=== PATIENT | male | born 1935 | race Caucasian/White ===

== ENCOUNTER 2019-11-11 14:47 | Outpatient (CLI) | payer MEDICARE, OTHER, SELFPAY ==
--- NOTE | 2019-11-11 | US_ITS ---
WS: [id number] ULTRASOUND RENAL TECHNIQUE: Ultrasound examination of both kidneys. CLINICAL INFORMATION: HEMATURIA COMPARISON: FINDINGS: RIGHT: Right nephrectomy LEFT: Several renal cysts the largest measuring 6.0 x 5.0 x 5.5 cm Left kidney is normal in size and appearance. Echogenicity: Normal. Hydronephrosis: None. Perinephric fluid: None. Left kidney measures: 12.5 cm x 6.1 cm x 6.4 cm. Normal visualized aorta. Bladder not well distended. Nodular enlarged prostate. Recommend correlation PSA. US/US renal BI* [id number] IMPRESSION: 1. Prior right nephrectomy. 2. Several simple left renal cysts largest measuring 6.0 x5.0 x 5.5 cm lower p ole left kidney. This appears enlarged compared to 2016. 3. Prostate enlargement. Recommend correlation PSA.
== END 2019-11-11 14:48 | disposition home or self-care (01) ==
LOC: RADOUTREAD 11-12 11:45
PROVIDERS: Family Provider Family Medicine; PCP Family Medicine; Visit Provider Nurse Practitioner Family
DX: Z76.89 Persons encountering health services in other specified circumstances (principal)

== ENCOUNTER → 2019-11-22 09:53 | Outpatient (BNVA) | payer MEDICARE, OTHER, SELFPAY | PROVIDERS: Family Provider Family Medicine; PCP Family Medicine; Visit Provider Urology | DX: R33.8 Other retention of urine (principal); N39.9 Disorder of urinary system, unspecified; N42.1 Congestion and hemorrhage of prostate | CPT/HCPCS: 81001 ==

== ENCOUNTER → 2020-02-25 13:27 | Outpatient (BNVA) | payer MEDICARE, OTHER, SELFPAY | PROVIDERS: Family Provider Family Medicine; PCP Family Medicine; Visit Provider Urology | DX: N40.1 Benign prostatic hyperplasia with lower urinary tract symptoms (principal); N39.9 Disorder of urinary system, unspecified | CPT/HCPCS: 81001 ==

== ENCOUNTER 2020-07-20 13:29 | Outpatient (CLI) | payer MEDICARE, OTHER, SELFPAY ==
--- NOTE | 2020-07-20 13:35 | CT_ITS ---
WS: [id number] CT CHEST TECHNIQUE: Noncontrast CT of the chest with coronal and sagittal reformatted images. CLINICAL INFORMATION: LUNG NODULE COMPARISON: CT chest August 05, 2013 and PET/CT August 14, 2013 DLP: 903.[address] scans at [facility] use at least one of these dose optimization techniques: automat ed exposure control; mA and/or kV adjustment per patient size (includes targeted exams where dose is matched to clinical indication); or iterative reconstruction. FINDINGS: Interval increase in size of the left lung apex mass today measuring 4.1 x 3.6 x 3.8 cm compatible wi th neoplasm. Surrounding spiculation. Small amount of surrounding infiltrate. Additional satellite no dule left upper lobe measuring 5 mm. Left upper lobe mass appears to connect to the left hilum with l eft hilar lymphadenopathy. Left hilar lymphadenopathy measures 2.3 CM. Right lung is well aerated. Ch ronic emphysematous changes. Slight atelectasis in the lung bases. Aortic calcification. Coronary bharat cification. No axillary lymphadenopathy. Cholelithiasis. Normal GE junction. Partially visualized left renal cyst. Moderate thoracic kyphosis. Ankylosis thoracic spine. CT/CT chest wo con [id number] IMPRESSION: 1. Interval increase of the left upper lobe mass today measuring 4.1 x 3.6 x 3 .8 cm most compatible with neoplasm. This can be further evaluated PET/CT. 2. Left upper lobe mass appears to extend to the left hilum with left hilar ly mphadenopathy measuring 2.3 cm. 3. Left upper lobe satellite nodule measuring 4.6 mm. 4. Cholelithiasis. 5. Partially visualized left renal cysts.
== END 2020-07-20 13:30 | disposition home or self-care (01) ==
LOC: RADWPI 13:34
PROVIDERS: Family Provider Family Medicine; PCP Family Medicine; Visit Provider Family Medicine
DX: R91.1 Solitary pulmonary nodule (principal); Q61.02 Congenital multiple renal cysts; K80.20 Calculus of gallbladder without cholecystitis without obstruction; R91.8 Other nonspecific abnormal finding of lung field
CPT/HCPCS: 71250

== ENCOUNTER 2020-07-31 09:23 | Outpatient (CLI) | payer MEDICARE, OTHER, SELFPAY ==
--- NOTE | 2020-07-31 14:24 | ONC CON_ITS ---
Dr. Giordano New Patient Note Patient: Diego Garzon Unit #: [id number]: [id number] Dicatated By: Josh Giordano M.D.Date of Visit: Jul 31, 2020 Onc MED New Patient/Consult Referring Physician: Dr. Toni Strauss M.D. Dr. Marco Antonio Cantrell M.D. Chief Complaint: Lung cancer. History of Present Illness: This is an 85-year-old man with CT evidence of a left upper lobe lung mass, presumed malignant. 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 By the current TNM criteria, his disease was Stage IA3 (T1c, N0, M0). He received no further treatment. At that time, his PET/CT had also shown an FDG avid right renal mass, for which he underwent right nephrectomy in October 2012. It apparently was a renal cell carcinoma, though that pathology is not available to me at this time. On 07/10/2020 he was seen by Dr. Strauss with new onset of hemoptysis. His chest CT on 07/20/2020 showed a left upper lobe mass measuring 4.1 x 3.6 x 3.8 cm. An additional satellite nodule in the left upper lobe measured 5 mm. The mass appeared to connect to the left hilum with left hilar adenopathy measuring 2.3 cm. There was no evidence of other metastatic disease. He is seen now for further management. In talking with the patient and his daughter, it does appear that he has had gradual decline in his activity tolerance/performance status since at least February. He says he is not able to do much because he cannot get air. His ECOG score is 2. He still has good appetite, and his weight is stable. He does not have fever or night sweats. He complains that he is freezing all the time. He is short of breath with any activity. He continues to have cough, but his hemoptysis has resolved. He has been having some pain in the right chest. Recently has been having some loose stools. He has no other GI complaints. He had seen Dr. Cantrell in October because of hematuria, but that resolved. Bladder function is otherwise been okay. He complains of having pain all over. The worst is in his back and legs. He describes having burning and tingling in his legs and feet. Past Medical History: His medical history includes a history of lung cancer and renal cell cancer, benign prostatic hypertrophy, degenerative arthritis, hyperlipidemia, hypertension, and type II diabetes. Past Surgical History: His surgical/procedural history includes right nephrectomy in 2012, right upper lobectomy with mediastinal lymphadenectomy in 2011, and TURP in 1992. Medications: Finasteride 1 (5 mg) Tablet Oral at bedtime, Furosemide 1 (40 mg) Tablet Oral b.i.d., Metoprolol Tartrate 1 (100 mg) Tablet Oral b.i.d., Potassium Chloride 1 (10 meq) Capsule, controlled release Oral daily, Simvastatin 1 (40 mg) Tablet Oral at bedtime, Zolpidem Tartrate 1 (10 mg) Tablet Oral at bedtime Allergies: No Known Allergies. Social History: Mr. Garzon is . He has a history of smoking 2 packs of cigarettes daily for about 45 years. He quit smoking in 2000. He does not drink alcohol. He had some alcohol use in the past, but never heavy. Family History: Father of stomach cancer at age 56. Mother of stroke at age 86. He had a total of 7 siblings, all of whom are . One sister and one brother of lung cancer and another sister of liver cancer. Another brother had heart disease. Review Of Symptoms: Constitutional - He has very limited activity. Appetite is good and weight is stable. No fever or night sweats. He does complain that he feels cold all the time. ECOG score is 0, Eyes - No change in vision, ENMT - He has sinus congestion/drainage. No mouth sores. No sore throat or difficulty swallowing, Hematologic/Lymphatic - He has easy bruising, Respiratory - He has shortness of breath, which is severe enough to limit his activity. He still has cough, but not as much. He has had no further hemoptysis. He does have some pain in the right side of the chest, Cardiovascular - No angina pain. No palpitations, Gastrointestinal - No nausea or vomiting. No heartburn or acid reflux. Recently has been having some loose stools. No blood in the stool or black stools, Genitourinary (M) - He had seen Dr. Óscar truong in October for blood in the urine. He has had no problems since then, Musculoskeletal - He has generalized pain, but the worst is in the back and legs, Integumentary - No skin rash, Neurologic - He has had some headaches. He also complains of having lightheadedness. He has burning and tingling in his legs and feet, Psychiatric - He has had some depression since his in March. He sleeps okay with his medication. Vital Signs: Performed on Jul 31, 2020 10:14: 7, 30.10 (HIGH), 2.13 sq.m, 70.00 in, 98 %, 100 /min, 24 /min, 139/59 mm(hg), 98.3 F (LOW), 209.8 lbs (LOW), and Performed on Jul 13, 2012 10:57: 0. Physical Examination: Constitutional - He appears elderly and somewhat weak generally, Eyes - Sclerae nonicteric. Conjunctivae clear, ENMT - No lesions noted in the oral cavity, Neck - No mass or thyromegaly, Hematologic/Lymphatic - No cervical, clavicular, or axillary adenopathy, Respiratory - Lungs are clear with diminished air movement bilaterally, Cardiovascular - Heart rhythm is regular. There is a II/ systolic murmur. There is no gallop or rub noted, Abdomen - Soft. Liver and spleen are not enlarged. There is no abdominal mass or ascites noted and there is no inguinal adenopathy, Back/Spine - There is no bony tenderness in the spine. He does have limited mobility, particularly at the neck, Extremities - There are venous stasis changes in both legs and there is mild lower extremity edema. I am not able to palpate pedal pulses, but both feet are warm to touch. He has some chronic purpura on the arms, Integumentary - No rashes. No suspicious skin lesions noted, Neurologic - No focal neurologic deficits noted. Impression: 1. Patient with CT evidence of malignant appearing mass in the upper lobe of the left lung. There is associated left hilar adenopathy. He has been having hemoptysis, but that currently has resolved. He also has been showing decline in performance status. 2. In July 2012 he underwent right upper lobectomy/mediastinal lymphadenectomy for a T1c, N0 non-small cell carcinoma. He received no further treatment. 3. In October 2012 he underwent right nephrectomy for renal cell cancer. I do not have the pathology available. His other medical illnesses include: 4. Hypertension. 5. Hyperlipidemia. 6. Type 2 diabetes. 7. Degenerative arthritis. 8. Benign prostatic hypertrophy. 9. He has chronic venous stasis in the lower extremities. 10. He also appears to be having neuropathy pain in the lower extremities. Plan: The CT findings were reviewed with the patient and his daughter, we also reviewed the CT images. He has an obvious malignancy in the left upper lobe with associated left hilar node involvement. As his visit with Dr. Strauss, he was extremely reluctant to have any treatment. My main concern with that is the fact that he had presented with hemoptysis, and that is likely to be an ongoing problem if left untreated. As such, I did recommend seeing Dr. Travis for bronchoscopy and also having a staging PET/CT, as he potentially may benefit with palliative radiation. At this point he is agreeable, and I will get that scheduled. As he has been having significant issues associated with his lower extremity pain, he also will be given a prescription for gabapentin 300 mg 3 times daily. Signed By: Josh Giordano M.D. <<Signature on File>>
== END 2020-07-31 09:24 | disposition home or self-care (01) ==
LOC: ONCMED 09:26
PROVIDERS: PCP Family Medicine; Referring Provider Family Medicine; Visit Provider Internal Medicine Medical Oncology
DX: C34.12 Malignant neoplasm of upper lobe, left bronchus or lung (principal); C77.1 Secondary and unspecified malignant neoplasm of intrathoracic lymph nodes; R04.2 Hemoptysis; M79.605 Pain in left leg; M79.604 Pain in right leg; R20.2 Paresthesia of skin; I10 Essential (primary) hypertension; E78.5 Hyperlipidemia, unspecified; E11.9 Type 2 diabetes mellitus without complications; M19.90 Unspecified osteoarthritis, unspecified site; N40.0 Benign prostatic hyperplasia without lower urinary tract symptoms; I87.8 Other specified disorders of veins
CPT/HCPCS: 99205

== ENCOUNTER → 2020-08-04 14:46 | Outpatient (BNVA) | payer MEDICARE, OTHER, SELFPAY | PROVIDERS: PCP Family Medicine; Visit Provider Internal Medicine Critical Care Medicine | DX: Z11.59 Encounter for screening for other viral diseases (principal); N42.1 Congestion and hemorrhage of prostate | CPT/HCPCS: 87635 ==

== ENCOUNTER 2020-08-07 05:46 | Day surgery (SDC) | payer MEDICARE, OTHER, SELFPAY ==
[2020-08-06 17:11] VITALS: BMI 30.7
[2020-08-07] VITALS (7 sets, daily range): BP systolic 125–139; BP diastolic 64–85; PULSE 88–105; RESP 16–22; TEMP 36.5–36.7; O2SAT 93–100
--- NOTE | 2020-08-07 | CT_ITS ---
Guided Bronchoscopy Planning CT images; total exam DLP: 796.34 mGy-cm MTDD
[2020-08-07] MEDS: sodium chloride 0.9% 1,000 ML 30 ML IV (06:35)
--- NOTE | 2020-08-07 06:41 | ECG_ITS ---
[facility] Test Date: 2020-08-07 Pat Name: Diego Garzon Department: Room: Gender: Male Online Journalist: : 1935 Requested By: Ghazal Aquino Order Number: [id number] Shannan MD: Brent Polanco M.D. Measurements Intervals [place] Rate: 74 P: OR: -1 QRS: -1 QRSD: 85 T: 30 QT: 402 QTc: 447 Interpretive Statements ATRIAL FIBRILLATION ABNORMAL RHYTHM ECG No previous ECG available for comparison Electronically Signed On 08-07-2020 19:58:50 TROMPER by Brent Polanco M.D. [id number]
--- NOTE | 2020-08-07 06:46 | W.PM.OPSUD ---
Surgery/Procedure H&P Update DATE OF PROCEDURE: August 07, 2020 DATE H&P PERFORMED: 08/04/20 H&P UPDATE INFORMATION: I have reviewed H&P completed within last 30 days, I have examined patient prior to procedure and No changes to prior documentation PREOP DIAGNOSIS: Lung cancer PLANNED PROCEDURE: Bronchoscopy with inspection of the airway, possible endobronchial biopsy, bronchoalveolar lavage, navigational bronchoscopy guided transbronchial needle biopsy of the left upper lobe lung mass, fine-needle aspiration and Cytobrush, endobronchial sound guided transbronchial needle aspiration of lymph nodes. Operation Date: 08/07/20 07:00 Proposed Procedures p Bronchoscopy R91.1 72987(Not Applicable) - Hayden Travis MD s Ebus R91.1 27222(Not Applicable) - Hayden Travis MD
--- NOTE | 2020-08-07 07:01 | P.ANESASSM_ITS ---
Pre-Anesthetic Assessment Pre-Anesthetic Assessment: Height/Weight: Height 1.78 m Weight 97.069 kg Temp Pulse Resp BP Pulse Ox 97.7 F 89 18 127/66 94 08/07/20 06:04 08/07/20 06:04 08/07/20 06:04 08/07/20 06:04 08/07/20 06:04 Preop Diagnosis: Lung cancer Proposed Procedure: Operation Date: 08/07/20 07:00 Proposed Procedures p Bronchoscopy R91.1 27492(Not Applicable) - Hayden Travis MD s Ebus R91.1 06346(Not Applicable) - Hayden Travis MD s Veran(Not Applicable) - Hayden Travis MD Last intake: Intake Last Liquid Date 08/06/20 Last Liquid Time 21:00 Last Solid Date 08/06/20 Last Solid Time 18:00 Social: Social History: No alcohol and No tobacco Packs per day: Previous smoker; quit 2001 Exam: Pre-Anes Outpt Exam: alert and oriented x 3 Additional Exam Findings (including area of procedure): Markedly diminished BS bilaterally Irregularly irregular S1, S2; no murmurs, gallops or rubs Airway: Submandibular: WNL Cervical ROM: WNL MP: 2 Dentition: False Pulmonary: Pulmonary: COPD, Cough, CHANG, PND and SOB CV/HEM: CV/HEM: CAD, CHF, HTN and PVD : : Chronic renal Insufficiency Hepatic: Hepatic: None reported GI: GI: None reported Metabolic: Metabolic: Hyperlipidemia Musc/skel: Musc/skel: Weakness Neuropsych: Neuropsych: None reported Anesthetic Plan: ASA status: 4 Anesthesia: General Meds/Allergies Current Medications: Current Medications Generic Name Dose Route Start Last Admin Trade Name Freq PRN Reason Stop Dose Admin Sodium Chloride 1,000 mls @ 30 ml s/hr 08/07/20 06:00 08/07/20 06:35 Sodium Chloride 0.9% IV 08/08/20 05:59 30 mls/hr .Q24H RICKY Administration PFSH Anesthesia PFSH: Medical History (Updated 08/04/20 @ 15:07 by Hayden Travis MD) Arthritis Benign prostatic hyperplasia BPH loc w urin obs/LUTS Chronic venous stasis H/O cataract bilateral cataract surgery Hilar adenopathy HTN (hypertension) Hyperlipidemia Lung cancer Prostatic hemorrhage Renal cell cancer Surgical History (Updated 08/04/20 @ 15:01 by Hayden Travis MD) H/O right nephrectomy H/O transurethral resection of prostate History of lobectomy of lung History of nephrectomy, right S/P TURP Status post lung surgery Family History (Updated 08/04/20 @ 14:43 by Danyelle Pastrana LPN) Father , 58 Cancer Mother , 80 Stroke Diabetes Family/Other Cancer lung, liver Diabetes Hypertension Brother Cancer Lung CAD (coronary artery disease) Sister Cancer Liver Social History Smoking and tobacco status: former smoker Quit status (tobacco): has quit using tobacco Year quit tobacco: 2000-Hx of 2PP Dx 45 Years Alcohol intake: never Lives independently: Yes Household members: none Marital status: / Current occupational status: retired History of recent travel: No Current gender identity: Male Data Anesthesia Cardiac Studies: No Data to Display
[2020-08-07 07:25] LABS: Basophils # 0.1 10^3/uL (0.0-0.1); Basophils % 0.5 %; Eosinophils # 0.3 10^3/uL (0.0-0.8); Eosinophils % 3.3 %; Hematocrit 41.2 % (42.0-52.0); Hemoglobin 12.8 g/dL (11.7-16.6); Lymphocytes # 0.8 10^3/uL (0.8-4.8); Lymphocytes % 8.7 %; Mean Corpuscular HGB Conc 31.1 g/dL (30.0-36.0); Mean Corpuscular Hemoglobin 29.3 pg (28.0-34.0); Mean Corpuscular Volume 94.3 fL (80-94); Mean Platelet Volume 11.3 fL (7.4-10.4); Monocytes # 1.1 10^3/uL (0.2-0.9); Monocytes % 11.4 %; Neutrophils # 7.14 10^3/uL (1.8-7.7); Neutrophils % 74.2 %; Nucleated Red Blood Cells % 0 %; Platelet Count 125 10^3/cmm (130-400); Red Blood Count 4.37 10^6/uL (4.1-5.3); Red Cell Distribution Width 15.3 % (12.1-15.1); White Blood Count 9.6 10^3/uL (4.0-10.0)
[2020-08-07 07:40] LABS: Anion Gap 16.3 (5-19); Blood Urea Nitrogen 52 mg/dL (8-23); Calcium 9.1 mg/dL (8.5-10.5); Carbon Dioxide 27 mmol/L (22-29); Chloride 100 mmol/L (98-107); Glucose 116 mg/dL (65-115); Osmolality Calculated 301 mOsm/kg (285-295); Potassium 5.3 mmol/L (3.5-5.1); Sodium 138 mmol/L (136-145)
[2020-08-07] MEDS: lidocaine 1% INJ 20 mL XX (08:10)
[2020-08-07 08:48] LABS: Slide Review Slide Review Perform
--- NOTE | 2020-08-07 08:56 | PM.OP ---
Operative Report Date of procedure: August 07, 2020 Pre-op Diagnosis: Lung cancer Post-op diagnosis: same Brief History: This is an 85-year-old gentleman with previous history of right upper lobe lung cancer status post right upper lobectomy now coming in for bronchoscopic evaluation for left upper lobe lung mass. Procedure: Name of the procedure: Bronchoscopy with inspection of the airway, navigational bronchoscopy guided transbronchial biopsies of left upper lobe lung mass, fine-needle aspiration Indication: Suspected lung cancer Anesthesia: General anesthesia. Local anesthesia: The maya in the right and left mainstem bronchi were anesthetized with 1% lidocaine, 3 mL. Description of the procedure: The procedure was explained to the patient and the consent was obtained. The patient was brought to the OR. The patient underwent endotracheal intubation for general anesthesia. Following induction of general anesthesia, the bronchoscope was advanced through the ET tube. The lower trachea appeared to be mildly erythematous, no endotracheal lesion was seen. The maya was sharp. The maya, the right and left mainstem bronchi are anesthetized with 1% lidocaine. In a systematic manner bilateral bronchial tree was then examined. The bronchoscope was advanced into the left mainstem bronchus. There was mild erythema and mucus. The left upper lobe, lingula and left lower lobe bronchi were examined up to the third subsegmental level and no abnormalities were identified. There was no endobronchial lesion, active bleeding or mucous plug. The bronchoscope was then introduced into the right mainstem bronchus. The right upper lobe was absent from previous surgical intervention.the right middle lobe and right lower lobe bronchi were examined up to the third subsegmental level and no abnormalities were identified. There was airway erythema and mucus throughout the lung. Using navigational bronchoscopy transbronchial biopsies were obtained from the left upper lobe lung mass. Fine-needle aspirations were also performed. Samples: 1. Transbronchial biopsies are sent for histopathology. 2. The FNA were sent for cytology and histopathology. The EBUS was not performed as the patient would not be a surgical candidate and we predominately needed the diagnosis. Complications: There was no immediate complications.
--- NOTE | 2020-08-07 11:13 | PTH.EBUS ---
Endobronchial Ultrasound Specimen(s): Lung, left upper lobe, fine-needle aspiration biopsy. Gross: The specimen is received on a slide labeled with the patient's name and MRN number and consists of a 1 mm tissue for rapid onsite evaluation prepared with 2 Diff-Quik stained slides. Preliminary Impression: Lung, left upper lobe , fine-needle aspiration biopsy: ?Atypical clusters, Suspicious for malignancy. - Specimen Information Pathologist: Cam Mendoza Date: 08/07/20 Specimen reported at what time: 08:15 - Clinician Specimen collection time: 08:10 Clinician reported to: Hayden Travis
--- NOTE | 2020-08-07 14:35 | ANE.PACU2 ---
Inpatient post-anesthesia follow up: Airway intact: Yes Vital signs: Temperature 98.0 F Pulse Rate 93 Respiratory Rate 20 Blood Pressure 125/67 Pulse Oximetry 93 Oxygen Delivery Me thod Room Air Oxygen Flow Rate 6 Fraction of Inspir ed Oxygen Hydration adequate: Yes Nausea and vomiting: No Pain level: 2 Mental status: Baseline
== END 2020-08-07 09:50 | disposition home or self-care (01) ==
PROVIDERS: Anesthesiology; PCP Family Medicine; Visit Provider Internal Medicine Critical Care Medicine
PROC: 0BJ08ZZ Inspection of Tracheobronchial Tree, Via Natural or Artificial Opening Endoscopic (ICD-10-PCS; CPT 31622; principal; 2020-08-07 07:00)
PROC: 0BJ08ZZ Inspection of Tracheobronchial Tree, Via Natural or Artificial Opening Endoscopic (ICD-10-PCS; CPT 31622; 2020-08-07 07:00)
DX: R91.8 Other nonspecific abnormal finding of lung field (principal); Z87.891 Personal history of nicotine dependence; J44.9 Chronic obstructive pulmonary disease, unspecified; I25.10 Atherosclerotic heart disease of native coronary artery without angina pectoris; I13.0 Hypertensive heart and chronic kidney disease with heart failure and stage 1 through stage 4 chronic kidney disease, or unspecified chronic kidney disease; I50.9 Heart failure, unspecified; N18.9 Chronic kidney disease, unspecified; I73.9 Peripheral vascular disease, unspecified; E78.5 Hyperlipidemia, unspecified; Z85.118 Personal history of other malignant neoplasm of bronchus and lung; Z85.528 Personal history of other malignant neoplasm of kidney; Z90.5 Acquired absence of kidney; Z90.2 Acquired absence of lung [part of]
CPT/HCPCS: 12345; 31625; 31627; 77011; 80048; 80500; 85025; 88173; 88305; 93005; J2370; J2405; J2710; J3490; J7030

== ENCOUNTER 2020-08-09 17:27 | Emergency (ER) | payer MEDICARE, OTHER, SELFPAY ==
[2020-08-09 17:35] VITALS: BP 119/67; PULSE 114; RESP 24; TEMP 36.5; O2SAT 92; BMI 30.7
--- NOTE | 2020-08-09 17:41 | ECG_ITS ---
[facility] Test Date: 2020-08-09 Pat Name: Diego Garzon Department: Room: Gender: Male Shot Blaster: : 1935 Requested By: Aby Gaffney Order Number: [id number] Shannan MD: Bianca Liang M.D. Measurements Intervals [place] Rate: 109 P: [place]: -1 QRS: 3 QRSD: 92 T: 42 QT: 339 QTc: 457 Interpretive Statements ATRIAL FIBRILLATION WITH RAPID VENTRICULAR RESPONSE SEPTAL MYOCARDIAL INFARCTION [40+ ms Q WAVE IN V1/V2], OF INDETERMINATE AGE Compared to ECG 08/07/2020 06:46:48 Myocardial infarct finding now present Electronically Signed On 08-09-2020 21:15:35 CHILLER OPERATOR by Bianca Liang M.D. [id number]
--- NOTE | 2020-08-09 18:04 | XRR_ITS ---
PROCEDURE INFORMATION: Exam: XR Chest, 1 View Exam date and time: 08/09/2020 6:19 PM Age: 85 years old Clinical indication: Mass, lump, or swelling in the chest; Additional info: SOB TECHNIQUE: Imaging protocol: XR of the chest Views: 1 view. COMPARISON: CT chest wo con [id number] 07/20/2020 1:43 PM FINDINGS: Lungs: Again note of the left upper lobe lung carcinoma measuring approximately 51 mm in diameter. Pleural space: Unremarkable. No pleural effusion. No pneumothorax. Heart/Mediastinum: Left hilar fullness most likely hilar lymphadenopathy. Cardiomegaly with arteriosclerosis. Bones/joints: Unremarkable for age. Other findings: Heavy body habitus. XR/XR chest 1V portable [id number] IMPRESSION: 1. Again note of the left upper lobe lung carcinoma measuring approximately 51 mm in diameter. 2. Left hilar fullness most likely tumor lymphadenopathy. 3. Cardiomegaly with arteriosclerosis.
--- NOTE | 2020-08-09 18:30 | ED_ITS ---
HPI - Male Genitourinary General: Chief complaint: Urogenital-Male Stated complaint: difficulty w/ bm Time Seen by Provider: 08/09/20 17:49 History of Present Illness: HPI Narrative: This patient is an 85-year-old male who presents today with difficulty urinating. He has not been able to urinate well in several days. He has not been able to go normally in quite some time. He said Monday he had a bronchoscopy done and ever since then he has been having just dribbling urination. He is having pressure and pain across his lower abdomen. He denies dysuria. He has no blood in the urine. He has previously had problems with blood in the urine, prostate issues, renal issues. He follows up with Dr. Cantrell. He has had a nephrectomy due to renal cancer. He also has had surgery on his left lung for lung cancer. He has had another mass more recently discovered and had a biopsy during the bronchoscopy on Monday. He is only interested in palliative care of the lung cancer. Apparently he was also found to have A. fib at that time. He is not on any blood thinners. He also notes that he has been having trouble having a bowel movement since he started having the problems with his bladder. He has swelling in his legs which she said is chronic and unchanged. He is able to ambulate with assistance. He does have increased shortness of breath. MD Complaint: other (Unable to urinate) Onset (ago): day(s) (2) Duration: constant Location: abdomen Radiation: abdomen Severity: moderate Quality: sharp Relieving factors: none Exacerbating factors: palpation Associated symptoms: Reports urinary retention; Deny dysuria, fevers/chills, hematuria or nausea Review of Systems General: Reports: 10 or more systems reviewed and unremarkable except in HPI and below Const: Reports: fatigue; Denies: fever(s), chills or malaise Eyes: Denies: change in vision ENMT: Denies: odynophagia Card: Reports: irregular heart rhythm, swelling of feet/ankles and dyspnea on exertion; Denies: chest pain Resp: Reports: dyspnea and hemoptysis; Denies: productive cough or non-productive cough GI: Denies: nausea : Reports: difficulty urinating and urinary dribbling; Denies: dysuria or hematuria Musc: Denies: neck pain or back pain Skin/Breast: Denies: rash Neuro: Denies: headache(s), numbness in extremities or weakness in extremities Karlos/Lymph: Denies: easy bruising or easy bleeding PFSH ED PFSH: Medical History Arthritis Benign prostatic hyperplasia BPH loc w urin obs/LUTS Chronic venous stasis H/O cataract bilateral cataract surgery Hilar adenopathy HTN (hypertension) Hyperlipidemia Lung cancer Prostatic hemorrhage Renal cell cancer Surgical History H/O right nephrectomy H/O transurethral resection of prostate History of lobectomy of lung History of nephrectomy, right S/P TURP Status post lung surgery Family History Father , 58 Cancer Mother , 80 Stroke Diabetes Family/Other Cancer lung, liver Diabetes Hypertension Brother Cancer Lung CAD (coronary artery disease) Sister Cancer Liver Social History Smoking and tobacco status: former smoker Quit status (tobacco): has quit using tobacco Year quit tobacco: 2000-Hx of 2PPDx 45 Years Alcohol intake: never Lives independently: Yes Household members: none Marital status: / Current occupational status: retired History of recent travel: No Current gender identity: Male Physical Exam Const: COMMON NORMALS: no acute distress, patient oriented x3, no limitations and alert GENERAL APPEARANCE: cooperative HENMT: HEAD & SCALP: normal to inspection FACE & SINUS: normal facial exam Eye: GENERAL EYE: appearance normal, both eyes and all related structures Neck/C-Spine: COMMON NORMALS: supple, no meningeal signs and no JVD Chest: COMMONS NORMALS: normal inspection of the chest Resp: COMMON NORMALS: normal respiratory effort, No use of accessory muscles and clear to auscultation bilaterally AUSCULTATION: clear to auscultation bilaterally Cardio: COMMON NORMALS: no JVD, regular rate, regular rhythm and No murmurs present (Cardio) RATE: regular rate RHYTHM: regular rhythm GI: COMMON NORMALS: Normal to inspection, nondistended, normoactive bowel sounds present INSPECTION: Yes normal to inspection AUSCULTATION: Yes normoactive bowel sounds PALPATION: Yes Tenderness to palpation present (GI) (Suprapubic) Back/Pelvis: COMMON NORMALS: thoracic and lumbar spine normal to inspection Extremity: COMMON NORMALS: normal to inspection Neuro: COMMON NORMALS: patient oriented x3, moves all extremities, no focal motor deficits and no sensory deficits noted SENSORIUM/ORIENTATION: Yes alert MENINGEAL SIGNS: Yes no meningeal signs Psych: COMMON NORMALS: mental status grossly normal, cooperative and normal affect Skin: COMMON NORMALS: no rashes or lesions noted and turgor normal GENERAL SKIN EXAM: no rashes or lesions noted and turgor normal Course ED course: Patient refused labs. He said he is only here for urinary retention and just wants a Wang placed. He has had labs in preparation for his procedure on Monday and is under close monitoring by multiple physicians. He is already being worked up for the atrial fibrillation and the cancers. I am okay with him not getting a big work-up in the ED tonight. He put about 1200 cc of urine out in the catheter. Urine was not infected. He will follow-up with Dr. Cantrell and continue his work-up with his other physicians as well. Vital Signs: Vital signs: Vital Signs Temperature 97.7 F 08/09/20 17:35 Pulse Rate 79 08/09/20 20:20 Respiratory Rate 18 08/09/20 20:20 Blood Pressure 134/86 08/09/20 20:20 Pulse Oximetry 99 08/09/20 20:20 MDM - Male Lab Data: Labs: Lab Results 08/09/20 Range/Units 19:50 Urine Color Yellow (Yellow) Urine Appearance Clear (CLEAR) Urine pH 5 (5-7) Ur Specific Gravit y 1.010 (1.005-1.030) Urine Protein Neg (Negative) Urine Glucose (UA) Norm (Normal) Urine Ketones Negative (Negative) Urine Blood 2+ H (Negative) Urine Nitrate Negative (Negative) Urine Bilirubin Neg (Negative) Urine Urobilinogen Norm (Negative) mg/dL Ur Leukocyte Nataliya ase Negative (Negative) Urine RBC 0-4 H (0-2) /hpf Urine WBC 0-4 H (0-5) /hpf Ur Squamous Epith Cells 0-4 H (0-5) /hpf Amorphous Sediment Not Reportable Urine Bacteria Trace (NONE) /hpf Discharge Plan Discharge Patient Disposition: Home Clinical Impression: Acute retention of urine Condition: Stable Prescriptions: No Action zolpidem 10 mg tablet 10 mg PO .hs RF: 0 potassium chloride 10 mEq capsule, extended release 10 meq PO DAILY RF: 0 simvastatin 40 mg tablet 40 mg PO DAILY RF: 0 furosemide 40 mg tablet 40 mg PO DAILY RF: 0 metoprolol succinate 200 mg tablet extended release 24 hr 100 mg PO DAILY RF: 0 gabapentin 300 mg capsule 300 mg PO TID RF: 0 albuterol sulfate 90 mcg/actuation HFA aerosol inhaler 2 puff inhalation Q6H PRN (Reason: sob) RF: 0 finasteride 5 mg tablet 5 mg PO QDAY Qty: 90 RF: 3 spironolactone 25 mg tablet 25 mg PO DAILY RF: 0 Discharge Orders: Discharge Order (Routine); Ordered 08/09/20 Ordered By: Terra Andrews Referrals: Marco Antonio Cantrell MD [Physician] - Toni Strauss MD [Primary Care Provider] - Discharge Diet: Usual diet Discharge Activity: Resume usual activity Patient Instructions: Urinary Retention in Men (ED), Wang Catheter Placement and Care (ED) Activity Restrictions/Additional Instructions: Follow-up with Dr. Cantrell to have the catheter removed and further treatment for your urinary retention. Coding Level of Care Code ED Wire Stockkeeper for Morag Fwd Exam Comprehensive
[2020-08-09 20:01] LABS: Glucose Urine UA Norm (Normal); Ketones Urine Negative (Negative); Protein Urine Neg (Negative); Urine Appearance Clear (CLEAR); Urine Color Yellow (Yellow); pH Urine 5 (5-7)
[2020-08-09 20:02] LABS: Add Urine Microscopic? YES; Bilirubin Urine Neg (Negative); Blood Urine 2+ (Negative); Leukocyte Esterase Urine Negative (Negative); Nitrate Urine Negative (Negative); Urobilinogen Urine Norm (Negative)
[2020-08-09 20:20] VITALS: BP 134/86; PULSE 79; RESP 18; O2SAT 99
[2020-08-09 20:23] LABS: Add Urine Culture? No; Bacteria Urine TRACE /hpf; RBC Urine 0-4 /hpf (0-2); Squamous Epithelial Cell Urine 0-4 /hpf (0-5); WBC Urine 0-4 /hpf (0-5)
--- NOTE | 2020-08-13 14:30 | DCPLANNER ---
brokerage office manager had message to schedule a follow up appointment for patient with Dr. Lindo office. brokerage office manager spoke with Odalis, gave clinic patients information. brokerage office manager was told that patients information would be printed and reviewed. Clinic will call patient with appointment information.
--- NOTE | 2020-08-14 11:22 | DCPLANNER ---
Patient has a follow up appointment scheduled for Monday, August 24, 2020 at 2:[address] Cantrell. Clinic will call patient with appointment information.
--- NOTE | 2020-08-26 14:40 | DCPLANNER ---
Patient had an appointment scheduled for 08.24.[address] Cantrell, appointment was cancelled patient went to primary care physician.
== END 2020-08-09 20:21 | disposition home or self-care (01) ==
PROVIDERS: Emergency Provider Emergency Medicine; PCP Family Medicine
DX: R33.9 Retention of urine, unspecified (principal); I10 Essential (primary) hypertension; E78.5 Hyperlipidemia, unspecified; Z85.118 Personal history of other malignant neoplasm of bronchus and lung; Z85.528 Personal history of other malignant neoplasm of kidney; Z90.5 Acquired absence of kidney; Z90.2 Acquired absence of lung [part of]; Z90.79 Acquired absence of other genital organ(s); Z87.891 Personal history of nicotine dependence
CPT/HCPCS: 12345; 51702; 71045; 81001; 93005; 99281; 99283

== ENCOUNTER 2020-08-26 11:18 | Emergency (ER) | payer MEDICARE, OTHER, SELFPAY ==
[2020-08-26 11:42] VITALS: BP 119/65; PULSE 96; RESP 18; TEMP 36.7; O2SAT 95; BMI 30.1
--- NOTE | 2020-08-26 11:46 | CT_ITS ---
WS: [id number] CT CERVICAL SPINE HISTORY: fall TECHNIQUE: Contiguous 2.5 mm axial imaging performed through the entire cervical spine. Sagittal and coronal reformats also performed. All CT scans at [facility] use at least one of these do se optimization techniques: automated exposure control; mA and/or kV adjustment per patient size (inc ludes targeted exams where dose is matched to clinical indication); or iterative reconstruction. DLP: 995.44 mGy.cm COMPARISON: 07/08/2012. Quality of this examination is compromised by patient's marked curvature of the cervical spine and fl exion. Severe osteopenia. Seen best on the sagittal reformats and the coronal reformats is a nondisplaced acute-appearing fract ure extending through the LEFT C7 superior articular facet. The C7 vertebral body demonstrates anteri or wedging which is new since 2012 by approximately 50%. There is also a lucency through the RIGHT salomon perior C7 facet which is nondisplaced. There is a small amount of air within the osteophyte bridging between C3 and C4. At times these osteophytes can become fracture. I cannot identify an acute fractu re line at this time. Facet joints are narrowed throughout with partial fusion across the facet joints in the vertebral bod ies. There are large bridging osteophytes. Patient has a known neoplasm in the LEFT upper lobe. This is incompletely visualized on this examinat ion with a maximum diameter of 3.[address]/CT cervical spin wo con* [id number] IMPRESSION: 1. Seen best on the sagittal and coronal reformats is a nondisplaced fracture through the superior facets of C7 that was not present in 2012. There is an old remote anterior compression fracture of C7. 2. Study significantly limited due to the marked flexion which the neck is hel d. Notified Aby Gaffney MD at 08/26/2020 1:13 PM.
--- NOTE | 2020-08-26 11:47 | W.ED.FALL ---
HPI - Fall General: Chief Complaint: Fall Stated Complaint: fall Time Seen by Provider: 08/26/20 11:43 Source: patient Mode of arrival: ambulatory Limitations: no limitations History of Present Illness: HPI Narrative: 85-year-old male who fell 5 days ago at home. He states he fell and landed directly on his neck. He states he had neck pain since then has been holding his head forward since then as well. He rates his pain a 3 out of 10 and states he does not have much range of motion either. He denies any other injuries with this fall. Denies hitting his head. Denies any loss conscious. complaint: fall Onset (ago): day(s) Associated symptoms-after fall: Reports neck pain; Denies abdominal pain, chest pain or headache(s) Review of Systems Const: Denies: fever(s), chills, body aches or change in appetite Eyes: Denies: blurry vision or eye discomfort ENMT: Denies: throat pain or dental pain Card: Denies: chest pain Resp: Denies: dyspnea GI: Denies: abdominal pain, nausea, vomiting or diarrhea : Denies: dysuria Musc: Reports: neck pain Skin/Breast: Denies: rash Neuro: Denies: headache(s) Psych: Denies: depression Karlos/Lymph: Denies: easy bruising All/Imm: Denies: urticaria PFSH ED PFSH: Medical History Arthritis Benign prostatic hyperplasia BPH loc w urin obs/LUTS Chronic venous stasis H/O cataract bilateral cataract surgery Hilar adenopathy HTN (hypertension) Hyperlipidemia Lung cancer Prostatic hemorrhage Renal cell cancer Surgical History H/O right nephrectomy H/O transurethral resection of prostate History of lobectomy of lung History of nephrectomy, right S/P TURP Status post lung surgery Family History Father , 58 Cancer Mother , 80 Stroke Diabetes Family/Other Cancer lung, liver Diabetes Hypertension Brother Cancer Lung CAD (coronary artery disease) Sister Cancer Liver Social History Smoking and tobacco status: former smoker Quit status (tobacco): has quit using tobacco Year quit tobacco: 2000-Hx of 2PPDx 45 Years Alcohol intake: never Lives independently: Yes Household members: none Marital status: / Current occupational status: retired History of recent travel: No Current gender identity: Male Physical Exam Const: COMMON NORMALS: no acute distress, patient oriented x3 and healthy appearing HENMT: COMMON NORMALS: normocephalic and atraumatic HEAD & SCALP: normocephalic and atraumatic Eye: COMMON NORMALS: Equal, round and reactive pupils present and EOMs intact bilaterally PUPIL: Yes Equal, round and reactive pupils present Neck/C-Spine: OTHER: Tender along cervical spine. Chest: COMMONS NORMALS: normal inspection of the chest and normal palpation of entire chest wall Resp: COMMON NORMALS: normal respiratory effort, No retractions, No use of accessory muscles and clear to auscultation bilaterally AUSCULTATION: clear to auscultation bilaterally Cardio: COMMON NORMALS: regular rate, regular rhythm and No murmurs present (Cardio) RATE: regular rate RHYTHM: regular rhythm GI: COMMON NORMALS: Normal to inspection, nondistended, normoactive bowel sounds present, Soft to palpation, non-tender and no masses PALPATION: Yes Soft to palpation Extremity: COMMON NORMALS: normal to inspection and full ROM Neuro: COMMON NORMALS: patient oriented x3, moves all extremities and no focal motor deficits Psych: COMMON NORMALS: mental status grossly normal, Normal thought process present and cooperative THOUGHT PROCESS: Normal thought process present Skin: COMMON NORMALS: no rashes or lesions noted and no wounds GENERAL SKIN EXAM: no rashes or lesions noted Course Vital Signs: Vital signs: Vital Signs Temperature 98.1 F 08/26/20 11:42 Pulse Rate 96 08/26/20 11:42 Respiratory Rate 18 08/26/20 11:42 Blood Pressure 119/65 08/26/20 11:42 Pulse Oximetry 95 08/26/20 11:42 MDM - Fall MDM Narrative: Medical decision making narrative: .patient presents with a cervical spine fracture from a fall he was unable to tolerate the MRI due to his severe flexion. I recommended transfer to place with a flexible coil. He refused. I did speak to spine surgeon Dr. Sanchez and informed him he could follow-up with him. I strongly recommended him wearing a c-collar as he had been refusing in the ER. He did take at home with him and stated that he would try to wear it. I informed him that without being transferred or wearing the c-collar he could suffer a severe cord injury and become paralyzed. He understands this and states he does not want to go in another hospital and just wants to stay here in [place]. He will follow up this week. He is return if worsening or if he changes his mind. Imaging Data^: Other CT: Radiologist's impression: [facility] [address] [place] [address] CT Scan Report Signed Patient: Diego Garzon Unit #: [id number] : 1935 Age/Sex: 85 / M ADM Date: 08/26/20 Loc: ER Room/Bed: Attending Dr: Ordering Provider/Ordering MD: Aby Gaffney MD Date of Service: 08/26/20 Procedure(s): CT cervical spin wo con* [id number] Accession Number(s): [id number] Report Number: [id number] WS: [id number] CT CERVICAL SPINE HISTORY: fall TECHNIQUE: Contiguous 2.5 mm axial imaging performed through the entire cervical spine. Sagittal and coronal reformats also performed. All CT scans at [facility] use at least one of these dose optimization techniques: automated exposure control; mA and/or kV adjustment per patient size (includes targeted exams where dose is matched to clinical indication); or iterative reconstruction. DLP: 995.44 mGy.cm COMPARISON: 07/08/2012. Quality of this examination is compromised by patient's marked curvature of the cervical spine and flexion. Severe osteopenia. Seen best on the sagittal reformats and the coronal reformats is a nondisplaced acute-appearing fracture extending through the LEFT C7 superior articular facet. The C7 vertebral body demonstrates anterior wedging which is new since 2011 by approximately 50%. There is also a lucency through the RIGHT superior C7 facet which is nondisplaced. There is a small amount of air within the osteophyte bridging between C3 and C4. At times these osteophytes can become fracture. I cannot identify an acute fracture line at this time. Facet joints are narrowed throughout with partial fusion across the facet joints in the vertebral bodies. There are large bridging osteophytes. Patient has a known neoplasm in the LEFT upper lobe. This is incompletely visualized on this examination with a maximum diameter of 3.[address]/CT cervical spin wo con* [id number] IMPRESSION: 1. Seen best on the sagittal and coronal reformats is a nondisplaced fracture through the superior facets of C7 that was not present in 2012. There is an old remote anterior compression fracture of C7. 2. Study significantly limited due to the marked flexion which the neck is held. Notified Aby Gaffney MD at 08/26/2020 1:13 PM. Discharge Plan Discharge Patient Disposition: Home Clinical Impression: Cervical spine fracture Qualifiers: Encounter type: initial encounter Cervical vertebra fracture level: C7 Fracture type: closed Condition: Stable Prescriptions: New Robaxin-750 750 mg tablet 750 mg PO Q6H Qty: 30 RF: 0 Naprosyn 500 mg tablet 500 mg PO BID PRN (Reason: pain) Qty: 20 RF: 0 No Action tamsulosin 0.4 mg capsule 0.4 mg PO DAILY 30 Days Qty: 30 RF: 2 budesonide [Pulmicort] 0.25 mg/2 mL suspension for nebulization 0.25 mg inhalation BID 30 Days Qty: 120 RF: 3 Perforomist 20 mcg/2 mL solution for nebulization 2 ml inhalation BID 30 Days Qty: 120 RF: 3 revefenacin 175 mcg/3 mL solution for nebulization 175 mcg inhalation DAILY 30 Days Qty: 90 RF: 3 zolpidem 10 mg tablet 10 mg PO BEDTIME RF: 0 potassium chloride 10 mEq capsule, extended release 10 meq PO DAILY RF: 0 simvastatin 40 mg tablet 40 mg PO DAILY RF: 0 furosemide 40 mg tablet 40 mg PO BID RF: 0 metoprolol succinate 200 mg tablet extended release 24 hr 100 mg PO DAILY RF: 0 gabapentin 300 mg capsule 300 mg PO TID RF: 0 albuterol sulfate 90 mcg/actuation HFA aerosol inhaler 2 puff inhalation QID PRN (Reason: Shortness Of Breath) RF: 0 spironolactone 25 mg tablet 25 mg PO DAILY RF: 0 Tylenol Extra Strength 500 mg Tablet 1,000 mg PO PRN RF: 0 Anoro Ellipta 62.5-25 mcg/actuation blister with device 1 inh INHALATION DAILY RF: 0 finasteride 5 mg tablet 5 mg PO DAILY RF: 0 Discharge Orders: Discharge ED (Routine); Ordered 08/26/20 Ordered By: Aby Gaffney Referrals: Blas Sanchez DO [Physician] - 1-3 days Toni Strauss MD [Primary Care Provider] - Discharge Diet: Advance as tolerated Discharge Activity: Resume usual activity Patient Instructions: Cervical Fracture (ED) Coding Level of Care Code ED Chainstitch Pants Outseamer for Chg Fwd Exam Comprehensive
--- NOTE | 2020-08-26 13:23 | PC.NURSE ---
patient has refused multiple attempts to put on c-collar. Informed patient that his neck was fractured and he could cause further damage. Emd informed .
[2020-08-26] MEDS: LORazepam 2 mg/mL INJ 1 mL 0.5 MG IM (15:09)
[2020-08-26 15:48] VITALS: BP 112/71; PULSE 94; RESP 18; O2SAT 98
--- NOTE | 2020-08-27 08:52 | DCPLANNER ---
assistant restaurant general manager had message to schedule a follow up appointment for patient with Dr. Sanchez at the ortho clinic. assistant restaurant general manager called the ortho clinic, spoke with Peggy, gave clinic patients information. assistant restaurant general manager was told that patient a follow up appointment scheduled for August at 1:[address] Sanchez, patient is aware of appointment.
--- NOTE | 2020-09-04 15:15 | DCPLANNER ---
Patient had a follow up appointment scheduled for 08.27.20 with ortho - patient did attend appointment.
== END 2020-08-26 15:51 | disposition home or self-care (01) ==
PROVIDERS: Emergency Provider Emergency Medicine; PCP Family Medicine
DX: S12.600A Unspecified displaced fracture of seventh cervical vertebra, initial encounter for closed fracture (principal); W19.XXXA Unspecified fall, initial encounter; I10 Essential (primary) hypertension; E78.5 Hyperlipidemia, unspecified; Z85.118 Personal history of other malignant neoplasm of bronchus and lung; Z85.528 Personal history of other malignant neoplasm of kidney; Z90.5 Acquired absence of kidney; Z90.2 Acquired absence of lung [part of]; Z87.891 Personal history of nicotine dependence
CPT/HCPCS: 12345; 72125; 96372; 99281; 99283; J2060

== ENCOUNTER → 2020-08-27 14:00 | Outpatient (BNVA) | payer MEDICARE, OTHER, SELFPAY | PROVIDERS: PCP Family Medicine; Visit Provider Orthopaedic Surgery | DX: Z20.828 Contact with and (suspected) exposure to other viral communicable diseases (principal) | CPT/HCPCS: 87426 ==

== ENCOUNTER 2020-08-28 19:42 | Inpatient (IN) | payer MEDICARE, OTHER, SELFPAY ==
[2020-08-27 17:37] VITALS: BMI 29.8
[2020-08-28] VITALS (19 sets, daily range): BP systolic 118–135; BP diastolic 70–86; PULSE 84–105; RESP 16–36; TEMP 35.7–36.6; O2SAT 92–100
--- NOTE | 2020-08-28 | XR_ITS ---
WS: [id number] XR cervical spine 1V 81381 REASON FOR EXAM: C7 FX-FUSION FINDINGS: Single AP view of the cervicothoracic junction, intraprocedural. Multiple bilateral pedicle screws are seen above, at, and below the cervicothoracic junction. XR/XR cervical spine 1V 99147 IMPRESSION: Multiple pedicle screw placement as above.
--- NOTE | 2020-08-28 | SCC_ITS ---
Procedure Done: 1. C3-T2 PSF 27.6 seconds of fluoroscopic guidance, for a cumulative dose of 2.10 mGy, was provided to Dr. Sanchez by the radiology department. C-arm images of the cervical spine were saved for the patient's permanent record. [facility]
[2020-08-28] MEDS: sodium chloride 0.9% 1,000 ML 30 ML IV (11:30)
[2020-08-28] MEDS: gabapentin 300 mg Capsule PO ×2 (11:30→22:22)
--- NOTE | 2020-08-28 11:45 | ANES.PREANE2 ---
Pre-Anesthetic Assessment Pre-Anesthetic Assessment: Height/Weight: Height 1.78 m Weight 94.347 kg Temp Pulse Resp BP Pulse Ox 97.9 F 92 18 118/70 98 08/28/20 11:17 08/28/20 11:17 08/28/20 11:17 08/28/20 11:17 08/28/20 11:17 Preop Diagnosis: C7 fracture Proposed Procedure: Operation Date: 08/28/20 12:10 Proposed Procedures p Posterior cervical spine fusion [id number] 18015 S12.600a(Not Applicable) - Blas Sanchez, DO Was Beta Cecil taken within 24 hours: Yes Last intake: Intake Last Liquid Date 08/27/20 Last Liquid Time 22:00 Last Solid Date 08/27/20 Last Solid Time 18:00 Social: Social History: No alcohol and No tobacco Exam: Pre-Anes Outpt Exam: alert, oriented x 3 and regular rate & rhythm Additional Exam Findings (including area of procedure): Rhonchi Airway: Submandibular: WNL Cervical ROM: Other (Severe kyphosis) MP: 3 Dentition: False Pulmonary: Pulmonary: COPD CV/HEM: CV/HEM: HTN : : Chronic renal Insufficiency Comments: CRI Hepatic: Hepatic: None reported GI: GI: None reported Metabolic: Metabolic: None reported Musc/skel: Musc/skel: OA/DJD and Weakness Comments: BUE weak and numb Neuropsych: Neuropsych: None reported Anesthetic Plan: ASA status: 4 Anesthesia: General Risk of > 500 ml blood loss (7ml/kg in children): No Meds/Allergies Current Medications: Current Medications Generic Name Dose Route Start Last Admin Trade Name Freq PRN Reason Stop Dose Admin Sodium Chloride 1,000 mls @ 30 ml s/hr 08/28/20 10:30 08/28/20 11:30 Sodium Chloride 0.9% IV 08/29/20 10:29 30 mls/hr .Q24H RICKY Administration PFSH Anesthesia PFSH: Medical History Arthritis Benign prostatic hyperplasia BPH loc w urin obs/LUTS Chronic venous stasis H/O cataract bilateral cataract surgery Hilar adenopathy HTN (hypertension) Hyperlipidemia Lung cancer Prostatic hemorrhage Renal cell cancer Surgical History H/O right nephrectomy H/O transurethral resection of prostate History of lobectomy of lung History of nephrectomy, right S/P TURP Status post lung surgery Family History Father , 58 Cancer Mother , 80 Stroke Diabetes Family/Other Cancer lung, liver Diabetes Hypertension Brother Cancer Lung CAD (coronary artery disease) Sister Cancer Liver Social History Smoking and tobacco status: former smoker Quit status (tobacco): has quit using tobacco Year quit tobacco: 2000-Hx of 2PPDx 45 Years Alcohol intake: never Lives independently: Yes Household members: none Marital status: / Current occupational status: retired History of recent travel: No Current gender identity: Male Data Anesthesia Cardiac Studies: No Data to Display
--- NOTE | 2020-08-28 14:36 | W.PM.OPSUD ---
Surgery/Procedure H&P Update DATE OF PROCEDURE: August 28, 2020 DATE H&P PERFORMED: 08/28/20 H&P UPDATE INFORMATION: I have reviewed H&P completed within last 30 days, I have examined patient prior to procedure and No changes to prior documentation PREOP DIAGNOSIS: C7 fracture PLANNED PROCEDURE: Operation Date: 08/28/20 12:10 Proposed Procedures p Posterior cervical spine fusion [id number] 80219 S12.600a(Not Applicable) - Blas Sanchez DO
--- NOTE | 2020-08-28 17:16 | ANES.PROC ---
Anesthesia Procedures Procedure/Date: 08/28/20 Arterial Line: Time Out Performed: Yes Consent: from patient, risks and benefits reviewed and patient agrees to proceed Size (Gauge): 20 Technique Used: guide wire technique Post-Procedure: dry sterile dressing placed Patient Tolerated Procedure: other (GETA) Complications: none Site: right and radial
--- NOTE | 2020-08-28 19:33 | P.OP_ITS ---
Operative Report Date of procedure: August 28, 2020 Pre-op Diagnosis: C7 fracture Procedure Done: 1. C3-T2 PSF 2. C3-T2 instrumentation (7 Segments) 3. Fracture reduction C7 (kyphosis correction) 4. application and removal of Martini tongs Surgeon: Blas Sanchez Anesthesia: General Estimated blood loss (mL): 100 Condition: stable Disposition: ICU Procedure: 1. C3-T2 PSF 2. C3-T2 instrumentation (7 Segments) 3. Fracture reduction C7 (kyphosis correction) 4. application and removal of Martini tongs Patient was brought to the operative suite patient had preposition baselines had good baselines. Patient was then had application of the Martini tongs on his head. And then patient was flipped into the prone position on the table attached to the Martini attachment onto the bed patient was positioned and then reverse Trendelenburg was used to elevate the patient's head to get more para llel to floor patient's head was gently extended in order to help reduce the degree of kyphosis and this was monitored with neuro monitoring there were no changes every was locked down patient was prepped and draped normal sterile fashion skins was made subperiosteal dissection was made from C3-T2 once everything was exposed then screws were placed at C3 C5-C6 these were lateral mass screws placed by using a drill followed by another drill and then feeling with a ball probe and then placing 16mm screws this was done at C3 C5 and C6 bilaterally and then pedicle screws were placed at T1 and T2 this was done using drill followed by gearshift or these were done using patient anatomy there is poor visualization with C arm Bolf probe was used to feel ensure that the screws were in bone once these were all locked in position then rods were placed in the tulips of the screws and the nahed was under bent to order to facilitate bringing the patient had a more kyphosis and then the see 6 and T1 screws were compressed in order to facilitate reduction more of the fracture and then all the tubes were torqued down to the nahed wounds were irrigated and then from C3 down to T2 decortication was done with a drill and then ostium fibers were then packed into the lamina's in order to facilitate fusion in the future and then there is minimal drainage so we opted to not place any drains cervical fascia was closed with 0 Vicryl skin was closed with 2-0 Vicryl Monocryl suture and skin glue. Sterile dressings were applied and patient was flipped into the prone position Martini tongs were removed and collar was placed patient had significant reduction of his kyphotic deformity and transferred to the ICU in stable condition patient was extubated.
--- NOTE | 2020-08-28 19:38 | ANE.PACU2 ---
Inpatient post-anesthesia follow up: Airway intact: Yes Vital signs: Temperature 97.9 F Pulse Rate 92 Respiratory Rate 18 Blood Pressure 118/70 Pulse Oximetry 98 Oxygen Delivery Me thod Room Air Oxygen Flow Rate Fraction of Inspir ed Oxygen Hydration adequate: Yes Nausea and vomiting: No Pain level: 2 Additional Comments: Sedated, taken to ICU (extubated and SV) for closer observation of airway.
[2020-08-28] MEDS: ketorolac 30 mg/mL INJ 15 MG IVP (20:45)
--- NOTE | 2020-08-28 21:02 | PM.CONSULT ---
Providers/Reason For Consult Consulting Physican/Specialty*: Laura Odonnell Reason for Consult*: Patient is to be in hospital status post C3-T2 PSF. Attending Physician: Blas Sanchez DO Primary Care Provider: Toni Strauss MD History of Present Illness History of Present Illness Diego Garzon is a 85 year old male with past medical history of hypertension, COPD, left upper lobe lung mass, BPH, was admitted under orthopedic service for management of C7 fracture Patient fell approximately 2 weeks ago and has been having cervical neck pain ever since patient walks with a shuffling gait. s/p C3-T2 PSF s/p extubation post surgery.Medicine was consulted for co management of the patient. Currently patient is complaining of mild neck pain and says that he thought he is at home,though he is verbally redirectable.He wanted us to inform his family and wants to talk to his son and daughter in the morning.He wants to eat and prefers jelly. He deny any other symptoms. Post surgery vitals are stable and he is saturating well on room air. Am labs pending Review of Systems Const: Denies: fever(s), chills or body aches Card: Denies: swelling of feet/ankles Resp: Denies: dyspnea GI: Denies: abdominal pain, nausea or diarrhea : Denies: difficulty urinating Musc: Denies: extremity pain or extremity swelling Neuro: Denies: headache(s) Meds/Allergies Home Medications and Allergies Home Medications Medication Instructions Recorded Confirmed Last Taken Type potassium chloride 10 mEq 10 meq PO DAILY 11/22/19 08/28/20 08/28/20 History capsule,extended release simvastatin 40 mg tablet 40 mg PO DAILY 11/22/19 08/28/20 08/28/20 History zolpidem 10 mg tablet 10 mg PO BEDTIME tab 11/22/19 08/28/20 08/28/20 History albuterol sulfate 90 mcg/actuation 2 puff INHALATION QID PRN 08/04/20 08/27/20 08/08/20 History aerosol inhaler furosemide 40 mg tablet 40 mg PO BID tab 08/04/20 08/28/20 08/28/20 History gabapentin 300 mg capsule 300 mg PO TID 08/04/20 08/28/20 08/26/20 History metoprolol succinate 200 mg 100 mg PO DAILY tab 08/04/20 08/28/20 08/28/20 History tablet,extended release 24 hr spironolactone 25 mg PO DAILY 08/06/20 08/28/20 08/28/20 History acetaminophen [Tylenol Extra 1,000 mg PO PRN 08/26/20 08/27/20 Unknown History Strength] budesonide 0.25 mg/2 mL suspension 0.25 mg INHALATION BID 30 Days 08/26/20 08/27/20 Unknown Rx for nebulization #120 ml finasteride 5 mg PO DAILY 08/26/20 08/27/20 Unknown History formoterol fumarate 20 mcg/2 mL 2 ml INHALATION BID 30 Days #120 ml 08/26/20 08/27/20 Unknown Rx solution for nebulization methocarbamol [Robaxin-750] 750 mg PO Q6H #30 tab 08/26/20 08/28/20 08/28/20 Rx naproxen [Naprosyn] 500 mg PO BID PRN #20 tab 08/26/20 08/28/20 08/28/20 Rx revefenacin 175 mcg/3 mL solution 175 mcg INHALATION DAILY 30 Days 08/26/20 08/27/20 Unknown Rx for nebulization #90 ml tamsulosin 0.4 mg capsule 0.4 mg PO DAILY 30 Days #30 cap 08/26/20 08/28/20 Unknown Rx Custome Neck Brace #1 ea 08/27/20 08/27/20 Unknown Rx Custome Neck Brace #1 ea 08/27/20 08/27/20 Unknown Rx BONE GROWTH STIMULATOR [id number] #1 ea 08/28/20 Unknown Rx Allergies Allergy/AdvReac Type Severity Reaction Status Date / Time No Known Allergies Allergy Verified 08/27/20 13:01 Current Medications Current Medications Generic Name Dose Route Start Last Admin Trade Name Freq PRN Reason Stop Dose Admin Ketorolac Tromethamine 15 mg 08/28/20 19:51 08/28/20 20:45 Ketorolac 30 Mg/Ml Inj IVP 15 mg Q6H PRN Administration Pain - See dose instructions PFSH Acute PFSH: Medical History Arthritis Benign prostatic hyperplasia BPH loc w urin obs/LUTS Chronic venous stasis H/O cataract bilateral cataract surgery Hilar adenopathy HTN (hypertension) Hyperlipidemia Lung cancer Prostatic hemorrhage Renal cell cancer Surgical History H/O right nephrectomy H/O transurethral resection of prostate History of lobectomy of lung History of nephrectomy, right S/P TURP Status post lung surgery Family History Father , 58 Cancer Mother , 80 Stroke Diabetes Family/Other Cancer lung, liver Diabetes Hypertension Brother Cancer Lung CAD (coronary artery disease) Sister Cancer Liver Social History Smoking and tobacco status: former smoker Quit status (tobacco): has quit using tobacco Year quit tobacco: 2000-Hx of 2PPDx 45 Years Alcohol intake: never Lives independently: Yes Household members: none Marital status: / Current occupational status: retired History of recent travel: No Current gender identity: Male Vitals/I&O/Wt Last Vital Signs Temp 96.3 F L 08/28/20 19:51 Pulse 104 H 08/28/20 21:00 Resp 24 H 08/28/20 21:00 BP 125/78 08/28/20 21:00 Pulse Ox 95 08/28/20 21:00 08/28/20 08/28/20 08/28/20 06:59 14:59 22:59 Intake Total 60 / 60 2700 / 2760 Output Total 100 / 100 Balance 60 / 60 2600 / 2660 Weight last 48 hrs Weight 94.347 kg Physical Exam HENMT: COMMON NORMALS: normocephalic and atraumatic HEAD & SCALP: normocephalic and atraumatic Eye: GENERAL EYE: appearance normal, both eyes and all related structures Chest: COMMONS NORMALS: normal inspection of the chest and normal palpation of entire chest wall CHEST: Yes Symmetrical chest wall rise Resp: COMMON NORMALS: normal respiratory effort and clear to auscultation bilaterally EFFORT & INSPECTION: Yes symmetric chest movement AUSCULTATION: clear to auscultation bilaterally Cardio: COMMON NORMALS: regular rate, regular rhythm, S1 normal heart sound present, S2 normal heart sound present, No gallops present (Cardio), No murmurs present (Cardio), No rub (Cardio) and Peripheral pulses 2+ throughout RATE: regular rate RHYTHM: regular rhythm HEART SOUNDS: S1 normal heart sound present and S2 normal heart sound present PERIPHERAL PULSES: Peripheral pulses 2+ throughout GI: COMMON NORMALS: Normal to inspection, nondistended, normoactive bowel sounds present, Soft to palpation, non-tender, No hepatosplenomegaly present and no masses AUSCULTATION: Yes normoactive bowel sounds PALPATION: Yes Soft to palpation and Yes No hepatosplenomegaly present RECTAL EXAM: Yes deferred Extremity: COMMON NORMALS: no clubbing, cyanosis or edema and no pedal edema Urinary Catheter Management^: Wang: Cath Placed During This Visit: yes Reason for Continuing Indwelling Catheter: Perioperative Use in Selected Surgeries Urinary Catheter Date of Insertion: 08/28/20 Urinary Catheter Time of Insertion: 16:35 A&P Assessment and plan (1) COPD (chronic obstructive pulmonary disease): Currently saturating well on RA. Continue Budesonide 0.25 MG inhaler BID. Albuterol Sulfate 2.5 mg inhalation PRN Status: Acute (2) HTN (hypertension): Currently blood pressure is well controlled. Continue metoprolol succinate 100 mg p.o. daily. Continue spironolactone 25 mg p.o. daily Status: Inactive (3) Cervical spine fracture: s/p C3-T2 PSF. Pain management as per Ortho Status: Acute Qualifiers: Cervical vertebra fracture level: C7 Encounter type: initial encounter Fracture type: closed (4) Mass of upper lobe of left lung: Follows Dr. Travis as outpatient. Status: Acute (5) Benign prostatic hyperplasia: Continue Flomax 0.4 mg p.o. daily Status: Inactive Additional A&P Information DVT PPX: lOVENOX 40 MG SC DAILY Code Status : Full code Procedures Arterial Line Size (Gauge): 20 Coding Level of Care Code Acute Superior Court Judge for Chg Fwd Diagnoses COPD (chronic obstructive pulmonary disease) J44.9 HTN (hypertension) I10 Cervical spine fracture S12.9XXA Cervical vertebra fracture level: C7 Encounter type: initial encounter Fracture type: closed Mass of upper lobe of left lung R91.8 Benign prostatic hyperplasia N40.0
[2020-08-28] MEDS: methocarbamol 750 mg Tablet PO (22:21)
[2020-08-28] MEDS: HYDROcodone-acetaminophen 5-325 mg Tablet PO (22:22)
[2020-08-28] MEDS: morphine 4 mg/mL SDV 1 mL 2 MG IVP (23:46)
[2020-08-29] VITALS (55 sets, daily range): BP systolic 109–120; BP diastolic 56–67; PULSE 73–100; RESP 11–35; O2SAT 81–99
--- NOTE | 2020-08-29 00:19 | PC.NURSE ---
ASSUMING CARE Patient brought to ICU by OR staff. COMPOSITION MOLDER reported 8 mg decadron, 3 grams ancef, 330 mg ketamine, 250 mg of fentanyl, and 4 mg of zofran given. Patient had oral airway and simple mask at 10 L. Right arterial line. Patient's phenylephrine discontinued by COMPOSITION MOLDER, reported that only IV anesthesia used, straight midline incision from C3-T2 closed with sutures, glue, 4x4, and tega derm. Patient lethargic and not awake yet.
--- NOTE | 2020-08-29 01:12 | PC.NURSE ---
OXYGEN Patient taken off simple mask at 10L and put on 6L NC with the oral airway to assess respiratory status. Patients oxygen decreased to 8 L with oxy mask. Once patient recovered from [id number], oral airway left in to ensure that patient was alert prior to removal. Oral airway removed at 2110 and patient put on 4 L NC. Patient currently on 3L NC with oxygen saturation of 100%. Patient's oxygen shut off to assess further.
--- NOTE | 2020-08-29 02:03 | PC.NURSE ---
OXYGEN OFF Patients oxygen turned off to assess needs. Patients oxygen decreased to 87%. Patients oxygen turned up to 2 L NC and is now at 99%.
[2020-08-29] MEDS: morphine 4 mg/mL SDV 1 mL 2 MG IVP (03:36)
[2020-08-29] MEDS: methocarbamol 750 mg Tablet PO ×4 (03:37→20:52)
--- NOTE | 2020-08-29 04:30 | PC.NURSE ---
DISORIENTATION Patient has woken up this shift stating that he had to take his pajamas off. Patient is in hospital gown. Patient also woke up and took cardiac exercise physiologist leads off and attempted to pull out left hand IV. Patient was redirected and stated that he woke up and thought he was at home. Patient then remembered he was at the hospital and educated on importance of cardiac monitoring and IV.
[2020-08-29 05:07] LABS: Basophils % 0.2 %; Eosinophils % 0.1 %; Hematocrit 36.8 % (42.0-52.0); Hemoglobin 11.5 g/dL (11.7-16.6); Lymphocytes # 0.4 10^3/uL (0.8-4.8); Lymphocytes % 2.2 %; Mean Corpuscular HGB Conc 31.3 g/dL (30.0-36.0); Mean Corpuscular Hemoglobin 29.3 pg (28.0-34.0); Mean Corpuscular Volume 93.9 fL (80-94); Mean Platelet Volume 10.8 fL (7.4-10.4); Monocytes # 0.5 10^3/uL (0.2-0.9); Monocytes % 3.2 %; Neutrophils # 15.42 10^3/uL (1.8-7.7); Nucleated Red Blood Cells % 0 %; Platelet Count 195 10^3/cmm (130-400); Red Blood Count 3.92 10^6/uL (4.1-5.3); Red Cell Distribution Width 15.7 % (12.1-15.1); White Blood Count 16.6 10^3/uL (4.0-10.0)
[2020-08-29 05:41] LABS: Alanine Aminotransferase 13 U/L (0-41); Albumin Level 3.1 g/dL (3.5-5.2); Alkaline Phosphatase 155 IU/L (40-130); Aspartate Amino Transferase 23 U/L (0-40); Blood Urea Nitrogen 49 mg/dL (8-23); Calcium 8.2 mg/dL (8.5-10.5); Carbon Dioxide 20 mmol/L (22-29); Chloride 108 mmol/L (98-107); Globulin 2.6 g/dL (1.3-4.6); Glucose 145 mg/dL (65-115); Magnesium 2.1 mg/dL (1.7-2.3); Osmolality Calculated 304 mOsm/kg (285-295); Sodium 139 mmol/L (136-145); Total Bilirubin 0.3 mg/dL (0.15-1.2); Total Protein 5.7 g/dL (6.6-8.7)
[2020-08-29 05:52] LABS: NT Pro B Type Natriuretic Pept 5805 pg/mL (0-450)
[2020-08-29 06:01] LABS: Anion Gap 16.9 (5-19); Potassium 5.9 mmol/L (3.5-5.1)
--- NOTE | 2020-08-29 06:02 | PC.NURSE ---
SHIFT SUMMARY Patient has rested well this shift. Patient currently on nasal cannula at 2 L. 650 mL of urine output this shift. Last BM on 08/27/2020. Patient has had minimal complaints of pain or discomfort, morphine given twice, toradol once, and norco once. Patient has been expressing excitement for breakfast. Patient exhibited gag reflex and started on ice chips last night and tolerated well. Advanced to water and pudding with no signs of aspiration. Patient is alert and oriented x4, right arterial line removed and patient states he is feeling good.
--- NOTE | 2020-08-29 06:55 | XRR_ITS ---
PROCEDURE INFORMATION: Exam: XR Chest, 1 View Exam date and time: 08/29/2020 8:48 AM Age: 85 years old Clinical indication: Shortness of breath; Additional info: SOB TECHNIQUE: Imaging protocol: XR of the chest Views: 1 view. COMPARISON: CR XR chest 1V portable [id number] 08/09/2020 6:16 PM FINDINGS: Lungs: Again noted is the left upper lobe lung mass extending up from the left pulmonary hilum. Allowing for differences in positioning this has not significantly changed since previous examination. No new pulmonary infiltrates are seen. Pleural space: Unremarkable. No pleural effusion. No pneumothorax. Heart/Mediastinum: The heart may be normal for the AP projection. Bones/joints: The patient has undergone cervicothoracic orthopedic fusion with rods and screws. XR/XR chest 1V portable [id number] IMPRESSION: 1. Since the previous chest radiograph the patient has undergone cervicothoracic fusion surgery. 2. Allowing for differences in positioning the left upper lobe lung mass has not significantly changed. 3. No new abnormalities have developed since previous radiograph.
--- NOTE | 2020-08-29 07:25 | ECG_ITS ---
[facility] Test Date: 2020-08-29 Pat Name: Diego Garzon Department: Room: ICU02 Gender: Male Knot Cutter: : 1935 Requested By: Kingsley Geiger Order Number: [id number] Reading MD: CHARISSE COX Measurements Intervals [place]in Rate: 98 P: NV: QRS: -5 QRSD: 94 T: 28 QT: 357 QTc: 456 Interpretive Statements ATRIAL FIBRILLATION ABNORMAL RHYTHM ECG WARNING: DATA QUALITY MAY AFFECT INTERPRETATION Compared to ECG 08/09/2020 17:46:00 Myocardial infarct finding no longer present Electronically Signed On 08-29-2020 17:28:02 AIRPORT REPRESENTATIVE by CHARISSE COX [id number]
[2020-08-29] MEDS: FUROsemide 40 mg Tablet PO (07:30)
[2020-08-29] MEDS: heparin 5,000 unit/mL INJ 1 mL 5000 UNIT IVP ×2 (07:31→18:00)
--- NOTE | 2020-08-29 08:02 | PM.PN ---
Subjective Subjective: Interval history: pain controlled sitting up in bed Vitals/I&O/Wt Last Vital Signs Temp 96.3 F L 08/28/20 19:51 Pulse 92 08/29/20 05:47 Resp 15 08/29/20 03:36 BP 125/78 08/28/20 21:00 Pulse Ox 99 08/29/20 03:36 08/28/20 08/29/20 08/29/20 22:59 06:59 14:59 Intake Total 2880 / 2940 60 / 3000 Output Total 100 / 100 650 / 750 Balance 2780 / 2840 -590 / 2250 Weight last 48 hrs Weight 208 lb Physical Exam Narrative: EXAM NARRATIVE: on room air O2 sat 91% cervical collar in place Urinary Catheter Management^: Wang: Cath Placed During This Visit: yes Reason for Continuing Indwelling Catheter: Perioperative Use in Selected Surgeries Urinary Catheter Date of Insertion: 08/28/20 Urinary Catheter Time of Insertion: 16:35 Data : 08/29/20 04:08 08/29/20 04:08 A&P Additional A&P Information POD#1 C3-T2 PSF Up with PT Up to chair leave collar in place OK to D/C from ICU when OK with ICU service Attestations Medical Necessity Statement*: ICU Procedures Arterial Line Size (Gauge): 20 Coding Level of Care Code Acute Cigarette And Filter Chief 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
[2020-08-29] MEDS: budesonide 0.5 mg/2 mL Neb 0.25 MG INHALATION ×2 (08:40→21:00)
[2020-08-29] MEDS: cefTRIAXone 1,000 MG in sodium chloride 0.9% (plus) 50 ML 100 MG IV (09:00)
[2020-08-29] MEDS: sodium polystyrene sulfonate 15 gm/60 mL Btl PO (09:01)
[2020-08-29] MEDS: finasteride 5 mg Tablet PO (09:02)
[2020-08-29] MEDS: tamsulosin 0.4 mg Capsule PO (09:02)
[2020-08-29] MEDS: gabapentin 300 mg Capsule PO ×3 (09:02→20:52)
[2020-08-29] MEDS: metoprolol succinate ER (24 HR) 100 mg Tablet PO (09:03)
[2020-08-29] MEDS: atorvastatin 40 mg Tablet 20 MG PO (09:03)
[2020-08-29 11:02] LABS: Add Urine Microscopic? YES; Bilirubin Urine Neg (Negative); Blood Urine 3+ (Negative); Glucose Urine UA Norm (Normal); Ketones Urine Negative (Negative); Leukocyte Esterase Urine Trace (Negative); Nitrate Urine Negative (Negative); Protein Urine Neg (Negative); Specific Gravity, Urine 1.015 (1.005-1.030); Urine Appearance Clear (CLEAR); Urine Color Yellow (Yellow); Urobilinogen Urine Norm (Negative); pH Urine 5 (5-7)
[2020-08-29 11:05] LABS: Bacteria Urine TRACE /hpf; RBC Urine 25-40 /hpf (0-2); Squamous Epithelial Cell Urine RARE /hpf (0-5); WBC Urine 0-4 /hpf (0-5)
--- NOTE | 2020-08-29 11:10 | P.PN_ITS ---
Subjective Subjective: Interval history: This is an 85-year-old male with history of hypertension, COPD, left upper lobe mass BPH was admitted under orthopedic service for management of a C7 fracture. That he suffered after a fall. Patient underwent C3-T2 PSF status post extubation post surgery. This morning patient was seen with bedside nurse. He is tolerating a diet. Patient was also noted to have slightly worsening creatinine as well as elevated potassium. Potassium was held. It is noted that he is also prescribed spironolactone and Lasix. Kayexalate ordered. NSAIDs were also discontinued. Vitals/I&O/Wt Last Vital Signs Temp 96.3 F L 08/28/20 19:51 Pulse 86 08/29/20 08:49 Resp 14 08/29/20 08:41 BP 125/78 08/28/20 21:00 Pulse Ox 99 08/29/20 08:41 08/28/20 08/29/20 08/29/20 22:59 06:59 14:59 Intake Total 2880 / 2940 60 / 3000 300 / 300 Output Total 100 / 100 650 / 750 Balance 2780 / 2840 -590 / 2250 300 / 300 Weight last 48 hrs Weight 208 lb Physical Exam Const: COMMON NORMALS: no acute distress and patient oriented x3 GENERAL APPEARANCE: cooperative and comfortable Neck/C-Spine: OTHER: Cervical collar in place Chest: COMMONS NORMALS: normal inspection of the chest Resp: COMMON NORMALS: normal respiratory effort and No retractions Cardio: COMMON NORMALS: regular rate and regular rhythm RATE: regular rate RHYTHM: regular rhythm GI: COMMON NORMALS: Soft to palpation INSPECTION: Yes normal to inspection PALPATION: Yes Soft to palpation and No Tenderness to palpation present (GI) Extremity: COMMON NORMALS: normal to inspection Neuro: COMMON NORMALS: patient oriented x3 and CN's II-XII intact bilaterally Psych: COMMON NORMALS: mental status grossly normal and Normal thought process present THOUGHT PROCESS: Normal thought process present Skin: COMMON NORMALS: no rashes or lesions noted GENERAL SKIN EXAM: no rashes or lesions noted Urinary Catheter Management^: Wang: Cath Placed During This Visit: yes Reason for Continuing Indwelling Catheter: Perioperative Use in Selected Surgeries Urinary Catheter Date of Insertion: 08/28/20 Urinary Catheter Time of Insertion: 16:35 Data : 08/30/20 04:03 08/30/20 04:03 A&P Assessment and plan (1) Cervical spine fracture: Status post fusion Continue postop care As needed analgesics Physical therapy Diet has been advanced Status: Acute Qualifiers: Cervical vertebra fracture level: C7 Encounter type: initial encounter Fracture type: closed (2) BPH loc w urin obs/LUTS: Currently has a Wang catheter in place on tamsulosin Status: Acute (3) COPD (chronic obstructive pulmonary disease): Currently on oxygen 2 L sats at 98% discussed with bedside nurse to taper oxygen can try 1 L as tolerated and can decrease keep sats greater than 90% Status: Acute (4) Leukocytosis: Chest x-ray ordered we will send for urinalysis Not on antibiotics Status: Acute (5) Hyperkalemia: Discontinue spironolactone potassium supplements Kayexalate given Status: Acute (6) Acute kidney injury: Discontinue NSAIDs Currently has a Wang catheter in place We will hold Lasix and restart to daily Status: Acute (7) HTN (hypertension): Stable -spironolactone on hold we will likely add as needed hydralazine if blood pressure elevates Status: Acute Attestations Medical Necessity Statement*: [facility]'s hospital stay will be more than 2 midnights for status post cervical fusion noted to have acute kidney injury and hyperkalemia Procedures Arterial Line Size (Gauge): 20 Coding Level of Care Code Acute Allergy Physician for Chg Fwd Exam Comprehensive Diagnoses Cervical spine fracture S12.9XXA Cervical vertebra fracture level: C7 Encounter type: initial encounter Fracture type: closed BPH loc w urin obs/LUTS N40.1 COPD (chronic obstructive pulmonary disease) J44.9 Leukocytosis D72.829 Hyperkalemia E87.5 Acute kidney injury N17.9 HTN (hypertension) I10
[2020-08-29] MEDS: HYDROcodone-acetaminophen 5-325 mg Tablet PO ×2 (11:43→18:00)
[2020-08-29 14:53] LABS: Alanine Aminotransferase 10 U/L (0-41); Albumin Level 3.4 g/dL (3.5-5.2); Alkaline Phosphatase 159 IU/L (40-130); Anion Gap 15.7 (5-19); Aspartate Amino Transferase 22 U/L (0-40); Blood Urea Nitrogen 50 mg/dL (8-23); Calcium 8.3 mg/dL (8.5-10.5); Carbon Dioxide 24 mmol/L (22-29); Chloride 105 mmol/L (98-107); Globulin 2.5 g/dL (1.3-4.6); Glucose 165 mg/dL (65-115); Osmolality Calculated 305 mOsm/kg (285-295); Potassium 5.7 mmol/L (3.5-5.1); Sodium 139 mmol/L (136-145); Total Bilirubin 0.2 mg/dL (0.15-1.2); Total Protein 5.9 g/dL (6.6-8.7)
--- NOTE | 2020-08-29 15:09 | PC.NURSE ---
shift summary patient has been able to ambulate to bedside chair with 1 assist. IS given to patient by RT and educated on how to use. patient has been using every hour. oxygen has been turned off. patient complaining of neck pain after sitting in chair. hydrocodone given for pain, see MAR. vital signs remain WNL.
[2020-08-29 15:15] LABS: Phosphorus 5.4 mg/dL (2.5-4.5)
[2020-08-29 15:40] LABS: Magnesium 2.1 mg/dL (1.7-2.3)
[2020-08-30] VITALS (57 sets, daily range): BP systolic 101–126; BP diastolic 50–71; PULSE 75–106; RESP 11–33; TEMP 36.3–36.8; O2SAT 79–97
[2020-08-30] MEDS: methocarbamol 750 mg Tablet PO ×4 (03:17→23:54)
--- NOTE | 2020-08-30 03:36 | PC.NURSE ---
ASSUMING CARE Patient resting in bed with eyes closed. Patient on room air. Upon assessment, patient states I'm at [facility] in the Intensive Care Unit and appears to be in very good spirits. Patient denies any pain or needs at this time.
--- NOTE | 2020-08-30 03:39 | PC.NURSE ---
OXYGEN Patient in deep sleep with shallow respirations and oxygen decreased to 85%. Patient repositioned and oxygen remained the same. Patient placed on 2 L nasal cannula while sleeping and is currently 99%.
[2020-08-30 04:46] LABS: Basophils % 0.3 %; Eosinophils % 0.1 %; Hematocrit 34.2 % (42.0-52.0); Hemoglobin 10.7 g/dL (11.7-16.6); Lymphocytes # 0.5 10^3/uL (0.8-4.8); Lymphocytes % 3.2 %; Mean Corpuscular HGB Conc 31.3 g/dL (30.0-36.0); Mean Corpuscular Hemoglobin 29.2 pg (28.0-34.0); Mean Corpuscular Volume 93.2 fL (80-94); Mean Platelet Volume 10.1 fL (7.4-10.4); Monocytes # 1.6 10^3/uL (0.2-0.9); Monocytes % 11.5 %; Neutrophils # 11.95 10^3/uL (1.8-7.7); Neutrophils % 84.1 %; Nucleated Red Blood Cells % 0 %; Platelet Count 203 10^3/cmm (130-400); Red Blood Count 3.67 10^6/uL (4.1-5.3); Red Cell Distribution Width 15.7 % (12.1-15.1); White Blood Count 14.2 10^3/uL (4.0-10.0)
[2020-08-30 05:19] LABS: Alanine Aminotransferase < 5 U/L (0-41); Albumin Level 3.3 g/dL (3.5-5.2); Alkaline Phosphatase 141 IU/L (40-130); Anion Gap 16.2 (5-19); Aspartate Amino Transferase 18 U/L (0-40); Blood Urea Nitrogen 51 mg/dL (8-23); Calcium 8.1 mg/dL (8.5-10.5); Carbon Dioxide 22 mmol/L (22-29); Chloride 106 mmol/L (98-107); Globulin 2.4 g/dL (1.3-4.6); Glucose 137 mg/dL (65-115); Magnesium 2.2 mg/dL (1.7-2.3); Osmolality Calculated 304 mOsm/kg (285-295); Potassium 5.2 mmol/L (3.5-5.1); Sodium 139 mmol/L (136-145); Total Bilirubin 0.2 mg/dL (0.15-1.2); Total Protein 5.7 g/dL (6.6-8.7)
[2020-08-30] MEDS: heparin 5,000 unit/mL INJ 1 mL 5000 UNIT IVP (06:57)
--- NOTE | 2020-08-30 06:59 | P.PN_ITS ---
Subjective Subjective: Interval history: patient resting comfortably Vitals/I&O/Wt Last Vital Signs Temp 96.3 F L 08/28/20 19:51 Pulse 84 08/29/20 22:10 Resp 14 08/29/20 22:10 BP 109/56 08/29/20 22:10 Pulse Ox 92 08/29/20 22:10 08/29/20 08/29/20 08/30/20 14:59 22:59 06:59 Intake Total 450 / 450 770 / 1220 Output Total 750 / 750 450 / 1200 Balance 450 / 450 20 / 470 -450 / 20 Physical Exam Narrative: EXAM NARRATIVE: resting comfortably in bed Urinary Catheter Management^: Wang: Cath Placed During This Visit: yes Reason for Continuing Indwelling Catheter: Acute Urinary Retention or Obstruction Urinary Catheter Date of Insertion: 08/28/20 Urinary Catheter Time of Insertion: 16:35 Data : 08/30/20 04:03 08/30/20 04:03 A&P Additional A&P Information POD #2 C3- T PSF OK to take collar off in bed continue current management Attestations Medical Necessity Statement*: Hospitalist is monitoring labs Procedures Arterial Line Size (Gauge): 20 Coding Level of Care Code Acute Project Director for [employer]
[2020-08-30] MEDS: budesonide 0.5 mg/2 mL Neb 0.25 MG INHALATION ×2 (08:53→20:15)
[2020-08-30] MEDS: HYDROcodone-acetaminophen 5-325 mg Tablet PO (08:55)
[2020-08-30] MEDS: gabapentin 300 mg Capsule PO ×3 (08:55→20:58)
[2020-08-30] MEDS: finasteride 5 mg Tablet PO (08:55)
[2020-08-30] MEDS: atorvastatin 40 mg Tablet 20 MG PO (08:56)
[2020-08-30] MEDS: cefTRIAXone 1,000 MG in sodium chloride 0.9% (plus) 50 ML 100 MG IV (08:57)
[2020-08-30] MEDS: FUROsemide 40 mg Tablet PO (08:57)
[2020-08-30] MEDS: metoprolol succinate ER (24 HR) 100 mg Tablet PO (08:57)
[2020-08-30] MEDS: albuterol 8 gm MDI 2 PUFF INHALATION (08:57)
[2020-08-30] MEDS: tamsulosin 0.4 mg Capsule PO (08:57)
--- NOTE | 2020-08-30 10:32 | PC.NURSE ---
call to greenhouse instructor Informed of need for PO# for correct neck brace from [employer]
--- NOTE | 2020-08-30 10:33 | PC.CHAP ---
Pastoral Care Encounter/Spiritual Assessment Type of Contact [] Declined health editor visit [] Patient/Family/Request visit [] Outpatient visit [] Follow-up visit [] Physician referral [] Code/Alert [X] Routine visit [] Staff referral [] Actively dying [X] Patient sleeping [] Family support [] [] Out of room [] Palliative care [] [] Receiving care in room [] Pre-surgical visit [] Trauma [] Long length of stay [X] ICU visit [] Other: Relational/Emotional Strength [] Patient feels connected with others/family/visitors/staff [] Distress [] Loneliness/isolation [] Abandonment Spirituality of Patient [] Person of [place] [] Attends Jainism of their [place] [] Believes in Prayer [] Reads Bible or Yazidism materials [] There are Spiritual issues to be addressed Weapons Specialist Interventions [] Prayer [] Active listening [] Non-anxious presence [] Spiritual/emotional support [] Crisis/trauma care [] Spiritual counseling [] Bereavement support [] Provided bereavement packet [] Provided Bible/devotional materials [] Provided toy/stuffed animal, coloring book to patient or family member [] Provided Communion [] Anointing/[place] [] Salvation [] Completed spiritual assessment [] Other: Impact on Illness or Injury [] Angry [] Fearful [] Anxious [] Often cries [] Exhaustion [] Unable to work [] Unable to attend taoist [] Unable to walk/stand [] Unable to read [] Unable to drive [] Unable to eat/drink [] Unable to sleep [] Unable to be with family [] Patient intubated [] Other: Summary Time spent with patient
--- NOTE | 2020-08-30 12:23 | P.PN_ITS ---
Subjective Subjective: Interval history: Pain under control Requesting to have collar taken off Tolerating diet Vitals/I&O/Wt Last Vital Signs Temp 96.3 F L 08/28/20 19:51 Pulse 90 08/30/20 09:01 Resp 16 08/30/20 08:55 BP 109/56 08/29/20 22:10 Pulse Ox 95 08/30/20 08:55 08/29/20 08/30/20 08/30/20 22:59 06:59 14:59 Intake Total 770 / 1220 450 / 450 Output Total 750 / 750 450 / 1200 Balance / 470 -450 / 20 450 / 450 Physical Exam Const: COMMON NORMALS: no acute distress and patient oriented x3 GENERAL APPEARANCE: cooperative and comfortable Neck/C-Spine: OTHER: Cervical collar in place Chest: COMMONS NORMALS: normal inspection of the chest Resp: COMMON NORMALS: normal respiratory effort and No retractions Cardio: COMMON NORMALS: regular rate and regular rhythm RATE: regular rate RHYTHM: regular rhythm GI: COMMON NORMALS: Soft to palpation INSPECTION: Yes normal to inspection PALPATION: Yes Soft to palpation and No Tenderness to palpation present (GI) Extremity: COMMON NORMALS: normal to inspection Neuro: COMMON NORMALS: patient oriented x3 and CN's II-XII intact bilaterally Psych: COMMON NORMALS: mental status grossly normal and Normal thought process present THOUGHT PROCESS: Normal thought process present Skin: COMMON NORMALS: no rashes or lesions noted GENERAL SKIN EXAM: no rashes or lesions noted Urinary Catheter Management^: Wang: Cath Placed During This Visit: yes Reason for Continuing Indwelling Catheter: Accurate Measurement of Urinary Output in Critically Ill Patients Urinary Catheter Date of Insertion: 08/28/20 Urinary Catheter Time of Insertion: 16:35 Data : 08/30/20 04:03 08/30/20 04:03 Micro: Microbiology 08/29/20 09:07 Urine Culture - Preliminary Urine,Voided A&P Assessment and plan (1) Cervical spine fracture: Status post fusion Continue postop care As needed analgesics Physical therapy Diet has been advanced Status: Acute Qualifiers: Cervical vertebra fracture level: C7 Encounter type: initial encounter Fracture type: closed (2) BPH loc w urin obs/LUTS: Currently has a Wang catheter in place on tamsulosin Status: Acute (3) COPD (chronic obstructive pulmonary disease): Currently on oxygen 2 L sats at 98% discussed with bedside nurse to taper oxygen can try 1 L as tolerated and can decrease keep sats greater than 90% Status: Acute (4) Leukocytosis: Monitor for fevers repeat labs Status: Acute (5) Hyperkalemia: Improved spironolactone potassium held Repeat labs in the morning Status: Acute (6) Acute kidney injury: Serum creatinine slightly better he does have chronic kidney disease Status: Acute (7) HTN (hypertension): Stable -spironolactone on hold we will likely add as needed hydralazine if blood pressure elevates Status: Acute Attestations Medical Necessity Statement*: [facility]'s hospital stay will require greater than 2 midnights for postop care Procedures Arterial Line Size (Gauge): 20 Coding Level of Care Code Acute Balance Wheel Screw Hole Tapper for g Fwd Diagnoses Cervical spine fracture S12.9XXA Cervical vertebra fracture level: C7 Encounter type: initial encounter Fracture type: closed BPH loc w urin obs/LUTS N40.1 COPD (chronic obstructive pulmonary disease) J44.9 Leukocytosis D72.829 Hyperkalemia E87.5 Acute kidney injury N17.9 HTN (hypertension) I10
--- NOTE | 2020-08-30 13:38 | PC.NURSE ---
call to Daughter Nurse informed Phyllis that patient was transferred to room 262. all questions answered.
--- NOTE | 2020-08-30 13:40 | PC.NURSE ---
Patient arrived from ICU transfer to MED/SURG, vitals stable as charted, SCD's and heart monitor in place, call light in reach, oriented to room and surroundings, verbalized understanding, awake alert and oriented X4, denies pain or needs at this time. C-collar in place.
[2020-08-30] MEDS: heparin 5,000 unit/mL INJ 1 mL 5000 UNIT SUBCUT (17:14)
[2020-08-30] MEDS: acetaminophen 325 mg Tablet 650 MG PO (21:48)
[2020-08-31] VITALS (12 sets, daily range): BP systolic 104–130; BP diastolic 62–74; PULSE 72–96; RESP 16–18; TEMP 36.6–36.9; O2SAT 92–96
[2020-08-31] MEDS: methocarbamol 750 mg Tablet PO ×4 (05:26→23:36)
[2020-08-31] MEDS: heparin 5,000 unit/mL INJ 1 mL 5000 UNIT SUBCUT ×2 (05:26→17:17)
[2020-08-31 05:59] LABS: Alanine Aminotransferase < 5 U/L (0-41); Albumin Level 2.9 g/dL (3.5-5.2); Alkaline Phosphatase 130 IU/L (40-130); Anion Gap 14.9 (5-19); Aspartate Amino Transferase 16 U/L (0-40); Blood Urea Nitrogen 43 mg/dL (8-23); Calcium 7.9 mg/dL (8.5-10.5); Carbon Dioxide 24 mmol/L (22-29); Chloride 108 mmol/L (98-107); Globulin 2.4 g/dL (1.3-4.6); Glucose 126 mg/dL (65-115); Osmolality Calculated 306 mOsm/kg (285-295); Potassium 4.9 mmol/L (3.5-5.1); Sodium 142 mmol/L (136-145); Total Bilirubin 0.2 mg/dL (0.15-1.2); Total Protein 5.3 g/dL (6.6-8.7)
[2020-08-31 07:25] LABS: Basophils % 0.3 %; Eosinophils # 0.1 10^3/uL (0.0-0.8); Hematocrit 32.1 % (42.0-52.0); Hemoglobin 9.9 g/dL (11.7-16.6); Lymphocytes # 0.5 10^3/uL (0.8-4.8); Lymphocytes % 5.1 %; Mean Corpuscular HGB Conc 30.8 g/dL (30.0-36.0); Mean Corpuscular Hemoglobin 28.9 pg (28.0-34.0); Mean Corpuscular Volume 93.6 fL (80-94); Mean Platelet Volume 11.4 fL (7.4-10.4); Monocytes # 1.1 10^3/uL (0.2-0.9); Monocytes % 12.7 %; Neutrophils # 7.06 10^3/uL (1.8-7.7); Neutrophils % 79.8 %; Nucleated Red Blood Cells % 0 %; Platelet Count 114 10^3/cmm (130-400); Red Blood Count 3.43 10^6/uL (4.1-5.3); Red Cell Distribution Width 15.7 % (12.1-15.1); White Blood Count 8.9 10^3/uL (4.0-10.0)
[2020-08-31] MEDS: finasteride 5 mg Tablet PO (07:54)
[2020-08-31] MEDS: gabapentin 300 mg Capsule PO ×3 (07:55→20:48)
[2020-08-31] MEDS: FUROsemide 40 mg Tablet PO (07:55)
[2020-08-31] MEDS: tamsulosin 0.4 mg Capsule PO (07:55)
[2020-08-31] MEDS: metoprolol succinate ER (24 HR) 100 mg Tablet PO (07:55)
[2020-08-31] MEDS: atorvastatin 40 mg Tablet 20 MG PO (07:55)
[2020-08-31] MEDS: albuterol 8 gm MDI 2 PUFF INHALATION (07:58)
[2020-08-31] MEDS: budesonide 0.5 mg/2 mL Neb 0.25 MG INHALATION ×2 (07:58→20:18)
[2020-08-31] MEDS: acetaminophen 325 mg Tablet 650 MG PO ×2 (08:42→17:17)
--- NOTE | 2020-08-31 11:21 | PC.RESP ---
Pulmonary Rehab information sent to patient.
--- NOTE | 2020-08-31 12:49 | PM.PN ---
Subjective Subjective: Interval history: Patient noted post op pain however stated this was well controlled. Noted difficultly swallowing which he attributed to cervical collar. No fever, chills, nausea or vomiting. Denied chest pain or dyspnea. Vitals/I&O/Wt Last Vital Signs Temp 98.4 F 08/31/20 11:27 Pulse 72 08/31/20 11:27 Resp 18 08/31/20 11:27 BP 115/71 08/31/20 11:27 Pulse Ox 94 08/31/20 11:27 08/30/20 08/31/20 08/31/20 22:59 06:59 14:59 Intake Total 360 / 1060 120 / 120 Output Total 675 / 1000 Balance 360 / 735 -675 / 60 120 / 120 Physical Exam Narrative: EXAM NARRATIVE: General: Alert awake oriented x 3 HEENT : Grossly unremarkable, cervical collar in place. CHEST : Non-Labored respiration CVS : NSR ABD: Soft NT, ND Ext : No edema, FROM x 4 Urinary Catheter Management^: Wang: Cath Placed During This Visit: yes Reason for Continuing Indwelling Catheter: Acute Urinary Retention or Obstruction Urinary Catheter Date of Insertion: 08/28/20 Urinary Catheter Time of Insertion: 16:35 Data : 08/31/20 05:11 08/31/20 05:11 Micro: Microbiology 08/29/20 09:07 Urine Culture - Final Urine,Voided A&P Assessment and plan (1) Cervical spine fracture: Post managemet per primary team Pain control PT/OT consult Status: Acute Qualifiers: Cervical vertebra fracture level: C7 Encounter type: initial encounter Fracture type: closed (2) BPH loc w urin obs/LUTS: Currently has a Wang catheter in place on tamsulosin Status: Acute (3) COPD (chronic obstructive pulmonary disease): Currently on oxygen 2 L sats at 98% discussed with bedside nurse to taper oxygen can try 1 L as tolerated and can decrease keep sats greater than 90% Status: Acute (4) Leukocytosis: Monitor for fevers repeat labs Status: Acute (5) Hyperkalemia: Improved spironolactone potassium held Repeat labs in the morning Status: Acute (6) Acute kidney injury: Appears to have chronic kidney disease stage 2 Creatinine likely at baseline Improved from admission Monitor urine output Renally dose medications Repeat BMP in am Status: Acute (7) HTN (hypertension): Stable PRN Hydralazine Will continue to hold aldactone Status: Acute (8) Dysphagia: Will consult Speech therapy Aspiration precautions Monitor for post op edema Status: Acute Additional A&P Information DVT PPX: lOVENOX 40 MG SC DAILY ( monitor for post op bleeding ) Code Status : Full code Attestations Medical Necessity Statement*: Will require further hospitalization for speech therapy eval and routine post op care. Dicharge planning per primary team Time Spent in Patient Care: Greater than 35 minutes Procedures Arterial Line Size (Gauge): 20 Coding Level of Care Code Acute Corporate Development Associate for Chg Fwd Diagnoses Cervical spine fracture S12.9XXA Cervical vertebra fracture level: C7 Encounter type: initial encounter Fracture type: closed BPH loc w urin obs/LUTS N40.1 COPD (chronic obstructive pulmonary disease) J44.9 Leukocytosis D72.829 Hyperkalemia E87.5 Acute kidney injury N17.9 HTN (hypertension) I10 Dysphagia R13.10
--- NOTE | 2020-08-31 12:54 | PC.SOCIAL ---
Pg 2 IMM Explained to pt, Pg 2 IMM. No questions voiced. Provided pt a copy. Signed, dated, & timed a copy & placed in chart.
--- NOTE | 2020-08-31 13:06 | P.PN_ITS ---
Subjective Subjective: Interval history: No complaints. Pain under adequate control. Vitals/I&O/Wt Last Vital Signs Temp 98.4 F 08/31/20 11:27 Pulse 92 08/31/20 13:04 Resp 18 08/31/20 11:27 BP 115/71 08/31/20 11:27 Pulse Ox 94 08/31/20 11:27 08/30/20 08/31/20 08/31/20 22:59 06:59 14:59 Intake Total 360 / 1060 360 / 360 Output Total 675 / 1000 Balance 360 / 735 -675 / 60 360 / 360 Physical Exam Narrative: EXAM NARRATIVE: Patient in soft collar. No upper or lower extremity neuro deficits noted Urinary Catheter Management^: Wang: Cath Placed During This Visit: yes Reason for Continuing Indwelling Catheter: Acute Urinary Retention or Obstruction Urinary Catheter Date of Insertion: 08/28/20 Urinary Catheter Time of Insertion: 16:35 Data : 08/31/20 05:11 08/31/20 05:11 Micro: Microbiology 08/29/20 09:07 Urine Culture - Final Urine,Voided A&P Assessment and plan (1) Postoperative state: Patient awaiting brace. Planned assisted discharge. Dr. Sanchez will be back tomorrow to see patient prior to discharge Status: Acute Attestations Medical Necessity Statement*: Awaiting assisted bed Procedures Arterial Line Size (Gauge): 20 Coding Level of Care Code Acute High School Social Science Teacher for Chg Fwd Diagnoses Postoperative state Z98.890
--- NOTE | 2020-08-31 17:50 | PC.NURSE ---
SHIFT SUMMARY PATIENT HAS DONE WELL TODAY. AMBULATED WELL DURING PHYSICAL THERAPY. PAIN WELL CONTROLLED. OVER 700ML OF URINE OUTPUT. SPEECH EVALUATION BEING COMPLETED AT THIS TIME. SURGICAL DRESSING C/D/I. PATIENT STILL IN SOFT COLLAR. PLAN IS TO DISCHARGE TO SNF.
[2020-09-01] VITALS (13 sets, daily range): BP systolic 101–113; BP diastolic 57–72; PULSE 77–97; RESP 16–18; TEMP 36.6–37.1; O2SAT 92–98
[2020-09-01] MEDS: methocarbamol 750 mg Tablet PO ×3 (05:00→17:17)
[2020-09-01] MEDS: heparin 5,000 unit/mL INJ 1 mL 5000 UNIT SUBCUT ×2 (05:00→17:17)
[2020-09-01] MEDS: acetaminophen 325 mg Tablet 650 MG PO ×3 (05:00→17:17)
[2020-09-01 07:30] LABS: Basophils # 0.1 10^3/uL (0.0-0.1); Basophils % 0.6 %; Eosinophils # 0.2 10^3/uL (0.0-0.8); Eosinophils % 2.4 %; Hematocrit 32.5 % (42.0-52.0); Lymphocytes # 0.5 10^3/uL (0.8-4.8); Lymphocytes % 5.5 %; Mean Corpuscular HGB Conc 30.8 g/dL (30.0-36.0); Mean Corpuscular Hemoglobin 28.7 pg (28.0-34.0); Mean Corpuscular Volume 93.1 fL (80-94); Mean Platelet Volume 10.3 fL (7.4-10.4); Monocytes # 0.9 10^3/uL (0.2-0.9); Monocytes % 9.4 %; Neutrophils # 7.25 10^3/uL (1.8-7.7); Neutrophils % 80.3 %; Nucleated Red Blood Cells % 0 %; Platelet Count 201 10^3/cmm (130-400); Red Blood Count 3.49 10^6/uL (4.1-5.3); Red Cell Distribution Width 15.7 % (12.1-15.1)
[2020-09-01 07:38] LABS: Alanine Aminotransferase < 5 U/L (0-41); Albumin Level 3.1 g/dL (3.5-5.2); Alkaline Phosphatase 133 IU/L (40-130); Anion Gap 13.4 (5-19); Aspartate Amino Transferase 13 U/L (0-40); Blood Urea Nitrogen 45 mg/dL (8-23); Calcium 8.1 mg/dL (8.5-10.5); Carbon Dioxide 25 mmol/L (22-29); Chloride 105 mmol/L (98-107); Globulin 2.4 g/dL (1.3-4.6); Glucose 182 mg/dL (65-115); Osmolality Calculated 304 mOsm/kg (285-295); Potassium 4.4 mmol/L (3.5-5.1); Sodium 139 mmol/L (136-145); Total Bilirubin 0.3 mg/dL (0.15-1.2); Total Protein 5.5 g/dL (6.6-8.7)
[2020-09-01] MEDS: finasteride 5 mg Tablet PO (07:58)
[2020-09-01] MEDS: metoprolol succinate ER (24 HR) 100 mg Tablet PO (07:59)
[2020-09-01] MEDS: tamsulosin 0.4 mg Capsule PO (07:59)
[2020-09-01] MEDS: atorvastatin 40 mg Tablet 20 MG PO (07:59)
[2020-09-01] MEDS: FUROsemide 40 mg Tablet PO (07:59)
[2020-09-01] MEDS: gabapentin 300 mg Capsule PO ×3 (07:59→20:32)
[2020-09-01] MEDS: budesonide 0.5 mg/2 mL Neb 0.25 MG INHALATION ×2 (08:33→19:55)
--- NOTE | 2020-09-01 10:10 | PC.OT ---
OT tx attempted. Pt lying in bed and declines to get up at this time. He states I was up for breakfast. I'm sleepy .Will attempt tx at later time if possible.
--- NOTE | 2020-09-01 12:29 | PM.PN ---
Subjective Subjective: Interval history: Patient was alert and oriented when I saw him today he was wearing the collar and sitting in bed. Vitals/I&O/Wt Last Vital Signs Temp 97.9 F 09/01/20 11:17 Pulse 82 09/01/20 11:17 Resp 18 09/01/20 11:17 BP 111/72 09/01/20 11:17 Pulse Ox 95 09/01/20 11:17 08/31/20 09/01/20 09/01/20 22:59 06:59 14:59 Intake Total 240 / 600 360 / 360 Output Total 750 / 750 450 / 1200 350 / 350 Balance -510 / -150 -450 / -600 Physical Exam Narrative: EXAM NARRATIVE: Patient has 5 5 strength resting comfortably Urinary Catheter Management^: Wang: Cath Placed During This Visit: yes Reason for Continuing Indwelling Catheter: Acute Urinary Retention or Obstruction Urinary Catheter Date of Insertion: 08/28/20 Urinary Catheter Time of Insertion: 16:35 Data : 09/01/20 07:08 09/01/20 07:08 Micro: Microbiology 08/29/20 09:07 Urine Culture - Final Urine,Voided A&P Additional A&P Information POD# 4 C3-T2 PSF D/C planning to SNF when available Attestations Medical Necessity Statement*: patient will be discharged today or tommorow pending placement Procedures Arterial Line Size (Gauge): 20 Coding Level of Care Code Acute Credit Collections Clerk for [employer]
--- NOTE | 2020-09-01 12:36 | PM.PN ---
Subjective Subjective: Interval history: Patient was doing well overnight. No fever, chills, nausea or vomiting. Noted pain undercontroll. Medications: Reviewed: Yes Vitals/I&O/Wt Last Vital Signs Temp 97.9 F 09/01/20 11:17 Pulse 82 09/01/20 11:17 Resp 18 09/01/20 11:17 BP 111/72 09/01/20 11:17 Pulse Ox 95 09/01/20 11:17 08/31/20 09/01/20 09/01/20 22:59 06:59 14:59 Intake Total 240 / 600 360 / 360 Output Total 750 / 750 450 / 1200 350 / 350 Balance -510 / -150 -450 / -600 Physical Exam Narrative: EXAM NARRATIVE: General: Alert awake oriented x 3 HEENT : Grossly unremarkable, soft cervical collar in place. CHEST : Non-Labored respiration CVS : NSR ABD: Soft NT, ND : Wang removed. Ext : No edema, FROM x 4 Urinary Catheter Management^: Wang: Cath Placed During This Visit: yes Reason for Continuing Indwelling Catheter: Acute Urinary Retention or Obstruction Urinary Catheter Date of Insertion: 08/28/20 Urinary Catheter Time of Insertion: 16:35 Data : 09/01/20 07:08 09/01/20 07:08 Micro: Microbiology 08/29/20 09:07 Urine Culture - Final Urine,Voided A&P Assessment and plan (1) Cervical spine fracture: Post managemet per primary team Pain control PT/OT consult Status: Acute Qualifiers: Cervical vertebra fracture level: C7 Encounter type: initial encounter Fracture type: closed (2) BPH loc w urin obs/LUTS: Wang catheter removal today Voiding trials Bladder scan q6hr Straight cath for > 250 UA today Follow up on culture results May consider urology consult if persistent Continue Flomax 0.4 mg PO daily Status: Acute (3) COPD (chronic obstructive pulmonary disease): Supplemental oxygen as needed Status: Acute (4) Leukocytosis: Stable Remain afebrile Status: Acute (5) Hyperkalemia: Improved spironolactone potassium held Repeat labs in the morning Status: Acute (6) Acute kidney injury: Appears to have chronic kidney disease stage 3 Creatinine likely at new baseline - Cr 2.6 today Improved from admission Monitor urine output Renally dose medications Repeat BMP in am Will need nephrology consult outpatient Obtain renal US Status: Acute (7) HTN (hypertension): Stable PRN Hydralazine Will continue to hold aldactone Status: Acute (8) Dysphagia: Resolved Aspiration precautions Upright 40 degree for meals Status: Acute Additional A&P Information DVT PPX: LOVENOX 40 MG SC DAILY ( monitor for post op bleeding ) Code Status : Full code Attestations Medical Necessity Statement*: Will continue to follow while admitted. Will require further hospitalization until discharge SNF placement arranged. Awaiting insurance facility authorization Time Spent in Patient Care: Greater than 35 minutes (>than 50% of time spent in counselling and/or direct pt care on unit). Procedures Arterial Line Size (Gauge): 20 Coding Level of Care Code Acute Steam And Power Supervisor for Chg Fwd Diagnoses Cervical spine fracture S12.9XXA Cervical vertebra fracture level: C7 Encounter type: initial encounter Fracture type: closed BPH loc w urin obs/LUTS N40.1 COPD (chronic obstructive pulmonary disease) J44.9 Leukocytosis D72.829 Hyperkalemia E87.5 Acute kidney injury N17.9 HTN (hypertension) I10 Dysphagia R13.10
[2020-09-01 14:04] LABS: Blood Urine 3+ (Negative); Glucose Urine UA Norm (Normal); Ketones Urine Negative (Negative); Protein Urine 2+ (Negative); Specific Gravity, Urine 1.015 (1.005-1.030); Urine Appearance Bloody (CLEAR); Urine Color Red (Yellow)
[2020-09-01 14:05] LABS: Add Urine Culture? Yes; Add Urine Microscopic? YES; Bacteria Urine 1+ /hpf; Bilirubin Urine Neg (Negative); Leukocyte Esterase Urine 2+ (Negative); Nitrate Urine Negative (Negative); RBC Urine >100 /hpf (0-2); Squamous Epithelial Cell Urine 0-4 /hpf (0-5); Urobilinogen Urine Norm (Negative); WBC Urine 25-40 /hpf (0-5)
[2020-09-01 14:18] LABS: SARS Covid-2 Antigen Negative (Negative)
--- NOTE | 2020-09-01 17:55 | PC.NURSE ---
SHIFT SUMMARY PATIENT HAS DONE WELL TODAY. WORKED WITH THERAPY THIS MORNING. PAIN WELL CONTROLLED WITH TYLENOL. THIS NURSE NOTICED PATIENT HAD SOME HEMATURIA IN HIS CABRAL CATHETER THIS MORNING. DR DAVIS NOTIFIED. ORDER WAS GIVEN TO DISCONTINUE CABRAL CATHETER AND TO SEND A URINALYSIS IF URINE CONTINUES TO BE BLOODY. PATIENT URINATED WITHOUT DIFFICULTY AFTER CABRAL CATHETER REMOVAL, BUT URINE WAS STILL RED AND DARK. URINE SENT TO LAB. SURGICAL INCISION C/D/I. NO COMPLAINTS AT THIS TIME.
[2020-09-02] VITALS (10 sets, daily range): BP systolic 96–137; BP diastolic 61–83; PULSE 79–91; RESP 16–17; TEMP 36.6–36.9; O2SAT 92–95
[2020-09-02] MEDS: methocarbamol 750 mg Tablet PO ×3 (00:28→11:14)
[2020-09-02] MEDS: heparin 5,000 unit/mL INJ 1 mL 5000 UNIT SUBCUT (06:01)
--- NOTE | 2020-09-02 07:12 | P.PN_ITS ---
Subjective Subjective: Interval history: pain controlled Vitals/I&O/Wt Last Vital Signs Temp 98.1 F 09/02/20 04:35 Pulse 89 09/02/20 06:00 Resp 17 09/02/20 04:35 BP 128/83 09/02/20 04:35 Pulse Ox 95 09/02/20 04:35 09/01/20 09/02/20 09/02/20 22:59 06:59 14:59 Output Total 200 / 550 Balance -200 / -190 Physical Exam Narrative: EXAM NARRATIVE: 5/5 strength thru out resting comfortably Urinary Catheter Management^: Wang: Cath Placed During This Visit: yes, but has since been removed by the nurse Reason for Continuing Indwelling Catheter: Required Immobilization for Trauma or Surgery or Anesthesia Urinary Catheter Date of Insertion: 08/28/20 Urinary Catheter Time of Insertion: 16:35 Date Urinary Catheter Removed: 09/01/20 Time Urinary Catheter Discontinued: 09:00 Data : 09/01/20 07:08 09/01/20 07:08 Attestations Medical Necessity Statement*: plan to discharge today to SNF Procedures Arterial Line Size (Gauge): 20 Coding Level of Care Code Acute Equipment Superintendent for [employer]
[2020-09-02] MEDS: budesonide 0.5 mg/2 mL Neb 0.25 MG INHALATION (07:45)
[2020-09-02] MEDS: albuterol 8 gm MDI 2 PUFF INHALATION (07:46)
[2020-09-02] MEDS: FUROsemide 40 mg Tablet PO (08:05)
[2020-09-02] MEDS: finasteride 5 mg Tablet PO (08:05)
[2020-09-02] MEDS: atorvastatin 40 mg Tablet 20 MG PO (08:05)
[2020-09-02] MEDS: tamsulosin 0.4 mg Capsule PO (08:05)
[2020-09-02] MEDS: gabapentin 300 mg Capsule PO ×2 (08:06→15:08)
[2020-09-02] MEDS: metoprolol succinate ER (24 HR) 100 mg Tablet PO (08:06)
[2020-09-02] MEDS: acetaminophen 325 mg Tablet 650 MG PO ×2 (09:00→15:07)
--- NOTE | 2020-09-02 13:31 | PC.SOCIAL ---
IMM Updated Page 2 of IMM updated and given to patient. Initialed, dated, and timed and placed back in chart.
--- NOTE | 2020-09-02 18:42 | PM.DCS ---
Discharge Providers Date of Admission: 08/28/20 19:42 Date of Discharge: September 02, 2020 Attending Provider at Admission: Blas Sanchez DO Attending Provider at Discharge: Faith Davis Primary Care Provider: Toni Strauss MD Diagnoses at Discharge Discharge Diagnosis (1) Cervical spine fracture: Status: Inactive Qualifiers: Cervical vertebra fracture level: C7 Encounter type: initial encounter Fracture type: closed (2) BPH loc w urin obs/LUTS: Status: Acute (3) COPD (chronic obstructive pulmonary disease): Status: Acute (4) Leukocytosis: Status: Resolved (5) Hyperkalemia: Status: Resolved (6) Acute kidney injury: Status: Resolved (7) HTN (hypertension): Status: Acute (8) Dysphagia: Status: Resolved Reason for Visit Reason for Visit: Posterior cervical spine fusion Hospital Course Hospital Course 85-year-old male with a past medical history significant for hypertension, COPD, left upper lobe lung mass and urinary retention due to BPH with presented to the hospital after he had fallen and sustained a C7 fracture. Patient apparently had of Wang catheter in place which she tripped over. Patient was taken to the OR on August 28, 2020. procedure performed included C3-T2 PSF, C3 -T2 instrumentation, fracture reduction C7, application and removal of Martini tongs. Laboratory workup on arrival had shown a WBC of 16.6, hemoglobin of 11.5, hematocrit 36.8 and a platelet count of 195. sodium 139, potassium 5.7, chloride 105, bicarb 24, BUN 50 and creatinine of 2.7. Most recent creatinine was on 08/07/2020 of 2.1. ProBNP was found to be 5805. urinalysis had shown 3+ blood, trace leukocyte esterase, 25 to 40 RBCs and 0 to 4 wbc's. Postop patient had noted some shortness of breath. A chest x-ray was performed on 09/08 which showed postoperative changes, unchanged left upper lobe lung mass. No acute cardiopulmonary abnormalities were seen. Patient was eventually weaned off oxygen. Was on room air satting 95%. Prior to discharge patient was noted to briefly have hematuria. this resolved. Wang catheter was removed. Patient tolerated voiding trials after Wang catheter removal. Urinalysis had showed possible infection. He was started on IV antibiotics. Did not have any fever episodes. Leukocytosis from initial WBC of 16.6 has resolved. Was empirically discharged on antibiotics as cultures had not resulted. Patient this pain was controlled. He was in a soft neck brace. Renal function was 2.6 on day of discharge. This was likely around patient's new baseline. He was transferred to intermediate facility. Patient was cleared for discharge from orthopedic surgery standpoint. Physical Exam Narrative: EXAM NARRATIVE: General: Alert awake oriented x 3 HEENT : Grossly unremarkable, soft cervical collar in place. CHEST : Non-Labored respiration CVS : NSR ABD: Soft NT, ND : Wang removed. Ext : No edema, FROM x 4 Urinary Catheter Management^: Wang: Cath Placed During This Visit: yes, but has since been removed by the nurse Reason for Continuing Indwelling Catheter: Required Immobilization for Trauma or Surgery or Anesthesia Urinary Catheter Date of Insertion: 08/28/20 Urinary Catheter Time of Insertion: 16:35 Date Urinary Catheter Removed: 09/01/20 Time Urinary Catheter Discontinued: 09:00 Discharge Data Data Completed and Pending: Completed Studies During Hospitalization Category Date Time Status XR cervical spine 1V 48466 Routine Exams 08/28/20 Completed XR chest 1V shanda ble [id number] Routine Exams 08/29/20 06:55 Completed Vitals: Last Vital Signs Temp 98 F 09/02/20 11:04 Pulse 91 09/02/20 15:46 Resp 16 09/02/20 15:46 BP 137/79 09/02/20 15:46 Pulse Ox 95 09/02/20 15:46 Discharge Plan Discharge Patient Disposition: Xfer [facility] Condition: Stable Prescriptions: New cefdinir 300 mg capsule 300 mg PO BID 7 Days Qty: 14 RF: 0 Continued tamsulosin 0.4 mg capsule 0.4 mg PO DAILY 30 Days Qty: 30 RF: 2 budesonide [Pulmicort] 0.25 mg/2 mL suspension for nebulization 0.25 mg inhalation BID 30 Days Qty: 120 RF: 3 Perforomist 20 mcg/2 mL solution for nebulization 2 ml inhalation BID 30 Days Qty: 120 RF: 3 revefenacin 175 mcg/3 mL solution for nebulization 175 mcg inhalation DAILY 30 Days Qty: 90 RF: 3 (DME) Custome Neck Brace See Rx Instructions .Route .MEDSUPPLY Qty: 1 RF: 0 (DME) Custome Neck Brace See Rx Instructions .Route .MEDSUPPLY Qty: 1 RF: 0 zolpidem 10 mg tablet 10 mg PO BEDTIME RF: 0 simvastatin 40 mg tablet 40 mg PO DAILY RF: 0 metoprolol succinate 200 mg tablet extended release 24 hr 100 mg PO DAILY RF: 0 gabapentin 300 mg capsule 300 mg PO TID RF: 0 albuterol sulfate 90 mcg/actuation HFA aerosol inhaler 2 puff inhalation QID PRN (Reason: Shortness Of Breath) RF: 0 (DME) BONE GROWTH STIMULATOR [id number] See Rx Instructions .Route .MEDSUPPLY Qty: 1 RF: 0 methocarbamol [Robaxin-750] 750 mg tablet 750 mg PO Q6H Qty: 30 RF: 0 naproxen [Naprosyn] 500 mg tablet 500 mg PO BID PRN (Reason: pain) Qty: 20 RF: 0 acetaminophen [Tylenol Extra Strength] 500 mg Tablet 1,000 mg PO PRN RF: 0 finasteride 5 mg tablet 5 mg PO DAILY RF: 0 Discontinued potassium chloride 10 mEq capsule, extended release 10 meq PO DAILY RF: 0 furosemide 40 mg tablet 40 mg PO BID RF: 0 spironolactone 25 mg tablet 25 mg PO DAILY RF: 0 Discharge Orders: Discharge Order (Routine); Ordered 09/01/20 Ordered By: Blas Sanchez Referrals: [facility] [Outside] - 1 week Blas Sanchez DO [Physician] - 09/11/20 10:45 am Toni Strauss MD [Primary Care Provider] - 09/09/20 2:45 pm Discharge Diet: Advance as tolerated and Usual diet Discharge Activity: Limit activity as instructed Activity Restrictions/Additional Instructions: 10 Lb weight restriction does not need to wear collar when eating otherwise wear collar time motion analyst keep dressing on f/u ortho clinic 2 weeks Discharge Attestations Time Spent in Discharge Care*: greater than 30 min Specific Discharge Activities: educating patient, discussing with case worker/social workers/dc planners, documenting/other paperwork and evaluating patient/reviewing data Status at Discharge: Cognitive status at discharge: cognitively intact, Behavioral status at discharge: cooperative, Functional status at discharge: independent ambulation Overall status at discharge: patient is progressing back to baseline Quality Metrics Clinical Quality Measures During this hospital stay, did patient experience: None Coding Level of Care Code Acute Paraprofessional Education Assistant for [facility] Lizeth Diagnoses Cervical spine fracture S12.9XXA Cervical vertebra fracture level: C7 Encounter type: initial encounter Fracture type: closed BPH loc w urin obs/LUTS N40.1 COPD (chronic obstructive pulmonary disease) J44.9 Leukocytosis D72.829 Hyperkalemia E87.5 Acute kidney injury N17.9 HTN (hypertension) I10 Dysphagia R13.10
== END 2020-09-02 15:47 | disposition skilled nursing facility (03) | DRG 454 ==
LOC: ICU 19:43 → MEDSURG 08-30 13:27
PROVIDERS: Internal Medicine; Admitting Provider Orthopaedic Surgery; PCP Family Medicine; Visit Provider Hospitalist
PROC: 0RG40AJ Fusion of Cervicothoracic Vertebral Joint with Interbody Fusion Device, Posterior Approach, Anterior Column, Open Approach (ICD-10-PCS; principal; 2020-08-28 11:40)
DX: S12.600A Unspecified displaced fracture of seventh cervical vertebra, initial encounter for closed fracture (principal); N13.8 Other obstructive and reflux uropathy; N17.9 Acute kidney failure, unspecified; N40.1 Benign prostatic hyperplasia with lower urinary tract symptoms; J44.9 Chronic obstructive pulmonary disease, unspecified; E87.5 Hyperkalemia; R13.10 Dysphagia, unspecified; W01.0XXA Fall on same level from slipping, tripping and stumbling without subsequent striking against object, initial encounter; Y93.89 Activity, other specified; Y92.009 Unspecified place in unspecified non-institutional (private) residence as the place of occurrence of the external cause; N18.2 Chronic kidney disease, stage 2 (mild); I12.9 Hypertensive chronic kidney disease with stage 1 through stage 4 chronic kidney disease, or unspecified chronic kidney disease
CPT/HCPCS: 12345; 36415; 51702; 71045; 72020; 72125; 76000; 80053; 81001; 83735; 83880; 84100; 85025; 87086; 87426; 92526; 92610; 93005; 94640; 96372; 96375; 97110; 97116; 97161; 97166; 97530; 97535; 99281; 99283; C1713; C9359; J0330; J0690; J0696; J1100; J1644; J1885; J2060; J2250; J2270; J2405; J2704; J3010; J3490; J3535; J7030; J7611; J7626

== ENCOUNTER 2020-09-12 08:58 | Inpatient (IN) | payer MEDICARE, OTHER, SELFPAY ==
[2020-09-12] VITALS (14 sets, daily range): BP systolic 104–131; BP diastolic 56–74; PULSE 63–91; RESP 15–24; TEMP 36.4–36.6; O2SAT 90–100
--- NOTE | 2020-09-12 09:49 | XRR_ITS ---
PROCEDURE INFORMATION: Exam: XR Chest, 1 View Exam date and time: 09/12/2020 10:27 AM Age: 85 years old Clinical indication: Shortness of breath; Additional info: Dyspena TECHNIQUE: Imaging protocol: XR of the chest Views: 1 view. COMPARISON: CR (CHEST, ) 08/29/2020 8:38 AM FINDINGS: Lungs: The left upper lobe pulmonary mass is unchanged. Mild atelectasis is present in right base. Pleural space: Unremarkable. No pleural effusion. No pneumothorax. Heart/Mediastinum: The heart is not significantly enlarged. Bones/joints: The patient has undergone extensive lower cervical upper thoracic surgical spine fusion with pedicle screws and rods. XR/XR chest 1V portable [id number] IMPRESSION: 1. No significant change in the left upper lobe lung mass. 2. Mild basilar atelectasis.
--- NOTE | 2020-09-12 09:49 | ECG_ITS ---
[facility] Test Date: 2020-09-12 Pat Name: Diego Garzon Department: Room: Gender: Male Shipmaster: : 1935 Requested By: John Laughlin Order Number: [id number] Shannan MD: Neeru French M.D. Measurements Intervals [place] Rate: 73 P: IA: QRS: 0 QRSD: 89 T: 32 QT: 417 QTc: 461 Interpretive Statements ATRIAL FIBRILLATION ABNORMAL RHYTHM ECG Compared to ECG 08/29/2020 07:50:18 No significant changes Electronically Signed On 09-12-2020 21:58:06 [employer] CONSULTANT by Neeru French M.D. [id number]
--- NOTE | 2020-09-12 10:37 | W.ED.SOB ---
HPI - SOB/Dyspnea General: Chief Complaint: Shortness of Breath/Dyspnea Stated Complaint: RESP DISTRESS Time Seen by Provider: 09/12/20 08:59 History of Present Illness: HPI Narrative: 85 yo male presents to the emergency room with confusion altered mental status recent neck surgery has been mildly hypoxic per reports at the [facility]. He is stable on arrival here he is alert and answers questions however none of the answers make any particular sense. He still is requiring 2 L by nasal cannula. He denies chest pain or shortness of breath but I am not entirely sure how accurate his reflection on history is. He is receiving gabap[facility] zolpidem at the [facility]. Associated symptoms: Deny abdominal pain, chest pain, fever(s), nausea or vomiting Review of Systems General: Reports: ROS unobtainable due to mental status (Unreliable due to altered mental status) Const: Denies: fever(s) or chills Card: Denies: chest pain Resp: Denies: dyspnea GI: Denies: abdominal pain, nausea or vomiting : Denies: dysuria Skin/Breast: Denies: rash or pruritus PFSH ED PFSH: Medical History Arthritis Benign prostatic hyperplasia BPH loc w urin obs/LUTS Chronic venous stasis H/O cataract bilateral cataract surgery Hilar adenopathy HTN (hypertension) Hyperlipidemia Lung cancer Prostatic hemorrhage Renal cell cancer Surgical History H/O right nephrectomy H/O transurethral resection of prostate History of lobectomy of lung History of nephrectomy, right S/P TURP Status post lung surgery Family History Father , 58 Cancer Mother , 80 Stroke Diabetes Family/Other Cancer lung, liver Diabetes Hypertension Brother Cancer Lung CAD (coronary artery disease) Sister Cancer Liver Social History Smoking and tobacco status: former smoker Quit status (tobacco): has quit using tobacco Year quit tobacco: 2000-Hx of 2PPDx 45 Years Alcohol intake: never Lives independently: Yes Household members: none Marital status: / Current occupational status: retired History of recent travel: No Current gender identity: Male Physical Exam Const: COMMON NORMALS: no acute distress GENERAL APPEARANCE: cooperative and comfortable ORIENTATION/CONSCIOUSNESS: Yes awake HENMT: COMMON NORMALS: normocephalic, atraumatic and hearing grossly normal bilaterally HEAD & SCALP: normocephalic and atraumatic Neck/C-Spine: COMMON NORMALS: no JVD Resp: COMMON NORMALS: normal respiratory effort, No retractions, No use of accessory muscles and clear to auscultation bilaterally AUSCULTATION: clear to auscultation bilaterally Cardio: COMMON NORMALS: no JVD, regular rate, regular rhythm and No murmurs present (Cardio) RATE: regular rate RHYTHM: regular rhythm GI: COMMON NORMALS: Soft to palpation and No hepatosplenomegaly present AUSCULTATION: Yes normoactive bowel sounds PALPATION: Yes Soft to palpation, No Tenderness to palpation present (GI), No Guarding due to palpation present (GI) and Yes No hepatosplenomegaly present Extremity: COMMON NORMALS: normal to inspection, capillary refill normal, no clubbing, cyanosis or edema, no calf tenderness and no pedal edema Skin: COMMON NORMALS: no rashes or lesions noted GENERAL SKIN EXAM: no rashes or lesions noted Course Vital Signs: Vital signs: Vital Signs Temperature 97.7 F 09/12/20 09:13 Pulse Rate 67 09/12/20 13:00 Respiratory Rate 20 H 09/12/20 13:00 Blood Pressure 113/72 09/12/20 13:00 Pulse Oximetry 96 09/12/20 13:00 MDM - SOB/Dyspnea MDM Narrative: Medical decision making narrative: Patient has a cystitis and additionally has acute on chronic kidney injury. Mildly hypokalemic will give IV fluids initially. Start on ceftriaxone. Orders are written. He does have a little bit of urinary retention but only 200 and the bladder after voiding with his history of prostate issues that may be the norm for him at this point we will hold off on putting a catheter in but did discuss with the hospitalist to something that may need to be monitored. Lab Data: Labs: Lab Results 09/12/20 09/12/20 09/12/20 Range/Units 10:10 10:10 10:10 WBC 12.6 H (4.0-10.0) 10^3/ uL RBC 3.35 L (4.1-5.3) 10^6/u L Hgb 9.6 L (11.7-16.6) g/dL Hct 32.6 L (42.0-52.0) % MCV 97.3 H (80-94) fL MCH 28.7 (28.0-34.0) pg MCHC 29.4 L (30.0-36.0) g/dL RDW 16.3 H (12.1-15.1) % Plt Count 263 (130-400) 10^3/c mm MPV 9.8 (7.4-10.4) fL Neut % (Auto) 81.3 % Lymph % (Auto) 4.3 % [place] % (Auto) 7.4 % Eos % (Auto) 4.9 % Baso % (Auto) 0.4 % Neut # (Auto) 10.21 H (1.8-7.7) 10^3/u L Lymph # (Auto) 0.5 L (0.8-4.8) 10^3/u L [place] # (Auto) 0.9 (0.2-0.9) 10^3/u L Eos # (Auto) 0.6 (0.0-0.8) 10^3/u L Baso # (Auto) 0.1 (0.0-0.1) 10^3/u L Nucleated RBC % (a uto) 0 % Nucleated RBCs # 0.0 /100WBC Sodium 139 (136-145) mmol/L Potassium 5.6 H (3.5-5.1) mmol/L Chloride 107 (98-107) mmol/L Carbon Dioxide 19 L (22-29) mmol/L Anion Gap 18.6 (5-19) BUN 65 H (8-23) mg/dL Creatinine 3.4 H (0.7-1.2) mg/dL GFR Calculation Not Reportable Glucose 105 (65-115) mg/dL Calculated Osmolal ity 307 H (285-295) mOsm/k g Calcium 8.6 (8.5-10.5) mg/dL Total Bilirubin 0.3 (0.15-1.2) mg/dL AST 14 (0-40) U/L ALT 17 (0-41) U/L Alkaline Phosphata se 237 H (40-130) IU/L Creatine Kinase 39 (39-308) U/L Troponin T Baselin e 61 H (0-15) ng/L Troponin T 120 Min [place] (0-15) ng/L Delta Troponin T (0-10) ABS# Total Protein 5.6 L (6.6-8.7) g/dL Albumin 3.5 (3.5-5.2) g/dL Globulin 2.1 (1.3-4.6) g/dL Lipase 20 (13-60) U/L Urine Color (Yellow) Urine Appearance (CLEAR) Urine pH (5-7) Ur Specific Gravit y (1.005-1.030) Urine Protein (Negative) Urine Glucose (UA) (Normal) Urine Ketones (Negative) Urine Blood (Negative) Urine Nitrate (Negative) Urine Bilirubin (Negative) Prot Sulfosalicyli c Acd (Negative) Urine Urobilinogen (Negative) mg/dL Ur Leukocyte Nataliya ase (Negative) Urine RBC (0-2) /hpf Urine WBC (0-5) /hpf Ur Squamous Epith Cells (0-5) /hpf Ur Transition Epit h Cell /hpf Amorphous Sediment Urine Bacteria (NONE) /hpf Hyaline Casts /lpf Urine Mucus /hpf 09/12/20 09/12/20 Range/Units 11:00 12:01 WBC (4.0-10.0) 10^3/ uL RBC (4.1-5.3) 10^6/u L Hgb (11.7-16.6) g/dL Hct (42.0-52.0) % MCV (80-94) fL MCH (28.0-34.0) pg MCHC (30.0-36.0) g/dL RDW (12.1-15.1) % Plt Count (130-400) 10^3/c mm MPV (7.4-10.4) fL Neut % (Auto) % Lymph % (Auto) % [place] % (Auto) % Eos % (Auto) % Baso % (Auto) % Neut # (Auto) (1.8-7.7) 10^3/u L Lymph # (Auto) (0.8-4.8) 10^3/u L [place] # (Auto) (0.2-0.9) 10^3/u L Eos # (Auto) (0.0-0.8) 10^3/u L Baso # (Auto) (0.0-0.1) 10^3/u L Nucleated RBC % (a uto) % Nucleated RBCs # /100WBC Sodium (136-145) mmol/L Potassium (3.5-5.1) mmol/L Chloride (98-107) mmol/L Carbon Dioxide (22-29) mmol/L Anion Gap (5-19) BUN (8-23) mg/dL Creatinine (0.7-1.2) mg/dL GFR Calculation Glucose (65-115) mg/dL Calculated Osmolal ity (285-295) mOsm/k g Calcium (8.5-10.5) mg/dL Total Bilirubin (0.15-1.2) mg/dL AST (0-40) U/L ALT (0-41) U/L Alkaline Phosphata se (40-130) IU/L Creatine Kinase (39-308) U/L Troponin T Baselin e (0-15) ng/L Troponin T 120 Min [place] 60.82 H (0-15) ng/L Delta Troponin T -0.18 L (0-10) ABS# Total Protein (6.6-8.7) g/dL Albumin (3.5-5.2) g/dL Globulin (1.3-4.6) g/dL Lipase (13-60) U/L Urine Color Yellow (Yellow) Urine Appearance Hazy A (CLEAR) Urine pH 5 (5-7) Ur Specific Gravit y 1.020 (1.005-1.030) Urine Protein 1+ H (Negative) Urine Glucose (UA) Norm (Normal) Urine Ketones Negative (Negative) Urine Blood Neg (Negative) Urine Nitrate Negative (Negative) Urine Bilirubin 1+ H (Negative) Prot Sulfosalicyli c Acd Negative (Negative) Urine Urobilinogen Norm (Negative) mg/dL Ur Leukocyte Nataliya ase Trace H (Negative) Urine RBC None (0-2) /hpf Urine WBC 80-100 H (0-5) /hpf Ur Squamous Epith Cells 5-10 H (0-5) /hpf Ur Transition Epit h Cell 0-4 /hpf Amorphous Sediment Not Reportable Urine Bacteria 2+ H (NONE) /hpf Hyaline Casts 0-4 H /lpf Urine Mucus 2+ /hpf Discharge Plan Discharge Patient Disposition: Admitted As Inpatient Clinical Impression: Cystitis, MARIE (acute kidney injury) Condition: Stable Coding Level of Care Code ED Trimming Machine Set Up Operator for Chg Fwd Exam Comprehensive
[2020-09-12 10:42] LABS: Basophils # 0.1 10^3/uL (0.0-0.1); Basophils % 0.4 %; Eosinophils # 0.6 10^3/uL (0.0-0.8); Eosinophils % 4.9 %; Hematocrit 32.6 % (42.0-52.0); Hemoglobin 9.6 g/dL (11.7-16.6); Lymphocytes # 0.5 10^3/uL (0.8-4.8); Lymphocytes % 4.3 %; Mean Corpuscular HGB Conc 29.4 g/dL (30.0-36.0); Mean Corpuscular Hemoglobin 28.7 pg (28.0-34.0); Mean Corpuscular Volume 97.3 fL (80-94); Mean Platelet Volume 9.8 fL (7.4-10.4); Monocytes # 0.9 10^3/uL (0.2-0.9); Monocytes % 7.4 %; Neutrophils # 10.21 10^3/uL (1.8-7.7); Neutrophils % 81.3 %; Nucleated Red Blood Cells % 0 %; Platelet Count 263 10^3/cmm (130-400); Red Blood Count 3.35 10^6/uL (4.1-5.3); Red Cell Distribution Width 16.3 % (12.1-15.1); White Blood Count 12.6 10^3/uL (4.0-10.0)
[2020-09-12 10:57] LABS: Troponin(5th) Baseline 61 ng/L (0-15)
[2020-09-12 11:03] LABS: Alanine Aminotransferase 17 U/L (0-41); Albumin Level 3.5 g/dL (3.5-5.2); Alkaline Phosphatase 237 IU/L (40-130); Anion Gap 18.6 (5-19); Aspartate Amino Transferase 14 U/L (0-40); Blood Urea Nitrogen 65 mg/dL (8-23); Calcium 8.6 mg/dL (8.5-10.5); Carbon Dioxide 19 mmol/L (22-29); Chloride 107 mmol/L (98-107); Creatine Phosphokinase 39 U/L (39-308); Globulin 2.1 g/dL (1.3-4.6); Glucose 105 mg/dL (65-115); Lipase 20 U/L (13-60); Osmolality Calculated 307 mOsm/kg (285-295); Potassium 5.6 mmol/L (3.5-5.1); Sodium 139 mmol/L (136-145); Total Bilirubin 0.3 mg/dL (0.15-1.2); Total Protein 5.6 g/dL (6.6-8.7)
--- NOTE | 2020-09-12 11:49 | ECG_ITS ---
[facility] Test Date: 2020-09-12 Pat Name: Diego Garzon Department: Room: Gender: Male Ap Processor: : 1935 Requested By: oJhn Laughlin Order Number: [id number] Shannan MD: Neeru French M.D. Measurements Intervals [place] Rate: 72 P: NC: QRS: 2 QRSD: 86 T: 29 QT: 417 QTc: 457 Interpretive Statements ATRIAL FIBRILLATION ABNORMAL RHYTHM ECG Compared to ECG 09/12/2020 09:29:26 No significant changes Electronically Signed On 09-12-2020 22:04:39 STRIPPER APPRENTICE by Neeru French M.D. [email or web address]/[id number]
--- NOTE | 2020-09-12 11:56 | CTR_ITS ---
PROCEDURE INFORMATION: Exam: CT Head Without Contrast Exam date and time: 09/12/2020 12:14 PM Age: 85 years old Clinical indication: Altered mental status/memory loss; Confusion or disorientation; Additional info: AMS TECHNIQUE: Imaging protocol: Computed tomography of the head without contrast. Radiation optimization: All CT scans at this facility use at least one of these dose optimization techniques: automated exposure control; mA and/or kV adjustment per patient size (includes targeted exams where dose is matched to clinical indication); or iterative reconstruction. COMPARISON: No relevant prior studies available. RADIATION DOSE METRICS: Total DLP (mGy-cm): 574.1 FINDINGS: Brain: There is mild patchy decreased white matter density consistent with chronic small vessel white matter ischemia. There is generalized chronic atrophy with prominence of the ventricles and sulci. No intracranial hemorrhage, edema or other acute abnormalities are seen in the brain. Cerebral ventricles: Ventricular prominence from chronic atrophy. Bones/joints: Unremarkable. No acute fracture. Paranasal sinuses: Visualized sinuses are unremarkable. No fluid levels. Mastoid air cells: Visualized mastoid air cells are well aerated. Soft tissues: Unremarkable. CT/CT head wo con* [id number] IMPRESSION: No acute intracranial abnormality. Radiation Dose CTDIVOL = (mGy): DLP = 574.1 (mGy-cm)
[2020-09-12 12:07] LABS: Add Urine Microscopic? YES; Bilirubin Urine 1+ (Negative); Blood Urine Neg (Negative); Glucose Urine UA Norm (Normal); Ketones Urine Negative (Negative); Leukocyte Esterase Urine Trace (Negative); Nitrate Urine Negative (Negative); Protein Urine 1+ (Negative); Sulfosalicylic Acid Urine Negative (Negative); Urine Appearance Hazy (CLEAR); Urine Color Yellow (Yellow); Urobilinogen Urine Norm (Negative); pH Urine 5 (5-7)
[2020-09-12 12:09] LABS: WBC Urine 80-100 /hpf (0-5)
[2020-09-12 12:10] LABS: Add Urine Culture? Yes; Bacteria Urine 2+ /hpf; Hyaline Casts Urine 0-4 /lpf; Mucus Urine 2+ /hpf; Transitional Epi Cells Urine 0-4 /hpf
[2020-09-12] MEDS: cefTRIAXone 1,000 MG in sodium chloride 0.9% (plus) 50 ML 100 MG IV (12:34)
[2020-09-12 12:35] LABS: Troponin 5 2HR 60.82 ng/L (0-15)
[2020-09-12 12:36] LABS: Troponin 5 2HR Delta -0.18 ABS# (0-10)
[2020-09-12] MEDS: sodium chloride 0.9% 500 ML 999 ML IV (13:06)
--- NOTE | 2020-09-12 15:32 | USR_ITS ---
PROCEDURE INFORMATION: Exam: US Duplex Lower Extremity Veins, Bilateral Exam date and time: 09/12/2020 5:01 PM Age: 85 years old Clinical indication: Swelling (edema) of limb; Lower extremity, bilateral; Additional info: Evaluate for dvt TECHNIQUE: Imaging protocol: Real-time duplex ultrasound of the extremities with 2-D de los santos scale, color Doppler flow and spectral waveform analysis with image documentation. Complete exam focused on the bilateral lower extremity veins. COMPARISON: No relevant prior studies available. FINDINGS: Right deep veins: Unremarkable. The common femoral, femoral, proximal profunda femoral and popliteal veins are patent without thrombus. Normal Doppler waveforms. Normal compressibility and/or augmentation response. Right superficial veins: Saphenofemoral junction is patent without thrombus. Left deep veins: Unremarkable. The common femoral, femoral, proximal profunda femoral and popliteal veins are patent without thrombus. Normal Doppler waveforms. Normal compressibility and/or augmentation response. Left superficial veins: Saphenofemoral junction is patent without thrombus. Soft tissues: Unremarkable. US/CV venous duplex [facility] [id number] IMPRESSION: No evidence of deep vein thrombosis.
--- NOTE | 2020-09-12 15:40 | PM.HP ---
Providers/Chief Complaint Admitting Physician: John Troncoso MD Primary Care Provider: Toni Strauss MD Chief Complaint: RESP DISTRESS History of Present Illness Diego Garzon is a 85 year old male with a past medical history of left upper lobe lung mass, status post bronchoscopy, highly suspicious for cancer, but biopsy lacking pathological diagnosis, pending CT-guided biopsy, COPD, history of acute on chronic urinary retention secondary to BPH, recent history of C7 fracture after a fall Status post C3-T2 PSF, C3 -T2 instrumentation, fracture reduction C7, application and removal of Martini tongs, currently he is a resident at [facility] detention, who presents [facility] due to confusion. Nursing staff at [facility] tell me that he is normally alert oriented x3, he is quite independent, he has not had any problems since his hospital discharge, however this morning patient was quite confused, was following commands, but seeing things on the wall, no slurring of her speech, no focal neurologic deficits, no facial droop, no seizure-like episodes. He was also complaining of shortness of breath, and his oxygen saturations were in the low 90s, and he looks short of breath. Currently patient is alert and oriented x3, his only complaints is shortness of breath, and some chest tightness, has some calf swelling, tells me that he does have a history of urinary tract infections, trouble emptying his bladder, denies any nausea, denies any vomiting, has a chronic cough, hemoptysis related to his left upper lobe lung mass, no recurrent falls, no fevers, chills, no known exposure to COVID-19 Work-up in the emergency room showed evidence of UTI dehydration, hospitalist team was called for admission Review of Systems Const: Denies: fever(s), chills, fatigue or malaise Eyes: Denies: change in vision or blurry vision ENMT: Denies: throat pain or nasal congestion Card: Reports: chest pain; Denies: palpitations Resp: Reports: dyspnea and hemoptysis; Denies: productive cough, non-productive cough or wheezing GI: Denies: abdominal pain, nausea, vomiting, hematemesis, diarrhea, constipation, hematochezia or melena : Denies: flank pain, difficulty urinating, dysuria or urinary frequency Musc: Denies: neck pain or back pain Skin/Breast: Denies: rash Neuro: Denies: headache(s), dizziness or vertigo Psych: Denies: anxiety or depression Endo: Denies: polyuria or polydipsia Medications/Allergies Home Medications Medication Instructions Recorded Confirmed Last Taken Type simvastatin 40 mg tablet 20 mg PO DAILY@0700 11/22/19 09/12/20 09/11/20 History zolpidem 10 mg tablet 10 mg PO BEDTIME@1900 tab 11/22/19 09/12/20 09/11/20 History albuterol sulfate 90 mcg/actuation 2 puff INHALATION QID PRN 08/04/20 09/12/20 08/08/20 History aerosol inhaler gabapentin 300 mg capsule 300 mg PO TID@,,08/04/20 09/12/20 09/12/20 History metoprolol succinate 200 mg 100 mg PO DAILY@0700 tab 08/04/20 09/12/20 09/11/20 History tablet,extended release 24 hr acetaminophen [Tylenol Extra 1,000 mg PO PRN PRN 08/26/20 09/12/20 09/11/20 History Strength] budesonide 0.25 mg/2 mL suspension 0.25 mg INHALATION BID 30 Days 08/26/20 09/12/20 09/12/20 Rx for nebulization #120 ml finasteride 5 mg PO DAILY@0700 08/26/20 09/12/20 09/11/20 History methocarbamol [Robaxin-750] 750 mg PO Q6H #30 tab 08/26/20 09/12/20 09/12/20 Rx Custome Neck Brace #1 ea 08/27/20 09/12/20 Unknown Rx Custome Neck Brace #1 ea 08/27/20 09/12/20 Unknown Rx BONE GROWTH STIMULATOR [id number] #1 ea 08/28/20 09/12/20 Unknown Rx Naprosyn 500 mg PO BID PRN 09/12/20 09/12/20 09/11/20 06:00 History bisacodyl [Dulcolax (bisacodyl)] 10 mg UT DAILY PRN 09/12/20 09/12/20 Unknown History cefdinir 300 mg PO BID@0630,1230 09/12/20 09/12/20 09/09/20 History diclofenac sodium [Voltaren] 2 g TOPICAL QID 09/12/20 09/12/20 09/11/20 History diltiazem HCl 120 mg PO DAILY@0700 09/12/20 09/12/20 09/11/20 History formoterol fumarate [Perforomist] 20 mcg INHALATION BID@0700,1900 09/12/20 09/12/20 09/12/20 History honey [MediHoney (honey)] 1 applic TOPICAL DAILY@0730 09/12/20 09/12/20 09/11/20 History revefenacin 175 mcg INHALATION DAILY@0700 09/12/20 09/12/20 09/12/20 History simvastatin 40 mg PO BEDTIME@1930 09/12/20 09/12/20 09/06/20 History tamsulosin 0.4 mg PO DAILY@0700 09/12/20 09/12/20 09/11/20 History Allergies Allergy/AdvReac Type Severity Reaction Status Date / Time No Known Allergies Allergy Verified 08/27/20 13:01 PFSH Acute PFSH: Medical History Arthritis Benign prostatic hyperplasia BPH loc w urin obs/LUTS Chronic venous stasis H/O cataract bilateral cataract surgery Hilar adenopathy HTN (hypertension) Hyperlipidemia Lung cancer Prostatic hemorrhage Renal cell cancer Surgical History H/O right nephrectomy H/O transurethral resection of prostate History of lobectomy of lung History of nephrectomy, right S/P TURP Status post lung surgery Family History Father , 58 Cancer Mother , 80 Stroke Diabetes Family/Other Cancer lung, liver Diabetes Hypertension Brother Cancer Lung CAD (coronary artery disease) Sister Cancer Liver Social History Smoking and tobacco status: former smoker Quit status (tobacco): has quit using tobacco Year quit tobacco: 2000-Hx of 2PPDx 45 Years Alcohol intake: never Lives independently: Yes Household members: none Marital status: / Current occupational status: retired History of recent travel: No Current gender identity: Male Vitals/I&O/Wt Last Vital Signs Temp 97.7 F 09/12/20 09:13 Pulse 72 09/12/20 14:46 Resp 21 H 09/12/20 14:46 BP 115/56 09/12/20 14:46 Pulse Ox 97 09/12/20 14:46 09/12/20 09/12/20 09/12/20 06:59 14:59 22:59 Intake Total 550 / 550 Balance 550 / 550 Weight last 48 hrs Weight 95.118 kg Physical Exam Const: COMMON NORMALS: no acute distress and patient oriented x3 GENERAL APPEARANCE: cooperative and comfortable HENMT: COMMON NORMALS: normocephalic HEAD & SCALP: normocephalic Eye: COMMON NORMALS: Equal, round and reactive pupils present GENERAL EYE: appearance normal, both eyes and all related structures PUPIL: Yes Equal, round and reactive pupils present Neck/C-Spine: COMMON NORMALS: full ROM, no lymphadenopathy, no JVD and Thyroid normal THYROID: Thyroid normal Lymph: LYMPHATIC: no lymphadenopathy noted Resp: COMMON NORMALS: normal respiratory effort, No retractions, No use of accessory muscles and clear to auscultation bilaterally AUSCULTATION: clear to auscultation bilaterally Cardio: COMMON NORMALS: no JVD, regular rate, regular rhythm, S1 normal heart sound present, S2 normal heart sound present, No gallops present (Cardio), No clicks present (Cardio) and No murmurs present (Cardio) RATE: regular rate RHYTHM: regular rhythm HEART SOUNDS: S1 normal heart sound present and S2 normal heart sound present GI: COMMON NORMALS: Normal to inspection, nondistended, normoactive bowel sounds present, Soft to palpation, non-tender and No hepatosplenomegaly present PALPATION: Yes Soft to palpation and Yes No hepatosplenomegaly present Extremity: COMMON NORMALS: normal to inspection, full ROM and no pedal edema Neuro: COMMON NORMALS: patient oriented x3, CN's II-XII intact bilaterally, moves all extremities and no focal motor deficits Psych: COMMON NORMALS: mental status grossly normal, Normal thought process present and cooperative THOUGHT PROCESS: Normal thought process present Data : 09/12/20 10:10 09/12/20 10:10 Micro: Microbiology 09/12/20 12:50 Blood Culture - Preliminary Blood SPECIMEN COLLECTED 09/12/20 12:40 Blood Culture - Preliminary Blood SPECIMEN COLLECTED A&P Assessment and plan (1) Altered mental status: -Currently alert oriented x3, answering most questions appropriately -No focal neurologic deficits -No paresthesias -Head CT shows: Brain: There is mild patchy decreased white matter density consistent with chronic small vessel white matter ischemia. There is generalized chronic atrophy with prominence of the ventricles and sulci. No intracranial hemorrhage, edema or other acute abnormalities are seen in the brain. Cerebral ventricles: Ventricular prominence from chronic atrophy. Bones/joints: Unremarkable. No acute fracture. Paranasal sinuses: Visualized sinuses are unremarkable. No fluid levels. Mastoid air cells: Visualized mastoid air cells are well aerated. Soft tissues: Unremarkable. -chest xray: Lungs: The left upper lobe pulmonary mass is unchanged. Mild atelectasis is present in right base. Pleural space: Unremarkable. No pleural effusion. No pneumothorax. Heart/Mediastinum: The heart is not significantly enlarged. Bones/joints: The patient has undergone extensive lower cervical upper thoracic surgical spine fusion with pedicle screws and rods. -UA has evidence of UTI, likely secondary to urinary retention Plan: -Admit to general medical floors -Gentle IV hydration -Place Wang catheter -Rocephin for UTI -Blood cultures, urine cultures -Neurochecks, aspiration precautions -Monitor clinical status Status: Acute (2) UTI (urinary tract infection): Status: Acute (3) Hypoxia: -Has a history of COPD -Not on oxygen, currently on 2 L -Does not seem like he is in acute exacerbation -Given history of left upper lung mass, recurrent hemoptysis, recent history of surgery, need to rule out pulmonary emboli -Cannot do CT angiogram given creatinine of 3.5 -We will do VQ scan -We will do bilateral lower extremity ultrasound Status: Acute (4) COPD (chronic obstructive pulmonary disease): Continue home inhalers, not in exacerbation, currently on 2 L Status: Acute (5) Mass of upper lobe of left lung: -Status post bronchoscopy -No pathologic evidence of malignancy, but highly concerning for malignancy -Is supposed to have a CT of the chest at some point -Sees Dr. Travis, Dr. Giordano Status: Acute (6) Fracture of C7 vertebra, closed: -Status post surgery by Dr. Sanchez -Surgical site looks clean and dry Status: Acute (7) HTN (hypertension): Status: Acute (8) Urinary retention: We will place Wang catheter Status: Acute (9) Acute kidney injury superimposed on CKD: Creatinine 3.5, start gentle IV hydration Status: Acute Attestations Medical Necessity Statement*: Patient requires hospitalization, outpatient with observation, for delirium altered mental status likely UTI, hypoxia Coding Level of Care Code Acute Valving Machine Operator for Chg Fwd Diagnoses Altered mental status R41.82 UTI (urinary tract infection) N39.0 Hypoxia R09.02 COPD (chronic obstructive pulmonary disease) J44.9 Mass of upper lobe of left lung R91.8 Fracture of C7 vertebra, closed S12.600A HTN (hypertension) I10 Urinary retention R33.9 Acute kidney injury superimposed on CKD N17.9; N18.9
--- NOTE | 2020-09-12 15:49 | ECG_ITS ---
[facility] Test Date: 2020-09-12 Pat Name: Diego Garzon Department: Room: 250 Gender: Male Scenario Writer: : 1935 Requested By: John Laughlin Order Number: [id number] Shannan MD: Neeru French M.D. Measurements Intervals [place] Rate: 71 P: UT: QRS: -3 QRSD: 90 T: 29 QT: 409 QTc: 445 Interpretive Statements ATRIAL FIBRILLATION LOW QRS VOLTAGE IN EXTREMITY LEADS [QRS DEFLECTION < 0.5 mV IN LIMB LEADS] MINIMAL ST DEPRESSION [0.025+ mV ST DEPRESSION] ABNORMAL RHYTHM ECG Compared to ECG 09/12/2020 11:42:28 Low QRS voltage now present ST (T wave) deviation now present Electronically Signed On 09-12-2020 22:01:49 MIDDLEWARE ADMINISTRATOR by Neeru French M.D. [id number]
[2020-09-12] MEDS: enoxaparin 30 mg/0.3 mL Syringe SUBCUT (16:15)
[2020-09-12] MEDS: sodium chloride 0.9% 1,000 ML 100 ML IV (16:15)
[2020-09-12 17:04] LABS: D Dimer 0.76 ug/mIFEU (0-0.59)
[2020-09-12 17:14] LABS: NT Pro B Type Natriuretic Pept 7289 pg/mL (0-450)
[2020-09-12 17:49] LABS: Procalcitonin 0.38 ng/mL (0-0.5); Thyroid Stimulating Hormone 6.16 uIU/mL (0.27-4.20)
[2020-09-12 18:00] LABS: C Reactive Protein 29.7 mg/L (0.0-4.9); Chol HDL Ratio 5.08 mg/dL (1.0-5.00); Cholesterol 132 mg/dL (0-200); HDL Cholesterol 26 mg/dL (60-100); LDL Cholesterol Calculated 80 mg/dL (50-129); LDL HDL Ratio 3.08 RATIO (0.00-3.22); Triglycerides 128 mg/dL (0-150)
[2020-09-12 18:21] LABS: Erythrocyte Sedimentation Rate 47 mm/hr (0-10)
[2020-09-12] MEDS: famotidine 20 mg Tablet PO (18:22)
[2020-09-12] MEDS: gabapentin 300 mg Capsule PO (18:22)
[2020-09-12] MEDS: ipratropium-albuterol 3 mL Neb INHALATION ×2 (18:28→23:33)
[2020-09-12] MEDS: budesonide 0.5 mg/2 mL Neb 0.25 MG INHALATION (18:28)
[2020-09-12 18:30] LABS: Estmated Average Glucose 108; Hemoglobin A1C 5.4 % (4.0-6.0)
--- NOTE | 2020-09-12 23:14 | PC.NURSE ---
O2 SAT O2 sat 87-90% on RA with 1999 VS check done this pm. Pt care nurse was notified. Pt is refusing to wear O2
[2020-09-12 23:34] LABS: Ammonia 59 umol/L (16-60); Troponin 5 6HR 60.46 ng/L (0-15)
[2020-09-13] VITALS (21 sets, daily range): BP systolic 113–131; BP diastolic 63–76; PULSE 67–101; RESP 18–24; TEMP 36.5–36.7; O2SAT 90–96
[2020-09-13] MEDS: ipratropium-albuterol 3 mL Neb INHALATION ×5 (03:21→23:50)
[2020-09-13 05:57] LABS: Basophils # 0.1 10^3/uL (0.0-0.1); Basophils % 0.5 %; Eosinophils # 0.6 10^3/uL (0.0-0.8); Eosinophils % 4.8 %; Hematocrit 30.7 % (42.0-52.0); Hemoglobin 9.3 g/dL (11.7-16.6); Lymphocytes # 0.4 10^3/uL (0.8-4.8); Lymphocytes % 3.7 %; Mean Corpuscular HGB Conc 30.3 g/dL (30.0-36.0); Mean Corpuscular Volume 95.6 fL (80-94); Monocytes % 8.5 %; Neutrophils # 9.25 10^3/uL (1.8-7.7); Neutrophils % 80.6 %; Nucleated Red Blood Cells % 0 %; Platelet Count 249 10^3/cmm (130-400); Red Blood Count 3.21 10^6/uL (4.1-5.3); Red Cell Distribution Width 16.1 % (12.1-15.1); White Blood Count 11.5 10^3/uL (4.0-10.0)
[2020-09-13] MEDS: atorvastatin 40 mg Tablet 20 MG PO (06:09)
[2020-09-13] MEDS: finasteride 5 mg Tablet PO (06:09)
[2020-09-13] MEDS: gabapentin 300 mg Capsule PO (06:09)
[2020-09-13] MEDS: dilTIAZem ER (24HR) 120 mg Capsule PO (06:09)
[2020-09-13] MEDS: metoprolol succinate ER (24 HR) 100 mg Tablet PO (06:09)
[2020-09-13] MEDS: tamsulosin 0.4 mg Capsule PO (06:09)
[2020-09-13 06:14] LABS: Alanine Aminotransferase 18 U/L (0-41); Albumin Level 3.2 g/dL (3.5-5.2); Alkaline Phosphatase 219 IU/L (40-130); Aspartate Amino Transferase 15 U/L (0-40); Blood Urea Nitrogen 69 mg/dL (8-23); Calcium 8.6 mg/dL (8.5-10.5); Carbon Dioxide 18 mmol/L (22-29); Chloride 108 mmol/L (98-107); Globulin 2.5 g/dL (1.3-4.6); Glucose 88 mg/dL (65-115); Magnesium 2.4 mg/dL (1.7-2.3); Osmolality Calculated 312 mOsm/kg (285-295); Phosphorus 5.7 mg/dL (2.5-4.5); Sodium 141 mmol/L (136-145); Total Bilirubin 0.3 mg/dL (0.15-1.2); Total Protein 5.7 g/dL (6.6-8.7)
[2020-09-13] MEDS: budesonide 0.5 mg/2 mL Neb 0.25 MG INHALATION ×2 (08:01→21:06)
[2020-09-13] MEDS: famotidine 20 mg Tablet PO ×2 (08:30→17:23)
[2020-09-13] MEDS: FUROsemide 10 mg/mL SDV 2mL 20 MG IVP (10:11)
--- NOTE | 2020-09-13 10:14 | PC.NURSE ---
Patient refusing to wear oxygen. Patient encouraged and educated on the importance at this time. Patient confused and requires reinforcement of education several times.
[2020-09-13] MEDS: cefTRIAXone 1,000 MG in sodium chloride 0.9% (plus) 50 ML 100 MG IV (12:02)
--- NOTE | 2020-09-13 12:16 | PM.PN ---
Subjective Subjective: Interval history: This morning patient had episodes of confusion, but was redirectable, he knows where he is, he knows his name, he does not know the time, complains of some shortness of breath, some swelling of his legs, but has no other complaints, no chest pain, no abdominal pain, no diarrhea, Vitals/I&O/Wt Last Vital Signs Temp 98.0 F 09/13/20 11:49 Pulse 84 09/13/20 11:49 Resp 22 H 09/13/20 11:49 BP 116/63 09/13/20 11:49 Pulse Ox 95 09/13/20 11:49 09/12/20 09/13/20 09/13/20 22:59 06:59 14:59 Intake Total 120 / 120 Output Total 200 / 200 250 / 450 100 / 100 Balance -200 / 350 -250 / 100 Weight last 48 hrs Weight 95.118 kg Physical Exam Const: COMMON NORMALS: no acute distress and patient oriented x3 GENERAL APPEARANCE: cooperative and comfortable HENMT: COMMON NORMALS: normocephalic HEAD & SCALP: normocephalic Eye: COMMON NORMALS: Equal, round and reactive pupils present GENERAL EYE: appearance normal, both eyes and all related structures PUPIL: Yes Equal, round and reactive pupils present Neck/C-Spine: COMMON NORMALS: no JVD and Thyroid normal THYROID: Thyroid normal Lymph: LYMPHATIC: no lymphadenopathy noted Resp: COMMON NORMALS: normal respiratory effort, No retractions and No use of accessory muscles AUSCULTATION: crackles Cardio: COMMON NORMALS: no JVD, regular rate, regular rhythm, S1 normal heart sound present and S2 normal heart sound present RATE: regular rate RHYTHM: regular rhythm HEART SOUNDS: S1 normal heart sound present and S2 normal heart sound present GI: COMMON NORMALS: Normal to inspection, nondistended, normoactive bowel sounds present, Soft to palpation, non-tender, No hepatosplenomegaly present, no masses and no bruits PALPATION: Yes Soft to palpation and Yes No hepatosplenomegaly present Extremity: COMMON NORMALS: capillary refill normal, no clubbing, cyanosis or edema, no calf tenderness and no pedal edema Neuro: COMMON NORMALS: patient oriented x3 Psych: COMMON NORMALS: mental status grossly normal and Normal thought process present THOUGHT PROCESS: Normal thought process present Skin: NARRATIVE SKIN EXAM: 1+ pitting edema Urinary Catheter Management^: Wang: Cath Placed During This Visit: yes Reason for Continuing Indwelling Catheter: Acute Urinary Retention or Obstruction Urinary Catheter Date of Insertion: 09/12/20 Urinary Catheter Time of Insertion: 15:30 Data : 09/13/20 05:44 09/13/20 05:44 Micro: Microbiology 09/12/20 11:00 Urine Culture - Preliminary Urine,Clean Catch 09/13/20 05:23 Blood Culture - Preliminary Blood SPECIMEN COLLECTED 09/12/20 12:50 Blood Culture - Preliminary Blood SPECIMEN COLLECTED 09/12/20 12:40 Blood Culture - Preliminary Blood SPECIMEN COLLECTED A&P Assessment and plan (1) Altered mental status: -Currently alert oriented x2, answering most questions appropriately, does have episodes of confusion -No focal neurologic deficits -No paresthesias -Head CT shows: Brain: There is mild patchy decreased white matter density consistent with chronic small vessel white matter ischemia. There is generalized chronic atrophy with prominence of the ventricles and sulci. No intracranial hemorrhage, edema or other acute abnormalities are seen in the brain. Cerebral ventricles: Ventricular prominence from chronic atrophy. Bones/joints: Unremarkable. No acute fracture. Paranasal sinuses: Visualized sinuses are unremarkable. No fluid levels. Mastoid air cells: Visualized mastoid air cells are well aerated. Soft tissues: Unremarkable. -chest xray: Lungs: The left upper lobe pulmonary mass is unchanged. Mild atelectasis is present in right base. Pleural space: Unremarkable. No pleural effusion. No pneumothorax. Heart/Mediastinum: The heart is not significantly enlarged. Bones/joints: The patient has undergone extensive lower cervical upper thoracic surgical spine fusion with pedicle screws and rods. -UA has evidence of UTI, likely secondary to urinary retention Plan: -Admit to general medical floors -IV hydration on hold -Place Wang catheter, creatinine has improved to 3.0, has had minimal urine output for the last 24 hours, will give a trial of Lasix -Rocephin for UTI -Blood cultures, urine cultures -Neurochecks, aspiration precautions -Monitor clinical status Status: Acute (2) UTI (urinary tract infection): Continue Rocephin for UTI Status: Acute (3) Hypoxia: -Has a history of COPD -Not on oxygen, currently on 2 L -Does not seem like he is in acute exacerbation -Given history of left upper lung mass, recurrent hemoptysis, recent history of surgery, need to rule out pulmonary emboli -Cannot do CT angiogram given creatinine of 3.0 -We will do VQ scan pending -Bilateral lower extremity ultrasound negative for DVT -Currently sounds fluid overloaded, will do a trial of Lasix Status: Acute (4) COPD (chronic obstructive pulmonary disease): Continue home inhalers, not in exacerbation, currently on 2 L Status: Acute (5) Mass of upper lobe of left lung: -Status post bronchoscopy -No pathologic evidence of malignancy, but highly concerning for malignancy -Is supposed to have a CT of the chest at some point -Sees Dr. Travis, Dr. Giordano Status: Acute (6) Fracture of C7 vertebra, closed: -Status post surgery by Dr. Sanchez -Surgical site looks clean and dry Status: Acute (7) HTN (hypertension): Status: Acute (8) Urinary retention: We will place Wang catheter Status: Acute (9) Acute kidney injury superimposed on CKD: Creatinine 3., Hold IV hydration Status: Acute (10) Acute on chronic anemia: Hemoglobin 9.3, continue to monitor Status: Acute (11) NSTEMI (non-ST elevated myocardial infarction): -6-hour troponin 60.46 -EKG shows minimal ST depressions in anterior leads -No complaints of chest pains -Continue aspirin 81 mg, statin 20 mg daily Status: Acute (12) Atrial fibrillation: -Has a history of atrial fibrillation -Is on metoprolol 100 mg daily -Patient refuses to take blood thinners, as one of his friends from blood thinners, does not want to take it -Advised of the risks and benefits of anticoagulation, voiced understanding, all questions answered, remains adamant that he does not want anticoagulation -Continue aspirin 81 mg Status: Acute Attestations Medical Necessity Statement*: Patient requires hospitalization for altered mental status, UTI, hypoxia Coding Level of Care Code Acute Director Supply Chain for [facility] Fwd Diagnoses Altered mental status R41.82 UTI (urinary tract infection) N39.0 Hypoxia R09.02 COPD (chronic obstructive pulmonary disease) J44.9 Mass of upper lobe of left lung R91.8 Fracture of C7 vertebra, closed S12.600A HTN (hypertension) I10 Urinary retention R33.9 Acute kidney injury superimposed on CKD N17.9; N18.9 Acute on chronic anemia D64.9 NSTEMI (non-ST elevated myocardial infarction) I21.4 Atrial fibrillation I48.91
[2020-09-13] MEDS: aspirin 81 mg EC Tablet PO (13:14)
--- NOTE | 2020-09-13 13:34 | USCV_ITS ---
Diego Garzon Age: 85 Gender: M : 1935 Exam Date: 09/13/2020 15:08 Ordering Phys: John Troncoso MD Technologist: Roxanne Pierce [place] [facility] [place]: nstemi BP: 132 / 96 HR: 75 Rhythm: Sinus Technical Quality: Technically difficult study MEASUREMENTS (Male / Female) Normal Values 2D ECHO LV Diastolic Diameter PLAX 4.3 cm 4.2 - 5.9 / 3.9 - 5.3 cm LV Systolic Diameter PLAX 3.2 cm IVS Diastolic Thickness 1.5 cm 0.6 - 1.0 / 0.6 - 0.9 cm IVS Systolic Thickness 1.8 cm LVPW Diastolic Thickness 1.1 cm 0.6 - 1.0 / 0.6 - 0.9 cm LVPW Systolic Thickness 1.6 cm LVOT Diameter 2.1 cm LV Ejection Fraction 2D Teich 48.9 % LV Ejection Fraction MOD 2C 51.6 % LV Ejection Fraction 2C AL 50.2 % LA Diameter 4.7 cm LA Width 4.9 cm LA Height 6.2 cm RA Width 4.2 cm RA Height 5.9 cm Aorta at Sinotubular Diameter 2.6 cm M-MODE LV Diastolic Diameter MM 4.7 cm 4.2 - 5.9 / 3.9 - 5.3 cm LV Systolic Diameter MM 2.5 cm LV Ejection Fraction MM Teich 77.9 % IVS Diastolic Thickness MM 1.1 cm 0.6 - 1.0 / 0.6 - 0.9 cm IVS Systolic Thickness MM 1.4 cm LVPW Diastolic Thickness MM 1.1 cm 0.6 - 1.0 / 0.6 - 0.9 cm LVPW Systolic Thickness MM 1.7 cm Aortic Annulus Diameter 2.8 cm LA Ao Ratio MM 1.7 MV E Point Septal Separation 0.5 cm DOPPLER AV Peak Velocity 176.8 cm/s LVOT Peak Velocity 117.0 cm/s AV Area Cont Eq vti 2.2 cm squared AV Area Cont Eq pk 2.3 cm squared MV Peak Velocity 182.0 cm/s MV Area PHT 5.5 cm squared Mitral E to A Ratio 10.9 MV E' Velocity 78.0 cm/s Mitral E to MV E' Ratio 11.6 Mitral E to LV E' Lateral Ratio 11.8 Mitral E to LV E' Septal Ratio 11.4 TR Peak Velocity 402.8 cm/s TR Peak Gradient 64.9 mmHg Right Atrial Pressure 3.0 mmHg Pulmonary Artery Systolic Pressu 67.9 mmHg PV Peak Velocity 84.0 cm/s RV Acceleration Time 0.1 s RV Ejection Time 0.3 s RV AcT/ET 0.2 FINDINGS Left Ventricle Normal left ventricular cavity size. Increased left ventricular wall thickness. Mild concentric left ventricular hypertrophy. Left ventricular ejection fraction is estimated at 55%. Although no diagnostic regional wall motion normality could be undefined, this possibility cannot be completely excluded based on the study. Flattened septum in diastole consistent with right ventricle volume overload. Rhythm precludes evaluation of diastolic function. Right Ventricle Mildly increased right ventricular size. Mildly decreased right ventricular systolic function. Right ventricular systolic pressure 64 mmHg (assuming right atrial pressure of 8 mmHg). Right Atrium Moderately increased right atrial size. Left Atrium Severely increased left atrial size. Mitral Valve Thickened mitral valve. Bowing of bilateral mitral valve leaflets without significant prolapse. No mitral valve stenosis. Moderate mitral valve regurgitation. Aortic Valve Thickened and calcified trileaflet aortic valve. Aortic valve sclerosis without significant stenosis. No significant aortic valve regurgitation. Tricuspid Valve Structurally normal tricuspid valve. No tricuspid valve stenosis. Moderate to severe tricuspid valve regurgitation. Pulmonic Valve Structurally normal pulmonic valve. No pulmonary valve stenosis. [id number] pulmonary valve regurgitation. Pericardium No pericardial effusion. Aorta Normal-sized aortic root and ascending aorta. Plaque noted in aortic root and ascending aorta. CONCLUSIONS 1. This is a technically difficult study. Poor apical and subcostal windows. 2. Normal left ventricular cavity size. Mild concentric left ventricular hypertrophy. Left ventricular ejection fraction is estimated at 55%. Although no diagnostic regional wall motion normality could be undefined, this possibility cannot be completely excluded based on the study. Flattened septum in diastole consistent with right ventricle volume overload. 3. Mildly increased right ventricular size. Mildly decreased right ventricular systolic function. 4. Severe pulmonary hypertension with pulmonary artery pressure of 64 mmHg. 5. Moderate mitral valve regurgitation. 6. Moderate to severe tricuspid valve regurgitation. 7. No prior similar studies to compare. Neeru French MD (Electronically Signed) Final Date: 14 September 2020 18:06 S
[2020-09-13] MEDS: enoxaparin 30 mg/0.3 mL Syringe SUBCUT (16:15)
[2020-09-14] VITALS (15 sets, daily range): BP systolic 106–119; BP diastolic 54–70; PULSE 69–90; RESP 18–20; TEMP 36.3–37; O2SAT 93–98
[2020-09-14 05:26] LABS: INR 1.16 (0.8-1.2)
[2020-09-14 05:29] LABS: Basophils # 0.1 10^3/uL (0.0-0.1); Basophils % 0.5 %; Eosinophils # 0.5 10^3/uL (0.0-0.8); Hematocrit 30.3 % (42.0-52.0); Hemoglobin 9.1 g/dL (11.7-16.6); Lymphocytes # 0.4 10^3/uL (0.8-4.8); Lymphocytes % 4.2 %; Mean Corpuscular Hemoglobin 29.1 pg (28.0-34.0); Mean Corpuscular Volume 96.8 fL (80-94); Mean Platelet Volume 10.1 fL (7.4-10.4); Monocytes % 9.9 %; Neutrophils # 7.75 10^3/uL (1.8-7.7); Neutrophils % 78.7 %; Nucleated Red Blood Cells % 0 %; Platelet Count 251 10^3/cmm (130-400); Red Blood Count 3.13 10^6/uL (4.1-5.3); Red Cell Distribution Width 16.2 % (12.1-15.1); White Blood Count 9.9 10^3/uL (4.0-10.0)
[2020-09-14 05:46] LABS: Alanine Aminotransferase 14 U/L (0-41); Albumin Level 3.2 g/dL (3.5-5.2); Alkaline Phosphatase 211 IU/L (40-130); Anion Gap 17.1 (5-19); Aspartate Amino Transferase 11 U/L (0-40); Blood Urea Nitrogen 65 mg/dL (8-23); Calcium 8.5 mg/dL (8.5-10.5); Carbon Dioxide 21 mmol/L (22-29); Chloride 113 mmol/L (98-107); Globulin 2.5 g/dL (1.3-4.6); Glucose 103 mg/dL (65-115); Magnesium 2.6 mg/dL (1.7-2.3); NT Pro B Type Natriuretic Pept 9570 pg/mL (0-450); Osmolality Calculated 321 mOsm/kg (285-295); Phosphorus 5.4 mg/dL (2.5-4.5); Potassium 5.1 mmol/L (3.5-5.1); Sodium 146 mmol/L (136-145); Total Bilirubin 0.3 mg/dL (0.15-1.2); Total Protein 5.7 g/dL (6.6-8.7)
[2020-09-14] MEDS: finasteride 5 mg Tablet PO (06:03)
[2020-09-14] MEDS: atorvastatin 40 mg Tablet 20 MG PO (06:03)
[2020-09-14] MEDS: tamsulosin 0.4 mg Capsule PO (06:03)
[2020-09-14] MEDS: metoprolol succinate ER (24 HR) 100 mg Tablet PO (06:03)
[2020-09-14] MEDS: dilTIAZem ER (24HR) 120 mg Capsule PO (06:03)
--- NOTE | 2020-09-14 07:00 | XR_ITS ---
WS: [id number] PORTABLE CHEST HISTORY: sob COMPARISON: 09/12/2020 Decreased lung volumes with slight elevation of the RIGHT hemidiaphragm. Tenting of the RIGHT diaphra gm suggesting an area of atelectasis or infiltrate. There is mild diffuse heterogeneity throughout ana lilia th lungs. Small LEFT pleural effusion is likely. Cardiac size: Mildly enlarged cardiac silhouette. Mediastinum/Aorta: Mild atherosclerosis aorta. There are several age indeterminate rib fractures in the lateral lower RIGHT thorax. XR/XR chest 1V portable [id number] IMPRESSION: 1. Increasing opacification at the RIGHT lung base may be an area of atelectas is or pneumonia. 2. Mild chronic interstitial lung disease. 3. Cardiomegaly.
[2020-09-14] MEDS: aspirin 81 mg EC Tablet PO (07:53)
[2020-09-14] MEDS: famotidine 20 mg Tablet PO (07:53)
[2020-09-14] MEDS: budesonide 0.5 mg/2 mL Neb 0.25 MG INHALATION (09:01)
[2020-09-14] MEDS: ipratropium-albuterol 3 mL Neb INHALATION ×3 (09:01→14:58)
--- NOTE | 2020-09-14 09:40 | PC.CHAP ---
Pastoral Care Encounter/Spiritual Assessment Type of Contact [] Declined round up ring hand visit [] Patient/Family/Request visit [] Outpatient visit [] Follow-up visit [] Physician referral [] Code/Alert [] Routine visit [] Staff referral [] Actively dying [] Patient sleeping [] Family support [] [] Out of room [] Palliative care [] [] Receiving care in room [] Pre-surgical visit [] Trauma [] Long length of stay [] ICU visit [] Other: Relational/Emotional Strength [x] Patient feels connected with others/family/visitors/staff [] Distress [] Loneliness/isolation [] Abandonment Spirituality of Patient [x] Person of [place] [x] Attends Latter-Day of their [place] [x] Believes in Prayer [] Reads Bible or Oriental Orthodox materials [] There are Spiritual 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 [x] Prayer [x] Active listening [] Non-anxious presence [] Spiritual/emotional support [] Crisis/trauma care [] Spiritual counseling [] Bereavement support [] Provided bereavement packet [] Provided Bible/devotional materials [] Provided toy/stuffed animal, coloring book to patient or family member [] Provided Communion [] Anointing/[place] [] Salvation [x] Completed spiritual assessment [] Other: Impact on Illness or Injury [] Angry [] Fearful [] Anxious [] Often cries [] Exhaustion [] Unable to work [] Unable to attend mormonism [] Unable to walk/stand [] Unable to read [] Unable to drive [] Unable to eat/drink [] Unable to sleep [] Unable to be with family [] Patient intubated [] Other: Summary not hungry Time spent with patient 15 min
[2020-09-14] MEDS: cefTRIAXone 1,000 MG in sodium chloride 0.9% (plus) 50 ML 100 MG IV (11:10)
--- NOTE | 2020-09-14 12:28 | P.DS_ITS ---
Discharge Providers Date of Admission: 09/13/20 14:58 Date of Discharge: September 14, 2020 Attending Provider at Admission: John Troncoso MD Attending Provider at Discharge: Delmy Cornejo MD Primary Care Provider: Toni Strauss MD Diagnoses at Discharge Discharge Diagnosis (1) Altered mental status: Status: Acute (2) UTI (urinary tract infection): Status: Acute (3) Hypoxia: Status: Acute (4) COPD (chronic obstructive pulmonary disease): Status: Acute (5) Mass of upper lobe of left lung: Status: Acute (6) Fracture of C7 vertebra, closed: Status: Acute (7) HTN (hypertension): Status: Acute (8) Urinary retention: Status: Acute (9) Acute kidney injury superimposed on CKD: Status: Acute (10) Acute on chronic anemia: Status: Acute (11) NSTEMI (non-ST elevated myocardial infarction): Status: Acute (12) Atrial fibrillation: Status: Acute (13) MARIE (acute kidney injury): Status: Acute Reason for Visit Reason for Visit: RESP DISTRESS Hospital Course Hospital Course Diego Garzon is a 85 year old male with a past medical history of left upper lobe lung mass, status post bronchoscopy, highly suspicious for cancer, but biopsy lacking pathological diagnosis, pending CT-guided biopsy, COPD, history of acute on chronic urinary retention secondary to BPH, recent history of C7 fracture after a fall Status post C3-T2 PSF, C3 -T2 instrumentation, fracture reduction C7, application and removal of Martini tongs, currently he is a resident at [facility] custodial, who presented [facility] on 09/12 due to confusion.He was also complaining of shortness of breath, and his oxygen saturations were in the low 90s, along with tachypnea and visible dyspnea. He had a new oxygen requirement of up to 6 L/min. Since arrival patient has noted to have episodic confusion, however overall has remained alert and oriented x3. He has not had any focal neurological deficits. CT of the head showed old small vessel white matter ischemia without any acute changes. Chest CT showed an unchanged upper lobe pulmonary mass with mild atelectasis of the lung base. No gross consolidation was noted. UA was noted to be 130, however urine culture has remained negative to date. He was also noted to have urinary retention for which a Wang catheter was placed. His complete creatinine upon arrival was at 3.4, now improved to 2.8. He received a challenge of Lasix yesterday after which he made about 500 cc of urine. Creatinine is reassuringly improving. His oxygen saturation is additionally improved. He is down from 6 L/min oxygen supplementation to 2 L/min at this time. For his COPD he was continued on his home inhalers. Encouraged outpatient follow-up with Dr. Travis and lung mass evaluation. Rapid Covid antigen was negative. CTA chest was unable to be performed due to his MARIE with creatinine 3.4. He was unable to tolerate a VQ scan as he could not lay still in the machine. Lower extremity duplex was negative, therefore lower suspicion for PE at this time. He received empiric antibiotic course for presumed UTI with Rocephin, transition to oral ciprofloxacin upon discharge. Mental status appears to be back to baseline at this present time. He is being discharged with a Wang catheter in place, recommended to follow-up with urology within the next 7 to 10 days. Patient also has a history of atrial fibrillation for which she has refused blood thinners in the past. He remained rate controlled during the course of admission. Physical Exam Narrative: EXAM NARRATIVE: GEN: Awake, alert and oriented, no acute distress HEENT nasal cannula in place. CVS: S1S2 N RS: CTA B/L Abd: Soft, nt/nd , bs+ DOPE MIXER: no focal neuro deficits Urinary Catheter Management^: Wang: Cath Placed During This Visit: yes Reason for Continuing Indwelling Catheter: Acute Urinary Retention or Obstruction Urinary Catheter Date of Insertion: 09/12/20 Urinary Catheter Time of Insertion: 15:30 Discharge Data Data Completed and Pending: Completed Studies During Hospitalization Category Date Time Status CT head wo con* 7 0450 Stat Cat Scan 09/12/20 11:56 Completed XR chest 1V shanda ble [id number] Routine Exams 09/14/20 07:00 Completed XR chest 1V shanda ble [id number] Stat Exams 09/12/20 09:49 [place] [id number] Routin e Ultrasound 09/12/20 15:32 Completed Pending at discharge Category Date Time Status Blood Culture Sta t Lab 09/12/20 12:50 Results Blood Culture Sta t Lab 09/12/20 15:32 Results Complete Blood Co unt w/Auto AM LABS Lab 09/15/20 04:00 Ordered Complete Blood Co unt w/Auto AM LABS Lab 09/16/20 04:00 Ordered Comprehensive Met abolic Panel AM LA BS Lab 09/15/20 04:00 Ordered Comprehensive Met abolic Panel AM LA BS Lab 09/16/20 04:00 Ordered Magnesium AM LABS Lab 09/15/20 04:00 Ordered NT Pro B Type Joy riuretic Pept QAM Lab 09/15/20 06:00 Ordered NT Pro B Type Joy riuretic Pept QAM Lab 09/16/20 06:00 Ordered Phosphorus AM LAB S Lab 09/15/20 04:00 Ordered Prothrombin Time INR AM LABS Lab 09/15/20 04:00 Ordered Prothrombin Time INR AM LABS Lab 09/16/20 04:00 Ordered CV echo complete* [id number] Routine Ultrasound 09/13/20 13:34 Taken Labs from last 24 hours 09/14/20 09/14/20 09/14/20 04:27 04:27 04:27 WBC 9.9 RBC 3.13 L Hgb 9.1 L Hct 30.3 L MCV 96.8 H MCH 29.1 MCHC 30.0 RDW 16.2 H Plt Count 251 MPV 10.1 Neut % (Auto) 78.7 Lymph % (Auto) 4.2 [place] % (Auto) 9.9 Eos % (Auto) 5.0 Baso % (Auto) 0.5 Neut # (Auto) 7.75 H Lymph # (Auto) 0.4 L [place] # (Auto) 1.0 H Eos # (Auto) 0.5 Baso # (Auto) 0.1 Nucleated RBC % (a uto) 0 Nucleated RBCs # 0.0 PT 15.20 H INR 1.16 Sodium 146 H Potassium 5.1 Chloride 113 H Carbon Dioxide 21 L Anion Gap 17.1 BUN 65 H Creatinine 2.8 H GFR Calculation Not Reportable Glucose 103 Calculated Osmolal ity 321 H Calcium 8.5 Phosphorus 5.4 H Magnesium 2.6 H Total Bilirubin 0.3 AST 11 ALT 14 Alkaline Phosphata se 211 H NT-Pro-B Natriuret Pep 9570 H Total Protein 5.7 L Albumin 3.2 L Globulin 2.5 Vitals: Last Vital Signs Temp 97.4 F L 09/14/20 11:38 Pulse 73 09/14/20 11:38 Resp 18 09/14/20 11:38 BP 106/54 09/14/20 11:38 Pulse Ox 98 09/14/20 11:38 Discharge Plan Discharge Patient Disposition: Xfer [facility] Condition: Stable Prescriptions: New aspirin 81 mg Tablet,Delayed Release (Dr/Ec) 81 mg PO DAILY 30 Days RF: 0 ciprofloxacin HCl [Cipro] 500 mg tablet 500 mg PO BID 3 Days Qty: 6 RF: 0 furosemide [Lasix] 40 mg tablet 40 mg PO QAM 14 Days Qty: 14 RF: 0 Continued budesonide [Pulmicort] 0.25 mg/2 mL suspension for nebulization 0.25 mg inhalation BID 30 Days Qty: 120 RF: 3 (DME) Custome Neck Brace See Rx Instructions .Route .MEDSUPPLY Qty: 1 RF: 0 (DME) Custome Neck Brace See Rx Instructions .Route .MEDSUPPLY Qty: 1 RF: 0 zolpidem 10 mg tablet 10 mg PO BEDTIME@1900 RF: 0 metoprolol succinate 200 mg tablet extended release 24 hr 100 mg PO DAILY@0700 RF: 0 albuterol sulfate 90 mcg/actuation HFA aerosol inhaler 2 puff inhalation QID PRN (Reason: Shortness Of Breath) RF: 0 (DME) BONE GROWTH STIMULATOR [id number] See Rx Instructions .Route .MEDSUPPLY Qty: 1 RF: 0 simvastatin 40 mg tablet 40 mg PO BEDTIME@1930 RF: 0 diltiazem HCl 120 mg Capsule,Extended Release 12 Hr 120 mg PO DAILY@0700 RF: 0 Dulcolax (bisacodyl) 10 mg Suppository 10 mg AK DAILY PRN (Reason: Constipation) RF: 0 Perforomist 20 mcg/2 mL Solution For Nebulization 20 mcg INHALATION BID@0700,1900 RF: 0 Voltaren 1 % Gel 2 g TOPICAL QID RF: 0 MediHoney (honey) 80 % Gel 1 applic TOPICAL DAILY@0730 RF: 0 tamsulosin 0.4 mg capsule 0.4 mg PO DAILY@0700 RF: 0 revefenacin 175 mcg/3 mL solution for nebulization 175 mcg inhalation DAILY@0700 RF: 0 acetaminophen [Tylenol Extra Strength] 500 mg Tablet 1,000 mg PO PRN PRN (Reason: PAIN/FEVER) RF: 0 finasteride 5 mg tablet 5 mg PO DAILY@0700 RF: 0 Discontinued simvastatin 40 mg tablet 20 mg PO DAILY@0700 RF: 0 gabapentin 300 mg capsule 300 mg PO TID@07,13,19 RF: 0 cefdinir 300 mg Capsule 300 mg PO BID@0630,1230 RF: 0 Naprosyn 500 mg tablet 500 mg PO BID PRN (Reason: pain) RF: 0 methocarbamol [Robaxin-750] 750 mg tablet 750 mg PO Q6H Qty: 30 RF: 0 Discharge Orders: Discharge Order (Routine); Ordered 09/14/20 Ordered By: Delmy Cornejo Other Ambulatory Orders: Comprehensive Metabolic Panel (Routine) Timeframe: 3 Days Facility: [facility] - Location: Lab - Main Lab Ordered By: Delmy Cornejo Referrals: Toni Strauss MD [Primary Care Provider] - Marco Antonio Cantrell MD [Physician] - 7-10 days Discharge Diet: Usual diet Discharge Activity: Increase activity as tolerated and As per PT/OT instructions Activity Restrictions/Additional Instructions: Patient is being discharged with a Wang catheter in place due to urinary retention and acute kidney injury. His renal function is starting to improve after placement. Recommended to keep the Wang in place until follow-up with Dr. Cantrell. His list of medications have been confirmed with his daughter. She states additionally that patient was on spironolactone, this has not been added to his list of medications given that patient currently has MARIE and hyperkalemia up to 5.6 upon admission. I have discontinued his naproxen because of MARIE. Also discontinued gabapentin as daughter reports adverse effects with gabapentin in the past which included hallucinations. Also discontinued muscle relaxants at this present time. 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
--- NOTE | 2020-09-14 12:50 | PC.NURSE ---
pts daughter Phyllis Wood called. she wishes for her dad to not receive any Haldol or Gabapentin while in our care because she feels it makes the confusion worse. she also would like for it to be passed to residential.
== END 2020-09-14 16:19 | disposition skilled nursing facility (03) | DRG 689 ==
LOC: ER 13:45 → MEDSURG 18:41
PROVIDERS: Admitting Provider Family Medicine; Emergency Provider Family Medicine; PCP Family Medicine; Visit Provider Student in an Organized Health Care Education/Training Program
DX: N39.0 Urinary tract infection, site not specified (principal); I21.4 Non-ST elevation (NSTEMI) myocardial infarction; N17.9 Acute kidney failure, unspecified; F05 Delirium due to known physiological condition; R91.8 Other nonspecific abnormal finding of lung field; J44.9 Chronic obstructive pulmonary disease, unspecified; N40.1 Benign prostatic hyperplasia with lower urinary tract symptoms; R33.8 Other retention of urine; E86.0 Dehydration; M19.90 Unspecified osteoarthritis, unspecified site; I87.8 Other specified disorders of veins; I11.0 Hypertensive heart disease with heart failure; N18.9 Chronic kidney disease, unspecified; E78.5 Hyperlipidemia, unspecified; Z85.528 Personal history of other malignant neoplasm of kidney; Z85.118 Personal history of other malignant neoplasm of bronchus and lung; Z90.2 Acquired absence of lung [part of]; Z90.5 Acquired absence of kidney; Z87.891 Personal history of nicotine dependence; S12.600D Unspecified displaced fracture of seventh cervical vertebra, subsequent encounter for fracture with routine healing; X58.XXXD Exposure to other specified factors, subsequent encounter; Z79.51 Long term (current) use of inhaled steroids; I48.91 Unspecified atrial fibrillation; D64.9 Anemia, unspecified; Z98.1 Arthrodesis status
CPT/HCPCS: 12345; 36415; 51702; 70450; 71045; 80053; 80061; 81001; 82140; 82550; 83036; 83690; 83735; 83880; 84100; 84145; 84443; 84484; 85025; 85378; 85610; 85651; 86140; 87040; 87086; 93005; 93306; 93970; 94640; 94664; 96372; 96375; 97161; 97166; 97530; 99283; G0378; J0696; J1650; J1940; J7030; J7040; J7626

== ENCOUNTER 2020-09-15 13:37 | Inpatient (IN) | payer MEDICARE, OTHER, SELFPAY ==
[2020-09-15] VITALS (16 sets, daily range): BP systolic 110–130; BP diastolic 46–68; PULSE 57–80; RESP 14–20; TEMP 36.6; O2SAT 94–100; BMI 31.5
--- NOTE | 2020-09-15 13:46 | XRR_ITS ---
PROCEDURE INFORMATION: Exam: XR Chest, 1 View Exam date and time: 09/15/2020 1:48 PM Age: 85 years old Clinical indication: Dyspnea TECHNIQUE: Imaging protocol: XR of the chest Views: 1 view. COMPARISON: CR XR chest 1V portable [id number] 09/14/2020 6:37 AM FINDINGS: Lungs: Low lung volumes are seen. No consolidation. Pleural space: Unremarkable. No pleural effusion. No pneumothorax. Heart/Mediastinum: Unremarkable. No cardiomegaly. Bones/joints: Metallic surgical hardware is present in the cervical spine. Other findings: This finding is stable since prior. XR/XR chest 1V portable [id number] IMPRESSION: 1. No acute findings. 2. Low lung volumes seen. 3. Stable metallic surgical hardware cervical spine
--- NOTE | 2020-09-15 13:47 | ECG_ITS ---
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 Measurements Intervals [place] Rate: 57 P: MN: QRS: 20 QRSD: 86 T: 60 QT: 480 QTc: 468 Interpretive Statements ATRIAL FIBRILLATION WITH SLOW VENTRICULAR RESPONSE SEPTAL MYOCARDIAL INFARCTION , PROBABLY OLD [40+ ms Q WAVE IN V1/V2] Compared to ECG 09/12/2020 17:06:02 Myocardial infarct finding now present ST (T wave) deviation no longer present Electronically Signed On 09-15-2020 18:29:29 UNDERGROUND REPAIRER by Brent Polanco M.D. [id number]
--- NOTE | 2020-09-15 13:49 | W.ED.GENADLT ---
HPI - General Adult General: Chief complaint: General Medical Stated complaint: DIFFICULTY BREATHING/ CONFUSION Time Seen by Provider: 09/15/20 13:39 Source: patient and EMS Mode of arrival: EMS Limitations: no limitations History of Present Illness: HPI narrative: Mr. Garzon is a nice 85-year-old male who [facility] with report of shortness of breath. There is concerned that he of aspirated. Patient was seen here Monday and since leaving he had increased leg swelling. Patient has been satting normally on his normal oxygen of 4 L. Patient denies headache, chest pain, belly pain, back pain or other complaint. He states he does feel somewhat short of breath but otherwise he denies any new complaints or concerns. Patient appears to know that he is in the hospital and is here because he is sick. He knows his name. He appears alert and oriented x3. Associated symptoms: Reports dyspnea; Deny chest pain, confusion, diaphoresis, headache(s), malaise, nausea, rash, palpitations, syncope or vomiting Review of Systems Const: Denies: fever(s), chills, body aches, fatigue, malaise or diaphoresis Eyes: Denies: change in vision, blurry vision, photophobia, eye discomfort, eye discharge, eye redness or yellow eyes ENMT: Denies: throat pain, odynophagia, hoarseness, swelling of lips/tongue, ear or mastoid pain, ear discharge, change in hearing or nasal discharge Card: Denies: chest pain, palpitations, irregular heart rhythm, edema, lightheadedness, syncope, pre-syncope, dyspnea on exertion or orthopnea Resp: Reports: dyspnea, non-productive cough, wheezing and chest congestion GI: Denies: abdominal pain, nausea, vomiting, hematemesis, coffee ground emesis, heartburn, diarrhea, constipation, GI cramping, hematochezia or melena : Denies: flank pain, dysuria, urinary frequency, urinary urgency or hematuria Musc: Denies: neck pain, back pain, extremity pain, extremity swelling, joint pain, joint swelling, joint redness, joint warmth or joint stiffness Skin/Breast: Denies: rash, pruritus, erythema, skin pain or skin tenderness Neuro: Denies: headache(s), numbness in extremities, weakness in extremities, sensory changes, lack of coordination, difficulty walking, dizziness, vertigo, confusion, Slurred speech present or seizure-like activity Karlos/Lymph: Denies: easy bruising, easy bleeding, petechiae, purpura or enlarged lymph nodes All/Imm: Denies: urticaria, throat swelling, tongue swelling, facial swelling or acute wheezing PFSH ED PFSH: Medical History Arthritis Benign prostatic hyperplasia BPH loc w urin obs/LUTS Chronic venous stasis H/O cataract bilateral cataract surgery Hilar adenopathy HTN (hypertension) Hyperlipidemia Lung cancer Prostatic hemorrhage Renal cell cancer Surgical History H/O right nephrectomy H/O transurethral resection of prostate History of lobectomy of lung History of nephrectomy, right S/P TURP Status post lung surgery Family History Father , 58 Cancer Mother , 80 Stroke Diabetes Family/Other Cancer lung, liver Diabetes Hypertension Brother Cancer Lung CAD (coronary artery disease) Sister Cancer Liver Social History Smoking and tobacco status: former smoker Quit status (tobacco): has quit using tobacco Year quit tobacco: 2000-Hx of 2PPDx 45 Years Alcohol intake: never Lives independently: Yes Household members: none Marital status: / Current occupational status: retired History of recent travel: No Current gender identity: Male Physical Exam Const: COMMON NORMALS: no acute distress, patient oriented x3, no limitations and alert GENERAL APPEARANCE: cooperative HENMT: COMMON NORMALS: normocephalic, atraumatic, external ears normal, EAC's normal and Normal external nose present HEAD & SCALP: normal to inspection, normocephalic and atraumatic FACE & SINUS: normal facial exam and face symmetric NOSE: Normal external nose present and Normal nares present EXTERNAL EAR: Yes external ears normal EXTERNAL AUDITORY CANAL: EAC's normal MOUTH: Normal oral and palatal mucosa present, lip normal and tongue normal Eye: COMMON NORMALS: Equal, round and reactive pupils present and conjunctivae normal GENERAL EYE: appearance normal, both eyes and all related structures ALIGNMENT: Yes alignment normal PERIORBITAL: periorbital findings normal EYELID: eyelids normal CONJUNCTIVA: Yes conjunctivae normal SCLERA: sclerae normal PUPIL: Yes Equal, round and reactive pupils present Neck/C-Spine: COMMON NORMALS: full ROM, no lymphadenopathy, supple, no meningeal signs and no JVD GENERAL: Yes normal visual inspection and Yes trachea midline Chest: COMMONS NORMALS: normal inspection of the chest and normal palpation of entire chest wall Resp: EFFORT & INSPECTION: Yes able to speak in complete sentences, Yes symmetric chest movement and Yes paradoxical thoraco-abdominal movements AUSCULTATION: no crackles, rales, rhonchi and wheezes Cardio: COMMON NORMALS: no JVD, regular rate, regular rhythm, S1 normal heart sound present and S2 normal heart sound present RATE: regular rate RHYTHM: regular rhythm HEART SOUNDS: S1 normal heart sound present, S2 normal heart sound present, no click, no gallops, no murmurs and no rubs GI: COMMON NORMALS: Soft to palpation and No hepatosplenomegaly present PALPATION: Yes Soft to palpation, No Tenderness to palpation present (GI), No Guarding due to palpation present (GI), No Rigid due to palpation, Yes No hepatosplenomegaly present, No Hernia present, No Palpable mass present and No Pulsatile mass present : COMMON NORMALS: Yes no CVA tenderness BLADDER/KIDNEY EXAM: Yes no CVA tenderness Back/Pelvis: COMMON NORMALS: no CVA tenderness, thoracic and lumbar spine normal to inspection, no thoracic nor lumbar tenderness and thoraco-lumbar ROM normal Extremity: COMMON NORMALS: normal to inspection, full ROM, capillary refill normal, no joint enlargement, no clubbing, cyanosis or edema and no calf tenderness Neuro: COMMON NORMALS: patient oriented x3, CN's II-XII intact bilaterally, moves all extremities, no focal motor deficits and no sensory deficits noted SENSORIUM/ORIENTATION: Yes alert MENINGEAL SIGNS: Yes no meningeal signs SPEECH: speech normal Psych: COMMON NORMALS: mental status grossly normal, Normal thought process present, cooperative, normal affect, speech normal and activity/motor behavior normal SPEECH: Yes normal speech THOUGHT PROCESS: Normal thought process present Skin: COMMON NORMALS: no rashes or lesions noted, turgor normal, no jaundice, no petechiae and no mottling GENERAL SKIN EXAM: no rashes or lesions noted and turgor normal Course Vital Signs: Vital signs: Vital Signs Temperature 97.9 F 12/22/20 13:39 Pulse Rate 67 09/15/20 18:30 Respiratory Rate 14 09/15/20 18:30 Blood Pressure 112/46 09/15/20 18:30 Pulse Oximetry 96 09/15/20 18:30 MDM - General Adult MDM Narrative: Medical decision making narrative: Case was endorsed to Dr. Geiger he agrees to admit the patient for evaluation and care. Lab Data: Attestation: I reviewed the patient's lab results. Labs: Lab Results 09/15/20 09/15/20 09/15/20 Range/Units 14:10 14:30 14:30 WBC (4.0-10.0) 10^3/ uL RBC (4.1-5.3) 10^6/u L Hgb (11.7-16.6) g/dL Hct (42.0-52.0) % MCV (80-94) fL MCH (28.0-34.0) pg MCHC (30.0-36.0) g/dL RDW (12.1-15.1) % Plt Count (130-400) 10^3/c mm MPV (7.4-10.4) fL Neut % (Auto) % Lymph % (Auto) % [place] % (Auto) % Eos % (Auto) % Baso % (Auto) % Neut # (Auto) (1.8-7.7) 10^3/u L Lymph # (Auto) (0.8-4.8) 10^3/u L [place] # (Auto) (0.2-0.9) 10^3/u L Eos # (Auto) (0.0-0.8) 10^3/u L Baso # (Auto) (0.0-0.1) 10^3/u L Nucleated RBC % (a uto) % Nucleated RBCs # /100WBC PT (12.1-14.9) SECO NDS INR (0.8-1.2) D-Dimer (0-0.59) ug/mIFE U Specimen Type Arterial Sample Site Radial, left ABG pH 7.26 L (7.35-7.45) ABG pCO2 42.7 (35-45) mmHg ABG pO2 123.0 H (80.0-100.0) mmH g ABG HCO3 19.0 L (22-26) mmol/L ABG Base Excess -7.7 L (-2.0-2.0) mmol/ L Robin Test Pos Hematocrit 30.0 L (42-52) % O2 Delivery Device Nc O2 Liters/Min 4.5 % FiO2 34.0 % Marketing Community Liaison ID Ed Sodium Potassium Chloride Carbon Dioxide Anion Gap BUN Creatinine GFR Calculation Glucose Calculated Osmolal ity Lactic Acid (0.5-2.2) mmol/L Calcium Magnesium (1.7-2.3) mg/dL Total Bilirubin AST ALT Alkaline Phosphata se Troponin T Baselin e (0-15) ng/L Troponin T 120 Min [place] (0-15) ng/L Delta Troponin T (0-10) ABS# NT-Pro-B Natriuret Pep (0-450) pg/mL Total Protein Albumin Globulin Urine Color (Yellow) Urine Appearance (CLEAR) Urine pH (5-7) Ur Specific Gravit y (1.005-1.030) Urine Protein (Negative) Urine Glucose (UA) (Normal) Urine Ketones (Negative) Urine Blood (Negative) Urine Nitrate (Negative) Urine Bilirubin (Negative) Urine Urobilinogen (Negative) mg/dL Ur Leukocyte Nataliya ase (Negative) Amorphous Sediment Influenza Type A A g Negative (Negative) Influenza Type B A g Negative (Negative) SARS-CoV-2 Ag (Rap id) Negative (Negative) 09/15/20 09/15/20 09/15/20 Range/Units 16:57 16:57 16:57 WBC 14.0 H (4.0-10.0) 10^3/ uL RBC 3.36 L (4.1-5.3) 10^6/u L Hgb 9.7 L (11.7-16.6) g/dL Hct 32.7 L (42.0-52.0) % MCV 97.3 H (80-94) fL MCH 28.9 (28.0-34.0) pg MCHC 29.7 L (30.0-36.0) g/dL RDW 16.2 H (12.1-15.1) % Plt Count 261 (130-400) 10^3/c mm MPV 10.4 (7.4-10.4) fL Neut % (Auto) 85.6 % Lymph % (Auto) 2.4 % [place] % (Auto) 9.0 % Eos % (Auto) 1.3 % Baso % (Auto) 0.4 % Neut # (Auto) 11.96 H (1.8-7.7) 10^3/u L Lymph # (Auto) 0.3 L (0.8-4.8) 10^3/u L [place] # (Auto) 1.3 H (0.2-0.9) 10^3/u L Eos # (Auto) 0.2 (0.0-0.8) 10^3/u L Baso # (Auto) 0.1 (0.0-0.1) 10^3/u L Nucleated RBC % (a uto) 0 % Nucleated RBCs # 0.0 /100WBC PT 15.40 H (12.1-14.9) SECO NDS INR 1.18 (0.8-1.2) D-Dimer 0.49 (0-0.59) ug/mIFE U Specimen Type Sample Site ABG pH (7.35-7.45) ABG pCO2 (35-45) mmHg ABG pO2 (80.0-100.0) mmH g ABG HCO3 (22-26) mmol/L ABG Base Excess (-2.0-2.0) mmol/ L Robin Test Hematocrit (42-52) % O2 Delivery Device O2 Liters/Min % FiO2 % Marketing Community Liaison ID Sodium Cancelled Potassium Cancelled Chloride Cancelled Carbon Dioxide Cancelled Anion Gap Cancelled BUN Cancelled Creatinine Cancelled GFR Calculation Cancelled Glucose Cancelled Calculated Osmolal ity Cancelled Lactic Acid (0.5-2.2) mmol/L Calcium Cancelled Magnesium 2.8 H (1.7-2.3) mg/dL Total Bilirubin Cancelled AST Cancelled ALT Cancelled Alkaline Phosphata se Cancelled Troponin T Baselin e (0-15) ng/L Troponin T 120 Min [place] (0-15) ng/L Delta Troponin T (0-10) ABS# NT-Pro-B Natriuret Pep 80244 H (0-450) pg/mL Total Protein Cancelled Albumin Cancelled Globulin Cancelled Urine Color (Yellow) Urine Appearance (CLEAR) Urine pH (5-7) Ur Specific Gravit y (1.005-1.030) Urine Protein (Negative) Urine Glucose (UA) (Normal) Urine Ketones (Negative) Urine Blood (Negative) Urine Nitrate (Negative) Urine Bilirubin (Negative) Urine Urobilinogen (Negative) mg/dL Ur Leukocyte Nataliya ase (Negative) Amorphous Sediment Influenza Type A A g (Negative) Influenza Type B A g (Negative) SARS-CoV-2 Ag (Rap id) (Negative) 09/15/20 09/15/20 09/15/20 Range/Units 16:57 16:57 18:25 WBC (4.0-10.0) 10^3/ uL RBC (4.1-5.3) 10^6/u L Hgb (11.7-16.6) g/dL Hct (42.0-52.0) % MCV (80-94) fL MCH (28.0-34.0) pg MCHC (30.0-36.0) g/dL RDW (12.1-15.1) % Plt Count (130-400) 10^3/c mm MPV (7.4-10.4) fL Neut % (Auto) % Lymph % (Auto) % [place] % (Auto) % Eos % (Auto) % Baso % (Auto) % Neut # (Auto) (1.8-7.7) 10^3/u L Lymph # (Auto) (0.8-4.8) 10^3/u L [place] # (Auto) (0.2-0.9) 10^3/u L Eos # (Auto) (0.0-0.8) 10^3/u L Baso # (Auto) (0.0-0.1) 10^3/u L Nucleated RBC % (a uto) % Nucleated RBCs # /100WBC PT (12.1-14.9) SECO NDS INR (0.8-1.2) D-Dimer (0-0.59) ug/mIFE U Specimen Type Sample Site ABG pH (7.35-7.45) ABG pCO2 (35-45) mmHg ABG pO2 (80.0-100.0) mmH g ABG HCO3 (22-26) mmol/L ABG Base Excess (-2.0-2.0) mmol/ L Robin Test Hematocrit (42-52) % O2 Delivery Device O2 Liters/Min % FiO2 % Marketing Community Liaison ID Sodium Potassium Chloride Carbon Dioxide Anion Gap BUN Creatinine GFR Calculation Glucose Calculated Osmolal ity Lactic Acid 1.2 (0.5-2.2) mmol/L Calcium Magnesium (1.7-2.3) mg/dL Total Bilirubin AST ALT Alkaline Phosphata se Troponin T Baselin e 53 H (0-15) ng/L Troponin T 120 Min [place] (0-15) ng/L Delta Troponin T (0-10) ABS# NT-Pro-B Natriuret Pep (0-450) pg/mL Total Protein Albumin Globulin Urine Color Brown (Yellow) Urine Appearance Cloudy (CLEAR) Urine pH 5 (5-7) Ur Specific Gravit y 1.025 (1.005-1.030) Urine Protein 3+ H (Negative) Urine Glucose (UA) Norm (Normal) Urine Ketones Negative (Negative) Urine Blood 3+ H (Negative) Urine Nitrate Negative (Negative) Urine Bilirubin 1+ H (Negative) Urine Urobilinogen Norm (Negative) mg/dL Ur Leukocyte Nataliya ase 1+ H (Negative) Amorphous Sediment Not Reportable Influenza Type A A g (Negative) Influenza Type B A g (Negative) SARS-CoV-2 Ag (Rap id) (Negative) 09/15/20 09/15/20 Range/Units 19:00 19:00 WBC (4.0-10.0) 10^3/ uL RBC (4.1-5.3) 10^6/u L Hgb (11.7-16.6) g/dL Hct (42.0-52.0) % MCV (80-94) fL MCH (28.0-34.0) pg MCHC (30.0-36.0) g/dL RDW (12.1-15.1) % Plt Count (130-400) 10^3/c mm MPV (7.4-10.4) fL Neut % (Auto) % Lymph % (Auto) % [place] % (Auto) % Eos % (Auto) % Baso % (Auto) % Neut # (Auto) (1.8-7.7) 10^3/u L Lymph # (Auto) (0.8-4.8) 10^3/u L [place] # (Auto) (0.2-0.9) 10^3/u L Eos # (Auto) (0.0-0.8) 10^3/u L Baso # (Auto) (0.0-0.1) 10^3/u L Nucleated RBC % (a uto) % Nucleated RBCs # /100WBC PT (12.1-14.9) SECO NDS INR (0.8-1.2) D-Dimer (0-0.59) ug/mIFE U Specimen Type Sample Site ABG pH (7.35-7.45) ABG pCO2 (35-45) mmHg ABG pO2 (80.0-100.0) mmH g ABG HCO3 (22-26) mmol/L ABG Base Excess (-2.0-2.0) mmol/ L Robin Test Hematocrit (42-52) % O2 Delivery Device O2 Liters/Min % FiO2 % Marketing Community Liaison ID Sodium 140 Potassium 5.6 H Chloride 108 H Carbon Dioxide 19 L Anion Gap 18.6 BUN 81 H Creatinine 3.3 H GFR Calculation Not Reportable Glucose 117 H Calculated Osmolal ity 315 H Lactic Acid (0.5-2.2) mmol/L Calcium 8.9 Magnesium (1.7-2.3) mg/dL Total Bilirubin 0.3 AST 10 ALT 12 Alkaline Phosphata se 191 H Troponin T Baselin e (0-15) ng/L Troponin T 120 Min [place] 51.12 H (0-15) ng/L Delta Troponin T -1.88 L (0-10) ABS# NT-Pro-B Natriuret Pep (0-450) pg/mL Total Protein 5.8 L Albumin 3.2 L Globulin 2.6 Urine Color (Yellow) Urine Appearance (CLEAR) Urine pH (5-7) Ur Specific Gravit y (1.005-1.030) Urine Protein (Negative) Urine Glucose (UA) (Normal) Urine Ketones (Negative) Urine Blood (Negative) Urine Nitrate (Negative) Urine Bilirubin (Negative) Urine Urobilinogen (Negative) mg/dL Ur Leukocyte Nataliya ase (Negative) Amorphous Sediment Influenza Type A A g (Negative) Influenza Type B A g (Negative) SARS-CoV-2 Ag (Rap id) (Negative) Imaging Data^: CXR: Attestation: I personally reviewed and interpreted this imaging study as follows: My impression: Left-sided pleural effusion. Mild pulmonary vascular congestion. EKG Data^: EKG 1: Attestation: I personally reviewed and interpreted this EKG as follows: EKG interpretation date: 09/15/20 EKG interpretation time: 14:14 Interpretation: Atrial fibrillation with ventricular rate of 57 beats a minute, slightly prolonged QTC. Nonspecific ST-T wave changes. Consistent with previous. Computer generated interpretation: Chest X-Ray 09/15/20 13:46 IMPRESSION: 1. No acute findings. 2. Low lung volumes seen. 3. Stable metallic surgical hardware cervical spine Head CT 09/15/20 14:01 IMPRESSION: 1. Very limited evaluation of the brain. Significant motion artifact. 2. No large hemorrhage or midline shift. EKG 2: Attestation: I personally reviewed and interpreted this EKG as follows: EKG interpretation date: 09/15/20 EKG interpretation time: 15:25 Interpretation: Atrial fibrillation with a ventricular response of 58 beats a minute, normal axis, nonspecific ST-T wave changes. Unchanged from previous. Computer generated interpretation: Chest X-Ray 09/15/20 13:46 IMPRESSION: 1. No acute findings. 2. Low lung volumes seen. 3. Stable metallic surgical hardware cervical spine Head CT 09/15/20 14:01 IMPRESSION: 1. Very limited evaluation of the brain. Significant motion artifact. 2. No large hemorrhage or midline shift. Discharge Plan Discharge Patient Disposition: Placed in Observation Clinical Impression: Acute exacerbation of CHF (congestive heart failure) Condition: Stable Prescriptions: No Action budesonide [Pulmicort] 0.25 mg/2 mL suspension for nebulization 0.25 mg inhalation BID 30 Days Qty: 120 RF: 3 (DME) Custome Neck Brace See Rx Instructions .Route .MEDSUPPLY Qty: 1 RF: 0 (DME) Custome Neck Brace See Rx Instructions .Route .MEDSUPPLY Qty: 1 RF: 0 zolpidem 10 mg tablet 10 mg PO DAILY@18 RF: 0 albuterol sulfate 90 mcg/actuation HFA aerosol inhaler 2 puff inhalation QID PRN (Reason: Shortness Of Breath) RF: 0 (DME) BONE GROWTH STIMULATOR [id number] See Rx Instructions .Route .MEDSUPPLY Qty: 1 RF: 0 diltiazem HCl 120 mg Capsule,Extended Release 12 Hr 120 mg PO DAILY@0700 RF: 0 bisacodyl [Dulcolax (bisacodyl)] 10 mg Suppository 10 mg MD DAILY PRN (Reason: Constipation) RF: 0 Perforomist 20 mcg/2 mL Solution For Nebulization 2 ml INHALATION BID@0700,1900 RF: 0 diclofenac sodium [Voltaren] 1 % Gel 2 g TOPICAL QID RF: 0 MediHoney (honey) 80 % Gel 1 applic TOPICAL DAILY@21 RF: 0 tamsulosin 0.4 mg capsule 0.4 mg PO DAILY@18 RF: 0 revefenacin 175 mcg/3 mL solution for nebulization 175 mcg inhalation DAILY@0700 RF: 0 ciprofloxacin HCl [Cipro] 500 mg tablet 500 mg PO BID 3 Days Qty: 6 RF: 0 acetaminophen [Tylenol Extra Strength] 500 mg Tablet 1,000 mg PO Q6H PRN (Reason: PAIN/FEVER) RF: 0 finasteride 5 mg tablet 5 mg PO DAILY@18 RF: 0 metoprolol succinate 100 mg Tablet Extended Release 24 Hr 100 mg PO DAILY@07 RF: 0 Lasix 40 mg tablet 40 mg PO DAILY@07 RF: 0 aspirin 81 mg tablet,delayed release (DR/EC) 81 mg PO DAILY@07 RF: 0 Referrals: Toni Strauss MD [Primary Care Provider] - Coding Level of Care Code ED Valve Machine Operator for Chg Fwd Exam Comprehensive
--- NOTE | 2020-09-15 14:01 | CT_ITS ---
WS: [id number] CT HEAD NONCONTRAST HISTORY: Altered mental status TECHNIQUE: Contiguous axial imaging performed through the brain in 2.5 mm imaging. Bone and soft tiss ue windows. Sagittal and coronal reformats reviewed. All CT scans at [facility] use at ast one of these dose optimization techniques: automated exposure control; mA and/or kV adjustment pe r patient size (includes targeted exams where dose is matched to clinical indication); or iterative r econstruction. DLP: 1443.96 mGy.cm COMPARISON: 09/12/2020. Quality of this examination is significantly limited by artifact. Motion artifact through the brain. No acute intracranial hemorrhage, midline shift or mass effect. Factor 3. No midline shift. Subtle areas of focal effacement would be obscured. Ventricles: Normal size with no hydrocephalus. Paranasal sinuses: As visualized are clear. Mastoid air cells: Well pneumatized. Calvarium and scalp: Skull is intact with no soft tissue edema or swelling. CT/CT head wo con* [id number] IMPRESSION: 1. Very limited evaluation of the brain. Significant motion artifact. 2. No large hemorrhage or midline shift.
[2020-09-15] MEDS: albuterol 8 gm MDI 6 PUFF INHALATION (14:12)
[2020-09-15 14:20] LABS: ABG PCO2 42.7 mmHg (35-45); ABG PH Result 7.26 (7.35-7.45); Base Excess ABG -7.7 mmol/L (-2.0-2.0); Blood Gas Allen Test Pos; Blood Gas Sample Type Arterial
[2020-09-15 14:22] LABS: Blood Gas LPM 4.5 %; Blood Gas Operator Identificat ED; Blood Gas Sample Site Radial, left; Oxygen Device NC
--- NOTE | 2020-09-15 15:47 | ECG_ITS ---
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 Measurements Intervals [place] Rate: 58 P: NC: QRS: 4 QRSD: 82 T: 42 QT: 463 QTc: 456 Interpretive Statements ATRIAL FIBRILLATION WITH SLOW VENTRICULAR RESPONSE LOW QRS VOLTAGE IN EXTREMITY LEADS [QRS DEFLECTION < 0.5 mV IN LIMB LEADS] ABNORMAL RHYTHM ECG Compared to ECG 09/15/2020 14:14:22 Low QRS voltage now present Myocardial infarct finding no longer present Electronically Signed On 09-15-2020 18:37:08 PLUG MACHINE OPERATOR by Brent Polanco M.D. [id number]
[2020-09-15 17:04] LABS: Influenza A by IFA Negative (Negative); Influenza B by IFA Negative (Negative); SARS Covid-2 Antigen Negative (Negative)
[2020-09-15 17:25] LABS: Basophils # 0.1 10^3/uL (0.0-0.1); Basophils % 0.4 %; Eosinophils # 0.2 10^3/uL (0.0-0.8); Eosinophils % 1.3 %; Hematocrit 32.7 % (42.0-52.0); Hemoglobin 9.7 g/dL (11.7-16.6); Lymphocytes # 0.3 10^3/uL (0.8-4.8); Lymphocytes % 2.4 %; Mean Corpuscular HGB Conc 29.7 g/dL (30.0-36.0); Mean Corpuscular Hemoglobin 28.9 pg (28.0-34.0); Mean Corpuscular Volume 97.3 fL (80-94); Mean Platelet Volume 10.4 fL (7.4-10.4); Monocytes # 1.3 10^3/uL (0.2-0.9); Neutrophils # 11.96 10^3/uL (1.8-7.7); Neutrophils % 85.6 %; Nucleated Red Blood Cells % 0 %; Platelet Count 261 10^3/cmm (130-400); Red Blood Count 3.36 10^6/uL (4.1-5.3); Red Cell Distribution Width 16.2 % (12.1-15.1)
[2020-09-15 17:37] LABS: INR 1.18 (0.8-1.2)
[2020-09-15 17:40] LABS: D Dimer 0.49 ug/mIFEU (0-0.59)
[2020-09-15 17:44] LABS: Lactic Sepsis W/Reflex 1.2 mmol/L (0.5-2.2)
[2020-09-15 17:46] LABS: Troponin(5th) Baseline 53 ng/L (0-15)
[2020-09-15 17:54] LABS: Magnesium 2.8 mg/dL (1.7-2.3); NT Pro B Type Natriuretic Pept 10096 pg/mL (0-450)
[2020-09-15 19:25] LABS: Alanine Aminotransferase 12 U/L (0-41); Albumin Level 3.2 g/dL (3.5-5.2); Alkaline Phosphatase 191 IU/L (40-130); Anion Gap 18.6 (5-19); Aspartate Amino Transferase 10 U/L (0-40); Calcium 8.9 mg/dL (8.5-10.5); Carbon Dioxide 19 mmol/L (22-29); Chloride 108 mmol/L (98-107); Globulin 2.6 g/dL (1.3-4.6); Glucose 117 mg/dL (65-115); Osmolality Calculated 315 mOsm/kg (285-295); Potassium 5.6 mmol/L (3.5-5.1); Sodium 140 mmol/L (136-145); Total Bilirubin 0.3 mg/dL (0.15-1.2); Total Protein 5.8 g/dL (6.6-8.7)
[2020-09-15 19:27] LABS: Troponin 5 2HR 51.12 ng/L (0-15)
[2020-09-15 19:30] LABS: Blood Urea Nitrogen 81 mg/dL (8-23); Troponin 5 2HR Delta -1.88 ABS# (0-10)
--- NOTE | 2020-09-15 19:59 | P.HP_ITS ---
Providers/Chief Complaint Primary Care Provider: Toni Strauss MD Chief Complaint: DIFFICULTY BREATHING/ CONFUSION History of Present Illness Diego Garzon is a 85 year old male with a history of severe pulmonary hypertension, solitary kidney status post right nephrectomy, left upper lobe lung mass, without any pathological malignant diagnosis as of pathological report 08/13, pending CT-guided biopsy, oxygen dependent COPD, history of acute on chronic urinary retention secondary to BPH, recent history of C7 fracture after a fall Status post C3-T2 PSF, C3 -T2 instrumentation, fracture reduction C7, application and removal of Martini tongs, currently he is a resident at [facility] correction who was recently discharged from the hospital after management of confusion secondary to UTI for which he was discharged on ciprofloxacin, his creatinine at the time of discharge was 2.8 which improved after placement of Wang catheter, he was discharged on 2 L nasal cannula oxygen supplementation, Covid antigen negative, could not lay still to get VQ scan, has history of atrial fibrillation, refused blood thinners in the past is rate stayed within acceptable limits on previous admission. Patient presented today with chief complaint of worsening of confusion. On previous visit echo revealed ejection fraction 55%, venous Doppler did not reveal any DVT. Patient is stating that at correction he never felt at ease his breathing was getting worse he feels extremely dehydrated he is feeling thirsty because he was not able to drink much fluid in last 48 hours and on top of that he is taking 6- 12 medications which is frustrating for him, he was discharged on 2 L nasal cannula and Wang catheter, he has been experiencing audible wheezing, his mentation is fluctuant, he gets frustrated because he thinks he is having a stroke, he is aware that his mentation is not at par which adds to his frustration. He has not noticed any weakness of her extremities, no one has noticed any facial droop slurred speech or any focal deficit. Patient is denying fever, chest pain, he is endorsing loose stools which he is attributing to his usual bowel movement pattern, he has not experienced any nausea or vomiting, one loose stool today. He has tried his best to keep his legs elevated and is endorsing that leg swelling is much better. Diagnostics in the ER revealed CHF exacerbation potassium 5.6, acute on chronic kidney disease creatinine 3.3, patient was given 60 mg IV Lasix albuterol 6 puffs for audible wheezing at the time my evaluation he was on 3 L nasal cannula saturating 100%, I decreased his oxygen flow to 2 L, requested another DuoNeb treatment for cardiac wheezing, his respiratory rate was in the 20s he was afebr ile heart rate in 60s on telemetry, he was awake alert oriented x3 GCS 15 Ncyyipti-du-rec at the bedside who is endorsing that he was perfectly fine 2 weeks ago as he was able to drive and carry out his activities without any dependency and family is frustrated because of myriad of problems which have occurred in the last few weeks, we had discussion in detail regarding current events, chronic conditions and possible differential diagnoses Review of Systems Const: Reports: body aches, fatigue and malaise Eyes: Denies: change in vision ENMT: Denies: throat pain Card: Reports: irregular heart rhythm, edema, swelling of feet/ankles, dyspnea on exertion and orthopnea Resp: Reports: dyspnea and non-productive cough GI: Reports: diarrhea; Denies: abdominal pain : Reports: hematuria; Denies: flank pain Musc: Reports: back pain; Denies: neck pain Skin/Breast: Reports: erythema, sores, new lesions, lesions and other (Multiple lacerations and petechial rashes all over his extremities extremel); Denies: skin tenderness Neuro: Reports: confusion and difficulty communicating thoughts; Denies: headache(s), Slurred speech present, seizure-like activity, involuntary movements or restless legs Psych: Denies: anxiety Endo: Denies: polyuria Karlos/Lymph: Reports: easy bruising, easy bleeding and petechiae All/Imm: Denies: urticaria Medications/Allergies Home Medications Medication Instructions Recorded Confirmed Last Taken Type zolpidem 10 mg tablet 10 mg PO DAILY@18 tab 11/22/19 09/15/20 09/14/20 18:00 History albuterol sulfate 90 mcg/actuation 2 puff INHALATION QID PRN 08/04/20 09/15/20 08/08/20 History aerosol inhaler acetaminophen [Tylenol Extra 1,000 mg PO Q6H PRN 08/26/20 09/15/20 09/11/20 History Strength] budesonide 0.25 mg/2 mL suspension 0.25 mg INHALATION BID 30 Days 08/26/20 09/15/20 09/15/20 08:13 Rx for nebulization #120 ml finasteride 5 mg PO DAILY@18 08/26/20 09/15/20 09/14/20 History Custome Neck Brace #1 ea 08/27/20 09/15/20 Unknown Rx Custome Neck Brace #1 ea 08/27/20 09/15/20 Unknown Rx BONE GROWTH STIMULATOR [id number] #1 ea 08/28/20 09/15/20 Unknown Rx MediHoney (honey) 1 applic TOPICAL DAILY@09/12/20 09/15/20 09/14/20 21:00 History Perforomist 2 ml INHALATION BID@0700,1900 09/12/20 09/15/20 09/15/20 07:00 Histo ry bisacodyl [Dulcolax (bisacodyl)] [address] DAILY PRN 09/12/20 09/15/20 Unknown History diclofenac sodium [Voltaren] 2 g TOPICAL QID 09/12/20 09/15/20 09/15/20 12:08 History diltiazem HCl 120 mg PO DAILY@0700 09/12/20 09/15/20 09/15/20 07:08 History revefenacin 175 mcg INHALATION DAILY@0700 09/12/20 09/15/20 09/15/20 History tamsulosin 0.4 mg PO DAILY@18 09/12/20 09/15/20 09/14/20 18:00 History ciprofloxacin HCl [Cipro] 500 mg PO BID 3 Days #6 tab 09/14/20 09/15/20 09/15/20 07:08 Rx aspirin 81 mg PO DAILY@09/15/20 09/15/20 09/15/20 07:08 History furosemide [Lasix] 40 mg PO DAILY@09/15/20 09/15/20 09/15/20 07:00 History metoprolol succinate 100 mg PO DAILY@09/15/20 09/15/20 09/15/20 07:00 History Allergies Allergy/AdvReac Type Severity Reaction Status Date / Time No Known Allergies Allergy Verified 09/15/20 16:42 PFSH Acute PFSH: Medical History Arthritis Benign prostatic hyperplasia BPH loc w urin obs/LUTS Chronic venous stasis H/O cataract bilateral cataract surgery Hilar adenopathy HTN (hypertension) Hyperlipidemia Lung cancer Prostatic hemorrhage Renal cell cancer Surgical History H/O right nephrectomy H/O transurethral resection of prostate History of lobectomy of lung History of nephrectomy, right S/P TURP Status post lung surgery Family History Father , 58 Cancer Mother , 80 Stroke Diabetes Family/Other Cancer lung, liver Diabetes Hypertension Brother Cancer Lung CAD (coronary artery disease) Sister Cancer Liver Social History Smoking and tobacco status: former smoker Quit status (tobacco): has quit using tobacco Year quit tobacco: 2000-Hx of 2PPDx 45 Years Alcohol intake: never Lives independently: Yes Household members: none Marital status: / Current occupational status: retired History of recent travel: No Current gender identity: Male Vitals/I&O/Wt Last Vital Signs Temp 97.9 F 09/15/20 13:39 Pulse 67 09/15/20 18:30 Resp 14 09/15/20 18:30 BP 112/46 09/15/20 18:30 Pulse Ox 96 09/15/20 18:30 Weight last 48 hrs Weight 99.79 kg Physical Exam Narrative: EXAM NARRATIVE: Frail elderly male currently saturating well on 2 L nasal cannula Respiratory rate in 20s Able to tell me above-mentioned HPI Mild signs of congestive heart failure Variable S1-S2 bilateral lower extremity edema 1+ Cardiac wheezing bilaterally, diffuse, expiratory wheezing noted, Abdomen soft nontender bowel sounds present, petechial rash around umbilical area Awake alert oriented x3 GCS 15 Mild cognitive impairment, short attention span Bilateral lower extremity edema, venous stasis dermatitis Multiple skin lacerations without active cellulitis has Medihoney paste around his laceration with sterile dressing Multiple petechiae and skin breakdown in all 4 extremities No active neck pain, headache or signs of meningitis No neurological deficit Blood-tinged urine in urine bag No signs of cellulitis Patient does get frustrated when he is not able to think about his recent events Data : 09/15/20 16:57 09/15/20 19:00 Micro: Microbiology 09/15/20 19:00 Blood Culture - Preliminary Blood SPECIMEN COLLECTED 09/15/20 16:57 Blood Culture - Preliminary Blood SPECIMEN COLLECTED A&P Assessment and plan (1) Acute exacerbation of CHF (congestive heart failure): Status: Acute Qualifiers: Heart failure type: unspecified Qualified Code(s): I50.9 - Heart failure, unspecified (2) Acute kidney injury superimposed on CKD: Status: Acute (3) Hypoxia: Status: Acute (4) Altered mental status: Status: Acute (5) COPD (chronic obstructive pulmonary disease): Status: Acute (6) Prostatic hemorrhage: Status: Acute (7) Hematuria: Status: Acute Additional A&P Information Acute CHF exacerbation with cardiac wheezing with underlying severe pulmonary hypertension Patient is currently requiring 2 L nasal cannula for oxygen supplementation above 95%, able to protect airways Clinical exam consistent with mild fluid overloaded signs Signs of right heart failure more prominent than left, however cardiac wheezing present Received 60 mg IV Lasix in the ER, urine bag contains blood-tinged urine Mild cognitive impairment This seems to be multifactorial Patient has metabolic acidosis due to uremia, but does not have typical uremic encephalopathic signs, he is awake alert oriented to time place and person with signs of mild cognitive impairment, attention span is short, However not able to do simple math question, able to tell me above-mentioned HPI No signs of stroke No signs of meningitis after recent hardware implantation, he has been afebrile no sepsis not complaining of active headache Heart rate in 60s irregular heart rhythm not on anticoagulation not a candidate for MRI because of hardware implantation, not a candidate of angiogram head and neck because of worsening creatinine Urinalysis consistent with hematuria, urinary pH is more towards ascitic side I do not suspect UTI or ciprofloxacin induced alkaline crystallization at this point, previous urine culture unremarkable Would be reluctant to start Decadron as there are no typical signs of cauda equina syndrome Acute on chronic hypoxic respiratory failure without COPD exacerbation Has extensive smoking history 90 pack year Hypoxia most likely cause is severe pulmonary hypertension causing VQ mismatch, x-ray no pleural effusion, without any vascular congestion, clinically he has mild signs of fluid overload with bilateral lower extremity edema, cardiac wheezing, I do believe his right-sided heart failure symptoms are greater than the left heart failure, Acute on chronic kidney disease Creatinine 2.8 yesterday today creatinine 3.3 Solitary kidney, will obtain CT abdomen to rule out hydronephrosis, Does not have typical signs of UTI urinalysis reviewed consistent with hematuria Would continue ceftriaxone for next 48 hours if he stays afebrile without typical signs of UTI would recommend discontinuing, previous urine culture unremarkable Patient is stating that he has not been able to drink a lot of fluid in the last 48 hours and on top of that he is taking Lasix and feels dehydrated At this point it is very hard to assess his volume status however correlation with urine output and creatinine will help in next 24 hours to direct our diuretic dose I would continue Bumex 1 mg which will be equivalent to Lasix 40 mg Obtaining fractional excretion of sodium would not be helpful because of diuretic use, will see if we could obtain fractional excretion of urea Left upper lobe mass: FNA, bronchoscopy pathological specimen did not reveal any malignancy, Dr. Travis recommended CT-guided biopsy, patient does experience on and off hemoptysis Persistent hematuria Status post TURP 2011, cystoscopy, pathology was benign, he experiences periodic prostatic bleeding and received antibiotics finasteride and tamsulosin for his prostatic symptoms and UTIs in the past Status post right nephrectomy 2012, recent cystoscopy October 2019 which revealed normal urethra, status post TURP moderate to severe growth/regrowth with friable tissue which appeared to be the source of hematuria Kindly touch base with Dr. Cantrell if he will need another cystoscopy Full code discussed with the patient Cardiac diet DVT prophylaxis SCDs I would avoid anticoagulant agents because of persistent hematuria and hemoptysis, has history of atrial fibrillation was deemed not a suitable candidate for anticoagulation because of same reason Attestations Medical Necessity Statement*: Anticipating stay in the hospital to be less than 48 hours currently need adjustment in his diuretic regimen for CHF exacerbation, will need urology consult for persistent hematuria, Time Spent in Patient Care: (>than 50% of time spent in counselling and/or direct pt care on unit) . 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
[2020-09-15 20:04] LABS: Urine Appearance Cloudy (CLEAR); Urine Color Brown (Yellow)
[2020-09-15 20:05] LABS: Bilirubin Urine 1+ (Negative); Blood Urine 3+ (Negative); Glucose Urine UA Norm (Normal); Ketones Urine Negative (Negative); Nitrate Urine Negative (Negative); Protein Urine 3+ (Negative); Specific Gravity, Urine 1.025 (1.005-1.030); pH Urine 5 (5-7)
[2020-09-15 20:06] LABS: Leukocyte Esterase Urine 1+ (Negative); Urobilinogen Urine Norm (Negative)
--- NOTE | 2020-09-15 20:09 | CTR_ITS ---
PROCEDURE INFORMATION: Exam: CT Abdomen And Pelvis Without Contrast Exam date and time: 09/15/2020 8:10 PM Age: 85 years old Clinical indication: Condition or disease; Kidney or ureter condition; Chronic kidney disease or failure; Prior surgery; Surgery type: Nephrectomy. Turp. Prostate. Lung. ; Patient HX: Elevated creatinine. History of ckd. Patient unable to hold breath or put arms above head. ; Additional info: Hydronephrosis TECHNIQUE: Imaging protocol: Computed tomography of the abdomen and pelvis without contrast. Sagittal and coronal reformatted images were created and reviewed. Radiation optimization: All CT scans at this facility use at least one of these dose optimization techniques: automated exposure control; mA and/or kV adjustment per patient size (includes targeted exams where dose is matched to clinical indication); or iterative reconstruction. COMPARISON: 1. US renal BI* [id number] 11/11/2019 2:47 PM 2. PT - PET Scan Full Body RAD 08/15/2020 11:22:32 AM RADIATION DOSE METRICS: Total DLP (mGy-cm): 1380.39 FINDINGS: Limitations: Evaluation of solid organs and vasculature is limited without intravenous contrast. Streak artifact from the patient's arms which can limit evaluation. Lungs: Calcified granulomas in the left lower lobe. Interval development of compressive atelectasis in both lower lobes, more extensive on the left. Underlying pneumonia is not ruled out. Pleural space: Interval development of right and moderate left pleural effusions. Heart: Mild enlargement of the heart. Calcification of the aortic valve. Liver: The liver is unremarkable. Gallbladder and bile ducts: Multiple stones in the gallbladder. Evaluation is limited due to streak artifact, however there is questionable mild thickening of the gallbladder wall with small amount of pericholecystic fluid. Recommend clinical correlation to rule out cholecystitis. Further evaluation may be obtained with ultrasound of the gallbladder if it will change clinical management. No biliary ductal dilatation. Pancreas: The pancreas is unremarkable. No pancreatic ductal dilatation. Spleen: Mild enlargement of the spleen measuring 15.1 cm in length (series 601, image 25). Adrenal glands: Stable indeterminate focus in the right adrenal gland. Hounsfield units show density greater than expected for an adenoma. This measures 2.0 x 1.9 cm (series 2, image 29). Stable low density nodule in the left adrenal gland, consistent with an adenoma. This measures 1.2 x 1.7 cm (series 2, image 27). Kidneys and ureters: Stable changes consistent with a prior right nephrectomy. Multiple simple cysts in the left kidney are stable. The largest measures 5.5 x 6.1 cm (series 2, image 54). Multiple indeterminate foci in the left kidney are stable. Hounsfield units show density greater than expected for simple fluid. The largest of these measures 3.1 x 2.6 cm (series 2, image 33). The left ureter is unremarkable. No hydroureteronephrosis. Stomach and bowel: Nonspecific air-fluid levels present in the small bowel and colon. No dilated bowel loops. No pneumatosis. No bowel wall thickening. Appendix: The appendix is visualized and is unremarkable. No evidence of appendicitis. Intraperitoneal space: Interval development of small volume ascites. No free intraperitoneal air. No loculated fluid collections to suggest an abscess. Vasculature: Mild atherosclerotic calcification in the coronary arteries. Moderate atherosclerotic changes in the visualized arteries. Lymph nodes: No lymphadenopathy. Urinary bladder: The bladder is incompletely filled, which can limit evaluation. No focal abnormality in the bladder however. Reproductive: The prostate gland is markedly enlarged. The balloon of the Wang catheter is dilated in the prostatic urethra (series 602, image 50). Bones/joints: Bones are diffusely osteopenic. Moderate degenerative changes at both the right and left hips. There is partial fusion of the right and left sacroiliac joints, consistent with a remote episode of seronegative sacroiliitis versus sequela of degenerative change. Multilevel degenerative changes of varying severity in the visualized spine. Soft tissues: Interval development of moderate body wall edema. Small, fat-containing umbilical hernia. No evidence for strangulation. CT/CT abdomen pelvis wo con [id number] IMPRESSION: 1. Cholelithiasis. Evaluation is limited due to streak artifact, however there is questionable mild thickening of the gallbladder wall with small amount of pericholecystic fluid. Recommend clinical correlation to rule out cholecystitis. Further evaluation may be obtained with ultrasound of the gallbladder if it will change clinical management. 2. The balloon of the Wang catheter is dilated in the prostatic urethra. Recommend repositioning the catheter. 3. No hydroureteronephrosis. 4. Interval development of right and moderate left pleural effusions. Interval development of compressive atelectasis in both lower lobes, more extensive on the left. Underlying pneumonia is not ruled out. Recommend clinical correlation. Recommend followup chest imaging in 4-6 weeks to insure resolution of these findings. 5. Stable indeterminate focus in the right adrenal gland. Recommend attention to this area on future imaging studies to rule out the possibility of a metastatic focus. 6. Stable left adrenal adenoma 7. Stable changes consistent with a prior right nephrectomy. 8. Multiple indeterminate hyperdense foci in the left kidney are stable. These may represent hemorrhagic/proteinaceous cysts. Continued radiographic follow-up is recommended however. 9. Interval development of small volume ascites and moderate body wall edema. 10. Incidental/nonacute findings are listed in the report. Radiation Dose CTDIVOL = (mGy): DLP = 1380.39 (mGy-cm)
[2020-09-15 20:20] LABS: Add Urine Culture? Yes; Bacteria Urine 1+ /hpf; RBC Urine >100 /hpf (0-2); Squamous Epithelial Cell Urine 0-4 /hpf (0-5); WBC Urine 15-25 /hpf (0-5)
[2020-09-15] MEDS: ipratropium-albuterol 3 mL Neb INHALATION (22:57)
[2020-09-15] MEDS: ondansetron 2 mg/ML SDV 2 mL 4 MG IVP (23:19)
[2020-09-15] MEDS: FUROsemide 10 mg/mL SDV 10mL 60 MG IVP (23:46)
--- NOTE | 2020-09-15 23:49 | PC.NURSE ---
deflated ballon on Wang, unclamped and flushed with 30cc sterlie water. Reposition tube. Immediate return of yellow/rob color urine. Pt tolerated..
[2020-09-16] VITALS (13 sets, daily range): BP systolic 101–133; BP diastolic 54–74; PULSE 60–93; RESP 16–20; TEMP 35.8–37.1; O2SAT 92–98
[2020-09-16] MEDS: cefTRIAXone 1,000 MG in sodium chloride 0.9% (plus) 50 ML 100 MG IV (01:46)
[2020-09-16] MEDS: sodium polystyrene sulfonate 15 gm/60 mL Btl PO (01:50)
[2020-09-16] MEDS: ipratropium-albuterol 3 mL Neb INHALATION ×3 (03:45→22:56)
[2020-09-16 08:29] LABS: Basophils % 0.3 %; Eosinophils # 0.2 10^3/uL (0.0-0.8); Eosinophils % 1.3 %; Hematocrit 32.3 % (42.0-52.0); Hemoglobin 9.4 g/dL (11.7-16.6); Lymphocytes # 0.4 10^3/uL (0.8-4.8); Lymphocytes % 2.9 %; Mean Corpuscular HGB Conc 29.1 g/dL (30.0-36.0); Mean Corpuscular Hemoglobin 28.4 pg (28.0-34.0); Mean Corpuscular Volume 97.6 fL (80-94); Mean Platelet Volume 9.9 fL (7.4-10.4); Monocytes # 1.3 10^3/uL (0.2-0.9); Monocytes % 10.2 %; Neutrophils # 10.22 10^3/uL (1.8-7.7); Neutrophils % 83.7 %; Nucleated Red Blood Cells % 0 %; Platelet Count 289 10^3/cmm (130-400); Red Blood Count 3.31 10^6/uL (4.1-5.3); Red Cell Distribution Width 16.4 % (12.1-15.1); White Blood Count 12.2 10^3/uL (4.0-10.0)
[2020-09-16] MEDS: aspirin 81 mg EC Tablet PO (08:45)
[2020-09-16] MEDS: metroNIDAZOLE 500 MG Tablet PO ×3 (08:45→22:20)
[2020-09-16] MEDS: bumetanide 1 mg Tablet PO (08:45)
[2020-09-16] MEDS: metoprolol succinate ER (24 HR) 100 mg Tablet 25 MG PO (08:46)
[2020-09-16 08:59] LABS: Anion Gap 17.6 (5-19); Blood Urea Nitrogen 79 mg/dL (8-23); Calcium 8.8 mg/dL (8.5-10.5); Carbon Dioxide 20 mmol/L (22-29); Chloride 109 mmol/L (98-107); Glucose 106 mg/dL (65-115); Osmolality Calculated 316 mOsm/kg (285-295); Potassium 5.6 mmol/L (3.5-5.1); Sodium 141 mmol/L (136-145)
--- NOTE | 2020-09-16 11:17 | P.PN_ITS ---
Subjective Subjective: Interval history: Overnight labs and H&P reviewed, no acute events. Patient states pain comfortable at this time. Sitting in a chair at the bedside. Medications: Reviewed: Yes Vitals/I&O/Wt Last Vital Signs Temp 96.7 F L 09/16/20 07:56 Pulse 93 09/16/20 08:36 Resp 18 09/16/20 08:36 BP 126/67 09/16/20 07:56 Pulse Ox 98 09/16/20 08:36 09/15/20 09/16/20 09/16/20 22:59 06:59 14:59 Intake Total 240 / 240 Output Total 200 / 200 120 / 120 Balance -200 / -200 120 / 120 Weight last 48 hrs Weight 99.79 kg Physical Exam Narrative: EXAM NARRATIVE: GEN: Awake, alert and oriented, no acute distress CVS: S1S2 N RS: CTA B/L Abd: Soft, nt/nd , bs+ [employer]: no focal neuro deficits Urinary Catheter Management^: Wang: Cath Placed During This Visit: yes Urinary Catheter Date of Insertion: 09/16/20 Urinary Catheter Time of Insertion: 00:59 Data : 09/16/20 08:00 09/16/20 08:00 Micro: Microbiology 09/15/20 19:00 Blood Culture - Preliminary Blood SPECIMEN COLLECTED 09/15/20 16:57 Blood Culture - Preliminary Blood SPECIMEN COLLECTED A&P Assessment and plan (1) Acute exacerbation of CHF (congestive heart failure): Status: Acute Qualifiers: Heart failure type: unspecified Qualified Code(s): I50.9 - Heart failure, unspecified (2) Acute kidney injury superimposed on CKD: Status: Acute (3) Hypoxia: Status: Acute (4) Altered mental status: Status: Acute (5) COPD (chronic obstructive pulmonary disease): Status: Acute (6) Prostatic hemorrhage: Status: Acute (7) Hematuria: Status: Acute Additional A&P Information Acute CHF exacerbation with cardiac wheezing with underlying severe pulmonary hypertension Patient is currently requiring 2 L nasal cannula for oxygen supplementation above 95%, able to protect airways Continue Bumex for diuresis. Mild cognitive impairment This seems to be multifactorial Patient has metabolic acidosis due to uremia, but does not have typical uremic encephalopathic signs, he is awake alert oriented to time place and person with signs of mild cognitive impairment, attention span is short, No signs of stroke No signs of meningitis Heart rate in 60s irregular heart rhythm not on anticoagulation per his preference, not a candidate for MRI because of hardware implantation, not a candidate of angiogram head and neck because of worsening creatinine Recently treated for a UTI, do not believe untreated infection contributing to current presentation. Acute on chronic hypoxic respiratory failure without COPD exacerbation Has extensive smoking history 90 pack year Hypoxia most likely cause is severe pulmonary hypertension causing VQ mismatch, x-ray no pleural effusion, without any vascular congestion, clinically he has mild signs of fluid overload with bilateral lower extremity edema, cardiac wheezing, I do believe his right-sided heart failure symptoms are greater than the left heart failure, was unable to get a CTA on the last admission due to rising creatinine. Lower extremity Doppler was negative. It did not tolerate V Q scan therefore the study was unable to be completed. Acute on chronic kidney disease Creatinine continues to worsen Solitary kidney, CT abdomen without signs of hydronephrosis. Note made of Wang catheter being in the prostatic urethra, Wang was repositioned yesterday. Does not have typical signs of UTI urinalysis reviewed consistent with hematuria Would continue ceftriaxone for next 48 hours if he stays afebrile without typical signs of UTI would recommend discontinuing, previous urine culture unremarkable Left upper lobe mass: FNA, bronchoscopy pathological specimen did not reveal any malignancy, Dr. Travis recommended CT-guided biopsy, patient does experience on and off hemoptysis Persistent hematuria Status post TURP 2011, cystoscopy, pathology was benign, he experiences periodic prostatic bleeding and received antibiotics finasteride and tamsulosin for his prostatic symptoms and UTIs in the past Status post right nephrectomy 2012, recent cystoscopy October 2019 which reveal ed normal urethra, status post TURP moderate to severe growth/regrowth with friable tissue which appeared to be the source of hematuria Urology consult if persisting hematuria. Full code Cardiac diet DVT prophylaxis SCDs Attestations Medical Necessity Statement*: Acute kidney injury with worsening creatinine, need for close monitoring of urine output with ongoing diuresis. 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
[2020-09-16] MEDS: tamsulosin 0.4 mg Capsule PO (17:44)
[2020-09-16] MEDS: finasteride 5 mg Tablet PO (17:44)
[2020-09-17] VITALS (12 sets, daily range): BP systolic 110–122; BP diastolic 64–70; PULSE 79–93; RESP 16–20; TEMP 36.3–37; O2SAT 94–99
[2020-09-17] MEDS: cefTRIAXone 1,000 MG in sodium chloride 0.9% (plus) 50 ML 100 MG IV (01:28)
[2020-09-17] MEDS: metoprolol succinate ER (24 HR) 100 mg Tablet 25 MG PO (06:24)
[2020-09-17] MEDS: aspirin 81 mg EC Tablet PO (06:24)
[2020-09-17] MEDS: ipratropium-albuterol 3 mL Neb INHALATION ×3 (08:01→20:26)
[2020-09-17] MEDS: metroNIDAZOLE 500 MG Tablet PO ×3 (09:18→21:29)
[2020-09-17] MEDS: bumetanide 1 mg Tablet PO (09:18)
[2020-09-17 10:14] LABS: Basophils % 0.4 %; Eosinophils # 0.2 10^3/uL (0.0-0.8); Eosinophils % 2.2 %; Hemoglobin 8.9 g/dL (11.7-16.6); Lymphocytes # 0.2 10^3/uL (0.8-4.8); Lymphocytes % 2.6 %; Mean Corpuscular HGB Conc 29.7 g/dL (30.0-36.0); Mean Corpuscular Hemoglobin 28.2 pg (28.0-34.0); Mean Corpuscular Volume 94.9 fL (80-94); Monocytes # 1.1 10^3/uL (0.2-0.9); Neutrophils % 81.4 %; Nucleated Red Blood Cells % 0 %; Platelet Count 244 10^3/cmm (130-400); Red Blood Count 3.16 10^6/uL (4.1-5.3); Red Cell Distribution Width 15.9 % (12.1-15.1); White Blood Count 9.2 10^3/uL (4.0-10.0)
[2020-09-17 10:45] LABS: Alanine Aminotransferase 17 U/L (0-41); Albumin Level 3.2 g/dL (3.5-5.2); Alkaline Phosphatase 189 IU/L (40-130); Anion Gap 17.9 (5-19); Aspartate Amino Transferase 16 U/L (0-40); Calcium 8.4 mg/dL (8.5-10.5); Carbon Dioxide 19 mmol/L (22-29); Chloride 105 mmol/L (98-107); Globulin 2.3 g/dL (1.3-4.6); Glucose 121 mg/dL (65-115); Magnesium 2.6 mg/dL (1.7-2.3); Osmolality Calculated 310 mOsm/kg (285-295); Potassium 4.9 mmol/L (3.5-5.1); Sodium 137 mmol/L (136-145); Total Bilirubin 0.3 mg/dL (0.15-1.2); Total Protein 5.5 g/dL (6.6-8.7)
[2020-09-17 10:48] LABS: Blood Urea Nitrogen 81 mg/dL (8-23)
[2020-09-17] MEDS: azithromycin 500 MG in sodium chloride 0.9% 250 ML 250 MG IV (13:58)
[2020-09-17 14:04] LABS: PSA Free 10.6 ng/mL; PSA Free Percentage NOT CALCULATED % (calc) (>25); PSA Total 40.8 ng/mL (< OR = 4.0)
--- NOTE | 2020-09-17 15:51 | PM.PN ---
Subjective Subjective: Interval history: This morning patient was examined -Currently he is on 2 L, denies any shortness of breath, denies any chest pain, is alert oriented x3, answers all questions appropriately, follows all commands -I advised patient that I am highly concerned of about his right upper lobe lung mass -I am highly concerned that this lung mass is bleeding, given his recurrent hemoptysis, Dr. Giordano has also been worried about this -But given his worsening shortness of breath, certainly heart failure could be a factor, but I am concerned for the possibility of pulmonary emboli, bilateral lower extremity ultrasounds negative for PEs, however patient refuses to have a ventilation/perfusion scan, he does not want to undergo further testing, cannot have a CT angiogram of his chest because of his creatinine. The benefit of performing a ventilation/perfusion scan would to diagnose him with a pulmonary emboli, undiagnosed pulmonary emboli have significant morbidity and mortality associated, advised the risks of not performing VQ scan, advised of risk of significant morbidity and mortality, voiced her setting, all questions answered, declined testing -Nonetheless given his right upper lobe lung mass, its risk of bleeding, placing patient on anticoagulation would carry fairly high risk, according to Dr. Giordano the bleeding risk would be far greater than the benefit, and patient has declined anticoagulation in the past, for his atrial fibrillation, currently declines any anticoagulation -Given his episodes of confusion, it is highly possible that patient could have intracranial metastasis, that can only be diagnosed on an MRI scan, patient refuses testing, advised of the risks, voiced understanding, all questions answered -Ultimately patient does not want to have treatment for his cancer, he does not want any further testing, he wants to be at home, he wants to remain comfortable -I spoke with Dr. Giordano, he tells me that this is a very reasonable option given his age, and extensive malignancy, hospice would be a reasonable option -I discussed with patient hospice option, he voiced her setting, all questions answered, advised the risk and benefits, agreed to proceed with hospice option Medications: Reviewed: Yes Vitals/I&O/Wt Last Vital Signs Temp 97.4 F L 09/17/20 12:00 Pulse 87 09/17/20 14:47 Resp 18 09/17/20 14:47 BP 116/66 09/17/20 12:00 Pulse Ox 94 09/17/20 14:47 09/17/20 09/17/20 09/17/20 06:59 14:59 22:59 Intake Total 360 / 360 Output Total 250 / 370 100 / 100 Balance -250 / 110 260 / 260 Physical Exam Const: COMMON NORMALS: no acute distress and patient oriented x3 HENMT: COMMON NORMALS: normocephalic HEAD & SCALP: normocephalic Neck/C-Spine: COMMON NORMALS: no JVD Resp: COMMON NORMALS: normal respiratory effort, No retractions, No use of accessory muscles and clear to auscultation bilaterally AUSCULTATION: clear to auscultation bilaterally Cardio: COMMON NORMALS: no JVD, regular rate, regular rhythm, S1 normal heart sound present and S2 normal heart sound present RATE: regular rate RHYTHM: regular rhythm HEART SOUNDS: S1 normal heart sound present and S2 normal heart sound present GI: COMMON NORMALS: Normal to inspection, nondistended, normoactive bowel sounds present, Soft to palpation, non-tender, No hepatosplenomegaly present, no masses and no bruits PALPATION: Yes Soft to palpation and Yes No hepatosplenomegaly present Extremity: COMMON NORMALS: capillary refill normal, no clubbing, cyanosis or edema, no calf tenderness and no pedal edema Neuro: COMMON NORMALS: patient oriented x3 Psych: COMMON NORMALS: mental status grossly normal Urinary Catheter Management^: Wang: Cath Placed During This Visit: yes Reason for Continuing Indwelling Catheter: Acute Urinary Retention or Obstruction Urinary Catheter Date of Insertion: 09/16/20 Urinary Catheter Time of Insertion: 00:59 Data : 09/17/20 10:07 09/17/20 10:07 Micro: Microbiology 09/15/20 18:25 Urine Culture - Preliminary Urine,Clean Catch Enterococcus species 09/15/20 19:00 Blood Culture - Preliminary Blood NEGATIVE TO DATE 09/15/20 16:57 Blood Culture - Preliminary Blood NEGATIVE TO DATE A&P Assessment and plan (1) Acute exacerbation of CHF (congestive heart failure): Status: Acute Qualifiers: Heart failure type: unspecified Qualified Code(s): I50.9 - Heart failure, unspecified (2) Acute kidney injury superimposed on CKD: Status: Acute (3) Hypoxia: Status: Acute (4) Altered mental status: Status: Acute (5) COPD (chronic obstructive pulmonary disease): Status: Acute (6) Prostatic hemorrhage: Status: Acute (7) Hematuria: Status: Acute Additional A&P Information Right upper lobe lung mass, likely lung cancer -Proceeding to home hospice Acute CHF exacerbation with cardiac wheezing with underlying severe pulmonary hypertension Patient is currently requiring 2 L nasal cannula for oxygen supplementation above 95%, able to protect airways Continue Bumex for diuresis. Concerns for pulmonary emboli, patient refused VQ scan Mild cognitive impairment This seems to be multifactorial Patient has metabolic acidosis due to uremia, but does not have typical uremic encephalopathic signs, he is awake alert oriented to time place and person with signs of mild cognitive impairment, attention span is short, No signs of stroke No signs of meningitis Heart rate in 60s irregular heart rhythm not on anticoagulation per his preference, can have an MRI, but patient refuses, not a candidate of angiogram head and neck because of worsening creatinine Recently treated for a UTI, do not believe untreated infection contributing to current presentation. Acute on chronic hypoxic respiratory failure without COPD exacerbation Has extensive smoking history 90 pack year Hypoxia most likely cause is severe pulmonary hypertension causing VQ mismatch, x-ray no pleural effusion, without any vascular congestion, clinically he has mild signs of fluid overload with bilateral lower extremity edema, cardiac wheezing, I do believe his right-sided heart failure symptoms are greater than the left heart failure, was unable to get a CTA on the last admission due to rising creatinine. Lower extremity Doppler was negative. It did not tolerate VQ scan therefore the study was unable to be completed. Patient refuses VQ scan, refuses anticoagulation Acute on chronic kidney disease Creatinine continues to worsen Solitary kidney, CT abdomen without signs of hydronephrosis. Note made of Wang catheter being in the prostatic urethra, Wang was repositioned yesterday. Does not have typical signs of UTI urinalysis reviewed consistent with hematuria Would continue ceftriaxone for next 48 hours if he stays afebrile without typical signs of UTI would recommend discontinuing, previous urine culture unremarkable Left upper lobe mass: Dr. Giordano feels that this is very likely lung cancer, patient understands that it is very likely lung cancer, does not want further biopsies or testing, he just wants to go home, be with family, wants to be comfortable, wants to go home on hospice FNA, bronchoscopy pathological specimen did not reveal any malignancy, Dr. Travis recommended CT-guided biopsy, patient does experience on and off hemoptysis Persistent hematuria Status post TURP 2011, cystoscopy, pathology was benign, he experiences periodic prostatic bleeding and received antibiotics finasteride and tamsulosin for his prostatic symptoms and UTIs in the past Status post right nephrectomy 2012, recent cystoscopy October 2019 which revealed normal urethra, status post TURP moderate to severe growth/regrowth with friable tissue which appeared to be the source of hematuria Urology consult if persisting hematuria. 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
[2020-09-17] MEDS: tamsulosin 0.4 mg Capsule PO (17:24)
[2020-09-17] MEDS: finasteride 5 mg Tablet PO (17:24)
[2020-09-18] VITALS (9 sets, daily range): BP systolic 114–131; BP diastolic 62–75; PULSE 70–100; RESP 16–22; TEMP 36.4–36.6; O2SAT 94–98
[2020-09-18] MEDS: cefTRIAXone 1,000 MG in sodium chloride 0.9% (plus) 50 ML 100 MG IV (01:41)
[2020-09-18] MEDS: metoprolol succinate ER (24 HR) 100 mg Tablet 25 MG PO (06:06)
[2020-09-18] MEDS: aspirin 81 mg EC Tablet PO (06:06)
[2020-09-18] MEDS: metroNIDAZOLE 500 MG Tablet PO ×3 (08:57→22:20)
[2020-09-18] MEDS: bumetanide 1 mg Tablet PO (08:57)
[2020-09-18] MEDS: azithromycin 500 MG in sodium chloride 0.9% 250 ML 250 MG IV (15:19)
--- NOTE | 2020-09-18 16:39 | PM.PN ---
Subjective Subjective: Interval history: Patient was examined this morning, he is doing fine, has no complaints, really wants to go home I had a family meeting, with patient's son, and [id number] at bedside, I discussed the entire case with them, my worries about his worsening lung cancer, worries about possible pulmonary emboli, worries about possible intracranial metastasis, deconditioning. Advised of the options, they want to proceed with hospice, advised risk benefits, voiced understanding, all questions answered, agreed to proceed Medications: Reviewed: Yes Vitals/I&O/Wt Last Vital Signs Temp 97.8 F 09/18/20 15:52 Pulse 98 09/18/20 15:52 Resp 18 09/18/20 15:52 BP 117/69 09/18/20 15:52 Pulse Ox 96 09/18/20 15:52 09/18/20 09/18/20 09/18/20 06:59 14:59 22:59 Intake Total 360 / 1210 Output Total 150 / 250 850 / 850 Balance 210 / 960 -850 / -850 Physical Exam Const: COMMON NORMALS: no acute distress and patient oriented x3 GENERAL APPEARANCE: ill appearing HENMT: COMMON NORMALS: normocephalic HEAD & SCALP: normocephalic Neck/C-Spine: COMMON NORMALS: no JVD Resp: COMMON NORMALS: normal respiratory effort, No retractions, No use of accessory muscles and clear to auscultation bilaterally AUSCULTATION: clear to auscultation bilaterally Cardio: COMMON NORMALS: no JVD, regular rate, regular rhythm, S1 normal heart sound present and S2 normal heart sound present RATE: regular rate RHYTHM: regular rhythm HEART SOUNDS: S1 normal heart sound present and S2 normal heart sound present GI: COMMON NORMALS: Normal to inspection, nondistended, normoactive bowel sounds present, Soft to palpation, non-tender, No hepatosplenomegaly present, no masses and no bruits PALPATION: Yes Soft to palpation and Yes No hepatosplenomegaly present Extremity: COMMON NORMALS: capillary refill normal, no clubbing, cyanosis or edema, no calf tenderness and no pedal edema Neuro: COMMON NORMALS: patient oriented x3 Psych: COMMON NORMALS: mental status grossly normal Urinary Catheter Management^: Wang: Cath Placed During This Visit: yes Reason for Continuing Indwelling Catheter: Acute Urinary Retention or Obstruction Urinary Catheter Date of Insertion: 09/16/20 Urinary Catheter Time of Insertion: 00:59 Data : 09/17/20 10:07 09/17/20 10:07 Micro: Microbiology 09/15/20 18:25 Urine Culture - Final Urine,Clean Catch A&P Assessment and plan (1) Acute exacerbation of CHF (congestive heart failure): Status: Acute Qualifiers: Heart failure type: unspecified Qualified Code(s): I50.9 - Heart failure, unspecified (2) Acute kidney injury superimposed on CKD: Status: Acute (3) Hypoxia: Status: Acute (4) Altered mental status: Status: Acute (5) COPD (chronic obstructive pulmonary disease): Status: Acute (6) Prostatic hemorrhage: Status: Acute (7) Hematuria: Status: Acute Additional A&P Information Right upper lobe lung mass, likely lung cancer -Proceeding to home hospice Acute CHF exacerbation with cardiac wheezing with underlying severe pulmonary hypertension Patient is currently requiring 2 L nasal cannula for oxygen supplementation above 95%, able to protect airways Continue Bumex for diuresis. Concerns for pulmonary emboli, patient refused VQ scan Mild cognitive impairment This seems to be multifactorial Patient has metabolic acidosis due to uremia, but does not have typical uremic encephalopathic signs, he is awake alert oriented to time place and person with signs of mild cognitive impairment, attention span is short, No signs of stroke No signs of meningitis Heart rate in 60s irregular heart rhythm not on anticoagulation per his preference, can have an MRI, but patient refuses, not a candidate of angiogram head and neck because of worsening creatinine Recently treated for a UTI, do not believe untreated infection contributing to current presentation. Acute on chronic hypoxic respiratory failure without COPD exacerbation Has extensive smoking history 90 pack year Hypoxia most likely cause is severe pulmonary hypertension causing VQ mismatch, x-ray no pleural effusion, without any vascular congestion, clinically he has mild signs of fluid overload with bilateral lower extremity edema, cardiac wheezing, I do believe his right-sided heart failure symptoms are greater than the left heart failure, was unable to get a CTA on the last admission due to rising creatinine. Lower extremity Doppler was negative. It did not tolerate VQ scan therefore the study was unable to be completed. Patient refuses VQ scan, refuses anticoagulation Acute on chronic kidney disease Creatinine continues to worsen Solitary kidney, CT abdomen without signs of hydronephrosis. Note made of Wang catheter being in the prostatic urethra, Wang was repositioned yesterday. Does not have typical signs of UTI urinalysis reviewed consistent with hematuria Would continue ceftriaxone for next 48 hours if he stays afebrile without typical signs of UTI would recommend discontinuing, previous urine culture unremarkable Left upper lobe mass: Dr. Giordano feels that this is very likely lung cancer, patient understands that it is very likely lung cancer, does not want further biopsies or testing, he just wants to go home, be with family, wants to be comfortable, wants to go home on hospice FNA, bronchoscopy pathological specimen did not reveal any malignancy, Dr. Travis recommended CT-guided biopsy, patient does experience on and off hemoptysis Persistent hematuria Status post TURP 2011, cystoscopy, pathology was benign, he experiences periodic prostatic bleeding and received antibiotics finasteride and tamsulosin for his prostatic symptoms and UTIs in the past Status post right nephrectomy 2012, recent cystoscopy October 2019 which revealed normal urethra, status post TURP moderate to severe growth/regrowth with friable tissue which appeared to be the source of hematuria Urology consult if persisting hematuria. 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
[2020-09-18] MEDS: finasteride 5 mg Tablet PO (18:06)
[2020-09-18] MEDS: tamsulosin 0.4 mg Capsule PO (18:06)
[2020-09-18] MEDS: ipratropium-albuterol 3 mL Neb INHALATION (22:17)
[2020-09-19] VITALS (7 sets, daily range): BP systolic 120–126; BP diastolic 60–75; PULSE 88–105; RESP 20–24; TEMP 36.4–36.7; O2SAT 95–98
[2020-09-19] MEDS: cefTRIAXone 1,000 MG in sodium chloride 0.9% (plus) 50 ML 100 MG IV (01:59)
[2020-09-19] MEDS: metoprolol succinate ER (24 HR) 100 mg Tablet 25 MG PO (06:11)
[2020-09-19] MEDS: aspirin 81 mg EC Tablet PO (06:11)
[2020-09-19] MEDS: metroNIDAZOLE 500 MG Tablet PO (08:27)
[2020-09-19] MEDS: ipratropium-albuterol 3 mL Neb INHALATION (09:12)
--- NOTE | 2020-09-19 12:56 | PM.DCS ---
Discharge Providers Date of Admission: 09/17/20 16:13 Date of Discharge: September 19, 2020 Attending Provider at Admission: Miguelito Shepherd MD Attending Provider at Discharge: John Troncoso MD Primary Care Provider: Toni Strauss MD Diagnoses at Discharge Discharge Diagnosis (1) Acute exacerbation of CHF (congestive heart failure): Status: Acute Qualifiers: Heart failure type: unspecified Qualified Code(s): I50.9 - Heart failure, unspecified (2) Acute kidney injury superimposed on CKD: Status: Acute (3) Hypoxia: Status: Acute (4) Altered mental status: Status: Acute (5) COPD (chronic obstructive pulmonary disease): Status: Acute (6) Prostatic hemorrhage: Status: Acute (7) Hematuria: Status: Acute Reason for Visit Reason for Visit: DIFFICULTY BREATHING/ CONFUSION Hospital Course Hospital Course Diego Garzon is a 85 year old male with a past medical history of left upper lobe lung mass, status post bronchoscopy, highly suspicious for cancer, but biopsy lacking pathological diagnosis, COPD, history of acute on chronic urinary retention secondary to BPH, recent history of C7 fracture after a fall Status post C3-T2 PSF, C3 -T2 instrumentation, fracture reduction C7, application and removal of Martini tongs, currently he is a resident at [facility], who presents [facility] due to confusion and shortness of breath Patient was recently admitted and discharged for [facility] for confusion shortness of breath secondary to UTI, and a slight CHF exacerbation. Review of patient's medical history and work-up shows that he has a known history of left upper lobe lung mass, had a bronchoscopy performed by Dr. 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 Giordano have had an extensive discussion, I have called Dr. Giordano and confirmed, that Diego does not want to undergo any further testing, has declined a CT guided biopsy of the chest, he has chronic hemoptysis, he does not want to have any aggressive interventions. In his own words, he is 85, his a year ago, he wants to go home and stay with family. Given this information, patient had worsening shortness of breath, thought to be multifactorial concerning for underlying CHF exacerbation, diuresed, improved to some degree. But developing worsening shortness of breath on diuretics, increased oxygen requirements up to 2 L, lungs with coarse rales and crackles, concerning for postobstructive pneumonia related to malignancy as above. He was placed on broad-spectrum antibiotics. In addition I was highly concerned and highly suspicious of the likelihood of pulmonary emboli, patient cannot have a CT angiogram given his chronic kidney disease, and patient repeatedly declined ventilation/perfusion scan. Patient told me that he is 85, he does not want to undergo any further testing, he knows that he has cancer, that is enough for him, he just wants to be at home. Advised the significant morbidity mortality associated with pulmonary emboli, voiced understanding, all questions answered, declines testing. I had a discussion with Dr. Giordano about anticoagulation, Dr. Giordano has been concerned given his recurrent hemoptysis about bleeding associated with the lung malignancy, he feels that the mass is bleeding, and placing him of anticoagulation would carry greater risks than benefits, Dr. Giordano advised against it. I discussed this with patient, his family was present, all questions answered, declined anticoagulation. This was also discussed with patient's son and [id number], and sister, and granddaughter in detail. The patient which understanding, all questions answered, agreed to no further testing and no anticoagulation. In addition to his recurrent confusion, thus unlikely to be a UTI as urine cultures and blood cultures have been unremarkable. I am highly suspicious of metastatic lesions to his brain, his CT scan does not show any gross lesions, patient declines MRI testing. Advised of the risks, voiced recently to all questions answered. Advised morbidity and mortality associated with intracranial metastasis, patient voiced understanding questions answered. Patient wishes to go home, declines further testing. This was discussed in detail with all parties including patient's family, the most recently, all questions answered, agreed to decline testing as patient does not want to have testing and cannot lie flat for testing. I discussed with patient, granddaughter, sister, [id number], patient's discharge options. They have chosen hospice, advised of the risks and benefits, voiced understanding all questions answered, agreed to proceed with home hospice. For his postobstructive pneumonia, I discharged him on 7 days of antibiotics. For CHF of discharge him on Lasix 40 mg daily He is receiving hospice care pack, oxygen therapy Wang catheter was kept in place for comfort. Physical Exam Const: COMMON NORMALS: no acute distress and patient oriented x3 HENMT: COMMON NORMALS: normocephalic HEAD & SCALP: normocephalic Neck/C-Spine: COMMON NORMALS: no JVD Resp: COMMON NORMALS: normal respiratory effort, No retractions and No use of accessory muscles AUSCULTATION: rales, rhonchi and wheezes Cardio: COMMON NORMALS: no JVD, regular rate, regular rhythm, S1 normal heart sound present and S2 normal heart sound present RATE: regular rate RHYTHM: regular rhythm HEART SOUNDS: S1 normal heart sound present and S2 normal heart sound present GI: COMMON NORMALS: Normal to inspection, nondistended, normoactive bowel sounds present, Soft to palpation, non-tender, No hepatosplenomegaly present, no masses and no bruits PALPATION: Yes Soft to palpation and Yes No hepatosplenomegaly present Extremity: COMMON NORMALS: capillary refill normal, no clubbing, cyanosis or edema, no calf tenderness and no pedal edema Neuro: COMMON NORMALS: patient oriented x3 Psych: COMMON NORMALS: mental status grossly normal Urinary Catheter Management^: Wang: Cath Placed During This Visit: yes Reason for Continuing Indwelling Catheter: Acute Urinary Retention or Obstruction Urinary Catheter Date of Insertion: 09/16/20 Urinary Catheter Time of Insertion: 00:59 Discharge Data Data Completed and Pending: Completed Studies During Hospitalization Category Date Time Status CT abdomen pelvis wo con 97855 Stat Cat Scan 09/15/20 20:[address] head wo con* 7 0450 Stat Cat Scan 09/15/20 14:01 Completed XR chest 1V shanda ble [id number] Stat Exams 09/15/20 13:46 Completed Pending at discharge Category Date Time Status Blood Culture Sta t Lab 09/15/20 19:00 Results Urinalysis AM LAB S Lab 09/16/20 03:43 Ordered Vitals: Last Vital Signs Temp 98.0 F 09/19/20 12:00 Pulse 94 09/19/20 12:00 Resp 20 H 09/19/20 12:00 BP 125/73 09/19/20 12:00 Pulse Ox 95 09/19/20 12:00 Discharge Plan Discharge Patient Disposition: Hospice - Home Condition: Stable Prescriptions: New levofloxacin 750 mg tablet 750 mg PO DAILY 7 Days Qty: 7 RF: 0 amoxicillin-pot clavulanate [Augmentin] 875-125 mg tablet 1 tab PO BID 14 Days Qty: 28 RF: 0 ipratropium-albuterol 0.5 mg-3 mg(2.5 mg base)/3 mL solution for nebulization 3 ml inhalation Q4H PRN (Reason: shortness of breath or wheezing) Qty: 180 RF: 0 Continued budesonide [Pulmicort] 0.25 mg/2 mL suspension for nebulization 0.25 mg inhalation BID 30 Days Qty: 120 RF: 3 (DME) Custome Neck Brace See Rx Instructions .Route .MEDSUPPLY Qty: 1 RF: 0 (DME) Custome Neck Brace See Rx Instructions .Route .MEDSUPPLY Qty: 1 RF: 0 zolpidem 10 mg tablet 10 mg PO DAILY@18 RF: 0 albuterol sulfate 90 mcg/actuation HFA aerosol inhaler 2 puff inhalation QID PRN (Reason: Shortness Of Breath) RF: 0 (DME) BONE GROWTH STIMULATOR E0748 See Rx Instructions .Route .MEDSUPPLY Qty: 1 RF: 0 diltiazem HCl 120 mg Capsule,Extended Release 12 Hr 120 mg PO DAILY@0700 RF: 0 bisacodyl [Dulcolax (bisacodyl)] 10 mg Suppository 10 mg GA DAILY PRN (Reason: Constipation) RF: 0 Perforomist 20 mcg/2 mL Solution For Nebulization 2 ml INHALATION BID@0700,1900 RF: 0 diclofenac sodium [Voltaren] 1 % Gel 2 g TOPICAL QID RF: 0 MediHoney (honey) 80 % Gel 1 applic TOPICAL DAILY@21 RF: 0 tamsulosin 0.4 mg capsule 0.4 mg PO DAILY@18 RF: 0 revefenacin 175 mcg/3 mL solution for nebulization 175 mcg inhalation DAILY@0700 RF: 0 acetaminophen [Tylenol Extra Strength] 500 mg Tablet 1,000 mg PO Q6H PRN (Reason: PAIN/FEVER) RF: 0 finasteride 5 mg tablet 5 mg PO DAILY@18 RF: 0 metoprolol succinate 100 mg Tablet Extended Release 24 Hr 100 mg PO DAILY@07 RF: 0 Lasix 40 mg tablet 40 mg PO DAILY@07 RF: 0 aspirin 81 mg tablet,delayed release (DR/EC) 81 mg PO DAILY@07 RF: 0 Discontinued ciprofloxacin HCl [Cipro] 500 mg tablet 500 mg PO BID 3 Days Qty: 6 RF: 0 Discharge Orders: Discharge Order (Routine); Ordered 09/19/20 Ordered By: John Troncoso Referrals: Toni Strauss MD [Primary Care Provider] - Discharge Diet: Regular and Cardiac Discharge Activity: Resume usual activity Discharge Attestations Time Spent in Discharge Care*: less than 30 min Status at Discharge: Cognitive status at discharge: cognitively intact, Behavioral status at discharge: cooperative, Quality Metrics Clinical Quality Measures During this hospital stay, did patient experience: None Coding Level of Care Code Acute Theater Teacher for g Fwd Diagnoses Acute exacerbation of CHF (congestive heart failure) I50.9 Heart failure type: unspecified Acute kidney injury superimposed on CKD N17.9; N18.9 Hypoxia R09.02 Altered mental status R41.82 COPD (chronic obstructive pulmonary disease) J44.9 Prostatic hemorrhage N42.1 Hematuria R31.9
--- NOTE | 2020-09-21 17:18 | PC.RESP ---
Pulmonary Rehab information sent to patient.
== END 2020-09-19 13:44 | disposition hospice, home (50) | DRG 682 ==
LOC: ER 20:16 → MEDSURG 09-16 00:09
PROVIDERS: Admitting Provider Internal Medicine; Emergency Provider Emergency Medicine; PCP Family Medicine; Visit Provider Family Medicine
DX: I12.9 Hypertensive chronic kidney disease with stage 1 through stage 4 chronic kidney disease, or unspecified chronic kidney disease (principal); J96.21 Acute and chronic respiratory failure with hypoxia; I26.99 Other pulmonary embolism without acute cor pulmonale; N17.9 Acute kidney failure, unspecified; R04.2 Hemoptysis; E87.2 Acidosis; N02.9 Recurrent and persistent hematuria with unspecified morphologic changes; R91.8 Other nonspecific abnormal finding of lung field; I13.0 Hypertensive heart and chronic kidney disease with heart failure and stage 1 through stage 4 chronic kidney disease, or unspecified chronic kidney disease; I50.9 Heart failure, unspecified; N18.9 Chronic kidney disease, unspecified; I48.91 Unspecified atrial fibrillation; I27.20 Pulmonary hypertension, unspecified; Z90.5 Acquired absence of kidney; Z99.81 Dependence on supplemental oxygen; J44.9 Chronic obstructive pulmonary disease, unspecified; N40.1 Benign prostatic hyperplasia with lower urinary tract symptoms; R33.8 Other retention of urine; Z87.440 Personal history of urinary (tract) infections; M19.90 Unspecified osteoarthritis, unspecified site; I87.8 Other specified disorders of veins; R59.0 Localized enlarged lymph nodes; Z85.528 Personal history of other malignant neoplasm of kidney; Z85.118 Personal history of other malignant neoplasm of bronchus and lung; Z87.891 Personal history of nicotine dependence; Z79.82 Long term (current) use of aspirin; Z79.51 Long term (current) use of inhaled steroids; Z66 Do not resuscitate; Z51.5 Encounter for palliative care; I50.810 Right heart failure, unspecified; G31.84 Mild cognitive impairment of uncertain or unknown etiology
CPT/HCPCS: 12345; 36415; 36600; 51702; 70450; 71045; 74176; 80048; 80053; 81001; 82803; 83605; 83735; 83880; 84154; 84484; 85025; 85378; 85610; 87040; 87086; 87426; 87804; 93005; 94640; 99283; G0378; J0456; J0696; J1940; J2405; J3535; J7050; J7608

== ENCOUNTER 2020-10-07 13:21 | Inpatient (IN) | payer MEDICARE, OTHER, SELFPAY ==
[2020-10-07] VITALS (13 sets, daily range): BP systolic 117–134; BP diastolic 55–73; PULSE 95–117; RESP 16–33; TEMP 36.7; O2SAT 94–100; BMI 30.1
--- NOTE | 2020-10-07 13:34 | ECG_ITS ---
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 Measurements Intervals [place] Rate: 98 P: CT: QRS: 10 QRSD: 88 T: 43 QT: 365 QTc: 468 Interpretive Statements ATRIAL FIBRILLATION MINIMAL ST DEPRESSION [0.025+ mV ST DEPRESSION] ABNORMAL RHYTHM ECG Compared to ECG 09/15/2020 15:25:33 ST (T wave) deviation now present Electronically Signed On 10-07-2020 19:17:20 RUBBER TESTER by Neeru French M.D. [id number]
--- NOTE | 2020-10-07 13:44 | XR_ITS ---
WS: [id number] Portable AP upright chest, 10/07/2020 Clinical Data: sob Comparison: Portable chest, 09/15/2020. Findings: There is a left upper lobe density measuring 5.7 cm which has been described as an apical m ass. Right lung is clear and the right diaphragm is elevated. The heart is slightly enlarged. No effu sions are seen. The pulmonary vascularity is not increased. No pneumothorax is present. The aortic ar ch shows calcification. The patient has had a posterior fusion of the lower cervical and upper thorac ic spine with multiple pedicle screws and connecting rods. XR/XR chest 1V portable [id number] Impression: 1. Left upper lobe mass which has been described on previous studies and probab ly represents cancer of the lung. 2. Cardiomegaly and elevation of the right diaphragm unchanged.
[2020-10-07 14:00] LABS: Add Urine Microscopic? YES; Bilirubin Urine Neg (Negative); Blood Urine 2+ (Negative); Glucose Urine UA Norm (Normal); Ketones Urine Negative (Negative); Leukocyte Esterase Urine Negative (Negative); Nitrate Urine Negative (Negative); Protein Urine Neg (Negative); Specific Gravity, Urine 1.015 (1.005-1.030); Urine Appearance Hazy (CLEAR); Urine Color Yellow (Yellow); Urobilinogen Urine Norm (Negative); pH Urine 5 (5-7)
--- NOTE | 2020-10-07 14:30 | USCV_ITS ---
Diego Garzon Age: 85 Gender: M : 1935 Exam Date: 10/07/2020 14:55 Ordering Phys: Yoana Perry MD [facility] Technologist: Breana Hager [place] [facility] [place] Indication: SWELLING HISTORY: Lower extremity edema. Lower extremity swelling. PROCEDURES: Venous duplex imaging was performed in bilateral lower extremities. The following venous structures were evaluated: common femoral vein, profunda vein, proximal portion of the greater saphenous vein, superficial femoral vein, and the popliteal vein. In addition, the posterior tibial and peroneal trunk were evaluated. FINDINGS: Normal 2-D Doppler and augmentation and compressibility throughout the lower extremity venous structures. Additional imaging through the proximal calf veins also reveals no thrombus. Limited evaluation of the greater saphenous vein is patent with no thrombus. CONCLUSIONS No evidence of right lower extremity DVT. No evidence of left lower extremity DVT. Yakov Taylor MD (Electronically Signed) Final Date: 08 October 2020 17:58 S
[2020-10-07 14:39] LABS: Add Urine Culture? No; Amorphous Sediment Urine 2+ /hpf; Bacteria Urine TRACE /hpf; Hyaline Casts Urine 0-4 /lpf; RBC Urine 0-4 /hpf (0-2); Squamous Epithelial Cell Urine 0-4 /hpf (0-5)
[2020-10-07 14:41] LABS: Basophils % 0.4 %; Eosinophils % 10.4 %; Hematocrit 30.9 % (42.0-52.0); Lymphocytes # 0.3 10^3/uL (0.8-4.8); Lymphocytes % 3.4 %; Mean Corpuscular HGB Conc 29.1 g/dL (30.0-36.0); Mean Corpuscular Hemoglobin 26.9 pg (28.0-34.0); Mean Corpuscular Volume 92.5 fL (80-94); Mean Platelet Volume 9.7 fL (7.4-10.4); Monocytes # 0.8 10^3/uL (0.2-0.9); Neutrophils # 7.31 10^3/uL (1.8-7.7); Neutrophils % 76.3 %; Nucleated Red Blood Cells % 0 %; Platelet Count 241 10^3/cmm (130-400); Red Blood Count 3.34 10^6/uL (4.1-5.3); Red Cell Distribution Width 15.4 % (12.1-15.1); White Blood Count 9.6 10^3/uL (4.0-10.0)
--- NOTE | 2020-10-07 15:09 | PC.PHAR ---
PTS FAMILY STATES THEY TOOK THE PT OFF HOSPICE TODAY-PTS FAMILY STATES THE PT USES ONE MEDICATION IN THE NEBULIZER-PRINTED OFF PICTURES OF NEB MEDS ENTERED FROM PREVIOUS ENTERED MED LIST TO SHOW THE FAMILY THE FAMILY STATES THE PT IS USING THE PULMICORT-THEY STATE THE PT HAS THE IPRATROPIUM/ALBUTEROL AND YUPELRI AND IS UNSURE IF THEY HAVE THE PERFOROMIST.MEDICATIONS ENTERED THE PTS FAMILY STATES THE PT IS TAKING
[2020-10-07 15:13] LABS: Troponin(5th) Baseline 65 ng/L (0-15)
[2020-10-07 15:21] LABS: Alanine Aminotransferase 8 U/L (0-41); Albumin Level 3.3 g/dL (3.5-5.2); Alkaline Phosphatase 250 IU/L (40-130); Anion Gap 16.3 (5-19); Aspartate Amino Transferase 9 U/L (0-40); Blood Urea Nitrogen 28 mg/dL (8-23); Calcium 8.1 mg/dL (8.5-10.5); Carbon Dioxide 25 mmol/L (22-29); Chloride 103 mmol/L (98-107); Globulin 2.7 g/dL (1.3-4.6); Glucose 154 mg/dL (65-115); NT Pro B Type Natriuretic Pept 10417 pg/mL (0-450); Osmolality Calculated 299 mOsm/kg (285-295); Potassium 4.3 mmol/L (3.5-5.1); Sodium 140 mmol/L (136-145); Total Bilirubin 0.3 mg/dL (0.15-1.2)
--- NOTE | 2020-10-07 15:34 | ECG_ITS ---
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 Measurements Intervals [place] Rate: 84 P: TN: QRS: 1 QRSD: 89 T: 29 QT: 373 QTc: 442 Interpretive Statements ATRIAL FIBRILLATION MINIMAL ST DEPRESSION [0.025+ mV ST DEPRESSION] ABNORMAL RHYTHM ECG Compared to ECG 10/07/2020 13:48:52 No significant changes Electronically Signed On 10-07-2020 19:20:42 FIRE SPRINKLER INSTALLER by Neeru French M.D. [id number]
[2020-10-07] MEDS: FUROsemide 10 mg/mL SDV 4mL 40 MG IVP (15:40)
[2020-10-07 17:40] LABS: Troponin 5 2HR 59.69 ng/L (0-15)
[2020-10-07 17:41] LABS: Troponin 5 2HR Delta -5.31 ABS# (0-10)
--- NOTE | 2020-10-07 18:11 | PM.HP ---
Providers/Chief Complaint Admitting Physician: Jana Oliva MD Primary Care Provider: Toni Strauss MD Chief Complaint: EDEMA LOWER LEGS History of Present Illness Diego Garzon is a 85 year old male with PMHx noted below, presents from home, accompanied by his [id number] for evaluation of gradually increasing lower extremity edema, weeping and open wounds on his bilateral legs, orthopnea and inability to ambulate due to heaviness in his legs. Patient was admitted at the hospital in August for similar symptoms and after some diuresis decided on discharge home with hospice. He reports that he was doing quite well at home, able to ambulate and so requested to be discharged from hospice services. Unfortunately over the past 2 weeks he has developed gradually increasing extremity edema and particularly over the past 2 days has had significant weeping from open areas on his legs. He is not oxygen dependent at baseline currently though upon discharge was requiring 2 L nasal cannula. He has had a intermittent cough with some yellow sputum production but denies fever/chills, abdominal pain, nausea/vomiting, changes in his urination or bowel habits. He is on diuresis with Lasix 40 mg twice daily. Last echo shows ejection fraction of 55% with some valvular abnormalities and severe pulmonary hypertension. [id number] states that patient has been sleeping in a recliner in an upright position for approximately 8 years but is short of breath with even minimal exertion. Work-up today indicates normal white count, hemoglobin of 9.0, normal electrolytes, BUN of 28, creatinine of 2.5, BNP greater than 10,000, baseline troponin of 65, D-dimer 0.90, chest x-ray with noted left upper lobe mass and cardiomegaly. He has received a 40 mg dose of Lasix and Wang catheter has been placed. He reports that if he can get rid of the swelling in his legs he would do much better, it is unclear how much he understands about his diagnosis and initial reasoning for hospice to begin with. He will require aggressive IV diuresis and treatment of bilateral lower extremity cellulitis hence need for admission. Review of Systems Const: Reports: fatigue; Denies: fever(s) or chills Eyes: Denies: change in vision ENMT: Reports: dry mouth Card: Reports: edema (weeping ), swelling of feet/ankles, dyspnea on exertion and orthopnea; Denies: chest pain or lightheadedness Resp: Reports: dyspnea and productive cough (intermittent, yellow sputum) GI: Denies: abdominal pain, nausea, vomiting, hematemesis, bloating or hematochezia : Denies: oliguria or hematuria Musc: Reports: back pain (chronic) and extremity pain (bilateral LEs) Skin/Breast: Reports: sores (open areas on bilateral legs) Neuro: Reports: weakness in extremities and difficulty walking; Denies: numbness in extremities Psych: Denies: anxiety Medications/Allergies Home Medications Medication Instructions Recorded Confirmed Last Taken Type zolpidem 10 mg tablet 10 mg PO DAILY@21 tab 11/22/19 10/07/20 10/06/20 History albuterol sulfate 90 mcg/actuation 2 puff INHALATION QID PRN 08/04/20 10/07/20 08/08/20 History aerosol inhaler budesonide 0.25 mg/2 mL suspension 0.25 mg INHALATION BID 30 Days 08/26/20 10/07/20 09/15/20 08:13 Rx for nebulization #120 ml Custome Neck Brace #1 ea 08/27/20 10/07/20 Unknown Rx Custome Neck Brace #1 ea 08/27/20 10/07/20 Unknown Rx BONE GROWTH STIMULATOR [id number] #1 ea 08/28/20 10/07/20 Unknown Rx Perforomist 2 ml INHALATION BID 09/12/20 10/07/20 09/15/20 07:00 History bisacodyl [Dulcolax (bisacodyl)] 10 mg WA DAILY PRN 09/12/20 10/07/20 Unknown History diclofenac sodium [Voltaren] 2 g TOPICAL QID 09/12/20 10/07/20 09/15/20 12:08 History revefenacin 175 mcg INHALATION DAILY 09/12/20 10/07/20 09/15/20 History tamsulosin 0.4 mg PO DAILY 09/12/20 10/07/20 09/14/20 18:00 History furosemide [Lasix] 40 mg PO BID 09/15/20 10/07/20 09/15/20 07:00 History metoprolol succinate 100 mg PO DAILY@07 09/15/20 10/07/20 10/07/20 History ipratropium-albuterol 3 ml INHALATION Q4H PRN #180 ml 09/19/20 10/07/20 Unknown Rx acetaminophen [Arthritis Pain 650 mg PO Q8H PRN 10/07/20 10/07/20 Unknown History Relief (acetam)] potassium chloride 10 meq PO DAILY@07 10/07/20 10/07/20 10/07/20 History simvastatin [Zocor] 40 mg PO DAILY 10/07/20 10/07/20 Unknown History spironolactone 25 mg PO DAILY 10/07/20 10/07/20 Unknown History Allergies Allergy/AdvReac Type Severity Reaction Status Date / Time No Known Allergies Allergy Verified 10/07/20 13:34 PFSH Acute PFSH: Medical History (Updated 10/07/20 @ 20:03 by Jana Oliva MD) Arthritis Benign prostatic hyperplasia BPH loc w urin obs/LUTS Chronic diastolic CHF (congestive heart failure) Chronic venous stasis H/O cataract bilateral cataract surgery Hilar adenopathy HTN (hypertension) Hyperlipidemia Lung cancer Prostatic hemorrhage Pulmonary HTN Renal cell cancer Surgical History H/O right nephrectomy H/O transurethral resection of prostate History of lobectomy of lung History of nephrectomy, right S/P TURP Status post lung surgery Family History Father , 58 Cancer Mother , 80 Stroke Diabetes Family/Other Cancer lung, liver Diabetes Hypertension Brother Cancer Lung CAD (coronary artery disease) Sister Cancer Liver Social History Smoking and tobacco status: former smoker Quit status (tobacco): has quit using tobacco Year quit tobacco: 2000-Hx of 2PPDx 45 Years Alcohol intake: never Lives independently: Yes Household members: none Marital status: / Current occupational status: retired History of recent travel: No Current gender identity: Male Vitals/I&O/Wt Last Vital Signs Temp 98.1 F 10/07/20 13:25 Pulse 95 10/07/20 16:00 Resp 18 10/07/20 16:00 BP 130/60 10/07/20 16:00 Pulse Ox 95 10/07/20 16:00 Weight last 48 hrs Weight 95.254 kg Physical Exam Const: COMMON NORMALS: no acute distress, patient oriented x3 and alert GENERAL APPEARANCE: cooperative, comfortable, frail appearing and Edematous ORIENTATION/CONSCIOUSNESS: Yes awake HENMT: COMMON NORMALS: normocephalic, atraumatic, hearing grossly normal bilaterally and moist oral mucous membranes HEAD & SCALP: normocephalic and atraumatic Eye: COMMON NORMALS: Equal, round and reactive pupils present, EOMs intact bilaterally and conjunctivae normal CONJUNCTIVA: Yes conjunctivae normal PUPIL: Yes Equal, round and reactive pupils present Neck/C-Spine: COMMON NORMALS: full ROM GENERAL: Yes normal visual inspection and Yes trachea midline Resp: COMMON NORMALS: normal respiratory effort, No retractions and No use of accessory muscles EFFORT & INSPECTION: Yes symmetric chest movement and No tachypneic AUSCULTATION: rales and diminished lung sounds OTHER: -on RA -conversational dyspnea Cardio: COMMON NORMALS: regular rate, regular rhythm, S1 normal heart sound present and S2 normal heart sound present RATE: regular rate RHYTHM: regular rhythm HEART SOUNDS: S1 normal heart sound present, S2 normal heart sound present and Murmur heart sound present OTHER: -unable to palpate peripheral pulses due to edema GI: COMMON NORMALS: Normal to inspection, nondistended, normoactive bowel sounds present, Soft to palpation and non-tender INSPECTION: Yes central obesity PALPATION: Yes Soft to palpation : BLADDER/KIDNEY EXAM: Yes catheter in place Catheter type (Male): urethral Extremity: NARRATIVE EXTREMITY EXAM: -3-4+ pitting edema of bilateral LEs from pedal to thigh level -open areas over bilateral legs with bullae forming and weeping edema -legs with erythema, warmth and some tenderness to palpation bilaterally Neuro: COMMON NORMALS: patient oriented x3, moves all extremities, no focal motor deficits and no sensory deficits noted SENSORIUM/ORIENTATION: Yes alert Psych: COMMON NORMALS: mental status grossly normal, Normal thought process present, cooperative, normal affect and speech normal SPEECH: Yes normal speech THOUGHT PROCESS: Normal thought process present Skin: COMMON NORMALS: no jaundice, no petechiae and no mottling NARRATIVE SKIN EXAM: -open weeping areas on bilateral legs consistent with cellulitic changes with some bullae Data : 10/07/20 14:25 10/07/20 14:25 A&P Assessment and plan (1) Acute exacerbation of CHF (congestive heart failure): -acutely decompensated diastolic CHF as evidenced by significant lower extremity edema, orthopnea, elevated BNP (>10,000) -Echo (08/2020): EF=55%, mild concentric LVH, moderate MR, mild-moderate WA, moderate-severe TR, severe pulmonary HTN -aggressive IV diuresis as much as renal function allows; use bumex for now -has Wang catheter in place, monitor Is & Os, daily weights -supplemental oxygen as needed, monitor respiratory status -telemetry monitoring -monitor vital signs Status: Acute Qualifiers: Heart failure type: diastolic Qualified Code(s): I50.33 - Acute on chronic diastolic (congestive) heart failure (2) Atrial fibrillation: -has known hx of atrial fibrillation -some tachycardia likely due to acute CHF exacerbation -telemetry monitoring -resume BB Status: Chronic Qualifiers: Atrial fibrillation type: unspecified Qualified Code(s): I48.91 - Unspecified atrial fibrillation (3) Acute kidney injury superimposed on CKD: -MARIE on CKD -baseline renal function 2.3-2.5; has been as high as 4 on prior discharge -closely monitor renal function and lytes with diuresis -renally dose meds, avoid nephrotoxins Status: Acute (4) Cellulitis: -clinical evidence of bilateral LE cellulitis -start on IV antibiotics given extent of edema and weeping -LE elevation if possible -venous duplex pending Status: Acute Qualifiers: Site of cellulitis: extremity Site of cellulitis of extremity: lower extremity Laterality: unspecified laterality Qualified Code(s): L03.119 - Cellulitis of unspecified part of limb Additional A&P Information -Chronic normocytic anemia; baseline Hg is 9-10; monitor H/H -Advanced age -mildly elevated D-dimer-0.90; cannot tolerate CTA and renal function does not allow for it currently -BPH -COPD, previously oxygen dependent (2 L NC), reports that he no longer requires it; monitor respiratory status closely -recent C7 fracture s/p fall with surgery -physical deconditioning; PT evaluation when able to participate -known DONNA bronchogenic carcinoma; s/p FNA with pathology suspicious for malignancy -s/p R upper lobectomy/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, NSCLC) -hx of renal cell cancer s/p R nephrectomy (10/2012) -cardiac diet as tolerated -GI ppx with PPI -DVT ppx with heparin -Dispo: home, recently discharged from hospice -Code status: FULL code, discussed with patient, [id number] at bedside -Admit to CSU Attestations Medical Necessity Statement*: Diego Membreno Ryann's hospital stay will require greater than 2 midnights for management of acute CHF exacerbation, needs aggressive IV diuresis, as well as treatment of bilateral LE cellulitis. Time Spent in Patient Care: Greater than 35 minutes (>than 50% of time spent in counselling and/or direct pt care on unit). 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
--- NOTE | 2020-10-07 18:14 | PC.NURSE ---
Emptied 500 mls of yellow urine. No acute distress. Daughter in law at bedside.
--- NOTE | 2020-10-07 18:17 | W.ED.EXTPRO ---
HPI - Extremity Problem General: Chief complaint: Extremity Problem,Nontraumatic Stated complaint: EDEMA LOWER LEGS Time Seen by Provider: 10/07/20 13:23 Source: patient, family ([id number]) and old records reviewed Mode of arrival: EMS Limitations: no limitations History of Present Illness: HPI Narrative: This pleasant 85-year-old gentleman is seen in the emergency department in the company of his [id number]. He was brought in by ambulance with complaints of bilateral leg swelling. They state that his leg has been gradually swelling but in the last 3 days the swelling became more more marked with associated skin changes. About 3 weeks ago the patient was admitted to this facility for congestive heart failure exacerbation and due to his clinical status at the time he was eventually discharged home on hospice. The patient and his mlhvbicm-gr-uvk however states that he has done so well since discharge start the patient has discharged himself off of hospice. He feels like he will be able to get back to his independent life once his legs improve. He has significant orthopnea and has to sleep in a reclined position MD Complaint: extremity pain and extremity swelling Onset (ago): day(s) (3) Pain Consistency: constant Location: lower extremity Associated symptoms: Deny fever(s) or rash Review of Systems General: Reports: 10 or more systems reviewed and unremarkable except in HPI and below Const: Denies: fever(s), chills or body aches Eyes: Denies: change in vision or blurry vision ENMT: Denies: throat pain, enlarged tonsils, odynophagia, hoarseness, mouth pain or swelling of lips/tongue Card: Reports: swelling of feet/ankles and orthopnea; Denies: palpitations, irregular heart rhythm or edema Resp: Reports: dyspnea; Denies: productive cough or non-productive cough GI: Denies: abdominal pain, nausea or vomiting : Denies: flank pain, dysuria, urinary frequency, urinary urgency or urinary hesitancy Musc: Denies: neck pain, back pain or extremity swelling Skin/Breast: Denies: rash, pruritus or erythema Neuro: Denies: headache(s), numbness in extremities or weakness in extremities Endo: Denies: polyuria, polydipsia or tired all the time [facility] PFSH: Medical History (Updated 10/07/20 @ 23:41 by Yoana Perry MD, [place] [facility] [place]) Arthritis Benign prostatic hyperplasia BPH loc w urin obs/LUTS Chronic diastolic CHF (congestive heart failure) Chronic venous stasis H/O cataract bilateral cataract surgery Hilar adenopathy HTN (hypertension) Hyperlipidemia Lung cancer Prostatic hemorrhage Pulmonary HTN Renal cell cancer Surgical History H/O right nephrectomy H/O transurethral resection of prostate History of lobectomy of lung History of nephrectomy, right S/P TURP Status post lung surgery Family History Father , 58 Cancer Mother , 80 Stroke Diabetes Family/Other Cancer lung, liver Diabetes Hypertension Brother Cancer Lung CAD (coronary artery disease) Sister Cancer Liver Social History Smoking and tobacco status: former smoker Quit status (tobacco): has quit using tobacco Year quit tobacco: 2000-Hx of 2PPDx 45 Years Alcohol intake: never Lives independently: Yes Household members: none Marital status: / Current occupational status: retired History of recent travel: No Current gender identity: Male Physical Exam Const: COMMON NORMALS: no acute distress, average body habitus, patient oriented x3, no limitations, healthy appearing, alert and well nourished HENMT: COMMON NORMALS: normocephalic, atraumatic and moist oral mucous membranes HEAD & SCALP: normocephalic and atraumatic Eye: COMMON NORMALS: Equal, round and reactive pupils present, EOMs intact bilaterally, conjunctivae normal and no scleral icterus CONJUNCTIVA: Yes conjunctivae normal PUPIL: Yes Equal, round and reactive pupils present Neck/C-Spine: COMMON NORMALS: no meningeal signs and no JVD Cardio: COMMON NORMALS: no JVD, regular rate, regular rhythm, S1 normal heart sound present, S2 normal heart sound present, No gallops present (Cardio), No clicks present (Cardio), No murmurs present (Cardio), No rub (Cardio) and Peripheral pulses 2+ throughout RATE: regular rate RHYTHM: regular rhythm HEART SOUNDS: S1 normal heart sound present and S2 normal heart sound present PERIPHERAL PULSES: Peripheral pulses 2+ throughout GI: COMMON NORMALS: Normal to inspection, nondistended, normoactive bowel sounds present, Soft to palpation, non-tender, No hepatosplenomegaly present, no masses and no bruits PALPATION: Yes Soft to palpation and Yes No hepatosplenomegaly present Extremity: COMMON NORMALS: normal to inspection, full ROM, capillary refill normal and no calf tenderness GENERAL: Yes edema (Greater than 4+ pitting pedal edema bilaterally) OTHER: There is skin breakdown in the distal part of both legs, with weeping of clear liquid from the skin of both lower extremities. Neuro: COMMON NORMALS: patient oriented x3 SENSORIUM/ORIENTATION: Yes alert MENINGEAL SIGNS: Yes no meningeal signs Skin: COMMON NORMALS: no rashes or lesions noted, no wounds, turgor normal, no jaundice, no petechiae and no mottling GENERAL SKIN EXAM: no rashes or lesions noted and turgor normal Course ED course: 85-year-old male who presents to the emergency department with bilateral leg swelling Consultations: Consultation #1: Discussed the patient with Dr. Haile vazquez, hospitalist. She kindly accepted the patient to her service. Vital Signs: Vital signs: Vital Signs Temperature 98.1 F 10/07/20 13:25 Pulse Rate 110 H 10/07/20 21:51 Respiratory Rate 17 10/07/20 21:51 Blood Pressure 131/59 10/07/20 19:38 Pulse Oximetry 94 10/07/20 21:51 MDM - Extremity (Nontraumatic) MDM Narrative: Medical decision making narrative: 85-year-old male who presents to the emergency department with concerns of bilateral leg swelling as well as leg pain and weakness. On evaluation, the patient is in CHF exacerbation. The patient was discharged from this hospital about 3 weeks ago and at that time he was discharged on home hospice. The patient however has discharged himself off of hospice as he felt he had improved dramatically. He believes he will be able to get back to his prior levels of activity. I tried to explain to him and his mqkseyhy-ic-ran that he is probably having a worsening of his CHF and the primary problem is his heart and not his legs. I tried to explain that it is very likely that he will be unable to get back his prior level of function, however did not seem very receptive to this at this time. He is admitted to the hospitalist service for management of CHF exacerbation. Medical Records: Attestation: I reviewed the patient's medical records. Lab Data: Attestation: I reviewed the patient's lab results. Labs: Lab Results 10/07/20 10/07/20 10/07/20 Range/Units 13:48 14:25 14:25 WBC 9.6 (4.0-10.0) 10^3/ uL RBC 3.34 L (4.1-5.3) 10^6/u L Hgb 9.0 L (11.7-16.6) g/dL Hct 30.9 L (42.0-52.0) % MCV 92.5 (80-94) fL MCH 26.9 L (28.0-34.0) pg MCHC 29.1 L (30.0-36.0) g/dL RDW 15.4 H (12.1-15.1) % Plt Count 241 (130-400) 10^3/c mm MPV 9.7 (7.4-10.4) fL Neut % (Auto) 76.3 % Lymph % (Auto) 3.4 % [place] % (Auto) 8.0 % Eos % (Auto) 10.4 % Baso % (Auto) 0.4 % Neut # (Auto) 7.31 (1.8-7.7) 10^3/u L Lymph # (Auto) 0.3 L (0.8-4.8) 10^3/u L [place] # (Auto) 0.8 (0.2-0.9) 10^3/u L Eos # (Auto) 1.0 H (0.0-0.8) 10^3/u L Baso # (Auto) 0.0 (0.0-0.1) 10^3/u L Nucleated RBC % (a uto) 0 % Nucleated RBCs # 0.0 /100WBC D-Dimer (0-0.59) ug/mIFE U Sodium 140 (136-145) mmol/L Potassium 4.3 (3.5-5.1) mmol/L Chloride 103 (98-107) mmol/L Carbon Dioxide 25 (22-29) mmol/L Anion Gap 16.3 (5-19) BUN 28 H (8-23) mg/dL Creatinine 2.5 H (0.7-1.2) mg/dL GFR Calculation Not Reportable Glucose 154 H (65-115) mg/dL Calculated Osmolal ity 299 H (285-295) mOsm/k g Calcium 8.1 L (8.5-10.5) mg/dL Total Bilirubin 0.3 (0.15-1.2) mg/dL AST 9 (0-40) U/L ALT 8 (0-41) U/L Alkaline Phosphata se 250 H (40-130) IU/L Troponin T Baselin e (0-15) ng/L Troponin T 120 Min [place] (0-15) ng/L Delta Troponin T (0-10) ABS# NT-Pro-B Natriuret Pep 77441 H (0-450) pg/mL Total Protein 6.0 L (6.6-8.7) g/dL Albumin 3.3 L (3.5-5.2) g/dL Globulin 2.7 (1.3-4.6) g/dL Urine Color Yellow (Yellow) Urine Appearance Hazy A (CLEAR) Urine pH 5 (5-7) Ur Specific Gravit y 1.015 (1.005-1.030) Urine Protein Neg (Negative) Urine Glucose (UA) Norm (Normal) Urine Ketones Negative (Negative) Urine Blood 2+ H (Negative) Urine Nitrate Negative (Negative) Urine Bilirubin Neg (Negative) Urine Urobilinogen Norm (Negative) mg/dL Ur Leukocyte Nataliya ase Negative (Negative) Urine RBC 0-4 H (0-2) /hpf Urine WBC None (0-5) /hpf Ur Squamous Epith Cells 0-4 H (0-5) /hpf Amorphous Sediment 2+ /hpf Urine Bacteria Trace (NONE) /hpf Hyaline Casts 0-4 H /lpf 10/07/20 10/07/20 10/07/20 Range/Units 14:25 14:25 17:15 WBC (4.0-10.0) 10^3/ uL RBC (4.1-5.3) 10^6/u L Hgb (11.7-16.6) g/dL Hct (42.0-52.0) % MCV (80-94) fL MCH (28.0-34.0) pg MCHC (30.0-36.0) g/dL RDW (12.1-15.1) % Plt Count (130-400) 10^3/c mm MPV (7.4-10.4) fL Neut % (Auto) % Lymph % (Auto) % [place] % (Auto) % Eos % (Auto) % Baso % (Auto) % Neut # (Auto) (1.8-7.7) 10^3/u L Lymph # (Auto) (0.8-4.8) 10^3/u L [place] # (Auto) (0.2-0.9) 10^3/u L Eos # (Auto) (0.0-0.8) 10^3/u L Baso # (Auto) (0.0-0.1) 10^3/u L Nucleated RBC % (a uto) % Nucleated RBCs # /100WBC D-Dimer 0.90 H (0-0.59) ug/mIFE U Sodium (136-145) mmol/L Potassium (3.5-5.1) mmol/L Chloride (98-107) mmol/L Carbon Dioxide (22-29) mmol/L Anion Gap (5-19) BUN (8-23) mg/dL Creatinine (0.7-1.2) mg/dL GFR Calculation Glucose (65-115) mg/dL Calculated Osmolal ity (285-295) mOsm/k g Calcium (8.5-10.5) mg/dL Total Bilirubin (0.15-1.2) mg/dL AST (0-40) U/L ALT (0-41) U/L Alkaline Phosphata se (40-130) IU/L Troponin T Baselin e 65 H (0-15) ng/L Troponin T 120 Min [place] 59.69 H (0-15) ng/L Delta Troponin T -5.31 L (0-10) ABS# NT-Pro-B Natriuret Pep (0-450) pg/mL Total Protein (6.6-8.7) g/dL Albumin (3.5-5.2) g/dL Globulin (1.3-4.6) g/dL Urine Color (Yellow) Urine Appearance (CLEAR) Urine pH (5-7) Ur Specific Gravit y (1.005-1.030) Urine Protein (Negative) Urine Glucose (UA) (Normal) Urine Ketones (Negative) Urine Blood (Negative) Urine Nitrate (Negative) Urine Bilirubin (Negative) Urine Urobilinogen (Negative) mg/dL Ur Leukocyte Nataliya ase (Negative) Urine RBC (0-2) /hpf Urine WBC (0-5) /hpf Ur Squamous Epith Cells (0-5) /hpf Amorphous Sediment /hpf Urine Bacteria (NONE) /hpf Hyaline Casts /lpf Imaging Data^: CXR: Radiologist's impression: [address] [address] XRay Report Signed Patient: Diego Garzon #: [id number] : 5Acct#:[id number] Age/Sex: 85 / MADM Date: 10/07/20 Loc: ERRoom/Bed: Attending Dr: Ordering Provider/Ordering MD: Yoana Perry MD, [place] [facility] [place] Date of Service: 10/07/20 Procedure(s): XR chest 1V portable [id number] Accession Number(s): [id number] Report Number: [id number] WS: [id number] Portable AP upright chest, 10/07/2020 Clinical Data: sob Comparison: Portable chest, 09/15/2020. Findings: There is a left upper lobe density measuring 5.7 cm which has been described as an apical mass. Right lung is clear and the right diaphragm is elevated. The heart is slightly enlarged. No effusions are seen. The pulmonary vascularity is not increased. No pneumothorax is present. The aortic arch shows calcification. The patient has had a posterior fusion of the lower cervical and upper thoracic spine with multiple pedicle screws and connecting rods. XR/XR chest 1V portable [id number] Impression: 1. Left upper lobe mass which has been described on previous studies and probably represents cancer of the lung. 2. Cardiomegaly and elevation of the right diaphragm unchanged. Dictated By:Sandy Capellan MD Signed By:Sandy Capellan MDSigned Date/Time:10/07/20 1405 DD/ 1400 EKG Data^: EKG 1: Attestation: I personally reviewed and interpreted this EKG as follows: EKG interpretation date: 10/07/20 EKG interpretation time: 13:50 Prior EKG tracings: available for review Interpretation: Atrial fibrillation. Heart rate [address] depression in V4 V5. EKG 2: Attestation: I personally reviewed and interpreted this EKG as follows: EKG interpretation date: 10/07/20 EKG interpretation time: 15:39 Prior EKG tracings: available for review Interpretation: Atrial fibrillation. Heart rate [address] depression at this time. EKG 3: Attestation: I personally reviewed and interpreted this EKG as follows: EKG interpretation date: 10/07/20 EKG interpretation time: 19:51 Prior EKG tracings: available for review Interpretation: Atrial fibrillation with RVR. Heart rate [address] changes. 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
[2020-10-07] MEDS: acetaminophen 325 mg Tablet 650 MG PO (19:01)
--- NOTE | 2020-10-07 19:34 | ECG_ITS ---
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 Measurements Intervals [place] Rate: 112 P: [place]: QRS: -1 QRSD: 87 T: 50 QT: 324 QTc: 444 Interpretive Statements ATRIAL FIBRILLATION WITH RAPID VENTRICULAR RESPONSE MINIMAL ST DEPRESSION [0.025+ mV ST DEPRESSION] ABNORMAL RHYTHM ECG Compared to ECG 10/07/2020 15:37:04 No significant changes Electronically Signed On 10-07-2020 21:47:59 SUPPORT DIRECTOR by Neeru French M.D. [id number]
--- NOTE | 2020-10-07 19:54 | PC.NURSE ---
EKG done at 1950 and shown to ER doctor.
[2020-10-07] MEDS: piperacillin-tazobactam 3.375 GM in sodium chloride 0.9% (plus) 50 ML IV (20:17)
[2020-10-07 20:37] LABS: Troponin 5 6HR 60.62 ng/L (0-15)
[2020-10-07 20:47] LABS: Troponin 5 6HR Delta -4.38 ng/L (0-12)
[2020-10-07] MEDS: bumetanide 0.25 mg/mL SDV 4 mL 1 MG IV (21:42)
[2020-10-07] MEDS: metoprolol tartrate 25 mg Tablet PO (21:42)
[2020-10-07] MEDS: heparin 5,000 unit/mL INJ 1 mL 5000 UNIT SUBCUT (21:42)
[2020-10-08] VITALS (21 sets, daily range): BP systolic 104–122; BP diastolic 52–74; PULSE 93–114; RESP 15–27; TEMP 36.5–36.9; O2SAT 93–97
[2020-10-08] MEDS: LORazepam 2 mg/mL INJ 1 mL 1 MG IVP (02:06)
[2020-10-08] MEDS: piperacillin-tazobactam 3.375 GM in sodium chloride 0.9% (plus) 50 ML IV ×3 (04:01→20:39)
[2020-10-08] MEDS: heparin 5,000 unit/mL INJ 1 mL 5000 UNIT SUBCUT ×3 (04:01→20:37)
[2020-10-08 05:26] LABS: Basophils # 0.1 10^3/uL (0.0-0.1); Basophils % 0.6 %; Eosinophils # 0.8 10^3/uL (0.0-0.8); Eosinophils % 9.3 %; Hematocrit 27.7 % (42.0-52.0); Lymphocytes # 0.4 10^3/uL (0.8-4.8); Lymphocytes % 4.6 %; Mean Corpuscular HGB Conc 28.9 g/dL (30.0-36.0); Mean Corpuscular Volume 93.6 fL (80-94); Mean Platelet Volume 10.4 fL (7.4-10.4); Monocytes % 11.2 %; Neutrophils # 6.59 10^3/uL (1.8-7.7); Neutrophils % 73.2 %; Nucleated Red Blood Cells % 0 %; Platelet Count 246 10^3/cmm (130-400); Red Blood Count 2.96 10^6/uL (4.1-5.3); Red Cell Distribution Width 15.2 % (12.1-15.1)
[2020-10-08 05:53] LABS: Blood Urea Nitrogen 28 mg/dL (8-23); Calcium 8.2 mg/dL (8.5-10.5); Carbon Dioxide 25 mmol/L (22-29); Chloride 104 mmol/L (98-107); Glucose 85 mg/dL (65-115); Osmolality Calculated 293 mOsm/kg (285-295); Sodium 139 mmol/L (136-145)
[2020-10-08 06:06] LABS: Anion Gap 14.3 (5-19); Potassium 4.3 mmol/L (3.5-5.1)
[2020-10-08] MEDS: potassium chloride ER 10 mEq Tablet 20 MEQ PO (06:39)
--- NOTE | 2020-10-08 06:49 | PM.PN ---
Subjective Subjective: Interval history: states he was unable to fall asleep last night, otherwise feeling better. Saturating 93 % on RA, propped up, hemodynamically stable, LE edema appears improving , urine output 900 cc , Le duplex results pending Medications: Reviewed: Yes Vitals/I&O/Wt Last Vital Signs Temp 98 F 10/08/20 04:00 Pulse 98 10/08/20 06:00 Resp 20 H 10/08/20 06:00 BP 121/68 10/08/20 06:00 Pulse Ox 93 10/08/20 04:00 10/07/20 10/07/20 10/08/20 14:59 22:59 06:59 Intake Total 120 / 120 150 / 270 Output Total 900 / 900 Balance 120 / 120 -750 / -630 Weight last 48 hrs Weight 95.254 kg Physical Exam Narrative: EXAM NARRATIVE: GEN: Awake, alert and oriented, no acute distress CVS: S1S2 N RS: CTA B/L Abd: Soft, nt/nd , bs+ KITCHEN STEWARD: no focal neuro deficits ext: 2+ LE edema +, left leg with shallow anterior ulceration with surrounding cellulitis, RLE cellulitis Data : 10/08/20 04:06 10/08/20 04:06 Micro: Microbiology 10/07/20 21:28 Blood Culture - Preliminary Blood SPECIMEN COLLECTED 10/07/20 21:19 Blood Culture - Preliminary Blood SPECIMEN COLLECTED A&P Assessment and plan (1) Acute exacerbation of CHF (congestive heart failure): -acutely decompensated diastolic CHF as evidenced by significant lower extremity edema, orthopnea, elevated BNP (>10,000) -Echo (08/2020): EF=55%, mild concentric LVH, moderate MR, mild-moderate UT, moderate-severe TR, severe pulmonary HTN -aggressive IV diuresis as much as renal function allows; Continue iv bumex 1mg q12h -has Wang catheter in place, monitor Is & Os, daily weights -supplemental oxygen as needed, monitor respiratory status -telemetry monitoring -monitor vital signs Status: Acute Qualifiers: Heart failure type: unspecified Qualified Code(s): I50.9 - Heart failure, unspecified (2) Atrial fibrillation: -has known hx of atrial fibrillation -some tachycardia likely due to acute CHF exacerbation -telemetry monitoring -resume BB - no anticoagulation given anemia and patient refusal Status: Chronic Qualifiers: Atrial fibrillation type: unspecified Qualified Code(s): I48.91 - Unspecified atrial fibrillation (3) Acute kidney injury superimposed on CKD: -MARIE on CKD -baseline renal function 2.3-2.5; currently appears to be at recent baseline -closely monitor renal function and lytes with diuresis -renally dose meds, avoid nephrotoxins Status: Acute (4) Cellulitis: -clinical evidence of bilateral LE cellulitis -Continue iv zosyn -LE elevation -venous duplex pending Status: Acute Qualifiers: Site of cellulitis: extremity Site of cellulitis of extremity: lower extremity Laterality: unspecified laterality Qualified Code(s): L03.119 - Cellulitis of unspecified part of limb Additional A&P Information -Chronic normocytic anemia; baseline Hg is 9-10; monitor H/H, drop to 8 today, check FOBT -Advanced age -mildly elevated D-dimer-0.90; cannot tolerate CTA and renal function does not allow for it currently -BPH -COPD, previously oxygen dependent (2 L NC), reports that he no longer requires it; monitor respiratory status closely -recent C7 fracture s/p fall with surgery -physical deconditioning; PT evaluation when able to participate -known DONNA bronchogenic carcinoma; s/p FNA with pathology suspicious for malignancy -s/p R upper lobectomy/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, NSCLC) -hx of renal cell cancer s/p R nephrectomy (10/2012) -cardiac diet as tolerated -GI ppx with PPI -DVT ppx with heparin -Dispo: home, recently discharged from hospice -Code status: FULL code -Admit to CSU Attestations Medical Necessity Statement*: ongoing admission for iv diuresis, iv abx for LE cellulitis Coding Level of Care Code Acute Tax Accountant for [facility] Fwd Diagnoses Acute exacerbation of CHF (congestive heart failure) I50.9 Heart failure type: unspecified Atrial fibrillation I48.91 Atrial fibrillation type: unspecified Acute kidney injury superimposed on CKD N17.9; N18.9 Cellulitis L03.119 Site of cellulitis: extremity Site of cellulitis of extremity: lower extremity Laterality: unspecified laterality
[2020-10-08] MEDS: budesonide 0.5 mg/2 mL Neb 0.25 MG INHALATION ×2 (08:32→21:33)
[2020-10-08] MEDS: ipratropium-albuterol 3 mL Neb INHALATION ×4 (08:32→21:34)
[2020-10-08] MEDS: tamsulosin 0.4 mg Capsule PO (09:46)
[2020-10-08] MEDS: pantoprazole DR 40 mg Tablet PO (09:46)
[2020-10-08] MEDS: metoprolol tartrate 25 mg Tablet PO ×2 (09:46→20:44)
[2020-10-08] MEDS: spironolactone 25 mg Tablet PO (09:46)
[2020-10-08] MEDS: bumetanide 0.25 mg/mL SDV 4 mL 1 MG IV ×2 (09:46→20:33)
--- NOTE | 2020-10-08 11:31 | PC.CHAP ---
Pastoral Care Encounter/Spiritual Assessment Type of Contact [] Declined tumbler plater visit [] Patient/Family/Request visit [] Outpatient visit [X] Follow-up visit [] Physician referral [] Code/Alert [] Routine visit [] Staff referral [] Actively dying [] Patient sleeping [] Family support [] [] Out of room [] Palliative care [] [] Receiving care in room [] Pre-surgical visit [] Trauma [] Long length of stay [] ICU visit [] Other: Relational/Emotional Strength [] Patient feels connected with others/family/visitors/staff [] Distress [] Loneliness/isolation [] Abandonment Spirituality of Patient [] Person of [place]na [] Attends Jain of their [place] [] Believes in Prayer [] Reads Bible or Buddhism materials [] There are Spiritual issues to be addressed Doctor Of Nurse Anesthesia Practice Interventions [] Prayer [] Active listening [] Non-anxious presence [] Spiritual/emotional support [] Crisis/trauma care [] Spiritual counseling [] Bereavement support [] Provided bereavement packet [] Provided Bible/devotional materials [] Provided toy/stuffed animal, coloring book to patient or family member [] Provided Communion [] Anointing/[place] [] Salvation [] Completed spiritual assessment [] Other: Impact on Illness or Injury [] Angry [] Fearful [] Anxious [] Often cries [] Exhaustion [] Unable to work [] Unable to attend caodaism [] Unable to walk/stand [] Unable to read [] Unable to drive [] Unable to eat/drink [] Unable to sleep [] Unable to be with family [] Patient intubated [] Other: Summary Follow-up visit Time spent with patient 5 mins
[2020-10-08] MEDS: atorvastatin 40 mg Tablet 20 MG PO (20:32)
[2020-10-08] MEDS: acetaminophen 325 mg Tablet 650 MG PO (20:32)
--- NOTE | 2020-10-08 22:00 | PC.NURSE ---
Pt had nosebleed, had to pinch nose for several minutes to stop bleeding, pt stated he had nosebleeds before but it hasn't bled that much in a while. Pt had just had dose of SQ heparin. Notified Dr Dawn, no new orders.
[2020-10-09] VITALS (14 sets, daily range): BP systolic 99–121; BP diastolic 50–67; PULSE 96–120; RESP 17–26; TEMP 36.1–36.7; O2SAT 93–97
[2020-10-09] MEDS: acetaminophen 325 mg Tablet 650 MG PO ×2 (02:22→10:13)
[2020-10-09] MEDS: piperacillin-tazobactam 3.375 GM in sodium chloride 0.9% (plus) 50 ML IV ×3 (04:31→20:41)
[2020-10-09] MEDS: heparin 5,000 unit/mL INJ 1 mL 5000 UNIT SUBCUT (04:44)
[2020-10-09 05:08] LABS: Basophils % 0.3 %; Eosinophils # 0.9 10^3/uL (0.0-0.8); Hematocrit 26.3 % (42.0-52.0); Hemoglobin 7.8 g/dL (11.7-16.6); Lymphocytes # 0.4 10^3/uL (0.8-4.8); Lymphocytes % 4.8 %; Mean Corpuscular HGB Conc 29.7 g/dL (30.0-36.0); Mean Corpuscular Hemoglobin 27.3 pg (28.0-34.0); Mean Platelet Volume 10.4 fL (7.4-10.4); Monocytes # 0.9 10^3/uL (0.2-0.9); Monocytes % 10.6 %; Neutrophils # 5.79 10^3/uL (1.8-7.7); Neutrophils % 72.3 %; Nucleated Red Blood Cells % 0 %; Platelet Count 231 10^3/cmm (130-400); Red Blood Count 2.86 10^6/uL (4.1-5.3); Red Cell Distribution Width 15.2 % (12.1-15.1)
[2020-10-09 05:29] LABS: Alanine Aminotransferase 7 U/L (0-41); Alkaline Phosphatase 204 IU/L (40-130); Anion Gap 13.3 (5-19); Aspartate Amino Transferase 11 U/L (0-40); Blood Urea Nitrogen 26 mg/dL (8-23); Calcium 8.1 mg/dL (8.5-10.5); Carbon Dioxide 27 mmol/L (22-29); Chloride 102 mmol/L (98-107); Globulin 2.2 g/dL (1.3-4.6); Glucose 90 mg/dL (65-115); Osmolality Calculated 290 mOsm/kg (285-295); Potassium 4.3 mmol/L (3.5-5.1); Sodium 138 mmol/L (136-145); Total Bilirubin 0.4 mg/dL (0.15-1.2); Total Protein 5.2 g/dL (6.6-8.7)
[2020-10-09] MEDS: potassium chloride ER 10 mEq Tablet 20 MEQ PO (06:01)
[2020-10-09] MEDS: budesonide 0.5 mg/2 mL Neb 0.25 MG INHALATION ×2 (07:37→21:08)
[2020-10-09] MEDS: ipratropium-albuterol 3 mL Neb INHALATION ×2 (07:37→21:16)
[2020-10-09] MEDS: spironolactone 25 mg Tablet PO (10:11)
[2020-10-09] MEDS: tamsulosin 0.4 mg Capsule PO (10:11)
[2020-10-09] MEDS: pantoprazole DR 40 mg Tablet PO (10:12)
[2020-10-09] MEDS: bumetanide 0.25 mg/mL SDV 4 mL 1 MG IV (10:16)
[2020-10-09] MEDS: metoprolol tartrate 25 mg Tablet PO ×2 (10:19→20:41)
--- NOTE | 2020-10-09 11:13 | PC.CHAP ---
Pastoral Care Encounter/Spiritual Assessment Type of Contact [] Declined pallet stone positioner visit [] Patient/Family/Request visit [] Outpatient visit [xx] Follow-up visit [] Physician referral [] Code/Alert [] Routine visit [] Staff referral [] Actively dying [xx] Patient sleeping [] Family support [] [] Out of room [] Palliative care [] [] Receiving care in room [] Pre-surgical visit [] Trauma [] Long length of stay [] ICU visit [xx] Other: Follow up visit attempted unsuccessfully. Relational/Emotional Strength [] Patient feels connected with others/family/visitors/staff [] Distress [] Loneliness/isolation [] Abandonment Spirituality of Patient [] Person of Morena [] Attends Latter Day of their [place] [] Believes in Prayer [] Reads Bible or Voodoo materials [] There are Spiritual issues to be addressed Butt Trimmer Interventions [] Prayer [] Active listening [] Non-anxious presence [] Spiritual/emotional support [] Crisis/trauma care [] Spiritual counseling [] Bereavement support [] Provided bereavement packet [] Provided Bible/devotional materials [] Provided toy/stuffed animal, coloring book to patient or family member [] Provided Communion [] Anointing/[place] [] Salvation [] Completed spiritual assessment [] Other: Impact on Illness or Injury [] Angry [] Fearful [] Anxious [] Often cries [] Exhaustion [] Unable to work [] Unable to attend hinduism [] Unable to walk/stand [] Unable to read [] Unable to drive [] Unable to eat/drink [] Unable to sleep [] Unable to be with family [] Patient intubated [] Other: Summary Try follow up visit again Time spent with patient 1 minute
--- NOTE | 2020-10-09 14:40 | P.PN_ITS ---
Subjective Subjective: Interval history: No acute overnight events , saturating 93% on RA, fazal any complaints at this time. urine output 1.4l. Hb drifting down to 7.8. cr stable at 2.6 Medications: Reviewed: Yes Vitals/I&O/Wt Last Vital Signs Temp 97.8 F 10/09/20 12:00 Pulse 103 H 10/09/20 12:00 Resp 26 H 10/09/20 12:00 BP 109/59 10/09/20 12:00 Pulse Ox 94 10/09/20 12:00 10/08/20 10/09/20 10/09/20 22:59 06:59 14:59 Intake Total 1015 / 1065 105 / 1170 410 / 410 Output Total 200 / 200 550 / 750 650 / 650 Balance 815 / 865 -445 / 420 -240 / -240 Weight last 48 hrs Weight 96.417 kg Weight 98.43 kg Physical Exam Narrative: EXAM NARRATIVE: GEN: Awake, alert and oriented, no acute distress CVS: S1S2 N RS: CTA B/L Abd: Soft, nt/nd , bs+ SEARCH CONSULTANT: no focal neuro deficits ext: 2+ LE edema +, left leg with shallow anterior ulceration with surrounding cellulitis, RLE cellulitis Data : 10/09/20 04:26 10/09/20 04:26 Micro: Microbiology 10/07/20 21:28 Blood Culture - Preliminary Blood NEGATIVE TO DATE 10/07/20 21:19 Blood Culture - Preliminary Blood NEGATIVE TO DATE A&P Assessment and plan (1) Acute exacerbation of CHF (congestive heart failure): -acutely decompensated diastolic CHF as evidenced by significant lower extremity edema, orthopnea, elevated BNP (>10,000) -Echo (08/2020): EF=55%, mild concentric LVH, moderate MR, mild-moderate VA, moderate-severe TR, severe pulmonary HTN -aggressive IV diuresis as much as renal function allows; Change iv to po Bumex today -has Wang catheter in place, monitor Is & Os, daily weights -supplemental oxygen as needed, monitor respiratory status -telemetry monitoring -monitor vital signs Status: Acute Qualifiers: Heart failure type: unspecified Qualified Code(s): I50.9 - Heart failure, unspecified (2) Atrial fibrillation: -has known hx of atrial fibrillation -some tachycardia likely due to acute CHF exacerbation -telemetry monitoring -resume BB - no anticoagulation given anemia and patient refusal Status: Chronic Qualifiers: Atrial fibrillation type: unspecified Qualified Code(s): I48.91 - Unspecified atrial fibrillation (3) Acute kidney injury superimposed on CKD: -MARIE on CKD -baseline renal function 2.3-2.5; currently appears to be at recent baseline -closely monitor renal function and lytes with diuresis -renally dose meds, avoid nephrotoxins Status: Acute (4) Cellulitis: -clinical evidence of bilateral LE cellulitis, appears to be stable to improving -Continue iv zosyn -LE elevation -venous duplex pending Status: Acute Qualifiers: Laterality: unspecified laterality Site of cellulitis: extremity Site of cellulitis of extremity: lower extremity Qualified Code(s): L03.119 - Cellulitis of unspecified part of limb Additional A&P Information -Chronic normocytic anemia; baseline Hg is 9-10; monitor H/H, drop to 7.8 today, pending FOBT , if drops <7.5, will transfuse one unit PRBC -Advanced age -mildly elevated D-dimer-0.90; cannot tolerate CTA and renal function does not allow for it currently. cannot lie flat for V/Q scan. LE duplex negative -BPH -COPD, previously oxygen dependent (2 L NC), reports that he no longer requires it; monitor respiratory status closely -recent C7 fracture s/p fall with surgery -physical deconditioning; PT evaluation when able to participate -known DONNA bronchogenic carcinoma; s/p FNA with pathology suspicious for malignancy -s/p R upper lobectomy/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, NSCLC) -hx of renal cell cancer s/p R nephrectomy (10/2012) -cardiac diet as tolerated -GI ppx with PPI -DVT ppx with heparin -Dispo: initially planned for return to home with HH however family states that it is unsafe for him to return home as he is unable to take care of himself. It appears patient asked to be discharged from hospice recently as he felt better, however his underlying comorbidities, overall deconditioning and fraility does not appear to have overall improved. His EF is appearing to be better in number, however this has not translated into a corresponding clinical recovery. Placed call to discuss living situation to his daughter- have left her voicemail- awaiting call back. Discharge planning will now be towards D/c to SNF -Code status: FULL code -Admit to CSU Attestations Medical Necessity Statement*: onging diuresis, change iv to po, iv abx for cellulitis, disposition planning for discharge Coding Level of Care Code Acute Boiler Control Technician for Chg Fwd Diagnoses Acute exacerbation of CHF (congestive heart failure) I50.9 Heart failure type: unspecified Atrial fibrillation I48.91 Atrial fibrillation type: unspecified Acute kidney injury superimposed on CKD N17.9; N18.9 Cellulitis L03.119 Laterality: unspecified laterality Site of cellulitis: extremity Site of cellulitis of extremity: lower extremity
--- NOTE | 2020-10-09 15:32 | PC.RESP ---
Pulmonary Rehab packet sent to patient.
[2020-10-09] MEDS: bumetanide 1 mg Tablet 2 MG PO (17:29)
--- NOTE | 2020-10-09 18:45 | PC.NURSE ---
Pt had a bowel movement that appeared to have blood in it. Stool sample was collected and Dr. Cornejo was notified. Continue to monitor patient and H&H.
[2020-10-09] MEDS: atorvastatin 40 mg Tablet 20 MG PO (20:40)
[2020-10-10] VITALS (18 sets, daily range): BP systolic 92–128; BP diastolic 59–76; PULSE 98–129; RESP 16–29; TEMP 36.1–36.6; O2SAT 92–99
[2020-10-10] MEDS: piperacillin-tazobactam 3.375 GM in sodium chloride 0.9% (plus) 50 ML IV ×2 (03:23→11:23)
[2020-10-10 04:28] LABS: Basophils % 0.4 %; Eosinophils # 0.8 10^3/uL (0.0-0.8); Hematocrit 26.4 % (42.0-52.0); Lymphocytes # 0.4 10^3/uL (0.8-4.8); Mean Corpuscular HGB Conc 30.3 g/dL (30.0-36.0); Mean Corpuscular Hemoglobin 27.7 pg (28.0-34.0); Mean Corpuscular Volume 91.3 fL (80-94); Mean Platelet Volume 10.3 fL (7.4-10.4); Monocytes # 0.7 10^3/uL (0.2-0.9); Neutrophils # 5.61 10^3/uL (1.8-7.7); Neutrophils % 73.6 %; Nucleated Red Blood Cells % 0 %; Platelet Count 248 10^3/cmm (130-400); Red Blood Count 2.89 10^6/uL (4.1-5.3); Red Cell Distribution Width 15.1 % (12.1-15.1); White Blood Count 7.6 10^3/uL (4.0-10.0)
[2020-10-10 04:53] LABS: Alanine Aminotransferase 6 U/L (0-41); Albumin Level 3.1 g/dL (3.5-5.2); Alkaline Phosphatase 213 IU/L (40-130); Anion Gap 14.3 (5-19); Aspartate Amino Transferase 11 U/L (0-40); Blood Urea Nitrogen 28 mg/dL (8-23); Calcium 8.2 mg/dL (8.5-10.5); Carbon Dioxide 26 mmol/L (22-29); Chloride 104 mmol/L (98-107); Globulin 2.5 g/dL (1.3-4.6); Glucose 90 mg/dL (65-115); Osmolality Calculated 295 mOsm/kg (285-295); Potassium 4.3 mmol/L (3.5-5.1); Sodium 140 mmol/L (136-145); Total Bilirubin 0.5 mg/dL (0.15-1.2); Total Protein 5.6 g/dL (6.6-8.7)
[2020-10-10] MEDS: ipratropium-albuterol 3 mL Neb INHALATION ×4 (04:58→20:40)
[2020-10-10] MEDS: potassium chloride ER 10 mEq Tablet 20 MEQ PO (06:05)
--- NOTE | 2020-10-10 07:53 | PC.NURSE ---
patient resting in bed at this time. patient stated, I don't want breakfast just a jello. patient was brought a jello and boosted up in bed per request. patient denied any needs at this time. call light within reach.
[2020-10-10] MEDS: bumetanide 1 mg Tablet 2 MG PO (08:40)
[2020-10-10] MEDS: pantoprazole DR 40 mg Tablet PO (08:40)
[2020-10-10] MEDS: metoprolol tartrate 25 mg Tablet PO (08:40)
[2020-10-10] MEDS: acetaminophen 325 mg Tablet 650 MG PO ×2 (08:40→17:48)
[2020-10-10] MEDS: diclofenac 1% Topical Gel 100 gm 4 APPLIC TOPICAL ×3 (08:41→17:47)
[2020-10-10] MEDS: spironolactone 25 mg Tablet PO (08:41)
[2020-10-10] MEDS: tamsulosin 0.4 mg Capsule PO (08:41)
[2020-10-10] MEDS: budesonide 0.5 mg/2 mL Neb 0.25 MG INHALATION ×2 (08:58→20:40)
--- NOTE | 2020-10-10 09:06 | PC.SOCIAL ---
Pg 2 IMM Explained to pt Pg 2 IMM. No questions voiced. Provided pt a copy. Signed, dated, & timed a copy & placed in chart.
[2020-10-10] MEDS: metoprolol succinate ER (24 HR) 100 mg Tablet PO (13:10)
--- NOTE | 2020-10-10 15:12 | P.PN_ITS ---
Subjective Subjective: Interval history: no new complaonts today, remains on RA, LE cellulitis coninues to improve. GOC discussion extensively at bedside with son and DIL last evening, code status changed to DNR/DNI. Tachycardia consistently >100bpm, no acute events on telemetry. metoprolol incr eased today from 25mg po BID to Toprol XL 100mg daily . Hb stable at 8, FOBT returned negative yesterday, however last evening noted to have some small amoutn of bright red blood mixed with feces. Medications: Reviewed: Yes Vitals/I&O/Wt Last Vital Signs Temp 97.3 F L 10/10/20 07:29 Pulse 103 H 10/10/20 14:56 Resp 16 10/10/20 14:56 BP 106/69 10/10/20 12:00 Pulse Ox 98 10/10/20 14:56 10/10/20 10/10/20 10/10/20 06:59 14:59 22:59 Intake Total 362 / 1179 50 / 50 Output Total 1000 / 2450 Balance -638 / -1271 50 / 50 Weight last 48 hrs Weight 96.479 kg Weight 96.417 kg Physical Exam Narrative: EXAM NARRATIVE: GEN: Awake, alert and oriented, no acute distress CVS: S1S2 N RS: CTA B/L Abd: Soft, nt/nd , bs+ CLINICAL NUTRITIONIST: no focal neuro deficits ext: 2+ LE edema +, left leg with shallow anterior ulceration with surrounding cellulitis, RLE cellulitis , overall appears to be improving compared to yesterday's exam. Data : 10/10/20 03:35 10/10/20 03:35 Micro: Microbiology 10/08/20 17:15 Occult Blood (FIT) - Final Stool - Stool Aspirate A&P Assessment and plan (1) Acute exacerbation of CHF (congestive heart failure): -acutely decompensated diastolic CHF as evidenced by significant lower extremity edema, orthopnea, elevated BNP (>10,000) -Echo (08/2020): EF=55%, mild concentric LVH, moderate MR, mild-moderate NM, moderate-severe TR, severe pulmonary HTN -Diuresed well overall, change Bumex 2mg po BID to 1mg PO BID -has Wang catheter in place, monitor Is & Os, daily weights -supplemental oxygen as needed, monitor respiratory status -telemetry monitoring -monitor vital signs Status: Acute Qualifiers: Heart failure type: unspecified Qualified Code(s): I50.9 - Heart fail ure, unspecified (2) Atrial fibrillation: -has known hx of atrial fibrillation -some tachycardia likely due to acute CHF exacerbation -telemetry monitoring -change metoprolol 25mg po BID to Toprol XL 100mg po qd - no anticoagulation given anemia, bright red blood per rectum yesetrday, HB stable today -start po iron supplementation Status: Chronic Qualifiers: Atrial fibrillation type: unspecified Qualified Code(s): I48.91 - Unspecified atrial fibrillation (3) Acute kidney injury superimposed on CKD: -MARIE on CKD -baseline renal function 2.3-2.5; currently appears to be at recent baseline -closely monitor renal function and lytes with diuresis -renally dose meds, avoid nephrotoxins Status: Acute (4) Cellulitis: -clinical evidence of bilateral LE cellulitis, appears to be stable to improving -Change iv zosyn to po cephalexin and monitor response -LE elevation -venous duplex pending Status: Acute Qualifiers: Site of cellulitis: extremity Site of cellulitis of extremity: lower extremity Laterality: unspecified laterality Qualified Code(s): L03.119 - Cellulitis of unspecified part of limb Additional A&P Information -Chronic normocytic anemia; baseline Hg is 9-10; monitor H/H, drop to 7.8 today, pending FOBT , if drops <7.5, will transfuse one unit PRBC -Advanced age -mildly elevated D-dimer-0.90; cannot tolerate CTA and renal function does not allow for it currently. cannot lie flat for V/Q scan. LE duplex negative -BPH -COPD, previously oxygen dependent (2 L NC), reports that he no longer requires it; monitor respiratory status closely -recent C7 fracture s/p fall with surgery -physical deconditioning; PT evaluation when able to participate -known DONNA bronchogenic carcinoma; s/p FNA with pathology suspicious for malignancy -s/p R upper lobectomy/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, NSCLC) -hx of renal cell cancer s/p R nephrectomy (10/2012) -cardiac diet as tolerated -GI ppx with PPI -DVT ppx with heparin on hold now due to anemia, BRBPR, SCDs not curently an option due to cellulitis -Dispo: D/c to SNF Attestations Medical Necessity Statement*: change iv abx to po, titrate down diuretics and assess for response, dispo arrangements for SNF Coding Level of Care Code Acute Community Youth Secretary for Morag Fwd Diagnoses Acute exacerbation of CHF (congestive heart failure) I50.9 Heart failure type: unspecified Atrial fibrillation I48.91 Atrial fibrillation type: unspecified Acute kidney injury superimposed on CKD N17.9; N18.9 Cellulitis L03.119 Site of cellulitis: extremity Site of cellulitis of extremity: lower extremity Laterality: unspecified laterality
[2020-10-10] MEDS: bumetanide 1 mg Tablet PO (17:47)
[2020-10-10] MEDS: cephALEXin 500 mg Capsule PO (17:47)
[2020-10-10] MEDS: ferrous sulfate EC 325 mg Tablet PO (17:47)
--- NOTE | 2020-10-10 17:51 | PC.NURSE ---
patient requested PRN tylenol of head/neck pain. patient resting in bed and denied any needs at this time.
[2020-10-10] MEDS: atorvastatin 40 mg Tablet 20 MG PO (20:49)
[2020-10-11] VITALS (16 sets, daily range): BP systolic 103–124; BP diastolic 61–71; PULSE 84–120; RESP 16–34; TEMP 36.1–36.6; O2SAT 93–98
[2020-10-11] MEDS: ipratropium-albuterol 3 mL Neb INHALATION ×4 (00:13→21:11)
[2020-10-11] MEDS: potassium chloride ER 10 mEq Tablet 20 MEQ PO (06:10)
--- NOTE | 2020-10-11 07:30 | PC.NURSE ---
patient resting in bed at this time. assessment performed and charted. patient informed that breakfast would be on its way and patient stated, What's for breakfast? If it's scrambled eggs I don't want it. patient informed that if that is what was brought to push his call light and we would get him something different to eat. patient denied any pain at this time. no other needs identified at this time. call light within reach.
[2020-10-11] MEDS: budesonide 0.5 mg/2 mL Neb 0.25 MG INHALATION ×2 (07:59→21:11)
[2020-10-11] MEDS: cephALEXin 500 mg Capsule PO ×2 (08:31→17:27)
[2020-10-11] MEDS: metoprolol succinate ER (24 HR) 100 mg Tablet PO (08:31)
[2020-10-11] MEDS: tamsulosin 0.4 mg Capsule PO (08:31)
[2020-10-11] MEDS: bumetanide 1 mg Tablet PO ×2 (08:31→17:27)
[2020-10-11] MEDS: spironolactone 25 mg Tablet PO (08:31)
[2020-10-11] MEDS: pantoprazole DR 40 mg Tablet PO (08:31)
[2020-10-11] MEDS: diclofenac 1% Topical Gel 100 gm 4 APPLIC TOPICAL ×3 (08:31→17:27)
[2020-10-11] MEDS: ferrous sulfate EC 325 mg Tablet PO ×2 (08:31→17:27)
--- NOTE | 2020-10-11 08:35 | PC.NURSE ---
patient got scrambled eggs and requested something different. patient was brought cereal and was happy with that. patient took medications as ordered. no needs at this time, call light within reach.
--- NOTE | 2020-10-11 15:03 | PC.NURSE ---
prather was removed per Dr. Cornejo verbal order. 10 ml of water removed from balloon. patient tolerated well.
--- NOTE | 2020-10-11 15:04 | P.PN_ITS ---
Subjective Subjective: Interval history: Remains afebrile, hemodynamically stable, rate controlled. Denies any new complaints today. Urine output is at 1.9 L, net - 1.4 L over the last 24 hours. Lower extremity edema continues to improve. Cellulitis improving, scabs are seen to form over lower extremity wounds.Hb stable at 8 Medications: Reviewed: Yes Vitals/I&O/Wt Last Vital Signs Temp 97.5 F L 10/11/20 11:13 Pulse 84 10/11/20 14:00 Resp 27 H 10/11/20 11:13 BP 103/61 10/11/20 11:13 Pulse Ox 95 10/11/20 11:13 10/11/20 10/11/20 10/11/20 06:59 14:59 22:59 Intake Total 360 / 360 Output Total 700 / 1950 Balance -700 / -1490 360 / 360 Weight last 48 hrs Weight 95.98 kg Weight 96.479 kg Physical Exam Narrative: EXAM NARRATIVE: GEN: Awake, alert and oriented, no acute distress CVS: S1S2 N RS: CTA B/L Abd: Soft, nt/nd , bs+ FISHERMAN HELPER: no focal neuro deficits Ext: LE edema much improved, LE cellulitis improving, scabs over lower extremity wounds Data : 10/10/20 03:35 10/10/20 03:35 A&P Assessment and plan (1) Acute exacerbation of CHF (congestive heart failure): -acutely decompensated diastolic CHF as evidenced by significant lower extremity edema, orthopnea, elevated BNP (>10,000) -Echo (08/2020): EF=55%, mild concentric LVH, moderate MR, mild-moderate PA, moderate-severe TR, severe pulmonary HTN -Diuresed well overall, Bumex at 1mg PO BID to continue -has Wang catheter in place, monitor Is & Os, daily weights -supplemental oxygen as needed, monitor respiratory status -telemetry monitoring -monitor vital signs Remove Wagn today continue to monitor urine output. Status: Acute Qualifiers: Heart failure type: unspecified Qualified Code(s): I50.9 - Heart failure, unspecified (2) Atrial fibrillation: -has known hx of atrial fibrillation -some tachycardia likely due to acute CHF exacerbation -telemetry monitoring -Heart rate much better controlled after resuming Toprol XL 100mg po qd - no anticoagulation given anemia, bright red blood per rectum during course of admission FOBT negative, HB stable today -started po iron supplementation Status: Chronic Qualifiers: Atrial fibrillation type: unspecified Qualified Code(s): I48.91 - Unspecified atrial fibrillation (3) Acute kidney injury superimposed on CKD: -MARIE on CKD -baseline renal function 2.3-2.5; currently appears to be at recent baseline at 2.7 -closely monitor renal function and lytes with diuresis -renally dose meds, avoid nephrotoxins Status: Acute (4) Cellulitis: -clinical evidence of bilateral LE cellulitis, appears to be stable to im proving -IV Zosyn in the course of admission, transition to p.o. cephalexin on 10/10, doing well currently -LE elevation -venous duplex negative for DVT Status: Acute Qualifiers: Site of cellulitis: extremity Site of cellulitis of extremity: lower extremity Laterality: unspecified laterality Qualified Code(s): L03.119 - Cellulitis of unspecified part of limb Additional A&P Information -Chronic normocytic anemia; baseline Hg is 9-10; monitor H/H, stable at 8.0. FOBT negative -Advanced age -mildly elevated D-dimer-0.90; cannot tolerate CTA and renal function does not allow for it currently. cannot lie flat for V/Q scan. LE duplex negative -BPH -COPD, previously oxygen dependent (2 L NC), reports that he no longer requires it; monitor respiratory status closely -recent C7 fracture s/p fall with surgery -physical deconditioning; PT evaluation when able to participate -known DONNA bronchogenic carcinoma; s/p FNA with pathology suspicious for malignancy -s/p R upper lobectomy/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, NSCLC) -hx of renal cell cancer s/p R nephrectomy (10/2012) -cardiac diet as tolerated -GI ppx with PPI -DVT ppx with heparin on hold now due to anemia, BRBPR, SCDs not curently an option due to cellulitis -Dispo: D/c to SNF Patient is overall optimized for discharge at this present time, awaiting discharge to SNF Attestations Medical Necessity Statement*: Patient currently optimized, awaiting discharge to SNF Coding Level of Care Code Acute Sales Representative Printing Supplies for Chg Fwd Diagnoses Acute exacerbation of CHF (congestive heart failure) I50.9 Heart failure type: unspecified Atrial fibrillation I48.91 Atrial fibrillation type: unspecified Acute kidney injury superimposed on CKD N17.9; N18.9 Cellulitis L03.119 Site of cellulitis: extremity Site of cellulitis of extremity: lower extremity Laterality: unspecified laterality
[2020-10-11] MEDS: acetaminophen 325 mg Tablet 650 MG PO (20:22)
[2020-10-11] MEDS: atorvastatin 40 mg Tablet 20 MG PO (20:23)
[2020-10-12] VITALS (10 sets, daily range): BP systolic 115–128; BP diastolic 61–83; PULSE 98–111; RESP 20–29; TEMP 36.6–37.1; O2SAT 93–98
[2020-10-12 03:50] LABS: Basophils % 0.4 %; Eosinophils % 0.8 %; Hematocrit 41.7 % (42.0-52.0); Lymphocytes # 1.2 10^3/uL (0.8-4.8); Lymphocytes % 23.5 %; Mean Corpuscular HGB Conc 33.6 g/dL (30.0-36.0); Mean Corpuscular Hemoglobin 31.9 pg (28.0-34.0); Mean Platelet Volume 9.4 fL (7.4-10.4); Monocytes # 0.6 10^3/uL (0.2-0.9); Monocytes % 11.1 %; Neutrophils # 3.29 10^3/uL (1.8-7.7); Neutrophils % 63.8 %; Nucleated Red Blood Cells % 0 %; Platelet Count 183 10^3/cmm (130-400); Red Blood Count 4.39 10^6/uL (4.1-5.3); Red Cell Distribution Width 13.5 % (12.1-15.1); White Blood Count 5.2 10^3/uL (4.0-10.0)
[2020-10-12 04:14] LABS: Alanine Aminotransferase 8 U/L (0-41); Alkaline Phosphatase 67 IU/L (40-130); Anion Gap 11.6 (5-19); Aspartate Amino Transferase 14 U/L (0-40); Blood Urea Nitrogen 12 mg/dL (8-23); Calcium 8.5 mg/dL (8.5-10.5); Carbon Dioxide 24 mmol/L (22-29); Chloride 106 mmol/L (98-107); Globulin 2.8 g/dL (1.3-4.6); Glucose 97 mg/dL (65-115); Osmolality Calculated 286 mOsm/kg (285-295); Potassium 3.6 mmol/L (3.5-5.1); Sodium 138 mmol/L (136-145); Total Bilirubin 1.4 mg/dL (0.15-1.2); Total Protein 5.8 g/dL (6.6-8.7)
[2020-10-12] MEDS: ipratropium-albuterol 3 mL Neb INHALATION (07:53)
[2020-10-12] MEDS: budesonide 0.5 mg/2 mL Neb 0.25 MG INHALATION (07:53)
--- NOTE | 2020-10-12 09:16 | PC.CHAP ---
Pastoral Care Encounter/Spiritual Assessment Type of Contact [] Declined topline beading machine tender visit [] Patient/Family/Request visit [] Outpatient visit [] Follow-up visit [] Physician referral [] Code/Alert [x] Routine visit [] Staff referral [] Actively dying [] Patient sleeping [] Family support [] [] Out of room [] Palliative care [] [] Receiving care in room [] Pre-surgical visit [] Trauma [] Long length of stay [] ICU visit [] Other: Relational/Emotional Strength [] Patient feels connected with others/family/visitors/staff [] Distress [] Loneliness/isolation [] Abandonment Spirituality of Patient [] Person of [place] [] Attends Church of their [place] [] Believes in Prayer [] Reads Bible or Jew materials [] There are Spiritual issues to be addressed Cigarette Book Maker Interventions [x] Prayer [] Active listening [] Non-anxious presence [] Spiritual/emotional support [] Crisis/trauma care [] Spiritual counseling [] Bereavement support [] Provided bereavement packet [] Provided Bible/devotional materials [] Provided toy/stuffed animal, coloring book to patient or family member [] Provided Communion [] Anointing/Clay [] Salvation [x] Completed spiritual assessment [] Other: Impact on Illness or Injury [] Angry [] Fearful [] Anxious [] Often cries [] Exhaustion [] Unable to work [] Unable to attend christianity [] Unable to walk/stand [] Unable to read [] Unable to drive [] Unable to eat/drink [] Unable to sleep [] Unable to be with family [] Patient intubated [] Other: Summary patient didn't want prayer then reconsidered.... asked for healing and understanding of issue... Time spent with patient 10 min
[2020-10-12] MEDS: tamsulosin 0.4 mg Capsule PO (09:29)
[2020-10-12] MEDS: spironolactone 25 mg Tablet PO (09:29)
[2020-10-12] MEDS: cephALEXin 500 mg Capsule PO ×2 (09:29→16:55)
[2020-10-12] MEDS: bumetanide 1 mg Tablet PO (09:30)
[2020-10-12] MEDS: pantoprazole DR 40 mg Tablet PO (09:30)
[2020-10-12] MEDS: ferrous sulfate EC 325 mg Tablet PO ×2 (09:30→16:56)
[2020-10-12] MEDS: metoprolol succinate ER (24 HR) 100 mg Tablet PO (09:30)
[2020-10-12] MEDS: potassium chloride ER 10 mEq Tablet 20 MEQ PO (09:31)
[2020-10-12] MEDS: diclofenac 1% Topical Gel 100 gm 4 APPLIC TOPICAL (09:36)
[2020-10-12 10:47] LABS: Basophils % 0.3 %; Eosinophils # 0.8 10^3/uL (0.0-0.8); Eosinophils % 10.5 %; Hematocrit 30.5 % (42.0-52.0); Hemoglobin 8.6 g/dL (11.7-16.6); Lymphocytes # 0.5 10^3/uL (0.8-4.8); Lymphocytes % 5.8 %; Mean Corpuscular HGB Conc 28.2 g/dL (30.0-36.0); Mean Corpuscular Volume 95.9 fL (80-94); Mean Platelet Volume 9.7 fL (7.4-10.4); Monocytes # 0.8 10^3/uL (0.2-0.9); Monocytes % 9.9 %; Neutrophils # 5.76 10^3/uL (1.8-7.7); Nucleated Red Blood Cells % 0 %; Platelet Count 237 10^3/cmm (130-400); Red Blood Count 3.18 10^6/uL (4.1-5.3); Red Cell Distribution Width 15.2 % (12.1-15.1)
[2020-10-12 11:21] LABS: Alanine Aminotransferase 6 U/L (0-41); Albumin Level 3.1 g/dL (3.5-5.2); Alkaline Phosphatase 213 IU/L (40-130); Aspartate Amino Transferase 12 U/L (0-40); Blood Urea Nitrogen 26 mg/dL (8-23); Calcium 8.3 mg/dL (8.5-10.5); Carbon Dioxide 26 mmol/L (22-29); Chloride 103 mmol/L (98-107); Globulin 2.6 g/dL (1.3-4.6); Glucose 118 mg/dL (65-115); Osmolality Calculated 294 mOsm/kg (285-295); Sodium 139 mmol/L (136-145); Total Bilirubin 0.3 mg/dL (0.15-1.2); Total Protein 5.7 g/dL (6.6-8.7)
--- NOTE | 2020-10-12 11:56 | P.DS_ITS ---
Discharge Providers Date of Admission: 10/07/20 18:26 Date of Discharge: October 12, 2020 Attending Provider at Admission: Jana Oliva MD Attending Provider at Discharge: Joao Park Primary Care Provider: Toni Strauss MD Diagnoses at Discharge Discharge Diagnosis (1) Acute exacerbation of CHF (congestive heart failure): Status: Acute Qualifiers: Heart failure type: unspecified Qualified Code(s): I50.9 - Heart failure, unspecified (2) Atrial fibrillation: Status: Chronic Qualifiers: Atrial fibrillation type: unspecified Qualified Code(s): I48.91 - Unspecified atrial fibrillation (3) Acute kidney injury superimposed on CKD: Status: Acute (4) Cellulitis: Status: Acute Qualifiers: Site of cellulitis: extremity Site of cellulitis of extremity: lower extremity Laterality: unspecified laterality Qualified Code(s): L03.119 - Cellulitis of unspecified part of limb (5) Acute on chronic anemia: Status: Acute (6) Mass of upper lobe of left lung: Status: Acute (7) Fracture of C7 vertebra, closed: Status: Acute Reason for Visit Reason for Visit: EDEMA LOWER LEGS Hospital Course Hospital Course Pleasant 85-year-old gentleman Pleasant 85-year-old gentleman was was admitted with significant bilateral lower extremity edema, with weeping on presentation, with superimposed lower extremity cellulitis. Initially with noted acute kidney injury on chronic kidney disease. Treated with IV Bumex initially, subsequently switched to oral dosing. Lower extremity edema improved. Weeping resolved. Cellulitis was also treated with Zosyn initially, subsequently switched over to cephalexin. Lower extremities have been also elevated. Moisturizde. Few shallow open areas and skin tears are visible, without significant necrotic tissue at this time. He does get symptoms of itching at some areas of scabbing. He will complete a course of cephalexin, and recommendation at this time is to continue to moisturize any dry areas. Consideration could be given to follow-up with wound care clinic depending on progress. Duplex of lower extremities was negative for DVT. His renal function with transient acute kidney injury on the , creatinine 2.7, has otherwise remained near his baseline. Today 2.6. Subjectively he is doing well. Chronically reported on 2 L of oxygen, however, currently doing well on room air. D-dimer on presentation was abnormal at 0.9 which may be not far from adjusted D -dimer for his age. Venous duplex as noted was negative, however, unfortunately he could not tolerate VQ scan. He was continued on metoprolol for atrial fibrillation, with heart rates remaining mostly below 110. Has not been on anticoagulation due to anemia. Noted also chronic normocytic anemia, with hemoglobin remaining mostly around 8. At this time diclofenac will be discontinued. Please reassess renal function and anemia. He continues on PPI on discharge. Reported BRBPR. Once out of acute illness episode consideration may be given to additional endoscopic evaluation depending on goals of care. 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 Continue follow-up with urology. Continue follow-up with orthopedics. Physical Exam Const: COMMON NORMALS: no acute distress, patient oriented x3 and alert GENERAL APPEARANCE: cooperative, comfortable and frail appearing ORIENTATION/CONSCIOUSNESS: Yes awake HENMT: COMMON NORMALS: oropharynx normal Neck/C-Spine: COMMON NORMALS: no JVD Resp: COMMON NORMALS: normal respiratory effort and clear to auscultation bilaterally AUSCULTATION: clear to auscultation bilaterally OTHER: Reports intermittent L side pleuritic pain. Otherwise no discomfort or any concerns. Cardio: COMMON NORMALS: no JVD, regular rhythm, S1 normal heart sound present, S2 normal heart sound present and No murmurs present (Cardio) RHYTHM: regular rhythm HEART SOUNDS: S1 normal heart sound present and S2 normal heart sound present GI: COMMON NORMALS: Normal to inspection, nondistended, normoactive bowel sounds present, Soft to palpation and non-tender PALPATION: Yes Soft to palpation Extremity: COMMON NORMALS: no joint enlargement GENERAL: Yes edema (1+) Neuro: COMMON NORMALS: patient oriented x3 and moves all extremities SENSORIUM/ORIENTATION: Yes alert Skin: OTHER: Mild erythema bilateral LE, areas of shallow ulceration in irregular shapes over anterior shins. No posterior lesions or lesions on heels. No significant necrosis. No weeping or discharge. Few areas of scabbing. Discharge Data Data Completed and Pending: Completed Studies During Hospitalization Category Date Time Status XR chest 1V shanda ble [id number] Stat Exams 10/07/20 13:44 [place] [id number] Urgent Ultrasound 10/07/20 14:30 Completed Pending at discharge Category Date Time Status Blood Culture Sta t Lab 10/07/20 21:28 Results Complete Blood Co unt w/Auto Routine Lab 10/12/20 10:32 Results Labs from last 24 hours 10/12/20 10/12/20 10/12/20 10:32 10:32 02:49 WBC Pending RBC Pending Hgb Pending Hct Pending MCV Pending MCH Pending MCHC Pending RDW Pending Plt Count Pending MPV Pending Neut % (Auto) Lymph % (Auto) Pending [facility] % (Auto) Pending Eos % (Auto) Baso % (Auto) Neut # (Auto) Lymph # (Auto) Pending [facility] # (Auto) Pending Eos # (Auto) Baso # (Auto) Nucleated RBC % (a uto) Nucleated RBCs # Sodium 139 138 Potassium 4.0 3.6 Chloride 103 106 Carbon Dioxide 26 24 Anion Gap 14.0 11.6 BUN 26 H 12 Creatinine 2.6 H 0.7 GFR Calculation Not Reportable Not Reportable Glucose 118 H 97 Calculated Osmolal ity 294 286 Calcium 8.3 L 8.5 Total Bilirubin 0.3 1.4 H AST 12 14 ALT 6 8 Alkaline Phosphata se 213 H 67 Total Protein 5.7 L 5.8 L Albumin 3.1 L 3.0 L Globulin 2.6 2.8 10/12/20 02:49 WBC 5.2 RBC 4.39 Hgb 14.0 Hct 41.7 L MCV 95.0 H MCH 31.9 MCHC 33.6 RDW 13.5 Plt Count 183 MPV 9.4 Neut % (Auto) 63.8 Lymph % (Auto) 23.5 [facility] % (Auto) 11.1 Eos % (Auto) 0.8 Baso % (Auto) 0.4 Neut # (Auto) 3.29 Lymph # (Auto) 1.2 [facility] # (Auto) 0.6 Eos # (Auto) 0.0 Baso # (Auto) 0.0 Nucleated RBC % (a uto) 0 Nucleated RBCs # 0.0 Sodium Potassium Chloride Carbon Dioxide Anion Gap BUN Creatinine GFR Calculation Glucose Calculated Osmolal ity Calcium Total Bilirubin AST ALT Alkaline Phosphata se Total Protein Albumin Globulin Vitals: Last Vital Signs Temp 98.8 F 10/12/20 08:00 Pulse 99 10/12/20 08:09 Resp 24 H 10/12/20 08:00 BP 127/61 10/12/20 08:00 Pulse Ox 98 10/12/20 08:00 Discharge Plan Discharge Patient Disposition: Home Condition: Stable Prescriptions: New pantoprazole 40 mg Tablet,Delayed Release (Dr/Ec) 40 mg PO DAILY Qty: 30 RF: 0 cephalexin 500 mg Capsule 500 mg PO BID Qty: 8 RF: 0 bumetanide 1 mg Tablet 1 mg PO BID Qty: 60 RF: 0 ferrous sulfate 325 mg (65 mg iron) Tablet,Delayed Release (Dr/Ec) 325 mg PO EVERY OTHER DAY Qty: 15 RF: 0 lidocaine HCl 2 % Jelly 1 applic topical DAILY PRN (Reason: Itching) Qty: 50 RF: 0 Continued budesonide [Pulmicort] 0.25 mg/2 mL suspension for nebulization 0.25 mg inhalation BID 30 Days Qty: 120 RF: 3 zolpidem 10 mg tablet 10 mg PO DAILY@21 RF: 0 albuterol sulfate 90 mcg/actuation HFA aerosol inhaler 2 puff inhalation QID PRN (Reason: Shortness Of Breath) RF: 0 bisacodyl [Dulcolax (bisacodyl)] 10 mg Suppository 10 mg ND DAILY PRN (Reason: Constipation) RF: 0 Perforomist 20 mcg/2 mL Solution For Nebulization 2 ml INHALATION BID RF: 0 tamsulosin 0.4 mg capsule 0.4 mg PO DAILY RF: 0 revefenacin 175 mcg/3 mL solution for nebulization 175 mcg inhalation DAILY RF: 0 Arthritis Pain Relief (acetam) 650 mg tablet extended release 650 mg PO Q8H PRN (Reason: Pain) RF: 0 potassium chloride 10 mEq tablet extended release 10 meq PO DAILY@07 RF: 0 spironolactone 25 mg Tablet 25 mg PO DAILY RF: 0 Zocor 40 mg Tablet 40 mg PO DAILY RF: 0 metoprolol succinate 100 mg Tablet Extended Release 24 Hr 100 mg PO DAILY@07 RF: 0 ipratropium-albuterol 0.5 mg-3 mg(2.5 mg base)/3 mL solution for nebulization 3 ml inhalation Q4H PRN (Reason: shortness of breath or wheezing) Qty: 180 RF: 0 Discontinued diclofenac sodium [Voltaren] 1 % Gel 2 g TOPICAL QID RF: 0 furosemide [Lasix] 40 mg tablet 40 mg PO BID RF: 0 No Action (DME) Custome Neck Brace See Rx Instructions .Route .MEDSUPPLY Qty: 1 RF: 0 (DME) Custome Neck Brace See Rx Instructions .Route .MEDSUPPLY Qty: 1 RF: 0 (DME) BONE GROWTH STIMULATOR [id number] See Rx Instructions .Route .MEDSUPPLY Qty: 1 RF: 0 Discharge Orders: Discharge Order (Routine); Ordered 10/12/20 Ordered By: Joao Park Referrals: Toni Strauss MD [Primary Care Provider] - 4-7 days (Please follow-up with Dr. Strauss on October 16 at 10:15a.m. If you have any questions or need to reschedule. Please call ) Discharge Diet: Cardiac Discharge Activity: Increase activity as tolerated Patient Instructions: Cephalexin (By mouth), Bumetanide (By mouth), Pantoprazole (By mouth), CHF Stoplight Activity Restrictions/Additional Instructions: Fall precautions. Moisturize LE twice daily. Lidocaine jelly PRN for itching. Consider follow up with wound care clinic depending on progress. Avoid NSAIDs if possible. Resume other usual follow up including urology Dr Cantrell, follow up of left lung cancer with Dr Giordano Continue 2L NC as needed, although so far has done well on room air prior to discharge. Discharge Attestations Time Spent in Discharge Care*: greater than 30 min Status at Discharge: Cognitive status at discharge: cognitively intact , Behavioral status at discharge: cooperative , Quality Metrics Clinical Quality Measures During this hospital stay, did patient experience: None Coding Level of Care Code Acute Quick Technician for Chuck Fweric Diagnoses Acute exacerbation of CHF (congestive heart failure) I50.9 Heart failure type: unspecified Atrial fibrillation I48.91 Atrial fibrillation type: unspecified Acute kidney injury superimposed on CKD N17.9; N18.9 Cellulitis L03.119 Site of cellulitis: extremity Site of cellulitis of extremity: lower extremity Laterality: unspecified laterality Acute on chronic anemia D64.9 Mass of upper lobe of left lung R91.8 Fracture of C7 vertebra, closed S12.600A
[2020-10-12 12:09] LABS: Slide Review Slide Review Perform
--- NOTE | 2020-10-12 15:25 | DCPLANNER ---
IMM completed with pt and his son, Spencer on 10/12/20 @ 2829. Pt had a copy of rights.
== END 2020-10-12 17:15 | disposition home or self-care (01) | DRG 291 ==
LOC: ER 13:33 → CSU 18:54
PROVIDERS: Student in an Organized Health Care Education/Training Program; Admitting Provider Family Medicine; Emergency Provider Family Medicine; PCP Family Medicine; Visit Provider Internal Medicine
DX: I13.0 Hypertensive heart and chronic kidney disease with heart failure and stage 1 through stage 4 chronic kidney disease, or unspecified chronic kidney disease (principal); I50.33 Acute on chronic diastolic (congestive) heart failure; L03.116 Cellulitis of left lower limb; L03.115 Cellulitis of right lower limb; C34.12 Malignant neoplasm of upper lobe, left bronchus or lung; I48.20 Chronic atrial fibrillation, unspecified; N17.9 Acute kidney failure, unspecified; K92.1 Melena; N18.9 Chronic kidney disease, unspecified; I27.20 Pulmonary hypertension, unspecified; M19.90 Unspecified osteoarthritis, unspecified site; N40.1 Benign prostatic hyperplasia with lower urinary tract symptoms; I87.8 Other specified disorders of veins; E78.5 Hyperlipidemia, unspecified; Z85.118 Personal history of other malignant neoplasm of bronchus and lung; Z85.528 Personal history of other malignant neoplasm of kidney; Z90.5 Acquired absence of kidney; Z90.2 Acquired absence of lung [part of]; Z87.891 Personal history of nicotine dependence; I08.1 Rheumatic disorders of both mitral and tricuspid valves; D63.1 Anemia in chronic kidney disease; J44.9 Chronic obstructive pulmonary disease, unspecified; Z79.51 Long term (current) use of inhaled steroids; Z66 Do not resuscitate
CPT/HCPCS: 12345; 36415; 71045; 80048; 80053; 81001; 82274; 83735; 83880; 84484; 85025; 85378; 87040; 93005; 93970; 94640; 96372; 97110; 97116; 97161; 97530; 99283; J1644; J1940; J2060; J2543; J3490; J7626

== ENCOUNTER 2020-12-02 20:12 | Outpatient (CLI) | payer MEDICARE, OTHER, SELFPAY ==
[2020-12-02 21:08] LABS: Anion Gap 17.9 (5-19); Blood Urea Nitrogen 38 mg/dL (8-23); Calcium 9.2 mg/dL (8.5-10.5); Carbon Dioxide 26 mmol/L (22-29); Chloride 101 mmol/L (98-107); Glucose 147 mg/dL (65-115); Osmolality Calculated 302 mOsm/kg (285-295); Potassium 4.9 mmol/L (3.5-5.1); Sodium 140 mmol/L (136-145)
== END 2020-12-02 20:13 | disposition home or self-care (01) ==
LOC: LAB 20:16
PROVIDERS: PCP Family Medicine; Visit Provider Physician Assistant
DX: D64.9 Anemia, unspecified (principal)
CPT/HCPCS: 80048

== ENCOUNTER 2020-12-05 15:53 | Inpatient (IN) | payer MEDICARE, OTHER, SELFPAY ==
[2020-12-05] VITALS (7 sets, daily range): BP systolic 112–133; BP diastolic 63–80; PULSE 94–118; RESP 18–28; TEMP 36.7; O2SAT 96–100; BMI 26.5
--- NOTE | 2020-12-05 16:07 | XRR_ITS ---
PROCEDURE INFORMATION: Exam: XR Chest Exam date and time: 12/05/2020 4:14 PM Age: 85 years old Clinical indication: Dyspnea and shortness of breath; Additional info: Dyspnea, lung cancer. Pna? TECHNIQUE: Imaging protocol: XR of the chest Views: 1 view. COMPARISON: [place] XR chest 1V portable [id number] 10/07/2020 1:44 PM FINDINGS: Lungs: Left upper lobe mass is again noted, which appears grossly unchanged. Prior surgery changes are again seen in the right lung. No acute airspace process is detected. Pleural spaces: Unremarkable. No pleural effusion. No pneumothorax. Heart/Mediastinum: Unremarkable. No cardiomegaly. Bones/joints: Spinal fusion changes are seen in the cervical and upper thoracic spine. XR/XR chest 1V portable [id number] IMPRESSION: No acute pulmonary abnormality is seen. Left upper lobe mass is again noted.
--- NOTE | 2020-12-05 16:13 | ECG_ITS ---
[facility] Test Date: 2020-12-05 Pat Name: Diego Garzon Department: Room: Gender: Male Label Sewer: : 1935 Requested By: Tom Murphy Order Number: [id number] Shannan MD: Bianca Liang M.D. Measurements Intervals [place] Rate: 100 P: [place]: QRS: -10 QRSD: 82 T: -1 QT: 332 QTc: 428 Interpretive Statements ATRIAL FIBRILLATION WITH RAPID VENTRICULAR RESPONSE SEPTAL MYOCARDIAL INFARCTION , PROBABLY OLD [40+ ms Q WAVE IN V1/V2] Compared to ECG 10/07/2020 19:51:05 Myocardial infarct finding now present ST (T wave) deviation no longer present Electronically Signed On 12-05-2020 19:38:49 FLYING SQUAD WORKER by Bianca Liang M.D. [email or web address] Commercial Real Estate Investmentsmccullough-[email or web address]/[id number]
[2020-12-05 16:31] LABS: ABG PH Result 7.46 (7.35-7.45); Arterial Blood Gas Hematocrit 33.9 % (42-52); Blood Gas Allen Test Pos; Blood Gas Sample Type Arterial; Carboxyhemoglobin 1.1 %THgb (0.4-20.1); HCO3 ABG 28.2 mmol/L (22-26); HGB O2 Sat 97.7 % (95-100)
[2020-12-05 16:32] LABS: Blood Gas Operator Identificat MONRO; Blood Gas Sample Site Radial, left; Oxygen Device NC
[2020-12-05] MEDS: cefTRIAXone 1,000 MG in sodium chloride 0.9% (plus) 50 ML 100 MG IV (16:34)
[2020-12-05 18:05] LABS: SARS Covid-2 Antigen Negative (Negative)
--- NOTE | 2020-12-05 18:13 | ECG_ITS ---
[facility] Test Date: 2020-12-05 Pat Name: Diego Garzon Department: Room: Gender: Male Dry Cleaning Checker: : 1935 Requested By: Tom Murphy Order Number: [id number] Shannan MD: Bianca Liang M.D. Measurements Intervals [place] Rate: 110 P: [place]: QRS: 5 QRSD: 85 T: 47 QT: 332 QTc: 450 Interpretive Statements ATRIAL FIBRILLATION WITH RAPID VENTRICULAR RESPONSE ABNORMAL RHYTHM ECG Compared to ECG 12/05/2020 16:27:25 Myocardial infarct finding no longer present Electronically Signed On 12-05-2020 19:45:16 HEAD SOFT SUGAR OPERATOR by Bianca Liang M.D. [id number]
[2020-12-05 18:23] LABS: Basophils % 0.3 %; Eosinophils # 0.1 10^3/uL (0.0-0.8); Eosinophils % 0.4 %; Hematocrit 36.9 % (42.0-52.0); Hemoglobin 11.1 g/dL (11.7-16.6); Lymphocytes # 0.4 10^3/uL (0.8-4.8); Lymphocytes % 2.3 %; Mean Corpuscular HGB Conc 30.1 g/dL (30.0-36.0); Mean Corpuscular Hemoglobin 25.6 pg (28.0-34.0); Mean Platelet Volume 10.2 fL (7.4-10.4); Monocytes # 0.6 10^3/uL (0.2-0.9); Neutrophils # 14.58 10^3/uL (1.8-7.7); Neutrophils % 91.9 %; Nucleated Red Blood Cells % 0 %; Platelet Count 275 10^3/cmm (130-400); Red Blood Count 4.34 10^6/uL (4.1-5.3); Red Cell Distribution Width 15.1 % (12.1-15.1); White Blood Count 15.9 10^3/uL (4.0-10.0)
[2020-12-05 18:40] LABS: Troponin(5th) Baseline 75 ng/L (0-15)
--- NOTE | 2020-12-05 18:40 | CTR_ITS ---
PROCEDURE INFORMATION: Exam: CT Chest Without Contrast; Diagnostic Exam date and time: 12/05/2020 6:41 PM Age: 85 years old Clinical indication: Shortness of breath; Prior surgery; Surgery date: 6+ months; Patient HX: HX of lung CA C/O worsening SOB; Additional info: Dyspnea. Left lung mass TECHNIQUE: Imaging protocol: Diagnostic computed tomography of the chest without contrast. Radiation optimization: All CT scans at this facility use at least one of these dose optimization techniques: automated exposure control; mA and/or kV adjustment per patient size (includes targeted exams where dose is matched to clinical indication); or iterative reconstruction. COMPARISON: CT chest wo con [id number] 07/20/2020 1:43 PM RADIATION DOSE METRICS: Total DLP (mGy-cm): 968.78 FINDINGS: Lungs: Increase in the size of the left upper lobe mass, measuring 5.1 x 4.6 cm. It extends to the left suprahilar region and contact seen oblique fissure. Right upper lobectomy. Pleural spaces: Small left pleural effusion. Heart: Mild cardiomegaly. Aorta: Unremarkable. No aortic aneurysm. Lymph nodes: Mildly enlarged subcarinal node. Gallbladder and bile ducts: Cholelithiasis without pericholecystic inflammatory changes. Adrenal glands: Bilateral indeterminate adrenal nodules, the larger measuring 2.0 cm on the right. Kidneys and ureters: Simple left renal cysts measuring up to 3.9 cm. Bones/joints: Cervicothoracic fusion. Soft tissues: Unremarkable. CT/CT chest wo con [id number] IMPRESSION: 1. Increase in the size of the left upper lobe mass, measuring 5.1 x 4.6 cm. It extends to the left suprahilar region and contact seen oblique fissure. 2. Mildly enlarged subcarinal node. 3. Small left pleural effusion. 4. Bilateral indeterminate adrenal nodules, the larger measuring 2.0 cm on the right. 5. Cholelithiasis without pericholecystic inflammatory changes. COMMENTS: 1. Consistent with the [employer]'s Incidental Findings Committee white paper (J Am Rodriguez Radiol 2017): For any incidental adrenal lesion greater than 1 cm but less than 4 cm classified in this report as benign, likely benign, or containing fat (including classification as an adenoma or myelolipoma), no follow-up imaging is recommended per consensus recommendations based on imaging criteria. Further lab evaluation could be pursued if warranted based on clinical findings. 2. Consistent with the [employer]'s Incidental Findings Committee white paper (J Am Rodriguez Radiol 2018): Any incidental renal lesion less than 1 cm or classified as too small to characterize, or any incidental cystic renal lesion characterized as simple-appearing, is likely benign. No follow-up imaging is recommended for these lesions per consensus recommendations based on imaging criteria. Radiation Dose CTDIVOL = (mGy): DLP = 968.78 (mGy-cm)
[2020-12-05 18:43] LABS: Lactate (Lactic Acid level) 0.6 mmol/L (0.5-2.2)
[2020-12-05 18:54] LABS: Alanine Aminotransferase 8 U/L (0-41); Albumin Level 3.8 g/dL (3.5-5.2); Alkaline Phosphatase 167 IU/L (40-130); Anion Gap 18.7 (5-19); Aspartate Amino Transferase 12 U/L (0-40); Blood Urea Nitrogen 48 mg/dL (8-23); Carbon Dioxide 29 mmol/L (22-29); Chloride 96 mmol/L (98-107); Glucose 119 mg/dL (65-115); NT Pro B Type Natriuretic Pept 11655 pg/mL (0-450); Osmolality Calculated 302 mOsm/kg (285-295); Potassium 4.7 mmol/L (3.5-5.1); Sodium 139 mmol/L (136-145); Total Bilirubin 0.5 mg/dL (0.15-1.2); Total Protein 6.8 g/dL (6.6-8.7)
--- NOTE | 2020-12-05 20:07 | CTR_ITS ---
PROCEDURE INFORMATION: Exam: CT Lumbar Spine Without Contrast Exam date and time: 12/05/2020 8:08 PM Age: 85 years old Clinical indication: Injury or trauma; Blunt trauma (contusions or hematomas); Patient HX: Nh PT w HX of lung CA C/O lbp after fall while getting dressed; Additional info: Low back pain/ fall TECHNIQUE: Imaging protocol: Computed tomography images of the lumbar spine without contrast. Radiation optimization: All CT scans at this facility use at least one of these dose optimization techniques: automated exposure control; mA and/or kV adjustment per patient size (includes targeted exams where dose is matched to clinical indication); or iterative reconstruction. COMPARISON: No relevant prior studies available. RADIATION DOSE METRICS: Total DLP (mGy-cm): 2232.88 FINDINGS: Vertebrae: No acute fracture. No subluxation. Discs/Spinal canal/Neural foramina: No significant central spinal canal stenosis. Mild degenerative changes. Adrenals: Bilateral indeterminate adrenal nodules measuring up to 2.0 cm on the right. Kidneys and ureters: Partially visualized left renal cystic lesions, the visualized portions which are simple. Absent right kidney. Soft tissues: Unremarkable. CT/CT lumbar spine wo con* [id number] IMPRESSION: 1. No acute fracture. 2. Bilateral indeterminate adrenal nodules measuring up to 2.0 cm on the right. COMMENTS: 1. Consistent with the [employer]'s Incidental Findings Committee white paper (J Am Rodriguez Radiol 2017): For any incidental adrenal lesion greater than 1 cm but less than 4 cm classified in this report as benign, likely benign, or containing fat (including classification as an adenoma or myelolipoma), no follow-up imaging is recommended per consensus recommendations based on imaging criteria. Further lab evaluation could be pursued if warranted based on clinical findings. 2. Consistent with the [employer]'s Incidental Findings Committee white paper (J Am Rodriguez Radiol 2018): Any incidental renal lesion less than 1 cm or classified as too small to characterize, or any incidental cystic renal lesion characterized as simple-appearing, is likely benign. No follow-up imaging is recommended for these lesions per consensus recommendations based on imaging criteria. Radiation Dose CTDIVOL = (mGy): DLP = 2232.88 (mGy-cm)
[2020-12-05 21:15] LABS: Troponin 5 2HR 73.61 ng/L (0-15)
[2020-12-05 21:21] LABS: Troponin 5 2HR Delta -1.39 ABS# (0-10)
--- NOTE | 2020-12-05 22:13 | ECG_ITS ---
[facility] Test Date: 2020-12-05 Pat Name: Diego Garzon Department: Room: Gender: Male Joint Runner: : 1935 Requested By: Tom Murphy Order Number: [id number] Shannan MD: Bianca Liang M.D. Measurements Intervals [place] Rate: 103 P: [place]: QRS: 9 QRSD: 84 T: 45 QT: 351 QTc: 460 Interpretive Statements ATRIAL FIBRILLATION WITH RAPID VENTRICULAR RESPONSE WITH ABERRANT CONDUCTION OR VENTRICULAR PREMATURE COMPLEXES SEPTAL MYOCARDIAL INFARCTION , PROBABLY OLD [40+ ms Q WAVE IN V1/V2] Compared to ECG 12/05/2020 18:53:50 Ventricular premature complex(es) now present Aberrant conduction of supraventricular beat(s) now present Myocardial infarct finding now present Electronically Signed On 12-06-2020 22:44:43 CDT by Bianca Liang M.D. [email or web address] greenvilleNatrogen Therapeuticsmercy health st. el[facility].[id number]
[2020-12-05] MEDS: FUROsemide 10 mg/mL SDV 4mL 40 MG IVP (22:58)
[2020-12-05] MEDS: azithromycin 500 MG in sodium chloride 0.9% 250 ML 250 MG IV (23:00)
--- NOTE | 2020-12-05 23:53 | PM.HP ---
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 Patient states that he was at the [facility], [place], he was in the shower, from what he says it sounds like his chair was not locked, and he rolled off the chair onto the floor, he hit his lower back, and now complaining of lower back pain. CT of the lumbar spine did not show any acute fracture. Currently patient saying his pain is minimal. Patient also reports that recently has been feeling more short of breath, more shortness of breath with exertion, no fevers, no chills, but has a nonproductive cough, no lightheadedness, no dizziness, no hemoptysis, no known exposure to COVID-19 Review of Systems Const: Reports: fatigue and malaise; Denies: fever(s) or chills Eyes: Denies: change in vision or blurry vision ENMT: Denies: nasal congestion Card: Denies: chest pain or palpitations Resp: Reports: dyspnea; Denies: productive cough, non-productive cough or wheezing GI: Denies: abdominal pain, nausea, vomiting, hematemesis, diarrhea, constipation, hematochezia or melena : Denies: flank pain, difficulty urinating, dysuria or urinary frequency Musc: Reports: back pain; Denies: neck pain Skin/Breast: Denies: rash Neuro: Denies: headache(s), dizziness or vertigo Psych: Denies: anxiety or depression Endo: Denies: polyuria or polydipsia Medications/Allergies Home Medications Medication Instructions Recorded Confirmed Last Taken Type zolpidem 10 mg tablet 10 mg PO DAILY@21 tab 11/22/19 12/05/20 12/04/20 History albuterol sulfate 90 mcg/actuation 2 puff INHALATION QID PRN 08/04/20 12/05/20 12/05/20 History aerosol inhaler budesonide 0.25 mg/2 mL suspension 0.25 mg INHALATION BID 30 Days 08/26/20 12/05/20 12/05/20 Rx for nebulization #120 ml Custome Neck Brace #1 ea 08/27/20 12/05/20 Unknown Rx Custome Neck Brace #1 ea 08/27/20 12/05/20 Unknown Rx BONE GROWTH STIMULATOR [id number] #1 ea 08/28/20 12/05/20 Unknown Rx Perforomist 2 ml INHALATION BID 09/12/20 12/05/20 12/05/20 History bisacodyl [Dulcolax (bisacodyl)] 10 mg NV DAILY PRN 09/12/20 12/05/20 Unknown History tamsulosin 0.4 mg PO DAILY@209909/12/20 12/05/20 12/04/20 History metoprolol succinate 100 mg PO DAILY@09/15/20 12/05/20 12/05/20 History ipratropium-albuterol 3 ml INHALATION Q4H PRN #180 ml 09/19/20 12/05/20 12/05/20 Rx acetaminophen [Arthritis Pain 650 mg PO Q8H PRN 10/07/20 12/05/20 12/05/20 History Relief (acetam)] potassium chloride 10 meq PO DAILY@10/07/20 12/05/20 12/05/20 History simvastatin [Zocor] 40 mg PO DAILY@89910/07/20 12/05/20 12/05/20 History spironolactone 25 mg PO DAILY@89910/07/20 12/05/20 12/05/20 History ferrous sulfate 325 mg PO EVERY OTHER DAY #15 tab 10/12/20 12/05/20 12/04/20 Rx lidocaine HCl 1 applic TOPICAL DAILY PRN #50 ml 10/12/20 12/05/20 Unknown Rx bumetanide 0.5 mg PO DAILY@199912/05/20 12/05/20 12/04/20 History bumetanide 1 mg PO DAILY@0800 12/05/20 12/05/20 12/05/20 History carboxymethylcellulose sodium 1 drp OPHTHALMIC (EYE) BID PRN 12/05/20 12/05/20 Unknown History [Refresh] food supplemt, lactose-reduced 90 ea PO BID 12/05/20 12/05/20 Unknown History [TwoCal HN] hydrocodone-acetaminophen 1 tab PO Q8H PRN 12/05/20 12/05/20 12/05/20 History magnesium hydroxide [Milk of 30 ml PO DAILY PRN 12/05/20 12/05/20 Unknown History Magnesia] pantoprazole 40 mg PO DAILY@06 12/05/20 12/05/20 12/05/20 History sodium phosphates [Fleet Enema] 118 ml NV DAILY PRN 12/05/20 12/05/20 Unknown History Allergies Allergy/AdvReac Type Severity Reaction Status Date / Time No Known Allergies Allergy Verified 10/07/20 13:34 PFSH Acute PFSH: Medical History Acute exacerbation of CHF (congestive heart failure) Acute kidney injury superimposed on CKD Arthritis Atrial fibrillation Benign prostatic hyperplasia BPH loc w urin obs/LUTS Chronic diastolic CHF (congestive heart failure) Chronic venous stasis H/O cataract bilateral cataract surgery Hilar adenopathy HTN (hypertension) Hyperlipidemia Lung cancer Prostatic hemorrhage Pulmonary HTN Renal cell cancer Surgical History H/O right nephrectomy H/O transurethral resection of prostate History of lobectomy of lung History of nephrectomy, right S/P TURP Status post lung surgery Family History Father , 58 Cancer Mother , 80 Stroke Diabetes Family/Other Cancer lung, liver Diabetes Hypertension Brother Cancer Lung CAD (coronary artery disease) Sister Cancer Liver Social History Smoking and tobacco status: former smoker Quit status (tobacco): has quit using tobacco Year quit tobacco: 2000-Hx of 2PPDx 45 Years Alcohol intake: never Lives independently: Yes Household members: none Marital status: / Current occupational status: retired History of recent travel: No Current gender identity: Male Vitals/I&O/Wt Last Vital Signs Temp 98.1 F 12/05/20 23:00 Pulse 99 12/05/20 23:02 Resp 22 H 12/05/20 23:02 BP 130/77 12/05/20 23:00 Pulse Ox 100 12/05/20 23:02 Weight last 48 hrs Weight 83.915 kg Physical Exam Const: COMMON NORMALS: no acute distress and patient oriented x3 GENERAL APPEARANCE: cooperative and comfortable HENMT: COMMON NORMALS: normocephalic HEAD & SCALP: normocephalic Eye: COMMON NORMALS: Equal, round and reactive pupils present and EOMs intact bilaterally GENERAL EYE: appearance normal, both eyes and all related structures PUPIL: Yes Equal, round and reactive pupils present Neck/C-Spine: COMMON NORMALS: full ROM, no lymphadenopathy, no JVD and Thyroid normal THYROID: Thyroid normal Lymph: LYMPHATIC: no lymphadenopathy noted Resp: COMMON NORMALS: normal respiratory effort, No retractions, No use of accessory muscles and clear to auscultation bilaterally AUSCULTATION: crackles Cardio: COMMON NORMALS: no JVD, regular rate, S1 normal heart sound present, S2 normal heart sound present, No gallops present (Cardio), No clicks present (Cardio) and No murmurs present (Cardio) RATE: regular rate RHYTHM: regular rhythm and abnormal rhythm irregularly irregular HEART SOUNDS: S1 normal heart sound present and S2 normal heart sound present GI: COMMON NORMALS: Normal to inspection, nondistended, normoactive bowel sounds present, Soft to palpation, non-tender and No hepatosplenomegaly present PALPATION: Yes Soft to palpation and Yes No hepatosplenomegaly present Extremity: COMMON NORMALS: normal to inspection, full ROM and no pedal edema Neuro: COMMON NORMALS: patient oriented x3, CN's II-XII intact bilaterally, moves all extremities and no focal motor deficits Psych: COMMON NORMALS: mental status grossly normal, Normal thought process present and cooperative THOUGHT PROCESS: Normal thought process present Data : 12/05/20 17:55 12/05/20 17:55 Micro: Microbiology 12/05/20 17:55 Blood Culture - Preliminary Blood SPECIMEN COLLECTED 12/05/20 17:55 Blood Culture - Preliminary Blood SPECIMEN COLLECTED A&P Assessment and plan (1) Back pain: CT of the lumbar spine did not show any acute fracture PT OT Continue to monitor site for bruising Status: Acute (2) Acute and chronic respiratory failure with hypoxia: Secondary to diastolic CHF, and pneumonia Plan: -Admit to general medical floors -Rocephin and azithromycin -Bumex 1 mg every 12 hours, monitor potassium, artery urine output, fluid restriction 1500 cc -Nebulizer treatments -Has a history of COPD, has a history of smoking the past, have held off for steroids for now as no wheezing on exam -Currently on 3 L, monitor respiratory status closely -DNR/DNI -Lovenox for DVT prophylaxis Status: Acute (3) Pneumonia: Status: Acute (4) Acute exacerbation of CHF (congestive heart failure): Status: Acute Qualifiers: Heart failure type: unspecified Qualified Code(s): I50.9 - Heart failure, unspecified (5) NSTEMI (non-ST elevated myocardial infarction): Respiratory failure, monitor serial troponins, serial EKGs, telemetry monitoring Continue aspirin, statin Status: Acute (6) Acute on chronic anemia: Status: Acute (7) Fracture of C7 vertebra, closed: Status: Acute (8) HTN (hypertension): Status: Acute (9) COPD (chronic obstructive pulmonary disease): Status: Acute (10) Mass of upper lobe of left lung: 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 Giordano's note patient has elected for no treatment Has not followed up with oncology for the last 4 months Status: Acute (11) Atrial fibrillation: There were concerns for A. fib in the ER, has a known history of A. 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
[2020-12-06] VITALS (17 sets, daily range): BP systolic 100–117; BP diastolic 59–68; PULSE 73–118; RESP 17–24; TEMP 36.5–37; O2SAT 93–100
--- NOTE | 2020-12-06 | ED_ITS ---
HPI - SOB/Dyspnea General: Chief Complaint: Shortness of Breath/Dyspnea Stated Complaint: SOB Time Seen by Provider: 12/05/20 16:02 History of Present Illness: HPI Narrative: The patient is an 85-year-old male with past medical history lung cancer, COPD, and a resident at [place]. He comes to the ER after he was found short of breath and hypoxic. EMS gave him an albuterol treatment with good improvement of his oxygenation and respiratory status. He arrives coughing up some phlegm and has rales in his lungs. He is in A. fib with a rate of 118. He claims to be breathing better but does have rales in his lungs. Says he is mildly short of breath. He was recently diagnosed with pneumonia here. Associated symptoms: Deny abdominal pain, chest pain, dizziness, extremity pain, orthopnea, palpitations or polyuria Review of Systems General: Reports: 10 or more systems reviewed and unremarkable except in HPI and below Const: Denies: fatigue Eyes: Denies: change in vision, blurry vision or eye redness ENMT: Denies: throat pain, swelling of lips/tongue, ear or mastoid pain or nasal congestion Card: Denies: chest pain, palpitations, irregular heart rhythm, edema, dyspnea on exertion or orthopnea Resp: Reports: dyspnea and productive cough; Denies: non-productive cough GI: Denies: abdominal pain, diarrhea or GI cramping : Denies: flank pain, urinary frequency or urinary urgency Musc: Denies: neck pain, back pain, extremity pain, joint pain, joint redness, limited range of motion or muscle weakness Skin/Breast: Denies: rash, pruritus, erythema, skin pain or skin tenderness Neuro: Denies: headache(s), numbness in extremities, weakness in extremities, sensory changes, difficulty walking, dizziness, confusion or Slurred speech present Psych: Denies: anxiety or depression Endo: Denies: polyuria All/Imm: Denies: urticaria, throat swelling or tongue swelling PFSH ED PFSH: Medical History (Updated 12/06/20 @ 00:08 by Tom Murphy MD) Acute exacerbation of CHF (congestive heart failure) Acute kidney injury superimposed on CKD Arthritis Atrial fibrillation Benign prostatic hyperplasia BPH loc w urin obs/LUTS Chronic diastolic CHF (congestive heart failure) Chronic venous stasis H/O cataract bilateral cataract surgery Hilar adenopathy HTN (hypertension) Hyperlipidemia Lung cancer Prostatic hemorrhage Pulmonary HTN Renal cell cancer Surgical History H/O right nephrectomy H/O transurethral resection of prostate History of lobectomy of lung History of nephrectomy, right S/P TURP Status post lung surgery Family History Father , 58 Cancer Mother , 80 Stroke Diabetes Family/Other Cancer lung, liver Diabetes Hypertension Brother Cancer Lung CAD (coronary artery disease) Sister Cancer Liver Social History Smoking and tobacco status: former smoker Quit status (tobacco): has quit using tobacco Year quit tobacco: 2000-Hx of 2PPDx 45 Years Alcohol intake: never Lives independently: Yes Household members: none Marital status: / Current occupational status: retired History of recent travel: No Current gender identity: Male Physical Exam Const: COMMON NORMALS: no acute distress, average body habitus, patient oriented x3, no limitations, healthy appearing, alert and well nourished GENERAL APPEARANCE: cooperative, comfortable, well kempt and well developed ORIENTATION/CONSCIOUSNESS: Yes awake, Yes oriented to person, Yes oriented to place and Yes oriented to time HENMT: COMMON NORMALS: normocephalic, external ears normal and Normal external nose present HEAD & SCALP: normal to inspection and normocephalic NOSE: Normal external nose present EXTERNAL EAR: Yes external ears normal MOUTH: Normal oral and palatal mucosa present THROAT: posterior oropharynx normal Eye: COMMON NORMALS: Equal, round and reactive pupils present and EOMs intact bilaterally GENERAL EYE: appearance normal, both eyes and all related structures PUPIL: Yes Equal, round and reactive pupils present Neck/C-Spine: COMMON NORMALS: full ROM, no lymphadenopathy, no meningeal signs and no JVD GENERAL: Yes normal visual inspection Lymph: LYMPHATIC: no lymphadenopathy noted Chest: COMMONS NORMALS: normal inspection of the chest and normal palpation of entire chest wall Resp: COMMON NORMALS: normal respiratory effort, No retractions and No use of accessory muscles EFFORT & INSPECTION: Yes able to speak in complete sentences, Yes tachypneic, Yes respiratory distress (mild) and Yes Actively coughing AUSCULTATION: rales, wheezes and diminished lung sounds Cardio: COMMON NORMALS: no JVD, S1 normal heart sound present, S2 normal heart sound present and Peripheral pulses 2+ throughout RATE: tachycardic RHYTHM: abnormal rhythm (Atrial fibrillation rate 110) irregularly irregular HEART SOUNDS: S1 normal heart sound present and S2 normal heart sound present PERIPHERAL PULSES: Peripheral pulses 2+ throughout GI: COMMON NORMALS: Normal to inspection, nondistended, normoactive bowel sounds present, Soft to palpation, non-tender and no masses INSPECTION: Yes normal to inspection PALPATION: Yes Soft to palpation : COMMON NORMALS: Yes no CVA tenderness BLADDER/KIDNEY EXAM: Yes no CVA tenderness Back/Pelvis: COMMON NORMALS: no CVA tenderness, thoracic and lumbar spine normal to inspection, no thoracic nor lumbar tenderness and thoraco-lumbar ROM normal Extremity: COMMON NORMALS: normal to inspection, full ROM, capillary refill normal, no joint enlargement and no pedal edema GENERAL: Yes normal exam except as noted Neuro: COMMON NORMALS: patient oriented x3, CN's II-XII intact bilaterally, moves all extremities, no focal motor deficits, no sensory deficits noted and gait normal SENSORIUM/ORIENTATION: Yes alert, Yes oriented to person, Yes oriented to place and Yes oriented to time MENINGEAL SIGNS: Yes no meningeal signs Psych: COMMON NORMALS: mental status grossly normal, Normal thought process present, cooperative, normal affect and speech normal APPEARANCE: Yes well kempt ATTITUDE: Yes calm SPEECH: Yes normal speech THOUGHT PROCESS: Normal thought process present Skin: COMMON NORMALS: no rashes or lesions noted GENERAL SKIN EXAM: no rashes or lesions noted Course Vital Signs: Vital signs: Vital Signs Temperature 98.1 F 12/05/20 23:00 Pulse Rate 99 12/05/20 23:02 Respiratory Rate 22 H 12/05/20 23:02 Blood Pressure 130/77 12/05/20 23:00 Pulse Oximetry 100 12/05/20 23:02 MDM - SOB/Dyspnea MDM Narrative: Medical decision making narrative: The patient came to the ED after an episode of respiratory distress relieved by a single albuterol. He had rales on exam and elevated BNP and was given Lasix. Also his white count is 15.9, he has lung cancer and was recently diagnosed with pneumonia. Chest x-ray and CT do not show this though I did start him on ceftriaxone and azithromycin empirically. He also has atrial fibrillation and has had a steady rate in the low 100s. Creatinine 2.7 which is chronically elevated and trending at his baseline. He warrants admission for these problems and discussed with Dr. Troncoso who accepts. Lab Data: Labs: Lab Results 12/05/20 12/05/20 12/05/20 Range/Units 16:20 17:20 17:55 WBC 15.9 H (4.0-10.0) 10^3/ uL RBC 4.34 (4.1-5.3) 10^6/u L Hgb 11.1 L (11.7-16.6) g/dL Hct 36.9 L (42.0-52.0) % MCV 85.0 (80-94) fL MCH 25.6 L (28.0-34.0) pg MCHC 30.1 (30.0-36.0) g/dL RDW 15.1 (12.1-15.1) % Plt Count 275 (130-400) 10^3/c mm MPV 10.2 (7.4-10.4) fL Neut % (Auto) 91.9 % Lymph % (Auto) 2.3 % [place] % (Auto) 4.0 % Eos % (Auto) 0.4 % Baso % (Auto) 0.3 % Neut # (Auto) 14.58 H (1.8-7.7) 10^3/u L Lymph # (Auto) 0.4 L (0.8-4.8) 10^3/u L [place] # (Auto) 0.6 (0.2-0.9) 10^3/u L Eos # (Auto) 0.1 (0.0-0.8) 10^3/u L Baso # (Auto) 0.0 (0.0-0.1) 10^3/u L Nucleated RBC % (a uto) 0 % Nucleated RBCs # 0.0 /100WBC Specimen Type Arterial Sample Site Radial, left ABG pH 7.46 H (7.35-7.45) ABG pCO2 40.0 (35-45) mmHg ABG pO2 161.0 H (80.0-100.0) mmH g ABG HCO3 28.2 H (22-26) mmol/L ABG Base Excess 4.0 H (-2.0-2.0) mmol/ L Robin Test Pos Hematocrit 33.9 L (42-52) % Hgb O2 Saturation 97.7 (95-100) % Carboxyhemoglobin 1.1 (0.4-20.1) %THgb Methemoglobin 1.0 (0.4-1.5) % Total Hemoglobin 11.0 L (14-18) g/dL O2 Delivery Device Nc O2 Liters/Min 5.0 % FiO2 40.0 % Mandate Retail Service Merchandiser ID [place] Sodium (136-145) mmol/L Potassium (3.5-5.1) mmol/L Chloride (98-107) mmol/L Carbon Dioxide (22-29) mmol/L Anion Gap (5-19) BUN (8-23) mg/dL Creatinine (0.7-1.2) mg/dL GFR Calculation Glucose (65-115) mg/dL Calculated Osmolal ity (285-295) mOsm/k g Lactate (0.5-2.2) mmol/L Calcium (8.5-10.5) mg/dL Total Bilirubin (0.15-1.2) mg/dL AST (0-40) U/L ALT (0-41) U/L Alkaline Phosphata se (40-130) IU/L Troponin T Baselin e (0-15) ng/L Troponin T 120 Min stebbins (0-15) ng/L Delta Troponin T (0-10) ABS# NT-Pro-B Natriuret Pep (0-450) pg/mL Total Protein (6.6-8.7) g/dL Albumin (3.5-5.2) g/dL Globulin (1.3-4.6) g/dL SARS-CoV-2 Ag (Rap id) Negative (Negative) 12/05/20 12/05/20 12/05/20 Range/Units 17:55 17:55 17:55 WBC (4.0-10.0) 10^3/ uL RBC (4.1-5.3) 10^6/u L Hgb (11.7-16.6) g/dL Hct (42.0-52.0) % MCV (80-94) fL MCH (28.0-34.0) pg MCHC (30.0-36.0) g/dL RDW (12.1-15.1) % Plt Count (130-400) 10^3/c mm MPV (7.4-10.4) fL Neut % (Auto) % Lymph % (Auto) % [place] % (Auto) % Eos % (Auto) % Baso % (Auto) % Neut # (Auto) (1.8-7.7) 10^3/u L Lymph # (Auto) (0.8-4.8) 10^3/u L [place] # (Auto) (0.2-0.9) 10^3/u L Eos # (Auto) (0.0-0.8) 10^3/u L Baso # (Auto) (0.0-0.1) 10^3/u L Nucleated RBC % (a uto) % Nucleated RBCs # /100WBC Specimen Type Sample Site ABG pH (7.35-7.45) ABG pCO2 (35-45) mmHg ABG pO2 (80.0-100.0) mmH g ABG HCO3 (22-26) mmol/L ABG Base Excess (-2.0-2.0) mmol/ L Robin Test Hematocrit (42-52) % Hgb O2 Saturation (95-100) % Carboxyhemoglobin (0.4-20.1) %THgb Methemoglobin (0.4-1.5) % Total Hemoglobin (14-18) g/dL O2 Delivery Device O2 Liters/Min % FiO2 % Mandate Retail Service Merchandiser ID Sodium 139 (136-145) mmol/L Potassium 4.7 (3.5-5.1) mmol/L Chloride 96 L (98-107) mmol/L Carbon Dioxide 29 (22-29) mmol/L Anion Gap 18.7 (5-19) BUN 48 H (8-23) mg/dL Creatinine 2.7 H (0.7-1.2) mg/dL GFR Calculation Not Reportable Glucose 119 H (65-115) mg/dL Calculated Osmolal ity 302 H (285-295) mOsm/k g Lactate 0.6 (0.5-2.2) mmol/L Calcium 9.0 (8.5-10.5) mg/dL Total Bilirubin 0.5 (0.15-1.2) mg/dL AST 12 (0-40) U/L ALT 8 (0-41) U/L Alkaline Phosphata se 167 H (40-130) IU/L Troponin T Baselin e 75 H (0-15) ng/L Troponin T 120 Min stebbins (0-15) ng/L Delta Troponin T (0-10) ABS# NT-Pro-B Natriuret Pep 61515 H (0-450) pg/mL Total Protein 6.8 (6.6-8.7) g/dL Albumin 3.8 (3.5-5.2) g/dL Globulin 3.0 (1.3-4.6) g/dL SARS-CoV-2 Ag (Rap id) (Negative) 12/05/20 Range/Units 19:59 WBC (4.0-10.0) 10^3/ uL RBC (4.1-5.3) 10^6/u L Hgb (11.7-16.6) g/dL Hct (42.0-52.0) % MCV (80-94) fL MCH (28.0-34.0) pg MCHC (30.0-36.0) g/dL RDW (12.1-15.1) % Plt Count (130-400) 10^3/c mm MPV (7.4-10.4) fL Neut % (Auto) % Lymph % (Auto) % [place] % (Auto) % Eos % (Auto) % Baso % (Auto) % Neut # (Auto) (1.8-7.7) 10^3/u L Lymph # (Auto) (0.8-4.8) 10^3/u L [place] # (Auto) (0.2-0.9) 10^3/u L Eos # (Auto) (0.0-0.8) 10^3/u L Baso # (Auto) (0.0-0.1) 10^3/u L Nucleated RBC % (a uto) % Nucleated RBCs # /100WBC Specimen Type Sample Site ABG pH (7.35-7.45) ABG pCO2 (35-45) mmHg ABG pO2 (80.0-100.0) mmH g ABG HCO3 (22-26) mmol/L ABG Base Excess (-2.0-2.0) mmol/ L Robin Test Hematocrit (42-52) % Hgb O2 Saturation (95-100) % Carboxyhemoglobin (0.4-20.1) %THgb Methemoglobin (0.4-1.5) % Total Hemoglobin (14-18) g/dL O2 Delivery Device O2 Liters/Min % FiO2 % Mandate Retail Service Merchandiser ID Sodium (136-145) mmol/L Potassium (3.5-5.1) mmol/L Chloride (98-107) mmol/L Carbon Dioxide (22-29) mmol/L Anion Gap (5-19) BUN (8-23) mg/dL Creatinine (0.7-1.2) mg/dL GFR Calculation Glucose (65-115) mg/dL Calculated Osmolal ity (285-295) mOsm/k g Lactate (0.5-2.2) mmol/L Calcium (8.5-10.5) mg/dL Total Bilirubin (0.15-1.2) mg/dL AST (0-40) U/L ALT (0-41) U/L Alkaline Phosphata se (40-130) IU/L Troponin T Baselin e (0-15) ng/L Troponin T 120 Min stebbins 73.61 H (0-15) ng/L Delta Troponin T -1.39 L (0-10) ABS# NT-Pro-B Natriuret Pep (0-450) pg/mL Total Protein (6.6-8.7) g/dL Albumin (3.5-5.2) g/dL Globulin (1.3-4.6) g/dL SARS-CoV-2 Ag (Rap id) (Negative) Discharge Plan Discharge Patient Disposition: Admitted As Inpatient Admit Provider: John Troncoso Clinical Impression: COPD (chronic obstructive pulmonary disease), Acute exacerbation of CHF (congestive heart failure), Mass of upper lobe of left lung Condition: Stable Coding Level of Care Code ED [employer] for [employer]
[2020-12-06] MEDS: HYDROcodone-acetaminophen 5-325 mg Tablet 1 TAB PO ×3 (01:39→21:17)
[2020-12-06] MEDS: zolpidem 5 mg Tablet 10 MG PO (01:46)
--- NOTE | 2020-12-06 06:18 | PC.NURSE ---
Patient requesting to recieve 7 am medication with breakfast refusing them at this time due to currently not being hungry.
[2020-12-06] MEDS: bumetanide 0.25 mg/mL SDV 4 mL 1 MG IV ×2 (06:43→18:24)
[2020-12-06 07:51] LABS: Basophils % 0.1 %; Hematocrit 33.9 % (42.0-52.0); Hemoglobin 10.2 g/dL (11.7-16.6); Lymphocytes # 0.3 10^3/uL (0.8-4.8); Lymphocytes % 2.8 %; Mean Corpuscular HGB Conc 30.1 g/dL (30.0-36.0); Mean Corpuscular Hemoglobin 25.7 pg (28.0-34.0); Mean Corpuscular Volume 85.4 fL (80-94); Mean Platelet Volume 9.8 fL (7.4-10.4); Monocytes # 0.3 10^3/uL (0.2-0.9); Monocytes % 2.6 %; Neutrophils # 10.61 10^3/uL (1.8-7.7); Neutrophils % 93.4 %; Nucleated Red Blood Cells % 0 %; Platelet Count 239 10^3/cmm (130-400); Red Blood Count 3.97 10^6/uL (4.1-5.3); White Blood Count 11.4 10^3/uL (4.0-10.0)
[2020-12-06 08:08] LABS: Alanine Aminotransferase 7 U/L (0-41); Albumin Level 3.5 g/dL (3.5-5.2); Alkaline Phosphatase 156 IU/L (40-130); Anion Gap 15.8 (5-19); Aspartate Amino Transferase 10 U/L (0-40); Blood Urea Nitrogen 51 mg/dL (8-23); Calcium 8.8 mg/dL (8.5-10.5); Carbon Dioxide 28 mmol/L (22-29); Chloride 99 mmol/L (98-107); Globulin 2.8 g/dL (1.3-4.6); Glucose 113 mg/dL (65-115); Magnesium 2.4 mg/dL (1.7-2.3); Osmolality Calculated 300 mOsm/kg (285-295); Potassium 4.8 mmol/L (3.5-5.1); Sodium 138 mmol/L (136-145); Total Bilirubin 0.4 mg/dL (0.15-1.2); Total Protein 6.3 g/dL (6.6-8.7)
[2020-12-06] MEDS: ipratropium-albuterol 3 mL Neb INHALATION ×4 (08:17→20:21)
[2020-12-06] MEDS: budesonide 0.5 mg/2 mL Neb 0.25 MG INHALATION ×2 (08:17→20:21)
[2020-12-06 08:43] LABS: NT Pro B Type Natriuretic Pept 12370 pg/mL (0-450)
[2020-12-06] MEDS: atorvastatin 40 mg Tablet 20 MG PO (09:02)
[2020-12-06] MEDS: spironolactone 25 mg Tablet PO (09:03)
[2020-12-06] MEDS: aspirin 81 mg EC Tablet PO (09:03)
--- NOTE | 2020-12-06 11:50 | PC.CHAP ---
Pastoral Care Encounter/Spiritual Assessment Type of Contact [] Declined bathhouse keeper visit [] Patient/Family/Request visit [] Outpatient visit [] Follow-up visit [] Physician referral [] Code/Alert [x] Routine visit [] Staff referral [] Actively dying [] Patient sleeping [] Family support [] [] Out of room [] Palliative care [] [] Receiving care in room [] Pre-surgical visit [] Trauma [] Long length of stay [] ICU visit [] Other: Relational/Emotional Strength [x] Patient feels connected with others/family/visitors/staff [] Distress [] Loneliness/isolation [] Abandonment Spirituality of Patient [] Person of [place] [] Attends Mormon of their [place] [] Believes in Prayer [] Reads Bible or Temple materials [x] There are Spiritual issues to be addressed Hose Stripper Interventions [] Prayer [x] Active listening [x] Non-anxious presence [x] Spiritual/emotional support [] Crisis/trauma care [] Spiritual counseling [] Bereavement support [] Provided bereavement packet [] Provided Bible/devotional materials [] Provided toy/stuffed animal, coloring book to patient or family member [] Provided Communion [] Anointing/[place] [] Salvation [x] Completed spiritual assessment [] Other: Impact on Illness or Injury [] Angry [] Fearful [] Anxious [] Often cries [] Exhaustion [] Unable to work [] Unable to attend hinduism [] Unable to walk/stand [] Unable to read [] Unable to drive [] Unable to eat/drink [] Unable to sleep [] Unable to be with family [] Patient intubated [] Other: Summary Pt was uncertain why he was in hospital. Resides in local nursing facility. He does have family he expects to visit later today. Due to Daylight Savings Time, the clock was incorrect in Pt room. Hose Stripper changed to correct time for him. Time spent with patient 5 m
--- NOTE | 2020-12-06 12:52 | P.PN_ITS ---
Subjective Subjective: Interval history: Overnight labs and H&P reviewed. Medications: Reviewed: Yes Vitals/I&O/Wt Last Vital Signs Temp 98.6 F 12/06/20 12:00 Pulse 117 H 12/06/20 12:04 Resp 18 12/06/20 12:00 BP 115/60 12/06/20 12:00 Pulse Ox 96 12/06/20 12:00 12/05/20 12/06/20 12/06/20 21:59 06:59 14:59 Intake Total Output Total 650 / 650 Balance -650 / -650 Weight last 48 hrs Weight 83.915 kg Physical Exam Narrative: EXAM NARRATIVE: GEN: Awake, alert and oriented, no acute distress CVS: S1S2 N RS: scattered crackles b/L Abd: Soft, nt/nd , bs+ Data : 12/06/20 07:25 12/06/20 07:25 Micro: Microbiology 12/05/20 17:55 Blood Culture - Preliminary Blood SPECIMEN COLLECTED 12/05/20 17:55 Blood Culture - Preliminary Blood SPECIMEN COLLECTED A&P Assessment and plan (1) Back pain: CT of the lumbar spine did not show any acute fracture PT OT Status: Acute (2) Acute and chronic respiratory failure with hypoxia: Secondary to diastolic CHF, and pneumonia -continue Rocephin and azithromycin -Bumex 1 mg every 12 hours, monitor potassium, urine output, fluid restriction 1500 cc -Nebulizer treatments -Has a history of COPD, has a history of smoking the past, have held off for steroids for now as no wheezing on exam -Currently on 2 L, improved over admission -DNR/DNI Status: Acute (3) Pneumonia: Status: Acute (4) Acute exacerbation of CHF (congestive heart failure): Status: Acute (5) NSTEMI (non-ST elevated myocardial infarction): serially negative deltas, likely related to CHF exacerbation Continue aspirin, statin Status: Acute (6) Acute on chronic anemia: Status: Acute (7) Fracture of C7 vertebra, closed: Status: Acute (8) HTN (hypertension): Status: Acute (9) COPD (chronic obstructive pulmonary disease): Status: Acute (10) Mass of upper lobe of left lung: 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 Giordano's note patient has elected for no treatment Has not followed up with oncology for the last 4 months Declined hospice on most recent admission. Status: Acute (11) Atrial fibrillation: There were concerns for A. fib in the ER, has a known history of A. fib, heart rates as fast as 103 with RVR, I checked a heart rate and it was 99, continue metoprolol On not on anticoagulation due to concerns for anemia, bleeding risk and patient has refused in the past Status: Acute Attestations Medical Necessity Statement*: optimization of resp status, iv abx, diuresis for CHF Coding Level of Care Code Acute Yeast Stacker for g Fwd Diagnoses Back pain M54.9 Acute and chronic respiratory failure with hypoxia J96.21 Pneumonia J18.9 Acute exacerbation of CHF (congestive heart failure) I50.9 NSTEMI (non-ST elevated myocardial infarction) I21.4 Acute on chronic anemia D64.9 Fracture of C7 vertebra, closed S12.600A HTN (hypertension) I10 COPD (chronic obstructive pulmonary disease) J44.9 Mass of upper lobe of left lung R91.8 Atrial fibrillation I48.91
[2020-12-06 14:01] LABS: Add Urine Microscopic? NO
[2020-12-06] MEDS: enoxaparin 30 mg/0.3 mL Syringe SUBCUT (14:28)
[2020-12-06 14:41] LABS: Bilirubin Urine Neg (Negative); Blood Urine Neg (Negative); Glucose Urine UA Norm (Normal); Ketones Urine Negative (Negative); Leukocyte Esterase Urine Negative (Negative); Nitrate Urine Negative (Negative); Protein Urine Neg (Negative); Specific Gravity, Urine 1.015 (1.005-1.030); Urine Appearance Clear (CLEAR); Urine Color Yellow (Yellow); Urobilinogen Urine Norm (Negative); pH Urine 5 (5-7)
[2020-12-06] MEDS: cefTRIAXone 1,000 MG in sodium chloride 0.9% (plus) 50 ML 100 MG IV (16:04)
[2020-12-06] MEDS: tamsulosin 0.4 mg Capsule PO (21:17)
[2020-12-06] MEDS: azithromycin 500 MG in sodium chloride 0.9% 250 ML 250 MG IV (23:12)
[2020-12-07] VITALS (13 sets, daily range): BP systolic 110–126; BP diastolic 69–76; PULSE 84–129; RESP 17–23; TEMP 36.7–37.2; O2SAT 88–99
[2020-12-07 05:59] LABS: Basophils % 0.1 %; Hematocrit 30.9 % (42.0-52.0); Hemoglobin 9.3 g/dL (11.7-16.6); Lymphocytes # 0.3 10^3/uL (0.8-4.8); Lymphocytes % 2.2 %; Mean Corpuscular HGB Conc 30.1 g/dL (30.0-36.0); Mean Corpuscular Hemoglobin 25.5 pg (28.0-34.0); Mean Corpuscular Volume 84.9 fL (80-94); Mean Platelet Volume 9.6 fL (7.4-10.4); Monocytes # 1.4 10^3/uL (0.2-0.9); Monocytes % 10.5 %; Neutrophils # 11.05 10^3/uL (1.8-7.7); Neutrophils % 86.3 %; Nucleated Red Blood Cells % 0 %; Platelet Count 259 10^3/cmm (130-400); Red Blood Count 3.64 10^6/uL (4.1-5.3); Red Cell Distribution Width 15.1 % (12.1-15.1); White Blood Count 12.8 10^3/uL (4.0-10.0)
[2020-12-07] MEDS: pantoprazole DR 40 mg Tablet PO (06:07)
[2020-12-07] MEDS: potassium chloride ER 10 mEq Tablet PO (06:07)
[2020-12-07] MEDS: metoprolol succinate ER (24 HR) 100 mg Tablet PO (06:07)
[2020-12-07 06:25] LABS: Alanine Aminotransferase 7 U/L (0-41); Albumin Level 3.2 g/dL (3.5-5.2); Alkaline Phosphatase 131 IU/L (40-130); Anion Gap 15.3 (5-19); Aspartate Amino Transferase 9 U/L (0-40); Blood Urea Nitrogen 57 mg/dL (8-23); Calcium 8.3 mg/dL (8.5-10.5); Carbon Dioxide 28 mmol/L (22-29); Chloride 100 mmol/L (98-107); Globulin 2.5 g/dL (1.3-4.6); Glucose 124 mg/dL (65-115); Magnesium 2.5 mg/dL (1.7-2.3); Osmolality Calculated 305 mOsm/kg (285-295); Phosphorus 5.1 mg/dL (2.5-4.5); Potassium 4.3 mmol/L (3.5-5.1); Sodium 139 mmol/L (136-145); Total Bilirubin 0.3 mg/dL (0.15-1.2); Total Protein 5.7 g/dL (6.6-8.7)
[2020-12-07 06:41] LABS: NT Pro B Type Natriuretic Pept 12930 pg/mL (0-450)
[2020-12-07] MEDS: bumetanide 0.25 mg/mL SDV 4 mL 1 MG IV ×2 (07:10→18:10)
--- NOTE | 2020-12-07 07:15 | PC.NURSE ---
Bedside report received by Desirae Maher LPN.
[2020-12-07] MEDS: ipratropium-albuterol 3 mL Neb INHALATION ×4 (07:46→19:52)
[2020-12-07] MEDS: budesonide 0.5 mg/2 mL Neb 0.25 MG INHALATION ×2 (07:46→19:52)
[2020-12-07] MEDS: ferrous sulfate EC 325 mg Tablet PO (08:46)
[2020-12-07] MEDS: spironolactone 25 mg Tablet PO (08:46)
[2020-12-07] MEDS: aspirin 81 mg EC Tablet PO (08:46)
[2020-12-07] MEDS: atorvastatin 40 mg Tablet 20 MG PO (08:46)
--- NOTE | 2020-12-07 11:01 | PM.PN ---
Subjective Subjective: Interval history: Patient was seen and examined this morning. He has remained afebrile. Currently saturating well on 2 L of oxygen. Sputum culture: Staph aureus. Medications: Reviewed: Yes Vitals/I&O/Wt Last Vital Signs Temp 98.2 F 12/07/20 08:16 Pulse 93 12/07/20 08:16 Resp 19 H 12/07/20 08:16 BP 110/76 12/07/20 08:16 Pulse Ox 96 12/07/20 08:16 12/06/20 12/07/20 12/07/20 22:59 06:59 14:59 Intake Total 50 / 50 250 / 300 8.333 / 8.333 Output Total 150 / 800 250 / 1050 420 / 420 Balance -100 / -750 0 / -750 -411.667 / -411.667 Weight last 48 hrs Weight 83.915 kg Physical Exam HENMT: COMMON NORMALS: normocephalic, atraumatic and hearing grossly normal bilaterally HEAD & SCALP: normocephalic and atraumatic Chest: CHEST: Yes Symmetrical chest wall rise OTHER: Bilateral coarse breath, bilateral wheezing and rhonchi, bilateral crackles Cardio: COMMON NORMALS: No gallops present (Cardio), No murmurs present (Cardio) and No rub (Cardio) OTHER: Irregularly irregular, S1-S2 variable intensity. GI: COMMON NORMALS: Normal to inspection, nondistended, normoactive bowel sounds present, Soft to palpation, non-tender, No hepatosplenomegaly present and no masses AUSCULTATION: Yes normoactive bowel sounds PALPATION: Yes Soft to palpation and Yes No hepatosplenomegaly present RECTAL EXAM: Yes deferred Extremity: COMMON NORMALS: no clubbing, cyanosis or edema and no pedal edema Data : 12/07/20 05:31 12/07/20 05:31 Micro: Microbiology 12/05/20 14:32 Gram Stain - Final Sputum - Expectorated Sputum Sputum Culture - Preliminary Staphylococcus aureus 12/05/20 17:55 Blood Culture - Preliminary Blood NEGATIVE TO DATE 12/05/20 17:55 Blood Culture - Preliminary Blood NEGATIVE TO DATE A&P Assessment and plan (1) Back pain: CT of the lumbar spine did not show any acute fracture PT OT Status: Acute (2) Acute and chronic respiratory failure with hypoxia: Secondary to diastolic CHF, and pneumonia -Blood culture: NTD, -Sputum culture: Staph aureus -Repeat sputum culture: -continue Rocephin and azithromycin -Vancomycin -Bumex 1 mg every 12 hours, monitor potassium, urine output, fluid restriction 1500 cc -Nebulizer treatments -Has a history of COPD, has a history of smoking the past, have held off for steroids for now as no wheezing on exam -Currently on 2 L, improved over admission -DNR/DNI Status: Acute (3) Pneumonia: Status: Acute (4) Acute exacerbation of CHF (congestive heart failure): Status: Acute (5) NSTEMI (non-ST elevated myocardial infarction): serially negative deltas, likely related to CHF exacerbation Continue aspirin, statin Status: Acute (6) Acute on chronic anemia: Status: Acute (7) Fracture of C7 vertebra, closed: Status: Acute (8) HTN (hypertension): Status: Acute (9) COPD (chronic obstructive pulmonary disease): Status: Acute (10) Mass of upper lobe of left lung: 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 Giordano's note patient has elected for no treatment Has not followed up with oncology for the last 4 months Declined hospice on most recent admission. Status: Acute (11) Atrial fibrillation: known history of A. fib Continues to be in A. fib with controlled rate. not on anticoagulation due to concerns for anemia, bleeding risk and patient has refused in the past Status: Acute Attestations Medical Necessity Statement*: Patient needs to be in hospital for management of decompensated heart failure and pneumonia. Coding Level of Care Code Acute Financial Systems Administrator for [facility] Fwd Diagnoses Back pain M54.9 Acute and chronic respiratory failure with hypoxia J96.21 Pneumonia J18.9 Acute exacerbation of CHF (congestive heart failure) I50.9 NSTEMI (non-ST elevated myocardial infarction) I21.4 Acute on chronic anemia D64.9 Fracture of C7 vertebra, closed S12.600A HTN (hypertension) I10 COPD (chronic obstructive pulmonary disease) J44.9 Mass of upper lobe of left lung R91.8 Atrial fibrillation I48.91
[2020-12-07] MEDS: magnesium hydroxide 30 mL UDC PO (14:20)
[2020-12-07] MEDS: enoxaparin 30 mg/0.3 mL Syringe SUBCUT (14:21)
--- NOTE | 2020-12-07 14:23 | PC.OT ---
OT note: Attempted OT session, pt refused at this time due to not feeling well, also getting ready to start IV antibiotics. Will attempt later as able.
[2020-12-07] MEDS: vancomycin 1,000 MG in sodium chloride 0.9% 250 ML 250 MG IV (14:24)
[2020-12-07] MEDS: acetylcysteine 200 mg/mL SDV 4 mL 100 MG INHALATION ×2 (15:41→19:53)
[2020-12-07] MEDS: cefTRIAXone 1,000 MG in sodium chloride 0.9% (plus) 50 ML 100 MG IV (16:46)
[2020-12-07] MEDS: HYDROcodone-acetaminophen 5-325 mg Tablet 1 TAB PO (16:47)
[2020-12-07] MEDS: tamsulosin 0.4 mg Capsule PO (20:26)
[2020-12-07] MEDS: azithromycin 500 MG in sodium chloride 0.9% 250 ML 250 MG IV (23:21)
[2020-12-08] VITALS (16 sets, daily range): BP systolic 105–117; BP diastolic 63–70; PULSE 80–116; RESP 16–24; TEMP 36.6–36.7; O2SAT 94–98
[2020-12-08] MEDS: HYDROcodone-acetaminophen 5-325 mg Tablet 1 TAB PO ×3 (00:42→21:04)
[2020-12-08] MEDS: acetaminophen 325 mg Tablet 650 MG PO ×2 (04:50→15:35)
[2020-12-08 05:30] LABS: Basophils % 0.2 %; Eosinophils # 0.2 10^3/uL (0.0-0.8); Eosinophils % 1.6 %; Hematocrit 34.2 % (42.0-52.0); Hemoglobin 10.1 g/dL (11.7-16.6); Lymphocytes # 0.4 10^3/uL (0.8-4.8); Lymphocytes % 4.3 %; Mean Corpuscular HGB Conc 29.5 g/dL (30.0-36.0); Mean Corpuscular Hemoglobin 25.6 pg (28.0-34.0); Mean Corpuscular Volume 86.6 fL (80-94); Mean Platelet Volume 9.9 fL (7.4-10.4); Monocytes # 1.2 10^3/uL (0.2-0.9); Monocytes % 11.5 %; Neutrophils # 8.39 10^3/uL (1.8-7.7); Neutrophils % 81.3 %; Nucleated Red Blood Cells % 0 %; Platelet Count 282 10^3/cmm (130-400); Red Blood Count 3.95 10^6/uL (4.1-5.3); Red Cell Distribution Width 15.2 % (12.1-15.1); White Blood Count 10.3 10^3/uL (4.0-10.0)
[2020-12-08 06:09] LABS: Alanine Aminotransferase 9 U/L (0-41); Albumin Level 3.3 g/dL (3.5-5.2); Alkaline Phosphatase 125 IU/L (40-130); Anion Gap 14.7 (5-19); Aspartate Amino Transferase 10 U/L (0-40); Blood Urea Nitrogen 56 mg/dL (8-23); Calcium 8.7 mg/dL (8.5-10.5); Carbon Dioxide 29 mmol/L (22-29); Chloride 101 mmol/L (98-107); Globulin 2.7 g/dL (1.3-4.6); Glucose 94 mg/dL (65-115); Magnesium 2.4 mg/dL (1.7-2.3); Osmolality Calculated 305 mOsm/kg (285-295); Potassium 4.7 mmol/L (3.5-5.1); Sodium 140 mmol/L (136-145); Total Bilirubin 0.3 mg/dL (0.15-1.2)
[2020-12-08 06:13] LABS: NT Pro B Type Natriuretic Pept 9908 pg/mL (0-450)
[2020-12-08] MEDS: metoprolol succinate ER (24 HR) 100 mg Tablet PO (06:16)
[2020-12-08] MEDS: potassium chloride ER 10 mEq Tablet PO (06:16)
[2020-12-08] MEDS: pantoprazole DR 40 mg Tablet PO (06:16)
[2020-12-08] MEDS: bumetanide 0.25 mg/mL SDV 4 mL 1 MG IV ×2 (06:24→18:12)
[2020-12-08] MEDS: acetylcysteine 200 mg/mL SDV 4 mL 100 MG INHALATION ×4 (07:37→19:35)
[2020-12-08] MEDS: budesonide 0.5 mg/2 mL Neb 0.25 MG INHALATION ×2 (07:37→19:34)
[2020-12-08] MEDS: ipratropium-albuterol 3 mL Neb INHALATION ×4 (07:37→19:34)
[2020-12-08] MEDS: aspirin 81 mg EC Tablet PO (08:48)
[2020-12-08] MEDS: atorvastatin 40 mg Tablet 20 MG PO (08:48)
[2020-12-08] MEDS: spironolactone 25 mg Tablet PO (08:48)
[2020-12-08] MEDS: ferrous sulfate EC 325 mg Tablet PO (08:48)
--- NOTE | 2020-12-08 09:02 | DCPLANNER ---
Pg 2 of IM updated and reviewed with pt. No questions, copy provided.
--- NOTE | 2020-12-08 11:55 | PC.OT ---
OT tx attempted. Pt lying in bed and declines to get up or change position at this time as he is having 8/10 pain. Pt requests pain medication. Family present in room. Therapist notified nursing of pts request.Will attempt again tomorrow.
[2020-12-08] MEDS: magnesium hydroxide 30 mL UDC PO (12:11)
[2020-12-08] MEDS: enoxaparin 30 mg/0.3 mL Syringe SUBCUT (12:11)
--- NOTE | 2020-12-08 13:41 | PC.NURSE ---
RACHID MCCARTNEY ON FLOOR - ORDER GIVEN TO MEHNAZ RN TO GIVE 10M IVP RACHID - TELE WAS SHOWING AFIB W RVR AT 150 - HEART RATE DOWN TO 90'S AT PRESENT TIME - WILL CONTINUE TO MONITOR
--- NOTE | 2020-12-08 13:45 | P.PN_ITS ---
Subjective Subjective: Interval history: Patient was seen and examined this morning. His shortness of breath has improved. Though his lung sounds are still very coarse, but it has improved since yesterday. He was in A. fib with RVR today, responded well to 10 mg IV diltiazem one-time dose. Currently saturating well on 2 L of oxygen via nasal cannula. He has remained afebrile, continues to have good urine output with Bumex. His other vitals and labs have been reviewed. Medications: Reviewed: Yes Vitals/I&O/Wt Last Vital Signs Temp 97.8 F 12/08/20 11:22 Pulse 109 H 12/08/20 11:22 Resp 16 12/08/20 11:22 BP 116/69 12/08/20 11:22 Pulse Ox 95 12/08/20 11:22 12/07/20 12/08/20 12/08/20 22:59 06:59 14:59 Intake Total 620 / 620 250 / 870 600 / 600 Output Total 150 / 570 300 / 870 675 / 675 Balance 470 / 50 -50 / 0 -75 / -75 Physical Exam 2 HENMT: COMMON NORMALS: normocephalic, atraumatic and hearing grossly normal bilaterally HEAD & SCALP: normocephalic and atraumatic Chest: CHEST: Yes Symmetrical chest wall rise OTHER: Bilateral coarse br eath, bilateral wheezing and rhonchi, bilateral crackles Cardio: COMMON NORMALS: No gallops present (Cardio), No murmurs present (Cardio) and No rub (Cardio) OTHER: Irregularly irregular, S1-S2 variable intensity. GI: COMMON NORMALS: Normal to inspection, nondistended, normoactive bowel sounds present, Soft to palpation, non-tender, No hepatosplenomegaly present and no masses AUSCULTATION: Yes normoactive bowel sounds PALPATION: Yes Soft to palpation and Yes No hepatosplenomegaly present RECTAL EXAM: Yes deferred Extremity: COMMON NORMALS: no clubbing, cyanosis or edema and no pedal edema Data : 12/08/20 04:56 12/08/20 04:56 Micro: Microbiology 12/05/20 14:32 Gram Stain - Final Sputum - Expectorated Sputum Sputum Culture - Final Methicillin Resis Staph Aureus A&P Assessment and plan (1) Atrial fibrillation with RVR: With rate in upper 110s. Received Cardizem 10 mg IV one-time dose. Currently on metoprolol succinate 100 mg p.o. in am as well as metoprolol succinate 50 mg p.o. nighttime. Continue to monitor on telemetry. Status: Acute (2) Acute and chronic respiratory failure with hypoxia: Secondary to diastolic CHF, and pneumonia -Blood culture: NTD, -Sputum culture: Staph aureus -Repeat sputum culture: -continue Rocephin and azithromycin -Vancomycin -Bumex 1 mg every 12 hours, monitor potassium, urine output, fluid restriction 1500 cc -Nebulizer treatments -Has a history of COPD, has a history of smoking the past, have held off for steroids for now as no wheezing on exam -Currently on 2 L, improved over admission -DNR/DNI Status: Acute (3) Pneumonia: Status: Acute (4) Acute exacerbation of CHF (congestive heart failure): Status: Acute (5) Back pain: CT of the lumbar spine did not show any acute fracture PT OT Status: Acute (6) NSTEMI (non-ST elevated myocardial infarction): serially negative deltas, likely related to CHF exacerbation Continue aspirin, statin Status: Acute (7) Acute on chronic anemia: Status: Acute (8) Fracture of C7 vertebra, closed: Status: Acute (9) HTN (hypertension): Status: Acute (10) COPD (chronic obstructive pulmonary disease): Status: Acute (11) Mass of upper lobe of left lung: 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 Giordano's note patient has elected for no treatment Has not followed up with oncology for the last 4 months Declined hospice on most recent admission. 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
[2020-12-08] MEDS: cefTRIAXone 1,000 MG in sodium chloride 0.9% (plus) 50 ML 100 MG IV (15:35)
[2020-12-08] MEDS: metoprolol succinate ER (24 HR) 50 mg Tablet PO (18:12)
[2020-12-08] MEDS: tamsulosin 0.4 mg Capsule PO (21:03)
[2020-12-08] MEDS: azithromycin 500 MG in sodium chloride 0.9% 250 ML 250 MG IV (22:56)
[2020-12-09] VITALS (18 sets, daily range): BP systolic 100–144; BP diastolic 65–84; PULSE 74–106; RESP 16–22; TEMP 36.5–37; O2SAT 96–98
[2020-12-09] MEDS: vancomycin 1,000 MG in sodium chloride 0.9% 250 ML 250 MG IV (02:01)
[2020-12-09] MEDS: bumetanide 0.25 mg/mL SDV 4 mL 1 MG IV ×2 (06:05→17:47)
[2020-12-09] MEDS: potassium chloride ER 10 mEq Tablet PO (06:15)
[2020-12-09] MEDS: metoprolol succinate ER (24 HR) 100 mg Tablet PO (06:15)
[2020-12-09] MEDS: pantoprazole DR 40 mg Tablet PO (06:15)
[2020-12-09] MEDS: budesonide 0.5 mg/2 mL Neb 0.25 MG INHALATION ×2 (08:12→20:07)
[2020-12-09] MEDS: ipratropium-albuterol 3 mL Neb INHALATION ×4 (08:12→20:07)
[2020-12-09] MEDS: acetylcysteine 200 mg/mL SDV 4 mL 100 MG INHALATION ×4 (08:15→20:08)
[2020-12-09] MEDS: aspirin 81 mg EC Tablet PO (08:58)
[2020-12-09] MEDS: atorvastatin 40 mg Tablet 20 MG PO (08:58)
[2020-12-09] MEDS: HYDROcodone-acetaminophen 5-325 mg Tablet 1 TAB PO (08:58)
[2020-12-09] MEDS: spironolactone 25 mg Tablet PO (08:58)
--- NOTE | 2020-12-09 11:32 | PM.PN ---
Subjective Subjective: Interval history: Patient was seen and examined this morning. His shortness of breath has improved. His other vitals and labs have been reviewed. Medications: Reviewed: Yes Vitals/I&O/Wt Last Vital Signs Temp 97.9 F 12/09/20 11:08 Pulse 106 H 12/09/20 11:28 Resp 20 H 12/09/20 11:28 BP 108/66 12/09/20 11:08 Pulse Ox 98 12/09/20 11:28 12/08/20 12/09/20 12/09/20 22:59 06:59 14:59 Intake Total 250 / 850 980 / 1830 256 / 256 Output Total 515 / 1190 490 / 1680 250 / 250 Balance -265 / -340 490 / 150 6 / 6 Physical Exam HENMT: COMMON NORMALS: normocephalic, atraumatic and hearing grossly normal bilaterally HEAD & SCALP: normocephalic and atraumatic Chest: CHEST: Yes Symmetrical chest wall rise OTHER: Bilateral coarse breath, Cardio: COMMON NORMALS: No gallops present (Cardio), No murmurs present (Cardio) and No rub (Cardio) OTHER: Irregularly irregular, S1-S2 variable intensity. GI: COMMON NORMALS: Normal to inspection, nondistended, normoactive bowel sounds present, Soft to palpation, non-tender, No hepatosplenomegaly present and no masses AUSCULTATION: Yes normoactive bowel sounds PALPATION: Yes Soft to palpation and Yes No hepatosplenomegaly present RECTAL EXAM: Yes deferred Extremity: COMMON NORMALS: no clubbing, cyanosis or edema and no pedal edema Data : 12/09/20 17:15 12/09/20 17:15 Micro: Microbiology 12/07/20 23:00 Sputum Culture - Preliminary Sputum - Expectorated Sputum Staphylococcus aureus 12/05/20 14:32 Gram Stain - Final Sputum - Expectorated Sputum Sputum Culture - Final Methicillin Resis Staph Aureus A&P Assessment and plan (1) Atrial fibrillation with RVR: With rate in upper 110s. Received Cardizem 10 mg IV one-time dose. Currently on metoprolol succinate 100 mg p.o. in am as well as metoprolol succinate 50 mg p.o. nighttime. Continue to monitor on telemetry. Status: Acute (2) Acute and chronic respiratory failure with hypoxia: Secondary to diastolic CHF, and pneumonia -Blood culture: NTD, -Sputum culture: Staph aureus -Repeat sputum culture: -continue Rocephin - azithromycin discontinued on 12/09 - Vancomycin ( 12/07--) -Bumex 1 mg every 12 hours, monitor potassium, urine output, fluid restriction 1500 cc -Nebulizer treatments -Has a history of COPD, has a history of smoking the past, have held off for steroids for now as no wheezing on exam -Currently on 2 L, improved over admission -DNR/DNI Status: Acute (3) Pneumonia: Status: Acute (4) Acute exacerbation of CHF (congestive heart failure): Status: Acute (5) Back pain: CT of the lumbar spine did not show any acute fracture PT OT Status: Acute (6) NSTEMI (non-ST elevated myocardial infarction): serially negative deltas, likely related to CHF exacerbation Continue aspirin, statin Status: Acute (7) Acute on chronic anemia: Status: Acute (8) Fracture of C7 vertebra, closed: Status: Acute (9) HTN (hypertension): Status: Acute (10) COPD (chronic obstructive pulmonary disease): Status: Acute (11) Mass of upper lobe of left lung: 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 Giordano's note patient has elected for no treatment Has not followed up with oncology for the last 4 months Declined hospice on most recent admission. Status: Acute Attestations Medical Necessity Statement*: Patient needs to be in hospital for management of decompensated heart failure and pneumonia. Coding Level of Care Code Acute Rvda Master Certified Rv Technician for [facility] Fwd Diagnoses Atrial fibrillation with RVR I48.91 Acute and chronic respiratory failure with hypoxia J96.21 Pneumonia J18.9 Acute exacerbation of CHF (congestive heart failure) I50.9 Back pain M54.9 NSTEMI (non-ST elevated myocardial infarction) I21.4 Acute on chronic anemia D64.9 Fracture of C7 vertebra, closed S12.600A HTN (hypertension) I10 COPD (chronic obstructive pulmonary disease) J44.9 Mass of upper lobe of left lung R91.8
[2020-12-09] MEDS: acetaminophen 325 mg Tablet 650 MG PO (13:52)
[2020-12-09] MEDS: enoxaparin 30 mg/0.3 mL Syringe SUBCUT (13:53)
[2020-12-09] MEDS: cefTRIAXone 1,000 MG in sodium chloride 0.9% (plus) 50 ML 100 MG IV (16:17)
[2020-12-09] MEDS: magnesium hydroxide 30 mL UDC PO (16:22)
[2020-12-09 17:36] LABS: Basophils % 0.3 %; Eosinophils # 0.3 10^3/uL (0.0-0.8); Hemoglobin 9.8 g/dL (11.7-16.6); Lymphocytes # 0.4 10^3/uL (0.8-4.8); Mean Corpuscular HGB Conc 29.7 g/dL (30.0-36.0); Mean Corpuscular Hemoglobin 25.8 pg (28.0-34.0); Mean Corpuscular Volume 86.8 fL (80-94); Mean Platelet Volume 9.5 fL (7.4-10.4); Monocytes # 1.2 10^3/uL (0.2-0.9); Monocytes % 10.6 %; Neutrophils # 8.93 10^3/uL (1.8-7.7); Neutrophils % 80.8 %; Nucleated Red Blood Cells % 0 %; Platelet Count 250 10^3/cmm (130-400)
[2020-12-09] MEDS: metoprolol succinate ER (24 HR) 50 mg Tablet PO (17:46)
[2020-12-09 17:50] LABS: Anion Gap 12.9 (5-19); Blood Urea Nitrogen 56 mg/dL (8-23); Calcium 8.8 mg/dL (8.5-10.5); Carbon Dioxide 30 mmol/L (22-29); Chloride 97 mmol/L (98-107); Glucose 130 mg/dL (65-115); Osmolality Calculated 297 mOsm/kg (285-295); Potassium 4.9 mmol/L (3.5-5.1); Sodium 135 mmol/L (136-145)
[2020-12-09] MEDS: tamsulosin 0.4 mg Capsule PO (20:56)
[2020-12-10] VITALS (15 sets, daily range): BP systolic 115–143; BP diastolic 65–87; PULSE 62–104; RESP 16–20; TEMP 36.4–36.9; O2SAT 93–100
[2020-12-10] MEDS: acetaminophen 325 mg Tablet 650 MG PO (00:03)
[2020-12-10 05:40] LABS: Basophils % 0.3 %; Eosinophils # 0.4 10^3/uL (0.0-0.8); Eosinophils % 3.8 %; Hematocrit 32.8 % (42.0-52.0); Hemoglobin 9.7 g/dL (11.7-16.6); Lymphocytes # 0.5 10^3/uL (0.8-4.8); Lymphocytes % 4.3 %; Mean Corpuscular HGB Conc 29.6 g/dL (30.0-36.0); Mean Corpuscular Hemoglobin 25.4 pg (28.0-34.0); Mean Corpuscular Volume 85.9 fL (80-94); Mean Platelet Volume 9.6 fL (7.4-10.4); Monocytes % 9.8 %; Neutrophils # 8.54 10^3/uL (1.8-7.7); Neutrophils % 80.5 %; Nucleated Red Blood Cells % 0 %; Platelet Count 265 10^3/cmm (130-400); Red Blood Count 3.82 10^6/uL (4.1-5.3); Red Cell Distribution Width 14.9 % (12.1-15.1); White Blood Count 10.6 10^3/uL (4.0-10.0)
[2020-12-10 06:08] LABS: Anion Gap 12.8 (5-19); Blood Urea Nitrogen 55 mg/dL (8-23); Calcium 8.7 mg/dL (8.5-10.5); Carbon Dioxide 31 mmol/L (22-29); Chloride 101 mmol/L (98-107); Glucose 103 mg/dL (65-115); Osmolality Calculated 305 mOsm/kg (285-295); Potassium 4.8 mmol/L (3.5-5.1); Sodium 140 mmol/L (136-145)
[2020-12-10 06:11] LABS: Magnesium 2.6 mg/dL (1.7-2.3)
[2020-12-10] MEDS: pantoprazole DR 40 mg Tablet PO (06:46)
[2020-12-10] MEDS: potassium chloride ER 10 mEq Tablet PO (06:47)
[2020-12-10] MEDS: metoprolol succinate ER (24 HR) 100 mg Tablet PO (06:47)
[2020-12-10] MEDS: bumetanide 0.25 mg/mL SDV 4 mL 1 MG IV ×2 (06:55→18:10)
[2020-12-10] MEDS: acetylcysteine 200 mg/mL SDV 4 mL 100 MG INHALATION ×4 (08:05→20:28)
[2020-12-10] MEDS: ipratropium-albuterol 3 mL Neb INHALATION ×4 (08:05→20:28)
[2020-12-10] MEDS: budesonide 0.5 mg/2 mL Neb 0.25 MG INHALATION ×2 (08:06→20:27)
[2020-12-10] MEDS: aspirin 81 mg EC Tablet PO (08:36)
[2020-12-10] MEDS: atorvastatin 40 mg Tablet 20 MG PO (08:36)
[2020-12-10] MEDS: spironolactone 25 mg Tablet PO (08:36)
--- NOTE | 2020-12-10 09:56 | XR_ITS ---
WS: [id number] XR chest 1V portable [id number] REASON FOR EXAM: short of breath FINDINGS: The chest is unchanged compared to previous examination of 12/05/2020. Again is noted the large left u pper lobe mass. No acute lung abnormality is identified. XR/XR chest 1V portable [id number] IMPRESSION: Stable abnormal chest with no acute abnormality.
--- NOTE | 2020-12-10 12:12 | PM.PN ---
Subjective Subjective: Interval history: Shortness of breath has improved, though lung sounds still coarse. Mucinex added, chest PT. saturating well on 2 L oxygen. Medications: Reviewed: Yes Vitals/I&O/Wt Last Vital Signs Temp 97.7 F 12/10/20 12:00 Pulse 87 12/10/20 12:00 Resp 16 12/10/20 12:00 BP 118/68 12/10/20 12:00 Pulse Ox 93 12/10/20 12:00 12/09/20 12/10/20 12/10/20 22:59 06:59 14:59 Intake Total 200 / 712 240 / 240 Output Total 225 / 625 375 / 1000 Balance - / -375 / -288 240 / 240 Physical Exam HENMT: COMMON NORMALS: normocephalic, atraumatic and hearing grossly normal bilaterally HEAD & SCALP: normocephalic and atraumatic Chest: CHEST: Yes Symmetrical chest wall rise OTHER: Bilateral coarse breath sound improving. Cardio: COMMON NORMALS: No gallops present (Cardio), No murmurs present (Cardio) and No rub (Cardio) OTHER: Irregularly irregular, S1-S2 variable intensity. GI: COMMON NORMALS: Normal to inspection, nondistended, normoactive bowel sounds present, Soft to palpation, non-tender, No hepatosplenomegaly present and no masses AUSCULTATION: Yes normoactive bowel sounds PALPATION: Yes Soft to palpation and Yes No hepatosplenomegaly present RECTAL EXAM: Yes deferred Extremity: COMMON NORMALS: no clubbing, cyanosis or edema and no pedal edema Data : 12/10/20 05:27 12/10/20 05:27 Micro: Microbiology 12/07/20 23:00 Sputum Culture - Final Sputum - Expectorated Sputum Methicillin Resis Staph Aureus A&P Assessment and plan (1) Atrial fibrillation with RVR: With rate in upper 110s. Received Cardizem 10 mg IV one-time dose. Currently on metoprolol succinate 100 mg p.o. in am as well as metoprolol succinate 50 mg p.o. nighttime. Continue to monitor on telemetry. Status: Acute (2) Acute and chronic respiratory failure with hypoxia: Secondary to diastolic CHF, and pneumonia -Blood culture: NTD, -Sputum culture: Staph aureus -Repeat sputum culture: -continue Rocephin - azithromycin discontinued on 12/09 - Vancomycin ( 12/07--) -Bumex 1 mg every 12 hours, monitor potassium, urine output, fluid restriction 1500 cc -Nebulizer treatments -Has a history of COPD, has a history of smoking the past, have held off for steroids for now as no wheezing on exam -Currently on 2 L, improved over admission -DNR/DNI Status: Acute (3) Pneumonia: Status: Acute (4) Acute exacerbation of CHF (congestive heart failure): Status: Acute (5) Back pain: CT of the lumbar spine did not show any acute fracture PT OT Status: Acute (6) NSTEMI (non-ST elevated myocardial infarction): serially negative deltas, likely related to CHF exacerbation Continue aspirin, statin Status: Acute (7) Acute on chronic anemia: Status: Acute (8) Fracture of C7 vertebra, closed: Status: Acute (9) HTN (hypertension): Status: Acute (10) COPD (chronic obstructive pulmonary disease): Status: Acute (11) Mass of upper lobe of left lung: 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 Giordano's note patient has elected for no treatment Has not followed up with oncology for the last 4 months Declined hospice on most recent admission. Status: Acute Attestations Medical Necessity Statement*: Patient needs to be in hospital for management of pneumonia and decompensated heart failure. 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
[2020-12-10] MEDS: enoxaparin 30 mg/0.3 mL Syringe SUBCUT (13:44)
[2020-12-10 14:39] LABS: Vancomycin Trough 13.8 ug/mL (10-15)
[2020-12-10] MEDS: vancomycin 1,000 MG in sodium chloride 0.9% 250 ML 250 MG IV (16:20)
[2020-12-10] MEDS: metoprolol succinate ER (24 HR) 50 mg Tablet PO (18:10)
[2020-12-10] MEDS: guaiFENesin 600 mg Tablet 1200 MG PO (18:10)
[2020-12-10] MEDS: cefTRIAXone 1,000 MG in sodium chloride 0.9% (plus) 50 ML 100 MG IV (18:12)
--- NOTE | 2020-12-10 19:00 | PC.NURSE ---
Report to Rachael RAZA at this time.
[2020-12-10] MEDS: tamsulosin 0.4 mg Capsule PO (21:49)
[2020-12-10] MEDS: HYDROcodone-acetaminophen 5-325 mg Tablet 1 TAB PO (23:06)
[2020-12-11] VITALS (17 sets, daily range): BP systolic 104–125; BP diastolic 62–77; PULSE 79–115; RESP 16–20; TEMP 36.6–36.8; O2SAT 92–100
[2020-12-11 06:03] LABS: Basophils # 0.1 10^3/uL (0.0-0.1); Basophils % 0.5 %; Eosinophils # 0.5 10^3/uL (0.0-0.8); Eosinophils % 3.6 %; Hematocrit 33.3 % (42.0-52.0); Hemoglobin 9.9 g/dL (11.7-16.6); Lymphocytes # 0.5 10^3/uL (0.8-4.8); Lymphocytes % 3.8 %; Mean Corpuscular HGB Conc 29.7 g/dL (30.0-36.0); Mean Corpuscular Hemoglobin 25.4 pg (28.0-34.0); Mean Corpuscular Volume 85.4 fL (80-94); Mean Platelet Volume 9.6 fL (7.4-10.4); Monocytes # 1.2 10^3/uL (0.2-0.9); Monocytes % 9.6 %; Neutrophils # 10.08 10^3/uL (1.8-7.7); Neutrophils % 80.7 %; Nucleated Red Blood Cells % 0 %; Platelet Count 285 10^3/cmm (130-400); Red Cell Distribution Width 14.9 % (12.1-15.1); White Blood Count 12.5 10^3/uL (4.0-10.0)
[2020-12-11 06:28] LABS: Blood Urea Nitrogen 52 mg/dL (8-23); Calcium 8.7 mg/dL (8.5-10.5); Carbon Dioxide 32 mmol/L (22-29); Chloride 98 mmol/L (98-107); Glucose 101 mg/dL (65-115); Osmolality Calculated 300 mOsm/kg (285-295); Sodium 138 mmol/L (136-145)
[2020-12-11 06:30] LABS: Creatinine Clr Calc Pharmacy 29.5495
[2020-12-11] MEDS: pantoprazole DR 40 mg Tablet PO (06:41)
[2020-12-11] MEDS: potassium chloride ER 10 mEq Tablet PO (06:42)
[2020-12-11] MEDS: metoprolol succinate ER (24 HR) 100 mg Tablet PO (06:42)
[2020-12-11] MEDS: bumetanide 0.25 mg/mL SDV 4 mL 1 MG IV ×2 (06:50→17:25)
[2020-12-11] MEDS: ipratropium-albuterol 3 mL Neb INHALATION ×4 (07:44→21:26)
[2020-12-11] MEDS: budesonide 0.5 mg/2 mL Neb 0.25 MG INHALATION ×2 (07:44→21:26)
[2020-12-11] MEDS: acetylcysteine 200 mg/mL SDV 4 mL 100 MG INHALATION ×4 (07:45→21:26)
[2020-12-11] MEDS: atorvastatin 40 mg Tablet 20 MG PO (09:01)
[2020-12-11] MEDS: aspirin 81 mg EC Tablet PO (09:01)
[2020-12-11] MEDS: guaiFENesin 600 mg Tablet 1200 MG PO ×2 (09:01→17:25)
[2020-12-11] MEDS: ferrous sulfate EC 325 mg Tablet PO (09:01)
[2020-12-11] MEDS: spironolactone 25 mg Tablet PO (09:01)
[2020-12-11] MEDS: acetaminophen 325 mg Tablet 650 MG PO ×2 (09:04→21:38)
[2020-12-11] MEDS: enoxaparin 30 mg/0.3 mL Syringe SUBCUT (14:20)
--- NOTE | 2020-12-11 15:44 | PC.RESP ---
Mucom[facility] will not scan, tried multiple times today.
--- NOTE | 2020-12-11 16:40 | PC.NURSE ---
Chicken leg and mashed potatoes from [facility]
[2020-12-11] MEDS: cefTRIAXone 1,000 MG in sodium chloride 0.9% (plus) 50 ML 100 MG IV (17:25)
[2020-12-11] MEDS: metoprolol succinate ER (24 HR) 50 mg Tablet PO (17:25)
[2020-12-11] MEDS: bisacodyl 5 mg Tablet PO (19:16)
[2020-12-11] MEDS: polyethylene glycol 3350 Pkt 17 gm PO (19:16)
--- NOTE | 2020-12-11 19:26 | PC.NURSE ---
Report to Merari/Rachael Rubio LPN at this time.
--- NOTE | 2020-12-11 21:17 | P.PN_ITS ---
Subjective Subjective: Interval history: Shortness of breath has improved, though lung sounds still coarse. Mucinex added, chest PT. saturating well on 2 L oxygen. Complaining of constipation Medications: Reviewed: Yes Vitals/I&O/Wt Last Vital Signs Temp 97.9 F 12/11/20 19:23 Pulse 101 H 12/11/20 19:23 Resp 20 H 12/11/20 19:23 BP 125/77 12/11/20 19:23 Pulse Ox 96 12/11/20 19:23 12/11/20 12/11/20 12/11/20 06:59 14:59 22:59 Intake Total 240 / 240 50 / 290 Output Total 500 / 1100 200 / 200 Balance -500 / 640 40 / 40 50 / 90 Physical Exam 2 HENMT: COMMON NORMALS: normocephalic, atraumatic and hearing grossly normal bilaterally HEAD & SCALP: normocephalic and atraumatic Chest: CHEST: Yes Symmetrical chest wall rise OTHER: Bilateral coarse br eath sound improving. Cardio: COMMON NORMALS: No gallops present (Cardio), No murmurs present (Cardio) and No rub (Cardio) OTHER: Irregularly irregular, S1-S2 variable intensity. GI: COMMON NORMALS: Normal to inspection, nondistended, normoactive bowel sounds present, Soft to palpation, non-tender, No hepatosplenomegaly present and no masses AUSCULTATION: Yes normoactive bowel sounds PALPATION: Yes Soft to palpation and Yes No hepatosplenomegaly present RECTAL EXAM: Yes deferred Extremity: COMMON NORMALS: no clubbing, cyanosis or edema and no pedal edema Data : 12/11/20 05:53 12/11/20 05:53 Micro: Microbiology 12/05/20 17:55 Blood Culture - Final Blood NO GROWTH AFTER 5 DAYS 12/05/20 17:55 Blood Culture - Final Blood NO GROWTH AFTER 5 DAYS A&P Assessment and plan (1) Atrial fibrillation with RVR: With rate in upper 110s. Received Cardizem 10 mg IV one-time dose. Currently on metoprolol succinate 100 mg p.o. in am as well as metoprolol succinate 50 mg p.o. nighttime. Continue to monitor on telemetry. Status: Acute (2) Acute and chronic respiratory failure with hypoxia: Secondary to diastolic CHF, and pneumonia -Blood culture: NTD, -Sputum culture: MRSA -Repeat sputum culture: MRSA -continue Rocephin - azithromycin discontinued on 12/09 - Vancomycin ( 12/07-- T.D ) -Bumex 1 mg every 12 hours, monitor potassium, urine output, fluid restriction 1500 cc -Nebulizer treatments -Has a history of COPD, has a history of smoking the past, have held off for steroids for now as no wheezing on exam -Currently on 2 L, improved over admission -DNR/DNI Status: Acute (3) Pneumonia: Status: Acute (4) Acute exacerbation of CHF (congestive heart failure): Status: Acute (5) Back pain: CT of the lumbar spine did not show any acute fracture PT OT Status: Acute (6) NSTEMI (non-ST elevated myocardial infarction): serially negative deltas, likely related to CHF exacerbation Continue aspirin, statin Status: Acute (7) Acute on chronic anemia: Status: Acute (8) Fracture of C7 vertebra, closed: Status: Acute (9) HTN (hypertension): Status: Acute (10) COPD (chronic obstructive pulmonary disease): Status: Acute (11) Mass of upper lobe of left lung: 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 Giordano's note patient has elected for no treatment Has not followed up with oncology for the last 4 months Declined hospice on most recent admission. Status: Acute Attestations Medical Necessity Statement*: Patient is to be in hospital for management of pneumonia, heart failure Coding Level of Care Code Acute Methods Specialist for [facility] Fwd Diagnoses Atrial fibrillation with RVR I48.91 Acute and chronic respiratory failure with hypoxia J96.21 Pneumonia J18.9 Acute exacerbation of CHF (congestive heart failure) I50.9 Back pain M54.9 NSTEMI (non-ST elevated myocardial infarction) I21.4 Acute on chronic anemia D64.9 Fracture of C7 vertebra, closed S12.600A HTN (hypertension) I10 COPD (chronic obstructive pulmonary disease) J44.9 Mass of upper lobe of left lung R91.8
[2020-12-11] MEDS: tamsulosin 0.4 mg Capsule PO (21:38)
[2020-12-12] VITALS (15 sets, daily range): BP systolic 98–134; BP diastolic 59–72; PULSE 83–115; RESP 17–23; TEMP 36.6–37; O2SAT 92–96
[2020-12-12] MEDS: vancomycin 1,000 MG in sodium chloride 0.9% 250 ML 250 MG IV (03:10)
[2020-12-12] MEDS: HYDROcodone-acetaminophen 5-325 mg Tablet 1 TAB PO ×2 (03:13→15:05)
[2020-12-12] MEDS: pantoprazole DR 40 mg Tablet PO (06:20)
[2020-12-12] MEDS: potassium chloride ER 10 mEq Tablet PO (06:20)
[2020-12-12] MEDS: metoprolol succinate ER (24 HR) 100 mg Tablet PO (06:20)
[2020-12-12] MEDS: bumetanide 0.25 mg/mL SDV 4 mL 1 MG IV ×2 (06:36→18:26)
[2020-12-12] MEDS: ipratropium-albuterol 3 mL Neb INHALATION ×4 (07:42→21:03)
[2020-12-12] MEDS: budesonide 0.5 mg/2 mL Neb 0.25 MG INHALATION ×2 (07:42→21:03)
[2020-12-12] MEDS: guaiFENesin 600 mg Tablet 1200 MG PO ×2 (08:33→18:25)
[2020-12-12] MEDS: aspirin 81 mg EC Tablet PO (08:33)
[2020-12-12] MEDS: acetaminophen 325 mg Tablet 650 MG PO (08:33)
[2020-12-12] MEDS: spironolactone 25 mg Tablet PO (08:34)
[2020-12-12] MEDS: atorvastatin 40 mg Tablet 20 MG PO (08:34)
[2020-12-12] MEDS: polyethylene glycol 3350 Pkt 17 gm PO (08:46)
[2020-12-12] MEDS: bisacodyl 5 mg Tablet PO (08:46)
--- NOTE | 2020-12-12 12:29 | P.PN_ITS ---
Subjective Subjective: Interval history: Shortness of breath has improved. Currently saturating well on room air, and at times is requiring minimal oxygen through nasal cannula. Medications: Reviewed: Yes Vitals/I&O/Wt Last Vital Signs Temp 98.6 F 12/12/20 10:56 Pulse 97 12/12/20 12:15 Resp 17 12/12/20 12:09 BP 108/66 12/12/20 10:56 Pulse Ox 96 12/12/20 12:09 12/11/20 12/12/20 12/12/20 22:59 06:59 14:59 Intake Total 50 / 290 250 / 540 100 / 100 Output Total 350 / 550 175 / 725 300 / 300 Balance -300 / -260 75 / -185 -200 / -200 Physical Exam HENMT: COMMON NORMALS: normocephalic, atraumatic and hearing grossly normal bilaterally HEAD & SCALP: normocephalic and atraumatic Chest: CHEST: Yes Symmetrical chest wall rise OTHER: Bilateral coarse breath sound improving. Cardio: COMMON NORMALS: No gallops present (Cardio), No murmurs present (Cardio) and No rub (Cardio) OTHER: Irregularly irregular, S1-S2 variable intensity. GI: COMMON NORMALS: Normal to inspection, nondistended, normoactive bowel sounds present, Soft to palpation, non-tender, No hepatosplenomegaly present and no masses AUSCULTATION: Yes normoactive bowel sounds PALPATION: Yes Soft to palpation and Yes No hepatosplenomegaly present RECTAL EXAM: Yes deferred Extremity: COMMON NORMALS: no clubbing, cyanosis or edema and no pedal edema Data : 12/11/20 05:53 12/11/20 05:53 A&P Assessment and plan (1) Atrial fibrillation with RVR: With rate in upper 110s. Received Cardizem 10 mg IV one-time dose. Currently on metoprolol succinate 100 mg p.o. in am as well as metoprolol succinate 50 mg p.o. nighttime. Continue to monitor on telemetry. Status: Acute (2) Acute and chronic respiratory failure with hypoxia: Secondary to diastolic CHF, and pneumonia -Blood culture: NTD, -Sputum culture: MRSA -Repeat sputum culture: MRSA - Rocephin 12/05-12/12) - azithromycin discontinued on 12/09 - Vancomycin ( 12/07-- 12/12 ) - Zyvox : 600 mg q12h daily ( 12/12 ) -Bumex 1 mg every 12 hours, monitor potassium, urine output, fluid restriction 1500 cc -Nebulizer treatments -Has a history of COPD, has a history of smoking the past, have held off for steroids for now as no wheezing on exam -Currently on 2 L, improved over admission -DNR/DNI Status: Acute (3) Pneumonia: Status: Acute (4) Acute exacerbation of CHF (congestive heart failure): Status: Acute (5) Back pain: CT of the lumbar spine did not show any acute fracture PT OT Status: Acute (6) NSTEMI (non-ST elevated myocardial infarction): serially negative deltas, likely related to CHF exacerbation Continue aspirin, statin Status: Acute (7) Acute on chronic anemia: Status: Acute (8) Fracture of C7 vertebra, closed: Status: Acute (9) HTN (hypertension): Status: Acute (10) COPD (chronic obstructive pulmonary disease): Status: Acute (11) Mass of upper lobe of left lung: 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 Giordano's note patient has elected for no treatment Has not followed up with oncology for the last 4 months Declined hospice on most recent admission. Status: Acute Attestations Medical Necessity Statement*: Patient needs to be in hospital for management of pneumonia and heart failure Coding Level of Care Code Acute Psychologist Engineering for [facility] Diagnoses Atrial fibrillation with RVR I48.91 Acute and chronic respiratory failure with hypoxia J96.21 Pneumonia J18.9 Acute exacerbation of CHF (congestive heart failure) I50.9 Back pain M54.9 NSTEMI (non-ST elevated myocardial infarction) I21.4 Acute on chronic anemia D64.9 Fracture of C7 vertebra, closed S12.600A HTN (hypertension) I10 COPD (chronic obstructive pulmonary disease) J44.9 Mass of upper lobe of left lung R91.8
--- NOTE | 2020-12-12 12:33 | PC.NURSE ---
Patient's son Spencer called to speak to this fiction and nonfiction prose writer about keeping his father until Monday. Spencer states, I thought the doctor, dad and I agreed that he could stay until Monday. He will not get the care there that he is getting at your facility. Explained to Spencer that Dr. Geiger stated that patient is able to go back to the senior living on antibiotic's by mouth and we will give him an enema here and then he can take medications at the senior living to help him have bowel movements as well. Dr. Geiger is also aware that his dad does not like his roommate at the senior living and the health and social care teacher is talking to [place] about it. Spencer requested to speak to Dr. Geiger. Transferred call to Dr. Geiger at this time.
--- NOTE | 2020-12-12 12:40 | PC.NURSE ---
Dr. Geiger at bedside with this nurse. Dr. Geiger heard back from the protective services social worker and [place] states that the patient can come back to a private room if he is willing to go back. Patient states, What did my son say? Dr. Geiger informed patient that his son Spencer said that it was up to him if he wanted to go back to the senior care or not. Patient states, No I think I am going to stay here until Monday.
--- NOTE | 2020-12-12 12:42 | PC.NURSE ---
In room to give patient the enema he requested. Patient's son is at bedside. Patient states, You will have to come back after he leaves I am talking to my son.
--- NOTE | 2020-12-12 13:14 | DCPLANNER ---
Pg 2 of IM updated and reviewed with pt. No questions, copy provided. Signed, dated and timed copy in chart.
[2020-12-12] MEDS: Fleet Enema 133 mL Enema 118 ML PR (13:32)
--- NOTE | 2020-12-12 13:32 | PC.NURSE ---
Fleets enema completed at this time.
[2020-12-12] MEDS: enoxaparin 30 mg/0.3 mL Syringe SUBCUT (15:05)
--- NOTE | 2020-12-12 15:48 | PC.NURSE ---
Patient did get up to the bedside commode. Small round brown bowel movement had. Patient states, I can not push because my back hurt too much.
--- NOTE | 2020-12-12 18:00 | PC.NURSE ---
Patient's IV infiltrated at this time. Patient refused to let this nurse start another on stating that he is leaving on Monday and does not need it. Messaged Dr. Geiger who changed all of patient's IV medications to PO.
[2020-12-12] MEDS: metoprolol succinate ER (24 HR) 50 mg Tablet PO (18:25)
--- NOTE | 2020-12-12 19:48 | PC.NURSE ---
Report to Berencie ANGELES at this time.
[2020-12-12] MEDS: acetylcysteine 200 mg/mL SDV 4 mL 100 MG INHALATION (21:05)
[2020-12-12] MEDS: linezolid 600 mg Tablet PO (21:09)
[2020-12-12] MEDS: tamsulosin 0.4 mg Capsule PO (21:09)
[2020-12-13] VITALS (17 sets, daily range): BP systolic 93–124; BP diastolic 57–73; PULSE 82–120; RESP 17–23; TEMP 36.4–37.1; O2SAT 90–96
[2020-12-13] MEDS: HYDROcodone-acetaminophen 5-325 mg Tablet 1 TAB PO ×3 (00:03→20:27)
[2020-12-13] MEDS: pantoprazole DR 40 mg Tablet PO (06:13)
[2020-12-13] MEDS: bumetanide 1 mg Tablet PO ×3 (06:13→17:39)
[2020-12-13] MEDS: metoprolol succinate ER (24 HR) 100 mg Tablet PO (06:14)
[2020-12-13] MEDS: potassium chloride ER 10 mEq Tablet PO (06:14)
[2020-12-13 07:42] LABS: Blood Urea Nitrogen 48 mg/dL (8-23); Calcium 9.1 mg/dL (8.5-10.5); Carbon Dioxide 24 mmol/L (22-29); Chloride 96 mmol/L (98-107); Glucose 85 mg/dL (65-115); Osmolality Calculated 290 mOsm/kg (285-295); Sodium 134 mmol/L (136-145)
[2020-12-13] MEDS: acetylcysteine 200 mg/mL SDV 4 mL 100 MG INHALATION ×4 (07:44→20:49)
[2020-12-13] MEDS: budesonide 0.5 mg/2 mL Neb 0.25 MG INHALATION ×2 (07:46→20:48)
[2020-12-13] MEDS: ipratropium-albuterol 3 mL Neb INHALATION ×4 (07:46→20:48)
[2020-12-13 07:49] LABS: Anion Gap 19.5 (5-19); Potassium 5.5 mmol/L (3.5-5.1)
[2020-12-13 08:20] LABS: Basophils # 0.1 10^3/uL (0.0-0.1); Basophils % 0.5 %; Eosinophils # 0.5 10^3/uL (0.0-0.8); Eosinophils % 3.5 %; Hematocrit 37.2 % (42.0-52.0); Hemoglobin 11.4 g/dL (11.7-16.6); Lymphocytes # 0.7 10^3/uL (0.8-4.8); Lymphocytes % 4.5 %; Mean Corpuscular HGB Conc 30.6 g/dL (30.0-36.0); Mean Corpuscular Hemoglobin 25.6 pg (28.0-34.0); Mean Corpuscular Volume 83.6 fL (80-94); Mean Platelet Volume 9.6 fL (7.4-10.4); Monocytes # 1.4 10^3/uL (0.2-0.9); Monocytes % 9.3 %; Neutrophils # 11.91 10^3/uL (1.8-7.7); Neutrophils % 79.6 %; Nucleated Red Blood Cells % 0 %; Platelet Count 335 10^3/cmm (130-400); Red Blood Count 4.45 10^6/uL (4.1-5.3); Red Cell Distribution Width 15.2 % (12.1-15.1)
[2020-12-13] MEDS: spironolactone 25 mg Tablet PO (09:03)
[2020-12-13] MEDS: linezolid 600 mg Tablet PO ×2 (09:03→20:27)
[2020-12-13] MEDS: aspirin 81 mg EC Tablet PO (09:03)
[2020-12-13] MEDS: guaiFENesin 600 mg Tablet 1200 MG PO ×2 (09:03→17:39)
[2020-12-13] MEDS: atorvastatin 40 mg Tablet 20 MG PO (09:03)
[2020-12-13] MEDS: ferrous sulfate EC 325 mg Tablet PO (09:03)
[2020-12-13] MEDS: bisacodyl 5 mg Tablet PO (09:04)
[2020-12-13] MEDS: polyethylene glycol 3350 Pkt 17 gm PO ×2 (09:10→17:39)
--- NOTE | 2020-12-13 09:22 | P.PN_ITS ---
Subjective Subjective: Interval history: Patient was seen and examined today.He continues to do well. Has remained afebrile, continues to saturate well on R/A as well if needed then minimal supplemental oxygen. Medications: Reviewed: Yes Vitals/I&O/Wt Last Vital Signs Temp 97.6 F 12/13/20 06:54 Pulse 99 12/13/20 08:02 Resp 17 12/13/20 07:47 BP 124/73 12/13/20 06:54 Pulse Ox 95 12/13/20 07:47 12/12/20 12/13/20 12/13/20 22:59 06:59 14:59 Intake Total 320 / 320 Output Total 350 / 650 325 / 975 Balance -350 / -550 -325 / -875 320 / 320 Physical Exam HENMT: COMMON NORMALS: normocephalic, atraumatic and hearing grossly normal bilaterally HEAD & SCALP: normocephalic and atraumatic Chest: CHEST: Yes Symmetrical chest wall rise OTHER: Bilateral coarse breath sound improving. Cardio: COMMON NORMALS: No gallops present (Cardio), No murmurs present (Cardio) and No rub (Cardio) OTHER: Irregularly irregular, S1-S2 variable intensity. GI: COMMON NORMALS: Normal to inspection, nondistended, normoactive bowel sounds present, Soft to palpation, non-tender, No hepatosplenomegaly present and no masses AUSCULTATION: Yes normoactive bowel sounds PALPATION: Yes Soft to palpation and Yes No hepatosplenomegaly present RECTAL EXAM: Yes deferred Extremity: COMMON NORMALS: no clubbing, cyanosis or edema and no pedal edema Data : 12/13/20 08:12 12/13/20 06:26 A&P Assessment and plan (1) Atrial fibrillation with RVR: Received Cardizem 10 mg IV one-time dose. Currently on metoprolol succinate 100 mg p.o. in am as well as metoprolol succinate 50 mg p.o. nighttime. Rate well controlled. Continue to monitor on telemetry. Status: Acute (2) Acute and chronic respiratory failure with hypoxia: Secondary to diastolic CHF, and pneumonia -Blood culture: NTD, -Sputum culture: MRSA -Repeat sputum culture: MRSA - Rocephin 12/05-T.D ) - azithromycin discontinued on 12/09 - Vancomycin ( 12/07-- 12/12 ) - Zyvox : 600 mg q12h daily ( 12/12 ) - Plan is to complete Total 2 Weeks of Abxs -Bumex 1 mg every 12 hours, monitor potassium, urine output, fluid restriction 1500 cc -Nebulizer treatments -Has a history of COPD, has a history of smoking the past, have held off for steroids for now as no wheezing on exam -Currently on R/A to 2 L, improved over admission -DNR/DNI Status: Acute (3) Pneumonia: Status: Acute (4) Acute exacerbation of CHF (congestive heart failure): Status: Acute (5) Back pain: CT of the lumbar spine did not show any acute fracture PT OT Status: Acute (6) NSTEMI (non-ST elevated myocardial infarction): serially negative deltas, likely related to CHF exacerbation Continue aspirin, statin Status: Acute (7) Acute on chronic anemia: Status: Acute (8) Fracture of C7 vertebra, closed: Status: Acute (9) HTN (hypertension): Status: Acute (10) COPD (chronic obstructive pulmonary disease): Status: Acute (11) Mass of upper lobe of left lung: 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 Giordano's note patient has elected for no treatment. Has not followed up with oncology for the last 4 months. Declined hospice on most recent admission. Patient daughter was at bedside, and she wants him to see , as well as . Patient can follow them as an outpatient on discharge. Patient is due to return to long-term on Monday. Status: Acute Attestations Medical Necessity Statement*: Patient is awaiting return to long-term on Monday.Has no medical reasons to stay in hospital. Coding Level of Care Code Acute Associate Research Scientist for [facility] Fwd Exam Detailed Diagnoses Atrial fibrillation with RVR I48.91 Acute and chronic respiratory failure with hypoxia J96.21 Pneumonia J18.9 Acute exacerbation of CHF (congestive heart failure) I50.9 Back pain M54.9 NSTEMI (non-ST elevated myocardial infarction) I21.4 Acute on chronic anemia D64.9 Fracture of C7 vertebra, closed S12.600A HTN (hypertension) I10 COPD (chronic obstructive pulmonary disease) J44.9 Mass of upper lobe of left lung R91.8
[2020-12-13] MEDS: cefTRIAXone 1,000 MG in sodium chloride 0.9% (plus) 50 ML 100 MG IV (10:14)
[2020-12-13] MEDS: enoxaparin 30 mg/0.3 mL Syringe SUBCUT (13:10)
[2020-12-13] MEDS: acetaminophen 325 mg Tablet 650 MG PO (15:31)
[2020-12-13] MEDS: metoprolol succinate ER (24 HR) 50 mg Tablet PO (17:39)
[2020-12-13] MEDS: tamsulosin 0.4 mg Capsule PO (20:27)
[2020-12-14] VITALS (13 sets, daily range): BP systolic 96–115; BP diastolic 58–70; PULSE 80–107; RESP 17–20; TEMP 36.6–37.1; O2SAT 94–96
[2020-12-14] MEDS: pantoprazole DR 40 mg Tablet PO (06:03)
[2020-12-14] MEDS: acetaminophen 325 mg Tablet 650 MG PO ×2 (06:03→13:44)
[2020-12-14] MEDS: potassium chloride ER 10 mEq Tablet PO (06:03)
[2020-12-14] MEDS: metoprolol succinate ER (24 HR) 100 mg Tablet PO (06:03)
[2020-12-14] MEDS: budesonide 0.5 mg/2 mL Neb 0.25 MG INHALATION (08:21)
[2020-12-14] MEDS: acetylcysteine 200 mg/mL SDV 4 mL 100 MG INHALATION ×3 (08:21→11:53)
[2020-12-14] MEDS: ipratropium-albuterol 3 mL Neb INHALATION ×2 (08:21→11:53)
[2020-12-14] MEDS: bumetanide 1 mg Tablet PO (08:25)
[2020-12-14] MEDS: linezolid 600 mg Tablet PO (08:25)
[2020-12-14] MEDS: polyethylene glycol 3350 Pkt 17 gm PO (08:25)
[2020-12-14] MEDS: atorvastatin 40 mg Tablet 20 MG PO (08:25)
[2020-12-14] MEDS: aspirin 81 mg EC Tablet PO (08:26)
[2020-12-14] MEDS: guaiFENesin 600 mg Tablet 1200 MG PO (08:26)
[2020-12-14] MEDS: spironolactone 25 mg Tablet PO (08:26)
[2020-12-14] MEDS: bisacodyl 5 mg Tablet PO (08:26)
[2020-12-14] MEDS: HYDROcodone-acetaminophen 5-325 mg Tablet 1 TAB PO (08:27)
--- NOTE | 2020-12-14 09:01 | PC.SOCIAL ---
-IMM update- Pg 2 of IMM updated and reviewed with pt. No questions, copy provided. Signed, dated and timed copy in chart.
[2020-12-14] MEDS: cefTRIAXone 1,000 MG in sodium chloride 0.9% (plus) 50 ML 100 MG IV (10:19)
[2020-12-14] MEDS: enoxaparin 30 mg/0.3 mL Syringe SUBCUT (13:39)
--- NOTE | 2020-12-14 15:19 | PM.DCS ---
Discharge Providers Date of Admission: 12/05/20 22:01 Date of Discharge: December 14, 2020 Attending Provider at Admission: John Troncoso MD Attending Provider at Discharge: Oni Cope Primary Care Provider: Toni Strauss MD Diagnoses at Discharge Discharge Diagnosis (1) Atrial fibrillation with RVR: Status: Acute (2) Acute and chronic respiratory failure with hypoxia: Status: Acute (3) Pneumonia: Status: Acute (4) Acute exacerbation of CHF (congestive heart failure): Status: Acute (5) Back pain: Status: Acute (6) NSTEMI (non-ST elevated myocardial infarction): Status: Acute (7) Acute on chronic anemia: Status: Acute (8) Fracture of C7 vertebra, closed: Status: Acute (9) HTN (hypertension): Status: Acute (10) COPD (chronic obstructive pulmonary disease): Status: Acute (11) Mass of upper lobe of left lung: Status: Acute Reason for Visit Reason for Visit: SOB Hospital Course Hospital Course Please see patient's H&P, consult notes and progress notes for more details. Discharge diagnoses and problem list Acute on chronic respiratory failure secondary to left upper lobe mass and pneumonia. Currently stable with supplemental oxygen. MRSA pneumonia. Being discharged on linezolid. 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 Lower back pain. Lumbar spine CT was without evidence of fractures. The patient states that the pain is the best relieved by massaging the area. However if it persists additional testing might be necessary. A. fib with RVR. Currently rate controlled. Chronic kidney disease stage III-IV. Stable renal function. Mild hypokalemia probably due to potassium supplementation. Please recheck chemistry panel in 1 to 2 days and do further adjustments. Spironolactone can be also discontinued if hyperkalemia persists. Anemia. Stable. Continue monitoring. History of CHF and pulmonary arterial hypertension. Currently stable. History of COPD. No evidence of acute exacerbation. Hospital course. Briefly the patient was admitted due to shortness of breath and acute on chronic respiratory failure. He was found to have pneumonia as well as above described left upper lobe mass. He improved with provided treatments. Currently ready for discharge. He is accepted to shelter facility. Eager to be discharged. He will need further work-up for the lung mass. Referral is provided to see Dr. Giordano, heme-onc and Dr. Travis, pulmonary medicine. I discussed these instructions with the patient and his son who is at the bedside. They verbalized understanding and agreement. They were also asked to come back to emergency room if he develops any new shortness of breath, fever or chills, nausea vomiting, diarrhea, chest pain or any other new complaints. They agreed with the plan of care. Physical Exam Narrative: EXAM NARRATIVE: The patient is awake alert oriented. No acute distress. Mood and affect are appropriate. Skin warm and dry. Moist mucous memories. Neck supple. No JVD Lungs crackles are present. No respiratory distress Heart S1, S2,irregular Abdomen soft, nontender, bowel sounds are present Extremities no calf tenderness or cyanosis bilaterally. Discharge Data Data Completed and Pending: Completed Studies During Hospitalization Category Date Time Status CT chest wo con 7 1250 Stat Cat Scan 12/05/20 18:[address] lumbar spine w o con* [id number] Stat Cat Scan 12/05/20 20:07 Completed XR chest 1V shanda ble [id number] Routine Exams 12/10/20 09:56 Completed XR chest 1V shanda ble [id number] Urgent Exams 12/05/20 16:07 Completed Pending at discharge Category Date Time Status Basic Metabolic P mc AM LABS Lab 12/14/20 04:00 Ordered Basic Metabolic P mc AM LABS Lab 12/15/20 04:00 Ordered Complete Blood Co unt w/Auto AM LABS Lab 12/14/20 04:00 Ordered Complete Blood Co unt w/Auto AM LABS Lab 12/15/20 04:00 Ordered Complete Blood Co unt w/Auto AM LABS Lab 12/15/20 04:00 Ordered Magnesium AM LABS Lab 12/15/20 04:00 Ordered Renal Function Pa ousmane AM LABS Lab 12/15/20 04:00 Ordered Laboratory Results WBC 15.0 10^3/uL (4.0 -10.0) H 12/13/20 08:12 Corrected WBC Cancelled 12/13/20 06:26 RBC 4.45 10^6/uL (4.1 -5.3) 12/13/20 08:12 Hgb 11.4 g/dL (11.7-1 6.6) L 12/13/20 08:12 Hct 37.2 % (42.0-52.0 ) L 12/13/20 08:12 MCV 83.6 fL (80-94) 12/13/20 08:12 MCH 25.6 pg (28.0-34. 0) L 12/13/20 08:12 MCHC 30.6 g/dL (30.0-3 6.0) 12/13/20 08:12 RDW 15.2 % (12.1-15.1 ) H 12/13/20 08:12 Plt Count 335 10^3/cmm (130 -400) 12/13/20 08:12 MPV 9.6 fL (7.4-10.4) 12/13/20 08:12 Gran % Cancelled 12/13/20 06:26 Neut % (Auto) 79.6 % 12/13/20 08:12 Lymph % (Auto) 4.5 % 12/13/20 08:12 [place] % (Auto) 9.3 % 12/13/20 08:12 Eos % (Auto) 3.5 % 12/13/20 08:12 Baso % (Auto) 0.5 % 12/13/20 08:12 Neut # (Auto) 11.91 10^3/uL (1. 8-7.7) H 12/13/20 08:12 Lymph # (Auto) 0.7 10^3/uL (0.8- 4.8) L 12/13/20 08:12 [place] # (Auto) 1.4 10^3/uL (0.2- 0.9) H 12/13/20 08:12 Eos # (Auto) 0.5 10^3/uL (0.0- 0.8) 12/13/20 08:12 Baso # (Auto) 0.1 10^3/uL (0.0- 0.1) 12/13/20 08:12 Absolute Gran (aut o) Cancelled 12/13/20 06:26 Nucleated RBC % (a uto) 0 % 12/13/20 08:12 Nucleated RBCs # 0.0 /100WBC 12/13/20 08:12 Specimen Type Arterial 12/05/20 16:20 Sample Site Radial, left 12/05/20 16:20 ABG pH 7.46 (7.35-7.45) H 12/05/20 16:20 ABG pCO2 40.0 mmHg (35-45) 12/05/20 16:20 ABG pO2 161.0 mmHg (80.0- 100.0) H 12/05/20 16:20 ABG HCO3 28.2 mmol/L (22-2 6) H 12/05/20 16:20 ABG Base Excess 4.0 mmol/L (-2.0- 2.0) H 12/05/20 16:20 Robin Test Pos 12/05/20 16:20 Hematocrit 33.9 % (42-52) L 12/05/20 16:20 Hgb O2 Saturation 97.7 % (95-100) 12/05/20 16:20 Carboxyhemoglobin 1.1 %THgb (0.4-20 .1) 12/05/20 16:20 Methemoglobin 1.0 % (0.4-1.5) 12/05/20 16:20 Total Hemoglobin 11.0 g/dL (14-18) L 12/05/20 16:20 O2 Delivery Device Nc 12/05/20 16:20 O2 Liters/Min 5.0 % 12/05/20 16:20 FiO2 40.0 % 12/05/20 16:20 Nursing Home Assistant Administrator ID Monro 12/05/20 16:20 Sodium 134 mmol/L (136-1 45) L 12/13/20 06:26 Potassium 5.5 mmol/L (3.5-5 .1) H 12/13/20 06:26 Chloride 96 mmol/L (98-107 ) L 12/13/20 06:26 Carbon Dioxide 24 mmol/L (22-29) 12/13/20 06:26 Anion Gap 19.5 (5-19) H 12/13/20 06:26 BUN 48 mg/dL (8-23) H 12/13/20 06:26 Creatinine 2.2 mg/dL (0.7-1. 2) H 12/13/20 06:26 GFR Calculation Not Reportable 12/13/20 06:26 Glucose 85 mg/dL (65-115) 12/13/20 06:26 Calculated Osmolal ity 290 mOsm/kg (285- 295) 12/13/20 06:26 Lactate 0.6 mmol/L (0.5-2 .2) 12/05/20 17:55 Calcium 9.1 mg/dL (8.5-10 .5) 12/13/20 06:26 Phosphorus 4.0 mg/dL (2.5-4. 5) 12/08/20 04:56 Magnesium 2.6 mg/dL (1.7-2. 3) H 12/10/20 05:27 Total Bilirubin 0.3 mg/dL (0.15-1 .2) 12/08/20 04:56 AST 10 U/L (0-40) 12/08/20 04:56 ALT 9 U/L (0-41) 12/08/20 04:56 Alkaline Phosphata se 125 IU/L (40-130) 12/08/20 04:56 Troponin T Baselin e 75 ng/L (0-15) H 12/05/20 17:55 Troponin T 120 Min beaver 73.61 ng/L (0-15) H 12/05/20 19:59 Delta Troponin T -1.39 ABS# (0-10) L 12/05/20 19:59 Troponin T Hi Sens 6Hr 63.50 ng/L (0-15) H 12/05/20 22:10 Troponin T Hi Sens 6Hr Delta -11.50 ng/L (0-12 ) L 12/05/20 22:10 NT-Pro-B Natriuret Pep 9908 pg/mL (0-450 ) H 12/08/20 04:56 Total Protein 6.0 g/dL (6.6-8.7 ) L 12/08/20 04:56 Albumin 3.3 g/dL (3.5-5.2 ) L 12/08/20 04:56 Globulin 2.7 g/dL (1.3-4.6 ) 12/08/20 04:56 Urine Color Yellow (Yellow) 12/06/20 10:48 Urine Appearance Clear (CLEAR) 12/06/20 10:48 Urine pH 5 (5-7) 12/06/20 10:48 Ur Specific Gravit y 1.015 (1.005-1.0 30) 12/06/20 10:48 Urine Protein Neg (Negative) 12/06/20 10:48 Urine Glucose (UA) Norm (Normal) 12/06/20 10:48 Urine Ketones Negative (Negati ve) 12/06/20 10:48 Urine Blood Neg (Negative) 12/06/20 10:48 Urine Nitrate Negative (Negati ve) 12/06/20 10:48 Urine Bilirubin Neg (Negative) 12/06/20 10:48 Urine Urobilinogen Norm mg/dL (Negat luis) 12/06/20 10:48 Ur Leukocyte Nataliya ase Negative (Negati ve) 12/06/20 10:48 Vancomycin Trough 13.8 ug/mL (10-15 ) 12/10/20 14:00 SARS-CoV-2 Ag (Rap id) Negative (Negati ve) 12/05/20 17:[address] 12/05/20 18:40 IMPRESSION: 1. Increase in the size of the left upper lobe mass, measuring 5.1 x 4.6 cm. It extends to the left suprahilar region and contact seen oblique fissure. 2. Mildly enlarged subcarinal node. 3. Small left pleural effusion. 4. Bilateral indeterminate adrenal nodules, the larger measuring 2.0 cm on the right. 5. Cholelithiasis without pericholecystic inflammatory changes. COMMENTS: 1. Consistent with the [employer]'s Incidental Findings Committee white paper (J Am Rodriguez Radiol 2017): For any incidental adrenal lesion greater than 1 cm but less than 4 cm classified in this report as benign, likely benign, or containing fat (including classification as an adenoma or myelolipoma), no follow-up imaging is recommended per consensus recommendations based on imaging criteria. Further lab evaluation could be pursued if warranted based on clinical findings. 2. Consistent with the [employer]'s Incidental Findings Committee white paper (J Am Rodriguez Radiol 2018): Any incidental renal lesion less than 1 cm or classified as too small to characterize, or any incidental cystic renal lesion characterized as simple-appearing, is likely benign. No follow-up imaging is recommended for these lesions per consensus recommendations based on imaging criteria. Radiation Dose CTDIVOL = (mGy): DLP = 968.78 (mGy-cm) Lumbar Spine CT 12/05/20 20:07 IMPRESSION: 1. No acute fracture. 2. Bilateral indeterminate adrenal nodules measuring up to 2.0 cm on the right. COMMENTS: 1. Consistent with the [employer]'s Incidental Findings Committee white paper (J Am Rodriguez Radiol 2017): For any incidental adrenal lesion greater than 1 cm but less than 4 cm classified in this report as benign, likely benign, or containing fat (including classification as an adenoma or myelolipoma), no follow-up imaging is recommended per consensus recommendations based on imaging criteria. Further lab evaluation could be pursued if warranted based on clinical findings. 2. Consistent with the [employer]'s Incidental Findings Committee white paper (J Am Rodriguez Radiol 2018): Any incidental renal lesion less than 1 cm or classified as too small to characterize, or any incidental cystic renal lesion characterized as simple-appearing, is likely benign. No follow-up imaging is recommended for these lesions per consensus recommendations based on imaging criteria. Radiation Dose CTDIVOL = (mGy): DLP = 2232.88 (mGy-cm) Chest X-Ray 12/10/20 09:56 IMPRESSION: Stable abnormal chest with no acute abnormality. Vitals: Last Vital Signs Temp 98.0 F 12/14/20 11:37 Pulse 81 12/14/20 12:01 Resp 20 H 12/14/20 11:55 BP 105/62 12/14/20 11:37 Pulse Ox 96 12/14/20 11:55 Discharge Plan Discharge Patient Disposition: [facility] Condition: Stable Prescriptions: New acetaminophen 325 mg Tablet 650 mg PO Q6H PRN (Reason: Mild/Mod Pain Or Temp >/= 101) Qty: 1 RF: 0 aspirin 81 mg Tablet,Delayed Release (Dr/Ec) 81 mg PO DAILY Qty: 30 RF: 0 bumetanide 1 mg Tablet 1 mg PO BIDWM Qty: 30 RF: 0 hydrocodone-acetaminophen 5-325 mg Tablet 1 tab PO Q6H PRN (Reason: Moderate Pain) Qty: 30 RF: 0 linezolid 600 mg Tablet 600 mg PO Q12H 7 Days Qty: 14 RF: 0 metoprolol succinate 50 mg Tablet Extended Release 24 Hr 50 mg PO DAILY@1900 Qty: 30 RF: 0 Continued budesonide [Pulmicort] 0.25 mg/2 mL suspension for nebulization 0.25 mg inhalation BID 30 Days Qty: 120 RF: 3 (DME) Custome Neck Brace See Rx Instructions .Route .MEDSUPPLY Qty: 1 RF: 0 (DME) Custome Neck Brace See Rx Instructions .Route .MEDSUPPLY Qty: 1 RF: 0 zolpidem 10 mg tablet 10 mg PO DAILY@21 RF: 0 albuterol sulfate 90 mcg/actuation HFA aerosol inhaler 2 puff inhalation QID PRN (Reason: Shortness Of Breath) RF: 0 (DME) BONE GROWTH STIMULATOR [id number] See Rx Instructions .Route .MEDSUPPLY Qty: 1 RF: 0 bisacodyl [Dulcolax (bisacodyl)] 10 mg Suppository 10 mg IA DAILY PRN (Reason: Constipation) RF: 0 Perforomist 20 mcg/2 mL Solution For Nebulization 2 ml INHALATION BID RF: 0 tamsulosin 0.4 mg capsule 0.4 mg PO DAILY@2100 RF: 0 acetaminophen [Arthritis Pain Relief (acetam)] 650 mg tablet extended release 650 mg PO Q8H PRN (Reason: Pain) RF: 0 spironolactone 25 mg Tablet 25 mg PO DAILY@0900 RF: 0 simvastatin [Zocor] 40 mg Tablet 40 mg PO DAILY@0900 RF: 0 lidocaine HCl 2 % Jelly 1 applic topical DAILY PRN (Reason: Itching) Qty: 50 RF: 0 ferrous sulfate 325 mg (65 mg iron) Tablet,Delayed Release (Dr/Ec) 325 mg PO EVERY OTHER DAY Qty: 15 RF: 0 metoprolol succinate 100 mg Tablet Extended Release 24 Hr 100 mg PO DAILY@07 RF: 0 ipratropium-albuterol 0.5 mg-3 mg(2.5 mg base)/3 mL solution for nebulization 3 ml inhalation Q4H PRN (Reason: shortness of breath or wheezing) Qty: 180 RF: 0 Milk of Magnesia 400 mg/5 mL Suspension 30 ml PO DAILY PRN (Reason: Constipation) RF: 0 Fleet Enema 19-7 gram/118 mL Enema 118 ml IA DAILY PRN (Reason: Constipation) RF: 0 carboxymethylcellulose sodium 1 % Drops, Liquid Gel 1 drp OPHTHALMIC (EYE) BID PRN (Reason: Eye Irritation) RF: 0 food supplemt, lactose-reduced Liquid 90 ea PO BID RF: 0 pantoprazole 40 mg tablet,delayed release (DR/EC) 40 mg PO DAILY@06 RF: 0 Discontinued potassium chloride 10 mEq tablet extended release 10 meq PO DAILY@07 RF: 0 hydrocodone-acetaminophen 5-325 mg Tablet 1 tab PO Q8H PRN (Reason: Pain) RF: 0 bumetanide 0.5 mg Tablet 0.5 mg PO DAILY@2000 RF: 0 bumetanide 1 mg Tablet 1 mg PO DAILY@0800 RF: 0 Discharge Orders: Discharge Order (Routine); Ordered 12/14/20 Ordered By: Oni Cope Other Ambulatory Orders: Complete Blood Count w/Auto (Routine) Timeframe: 1 Week Location: Determined by Patient Ordered By: Oni Cope Comprehensive Metabolic Panel (Routine) Timeframe: 3 Days Facility: [facility] - Location: Lab - Main Lab Ordered By: Oni Cope Referrals: Josh Giordano MD [Hospitalist] - 7-10 days (lung mass) Hayden Travis MD [Physician] - 4-7 days (lung mass/PNA) Discharge Diet: Cardiac Discharge Activity: Increase activity as tolerated Patient Instructions: Metoprolol (By mouth), Bumetanide (By mouth), Acetaminophen (By mouth), Hydrocodone/Acetaminophen (By mouth), Aspirin (By mouth), Linezolid (By mouth), Heart Failure (DC), Atrial Fibrillation (DC), Lung Cancer (DC), Chronic Obstructive Pulmonary Disease (DC), Bacterial Pneumonia (DC), CHF Stoplight, COPD Stoplight Discharge Attestations Time Spent in Discharge Care*: greater than 30 min Status at Discharge: Cognitive status at discharge: cognitively intact, Behavioral status at discharge: cooperative, Quality Metrics Clinical Quality Measures During this hospital stay, did patient experience: None Coding Level of Care Code Acute Chg FW DC note Diagnoses Atrial fibrillation with RVR I48.91 Acute and chronic respiratory failure with hypoxia J96.21 Pneumonia J18.9 Acute exacerbation of CHF (congestive heart failure) I50.9 Back pain M54.9 NSTEMI (non-ST elevated myocardial infarction) I21.4 Acute on chronic anemia D64.9 Fracture of C7 vertebra, closed S12.600A HTN (hypertension) I10 COPD (chronic obstructive pulmonary disease) J44.9 Mass of upper lobe of left lung R91.8
--- NOTE | 2020-12-14 15:20 | PC.NURSE ---
Called [facility] gave report to Dominique. Waiting on transportation.
== END 2020-12-14 16:03 | disposition skilled nursing facility (03) | DRG 177 ==
LOC: ER 19:37 → MEDSURG 22:45
PROVIDERS: Internal Medicine; Admitting Provider Family Medicine; Emergency Provider Family Medicine; PCP Family Medicine; Visit Provider Internal Medicine
DX: J15.212 Pneumonia due to Methicillin resistant Staphylococcus aureus (principal); I21.4 Non-ST elevation (NSTEMI) myocardial infarction; I50.33 Acute on chronic diastolic (congestive) heart failure; J96.21 Acute and chronic respiratory failure with hypoxia; S12.600A Unspecified displaced fracture of seventh cervical vertebra, initial encounter for closed fracture; I13.0 Hypertensive heart and chronic kidney disease with heart failure and stage 1 through stage 4 chronic kidney disease, or unspecified chronic kidney disease; N18.4 Chronic kidney disease, stage 4 (severe); J44.0 Chronic obstructive pulmonary disease with (acute) lower respiratory infection; I27.20 Pulmonary hypertension, unspecified; I48.91 Unspecified atrial fibrillation; D63.1 Anemia in chronic kidney disease; Z85.118 Personal history of other malignant neoplasm of bronchus and lung; Z90.2 Acquired absence of lung [part of]; R91.8 Other nonspecific abnormal finding of lung field; Z85.528 Personal history of other malignant neoplasm of kidney; Z90.5 Acquired absence of kidney; W19.XXXA Unspecified fall, initial encounter; M54.5 Low back pain; M19.90 Unspecified osteoarthritis, unspecified site; Z79.51 Long term (current) use of inhaled steroids; E87.6 Hypokalemia; Z66 Do not resuscitate; Z87.891 Personal history of nicotine dependence; Z90.79 Acquired absence of other genital organ(s); E78.5 Hyperlipidemia, unspecified; I87.8 Other specified disorders of veins; N40.1 Benign prostatic hyperplasia with lower urinary tract symptoms
CPT/HCPCS: 36415; 36600; 71045; 71250; 72131; 80048; 80053; 80202; 81003; 82805; 83605; 83735; 83880; 84100; 84484; 85025; 87040; 87070; 87077; 87186; 87205; 87426; 93005; 94640; 94664; 94669; 96365; 96367; 96372; 96375; 97110; 97116; 97161; 97165; 97530; 97535; 99285; J0456; J0696; J1650; J1940; J3370; J3490; J7050; J7608; J7626

== ENCOUNTER 2020-12-21 08:18 | Outpatient (CLI) | payer MEDICARE, OTHER, SELFPAY ==
--- NOTE | 2020-12-21 20:07 | ONC CON_ITS ---
Dr. Giordano New Patient Note Patient: Diego Garzon Unit #: [id number]: 1935 Dicatated By: Josh Giordano M.D.Date of Visit: Dec 21, 2020 Onc MED New Patient/Consult Referring Physician: Dr. Toni Strauss M.D. Dr. Marco Antonio Cantrell M.D. Chief Complaint: Lung cancer. History of Present Illness: This is an 85-year-old man with CT evidence of a left upper lobe lung mass, presumed malignant. 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 By the current TNM criteria, his disease was Stage IA3 (T1c, N0, M0). He received no further treatment. At that time, his PET/CT had also shown an FDG avid right renal mass, for which he underwent right nephrectomy in October 2012. It apparently was a renal cell carcinoma, though that pathology was not available to me. On 07/10/2020 he was seen by Dr. Strauss with new onset of hemoptysis. His chest CT on 07/20/2020 showed a left upper lobe mass measuring 4.1 x 3.6 x 3.8 cm. An additional satellite nodule in the left upper lobe measured 5 mm. The mass appeared to connect to the left hilum with left hilar adenopathy measuring 2.3 cm. There was no evidence of other metastatic disease. I had seen him initially on 07/31/2020. He had been reluctant to seek any treatment for the lung cancer. However, as I was concerned about his having hemoptysis I did get him agree to see Dr. Travis and to have further evaluation with PET/CT. On 08/07/2020 he underwent bronchoscopy/EBUS. There were no endobronchial lesions identified. Transbronchial FNA biopsies were obtained from the left upper lobe mass. The initial pathology reported clusters of atypical cells which were felt to be suspicious for malignancy, but on the final pathology no malignancy was identified. His staging PET/CT on 08/15/2020 showed FDG avid left upper lobe lung mass measuring 4.5 cm, SUV 19.1, consistent with malignancy. A 7 mm left upper lobe nodule was too small to characterize. Left hilar activity was unremarkable and there was no evidence for local metastatic disease in the mediastinum. A 1.5 cm left adrenal solid nodule had SUV 5.1 and was felt to be suspicious for metastatic disease. His further clinical course was complicated first by urinary retention requiring placement of indwelling Wang catheter and subsequently by a fall at home resulting in a nondisplaced C7 fracture. On 08/28/2020 he underwent C3-T2 PSF with C3-T2 instrumentation and reduction of the C7 fracture. He was discharged to [facility] for recovery. His further clinical course was then complicated by hospital admissions for acute renal injury/NSTEMI and for acute congestive heart failure. On 12/06/2019 when he was admitted to the hospital after [facility] had [facility] His CT of the lumbar spine showed no acute fracture. He was incidentally noted to have bilateral adrenal nodules measuring up to [address] at that time showed further increase in the size of the left upper lobe mass to 5.1 x 4.6 cm. It was noted to extend to the left suprahilar region. There was a mildly enlarged subcarinal lymph node and there was a small left pleural effusion. Bilateral adrenal nodules were again noted and felt to be indeterminate. He is seen now for a follow-up visit. He has had very limited activity since his recent injuries. He has only very limited ambulation. His ECOG score is 3. His appetite has been poor, he says it is starting to get a little better. He has not had fever or night sweats. He does report having occasional chills. He has shortness of breath and cough, and he has continued to have some hemoptysis. He has had a little pain in his upper right chest ever since his lung surgery. He has occasional nausea. He was having severe constipation, but that recently has also been better. He still complains of having gas on his stomach. Bladder function is okay now. He does have pain in his back which radiates around to the abdomen. He says his neck is not too bad now. He says he always has a headache. He has some dizziness, but not bad. He has numbness/tingling in his hands and feet. He has had significant depression since his , and that has not been getting any better. Past Medical History: His medical history includes benign prostatic hypertrophy, chronic kidney disease, chronic obstructive pulmonary disease, congestive heart failure, degenerative arthritis, depression, history of non-small cell lung cancer, history of renal cell cancer, hyperlipidemia, hypertension, and type II diabetes. Past Surgical History: His surgical/procedural history includes C3-T2 PSF with C3-T2 instrumentation and C7 fracture reduction in 2019, navigational bronchoscopy with EBUS in 2019, right nephrectomy in 2012, right upper lobectomy with mediastinal lymphadenectomy in 2011, and TURP in 1992. Medications: Albuterol Sulfate 2 Inhalation (of 108 (90 base) mcg/act) Aerosol Powder, Breath Activated Inhalation q 4 hours PRN, Aspirin 81 1 Tablet (of 81 mg) Tablet, chewable Oral daily, Bumetanide 1 Tablet (of 1 mg) Oral daily, Ferrous Sulfate 1 Tablet (of 325 (65 fe) mg) Oral daily, Finasteride 1 (5 mg) Tablet Oral at bedtime, Furosemide 1 (40 mg) Tablet Oral b.i.d., Ipratropium-Albuterol 1 Ampule (of 0.5-2.5 (3) mg/3mL) Solution Inhalation q 4 to 6 hours PRN, Metoprolol Succinate ER 1.5 Tablet (of 100 mg) Tablet SR 24 HR Oral daily, Metoprolol Tartrate 1 (100 mg) Tablet Oral b.i.d., Pantoprazole Sodium (40 mg) Tablet, enteric coated Oral daily, Perforomist 1 Ampule (of 20 mcg/2mL) Nebulization solution Inhalation b.i.d., Potassium Chloride 1 (10 meq) Capsule, controlled release Oral daily, Simvastatin 1 (40 mg) Tablet Oral at bedtime, Tamsulosin HCl 1 Caplet (of 0.4 mg) Capsule Oral daily, Zolpidem Tartrate 1 (10 mg) Tablet Oral at bedtime Allergies: No Known Allergies. Social History: Mr. Garzon is . He has a history of smoking 2 packs of cigarettes daily for about 45 years. He quit smoking in 2000. He does not drink alcohol. He had some alcohol use in the past, but never heavy. Family History: Father of stomach cancer at age 56. Mother of stroke at age 86. He had a total of 7 siblings, all of whom are . One sister and one brother of lung cancer and another sister of liver cancer. Another brother had heart disease. Review Of Symptoms: As above. Vital Signs: Performed on Dec 21, 2020 08:46: 7, 9, 70.00 in, 98 %, 115 /min (HIGH), 22 /min, 94/65 mm(hg), 97.6 F (LOW), Performed on Jul 31, 2020 10:14: 30.10 (HIGH), 2.13 sq.m, and 209.8 lbs (LOW). Physical Examination: Constitutional - He appears generally weak, Eyes - Sclerae nonicteric. Conjunctivae clear, ENMT - No lesions noted in the oral cavity, Hematologic/Lymphatic - No cervical, clavicular, or axillary adenopathy, Respiratory - Lungs show diminished air movement bilaterally with very coarse breath sounds, Cardiovascular - Heart rhythm is irregular. There is a II/ systolic murmur. There is no gallop or rub noted, Abdomen - Mildly distended and tympanic. Liver and spleen are not enlarged. There is no abdominal mass or ascites noted and there is no inguinal adenopathy, Extremities - There are venous stasis changes in both legs and there is mild lower extremity edema. I am not able to palpate pedal pulses, Integumentary - He has developed raised, soft, plaque-like lesions with yellowish discoloration on the thumb and index finger bilaterally, more prominent on the right. 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 Problem List: 1. Patient with CT evidence of malignant appearing mass in the upper lobe of the left lung. He has associated hemoptysis. 2. In July 2012 he underwent right upper lobectomy/mediastinal lymphadenectomy for a T1c, N0 non-small cell carcinoma. He received no further treatment. 3. In October 2012 he underwent right nephrectomy for renal cell cancer, pathology report not available. 4. Hypertension. 5. Hyperlipidemia. 6. Type 2 diabetes. 7. Chronic kidney disease. 8. Congestive heart failure. 9. COPD. 10. Degenerative arthritis. 11. Benign prostatic hypertrophy. 12. Chronic venous stasis in the lower extremities. 13. Traumatic cervical spine fracture at C7 requiring open reduction on 08/28/2020. 14. Depression. Problems Addressed with this Encounter and Plan: 1. Patient with CT evidence of malignant appearing mass in the upper lobe of the left lung. He has associated hemoptysis. He may benefit with palliative radiation, though treatment potentially would be problematic, as he has difficulty lying flat. His initial bronchoscopy showed no endobronchial lesion, and transbronchial FNA biopsies were nondiagnostic. He has since then had a very complicated clinical course, and he does have very marginal performance status. I have discussed the issue with Dr. Travis, who will be seeing him later this morning. He will address the issue of proceeding with another biopsy. He would otherwise just transition to symptomatic/supportive care. 2. He is having significant back pain following a recent [facility]. He says his pain is not being managed adequately, and that issue will need to be addressed with the [facility]. At the same time he will need attention to his bowel regimen, as he is already had significant constipation. 3. He has continued to have significant depression following his 's . It is not getting better, and at this point he is interested in starting an antidepressant. Signed By: Josh Giordano M.D. <<Signature on File>>
== END 2020-12-21 08:19 | disposition home or self-care (01) ==
PROVIDERS: PCP Family Medicine; Visit Provider Internal Medicine Medical Oncology
DX: R91.8 Other nonspecific abnormal finding of lung field (principal); Z85.118 Personal history of other malignant neoplasm of bronchus and lung; Z85.528 Personal history of other malignant neoplasm of kidney; Z90.2 Acquired absence of lung [part of]; Z90.5 Acquired absence of kidney; R04.2 Hemoptysis; K59.00 Constipation, unspecified; F32.9 Major depressive disorder, single episode, unspecified
CPT/HCPCS: 99215

== ENCOUNTER → 2020-12-23 13:02 | Outpatient (BNVA) | payer MEDICARE, OTHER, SELFPAY | PROVIDERS: PCP Family Medicine; Visit Provider Urology | DX: N39.0 Urinary tract infection, site not specified (principal); R33.9 Retention of urine, unspecified; N42.1 Congestion and hemorrhage of prostate | CPT/HCPCS: 81003 ==

== ENCOUNTER 2021-01-07 12:58 | Outpatient (CLI) | payer MEDICARE, SELFPAY ==
[2021-01-07 13:54] LABS: Anion Gap 13.9 (5-19); Blood Urea Nitrogen 44 mg/dL (8-23); Calcium 8.1 mg/dL (8.5-10.5); Carbon Dioxide 27 mmol/L (22-29); Chloride 102 mmol/L (98-107); Glucose 88 mg/dL (65-115); Osmolality Calculated 297 mOsm/kg (285-295); Potassium 4.9 mmol/L (3.5-5.1); Sodium 138 mmol/L (136-145)
== END 2021-01-07 12:59 | disposition home or self-care (01) ==
LOC: LAB 13:08
PROVIDERS: Visit Provider Physician Assistant
DX: M62.81 Muscle weakness (generalized) (principal); Z79.899 Other long term (current) drug therapy
CPT/HCPCS: 80048